=== PATIENT | female | born 1985 | race Caucasian/White ===

== ENCOUNTER 2019-08-09 09:37 | Emergency (ER) | payer SELFPAY ==
[2019-08-09 09:47] VITALS: BP 117/76; PULSE 80; RESP 18; TEMP 36.8; O2SAT 100
--- NOTE | 2019-08-09 10:01 | ED.ANIMALBIT ---
HPI - Animal Bite General Chief Complaint: Animal Bite Stated Complaint: Spider Bite ? Time Seen by Provider: 08/09/19 09:55 Source: patient Mode of arrival: ambulatory Limitations: no limitations History of Present Illness HPI narrative: This patient is a 34 year old female who presents for evaluation left arm insect bite. PAtient states she found what appeared to be 2 small insect bites to her left upper arm. These bites developed small blisters and she states she busted and got clear fluid. These small area itch but she denies fever, nausea, vomiting or redness. She came to ER to see if they were spider bites. complaint: other (insect bite) Related Data Home Medications Medication Instructions Recorded Confirmed cyclobenzaprine 10 mg PO PRN PRN 08/09/19 omeprazole 20 mg PO DAILY 08/09/19 Allergies Allergy/AdvReac Type Severity Reaction Status Date / Time No Known Allergies Allergy Verified 08/09/19 09:50 Review of Systems Review of Systems: All systems reviewed & are unremarkable except as noted in HPI and below Constitutional: Constitutional: Denies chills, Denies fever(s) and Denies weakness Respiratory: Respiratory: Denies cough and Denies dyspnea Gastrointestinal: Gastrointestinal: Denies nausea and Denies vomiting Integumentary/Breasts: Skin/Breast: Reports pruritus PMFSH Past Medical History Medical History (Updated 08/09/19 @ 10:07 by Lorin Britt MD) Gastroesophageal reflux Social History Social History (Updated 01/03/19 @ 12:52 by Stew Weaver PA-C) Smoking status: Never smoker Gender identity (if verbalized by the patient): Female Exam Const: General: alert Orientation/consciousness: patient oriented x3 HENMT: Head: normocephalic and atraumatic Eyes: EOM: EOMs intact bilaterally Chest: Chest palpation & inspection: normal inspection of the chest Resp: Effort & Inspection: normal respiratory effort Auscultation: clear to auscultation bilaterally Cardio: Rate: regular rate Rhythm: regular rhythm Heart sounds: no murmurs Skin: Other: 2 small lesions with one having unroof vesicule, no erythema no swelling Neuro: General: patient oriented x3 and moves all extremities Course Vital Signs Vital signs: Vital Signs Temperature 98.3 F 08/09/19 09:47 Pulse Rate 80 08/09/19 09:47 Respiratory Rate 18 08/09/19 09:47 Blood Pressure 117/76 08/09/19 09:47 Pulse Oximetry 100 08/09/19 09:47 Temperature 98.3 F 08/09/19 09:47 Pulse Rate 80 08/09/19 09:47 Respiratory Rate 18 08/09/19 09:47 Blood Pressure 117/76 08/09/19 09:47 Pulse Oximetry 100 08/09/19 09:47 Discharge Plan Discharge Clinical Impression: Insect bite of left arm Qualifiers: Encounter type: initial encounter Qualified Code(s): S40.862A - Insect bite (nonvenomous) of left upper arm, initial encounter Patient Disposition: Home, Self-Care Condition: Stable Instructions: Insect Bite or Sting (ED) Additional Instructions: Continue to monitor your wounds. Return if you have fever, vomiting, worsening redness, swelling return to ER. Continue to clean Prescriptions: No Action cyclobenzaprine 10 mg tablet 10 mg PO PRN PRN (Reason: Muscle Pain) RF: 0 omeprazole 20 mg capsule,delayed release(DR/EC) 20 mg PO DAILY RF: 0 Follow-up/Referrals: Ramon,Segun Ann MD [Primary Care Provider] - Discharge Date/Time: 08/09/19 10:32
== END 2019-08-09 10:32 | disposition home or self-care (01) ==
PROVIDERS: Emergency Provider General Practice; PCP Family Medicine
DX: S40.862A Insect bite (nonvenomous) of left upper arm, initial encounter (principal); K21.9 Gastro-esophageal reflux disease without esophagitis; W57.XXXA Bitten or stung by nonvenomous insect and other nonvenomous arthropods, initial encounter
CPT/HCPCS: 99281

== ENCOUNTER 2021-03-28 16:39 | Emergency (ER) | payer OTHER, SELFPAY ==
[2021-03-28 16:56] VITALS: BP 134/86; PULSE 75; RESP 16; TEMP 36.7; O2SAT 100
--- NOTE | 2021-03-28 17:19 | ED.ABDPAIN ---
HPI - Abdominal Pain General Chief Complaint: Abdominal Pain Stated Complaint: Side Pain Time Seen by Provider: 03/28/21 17:19 Source: patient Mode of arrival: ambulatory Limitations: no limitations History of Present Illness HPI narrative: 36-year-old female presents to the [facility] with complaints of right lower quadrant pain has been getting worse for the last 3 days. No urinary symptoms. States she has had nausea without vomiting. Last menstrual period 14 March 2021 States that she just started fertility treatments. MD elicited complaint: abdominal pain Related Data Home Medications Medication Instructions Recorded Confirmed clomiphene citrate 50 mg PO DIRECTED 03/28/21 03/28/21 Allergies Allergy/AdvReac Type Severity Reaction Status Date / Time No Known Allergies Allergy Verified 03/28/21 16:45 Review of Systems Review of Systems: All systems reviewed & are unremarkable except as noted in HPI and below Constitutional: Constitutional: Reports no additional constitutional complaints, Denies body ache(s), Denies chills and Denies fever(s) Eyes: Eyes: Reports no additional eye complaints ENT: Reports system reviewed and no additional complaints, except as documented Cardiovascular: Cardiovascular: Reports no additional cardiovascular complaints, Denies chest pain and Denies dyspnea Respiratory: Respiratory: Reports no additional respiratory complaints, Denies cough and Denies dyspnea Gastrointestinal: Gastrointestinal: Reports as per HPI, Reports abdominal pain, Denies diarrhea, Reports nausea and Denies vomiting Genitourinary: Genitourinary: Reports no additional female genitourinary complaints, Denies hematuria and Denies dysuria Musculoskeletal: Musculoskeletal: Reports no additional musculoskeletal complaints Integumentary/Breasts: Skin/Breast: Reports system reviewed and no additional complaints, except as docu Neurologic: Reports system reviewed and no additional complaints, except as documented Psychiatric: Psychiatric: Reports no additional psychiatric complaints Allergic/Immunologic: Allergic/Immunologic: Reports no additional allergic/immunologic complaints PMFSH Past Medical History Medical History Gastroesophageal reflux Social History Social History Smoking status: Never smoker Gender identity (if verbalized by the patient): Female Comments At the time of my signature, I reviewed and agree with the nursing past medical, surgical, social, and family history. There is no relevant family history pertinent to the patient complaint. Exam Const: General: cooperative, healthy appearing, comfortable, no acute distress, well developed, alert and acute distress mild (Pain) Nutritional Appearance: well nourished Orientation/consciousness: patient oriented x3 Limitations: no limitations HENMT: Head: normal to inspection Ears: external ears normal Eyes: Pupils: Equal, round and reactive pupils present Neck: Neck: normal visual inspection, no lymphadenopathy and no meningeal signs Chest: Chest palpation & inspection: normal inspection of the chest Resp: Effort & Inspection: normal respiratory effort, able to speak in complete sentences and no use of accessory muscles Auscultation: clear to auscultation bilaterally Cardio: Rate: regular rate Rhythm: regular rhythm GI: GI Palp: Yes Soft to palpation, Yes Tenderness to palpation present (GI), Yes Guarding due to palpation present (GI) and Yes Rebound tenderness present (Right lower quadrant) Auscultation: normal bowel sounds : General: Yes no CVA tenderness Back/Spine/Pelvis: Back: no CVA tenderness Skin: General skin exam: normal color and no rashes or lesions noted Rashes: no rashes Wounds: no wounds Neuro: General: patient oriented x3, gait normal, moves all extremities, no meningeal signs and no focal motor defi
== END 2021-03-28 17:25 | disposition short-term general hospital (02) ==
PROVIDERS: Emergency Provider Nurse Practitioner
DX: R10.31 Right lower quadrant pain (principal); K21.9 Gastro-esophageal reflux disease without esophagitis
CPT/HCPCS: 99212; G0463

== ENCOUNTER 2021-03-28 17:42 | Emergency (ER) | payer OTHER, SELFPAY ==
--- NOTE | ~2021-03-28 | US_ITS ---
EXAMINATION: US pelvic complete EXAM DATE: 03/28/2021 19:30 INDICATION: RLQ abd pain, on CLOMID, rule out torsion RULE OUR TORSION. TECHNIQUE: Pelvic transabdominal sonogram was performed. There are multiple grayscale and Doppler im ages available for interpretation. There is no prior study for comparison. FINDINGS: Uterus measures 7.7 x 4.6 x 6.0 cm cm, and is morphologically normal. Endometrial stripe measures 11 mm, within normal limits. There is no free pelvic fluid. Right adnexa: The ovary measures 3.7 x 2.4 x 2.2 cm and is morphologically normal. Ovarian vascular f low confirmed. Left adnexa: The ovary measures 3.6 x 1.9 x 2.4 cm and is morphologically normal. Ovarian vascular fl ow confirmed. IMPRESSION: 1. Unremarkable pelvic ultrasound exam. Reviewed, dictated and finalized at location G. RYCOOK'S ASSISTANT
--- NOTE | ~2021-03-28 | CT_ITS ---
EXAMINATION: CT abdomen pelvis w con EXAM DATE: 03/28/2021 19:59 INDICATION: RLQ pain, eval for appendicitis . COVID positive. TECHNIQUE: Spiral CT of the abdomen and pelvis was performed following intravenous injection of 100 m L Omnipaque 350. Axial, coronal and sagittal images of the abdomen and pelvis were reviewed. The do se-length product (DLP) for this examination was 445.22 mGy-cm. The exposure was tailored according to patient size (auto mA exposure control), and iterative reconstruction (ASIR) was used as additiona l dose reduction technique. Comparison is made to prior examination from 06/28/2017. FINDINGS: The liver, spleen, adrenal glands and pancreas are unremarkable. Gallbladder is unremarkab le. No biliary obstruction. Portal and splenic veins are patent. Kidneys enhance symmetrically. T here is no hydronephrosis. The uterus is retroverted and morphologically normal. Small amount of fr ee pelvic fluid and fluid in the right colic gutter. The bladder is unremarkable. There is no retro peritoneal or pelvic lymphadenopathy. The appendix is not positively visualized, but there is no finding to specifically suggest appendicit is. Please note the appendix is also not identified on previous examination. There is mild scattered colonic diverticulosis. There is no adjacent inflammatory change to suggest diverticulitis. The stom ach and small bowel are unremarkable. There is expected amount of colonic stool. No free intraperi toneal gas. The heart is normal in size. There are no pericardial or pleural effusions. The lung bases are unremarkable. There is mild to moderate thoracolumbar levoscoliosis. IMPRESSION: Small amount of free fluid probably physiologic. Mild colonic diverticulosis. Reviewed, dictated and finalized at location G. [employer] RESEARCH IMPRESSION: Small amount of free fluid probably physiologic. Mild colonic dive rticulosis.
[2021-03-28 17:46] VITALS: BP 138/86; PULSE 101; RESP 16; TEMP 36.7; O2SAT 100
--- NOTE | 2021-03-28 18:14 | ED.ABDPAIN ---
HPI - Abdominal Pain General Chief Complaint: Abdominal Pain Stated Complaint: RLQ ABD PAIN Time Seen by Provider: 03/28/21 18:01 Source: patient Mode of arrival: ambulatory Limitations: no limitations History of Present Illness HPI narrative: The patient is a 36-year-old female who is presenting to our emergency department for evaluation of right lower quadrant abdominal pain. Patient was referred to us from an urgent care, she has had 3 days of aching, sharp right lower quadrant abdominal pain with out radiation to the flank or the left side of the abdomen. Patient denies fever, chills, nausea or vomiting. She does report constipation and decreased oral intake. Patient denies dysuria or hematuria. No diarrhea. States that she tested positive for Covid March 17, started Clomid for infertility on March 18. Patient's CURRICULUM FACILITATOR is Dr. Alvarenga. She has never been . Patient denies dysuria or hematuria. No history of nephrolithiasis. She does have a history of cyst removal in the left ovary. No known history of ovarian torsion when questioned. Last oral intake around 11:30 AM this morning. Related Data Home Medications Medication Instructions Recorded Confirmed clomiphene citrate 50 mg PO DIRECTED 03/28/21 03/28/21 Allergies Allergy/AdvReac Type Severity Reaction Status Date / Time No Known Allergies Allergy Verified 03/28/21 16:45 Review of Systems Review of Systems: CONSTITUTIONAL: Denies fever, chills, or sweats. EYES: Denies visual changes, redness, or discharge. ENT: Denies rhinorrhea, congestion, sore throat, or otalgia. CARDIOVASCULAR: Denies chest pain, palpitations, or edema. RESPIRATORY: Denies cough or dyspnea. GASTROINTESTINAL: Reports right lower quadrant abdominal pain, denies nausea, vomiting, reports constipation, denies diarrhea GENITOURINARY: Denies dysuria or hematuria. SKIN: Denies rash or itching. MUSCULOSKELETAL: Denies back pain, joint pain, or myalgia. NEUROLOGIC: Denies headache, numbness, or weakness. [facility] Past Medical History Medical History Gastroesophageal reflux Social History Social History Smoking status: Never smoker Gender identity (if verbalized by the patient): Female Exam Narrative: GENERAL: Awake, alert, conversant HEAD: Normocephalic, atraumatic. EYES: PERRLA and EOMI. ENT: Nares clear, no rhinorrhea or epistaxis. Mucous membranes moist. NECK: Supple. CHEST: No respiratory distress, breathing even and non labored HEART: Tachycardic rate, sinus rhythm ABDOMEN:Non distended, tender in the right lower quadrant, positive guarding, positive Rovsing sign, no rebound EXTREMITIES: Normal range of motion. No edema. SKIN: Warm, dry, no rash. NEURO:No focal deficits. Alert and oriented x3 Course Vital Signs Vital signs: Vital Signs Temperature 36.7 C 03/28/21 17:46 Pulse Rate 101 H 03/28/21 17:46 Respiratory Rate 16 03/28/21 17:46 Blood Pressure 138/86 03/28/21 17:46 Pulse Oximetry 100 03/28/21 17:46 Temperature 37.5 C 03/28/21 18:56 Pulse Rate 114 H 03/28/21 18:56 Respiratory Rate 14 03/28/21 18:56 Blood Pressure 128/60 03/28/21 18:56 Pulse Oximetry 89 L 03/28/21 18:56 MDM - Abdominal Pain MDM Narrative Medical decision making narrative: Patient presenting for evaluation of right lower quadrant abdominal pain. At the time of assessment, ABCs are intact, patient is mildly tachycardic. Patient is afebrile. She does have right lower quadrant pain with guarding, positive Rovsing sign. Given her history of Clomid use, was concern for possible torsion versus ovulation type pain, UTI, renal colic, appendicitis. I have access obtained and labs are drawn. Patient was given IV fluids, antiemetic, pain medication. Laboratory results show mild leukocytosis without significant neutrophil predominance. No acute kidney injury or
[2021-03-28 18:27] LABS: Basophils Absolute Auto 0.1 K/mm3 (0.0-0.1); Basophils Percent Auto 0.4 % (0.2-1.2); Eosinophils Absolute Auto 0.1 K/mm3 (0-0.3); Eosinophils Percent Auto 0.7 % (0-4.4); Hemoglobin 13.4 g/dL (12.0-15.0); Immature Granulocyte Absolute 0.06 K/mm3 (0.00-0.031); Immature Granulocyte Percent A 0.5 % (0-0.5); Lymphocytes Absolute Auto 3.05 K/mm3 (0.9-3.2); Lymphocytes Percent Auto 25.3 % (18.3-44.2); Mean Corpuscular HGB Conc 32.7 g/dl (32-36); Mean Corpuscular Hemoglobin 29.5 pg (26-34); Mean Corpuscular Volume 90.3 fl (80-100); Mean Platelet Volume 9.2 fl (7.4-10.4); Monocytes Absolute Auto 0.7 K/mm3 (0.1-0.6); Neutrophils Absolute Auto 8.1 K/mm3 (1.3-6.7); Neutrophils Percent Auto 67.1 % (45.5-73.1); Platelet Count Result 305 k/mm3 (150-375); Red Blood Count 4.54 M/mm3 (4.2-5.4); Red Cell Distribution Width 12.2 % (11.5-14.5)
[2021-03-28] MEDS: SODIUM CHLORIDE 0.9% IV 1,000 ML 999 ML IV CONT (18:28)
[2021-03-28] MEDS: MORPHINE SULFATE (*CRX) 4 MG/ML INJ IV PUSH (18:29)
[2021-03-28 18:40] LABS: Alanine Aminotransferase 24 U/L (4-35); Albumin Level 4.9 g/dL (3.5-5.1); Alkaline Phosphatase 49 U/L (38-126); Anion Gap 9 mmol/L (8-16); Aspartate Amino Transferase 26 U/L (14-36); Bilirubin,Total 0.6 mg/dL (0.2-1.3); Blood Urea Nitrogen 11 mg/dL (7-17); Calcium 9.5 mg/dL (8.4-10.2); Carbon Dioxide 26 mmol/L (22-30); Chloride 101 mmol/L (98-107); Estimated CRCL calculation 95 ml/min; Estimated Glomerular Filt Rate > 60; Glucose 92 mg/dL (65-110); Lipase 62 U/L (23-300); Sodium 136 mmol/L (137-145)
[2021-03-28 18:43] LABS: Add Urine Microscopic? NO; Appearance Urine Clear (Clear); Bilirubin Urine Negative (Negative); Blood Urine Negative (Negative); Color Urine Straw (Yellow); Glucose Urine UA Negative (Negative); Ketones Urine Negative (Negative); Leukocyte Esterase Ur Negative LEU/UL (Negative); Nitrate Urine Negative (Negative); Protein Urine Negative (Negative); Specific Grav Ur 1.005 (1.001-1.035); Urobilinogen Urine Negative mg/dL (<2.0)
[2021-03-28 18:56] VITALS: BP 128/60; PULSE 114; RESP 14; TEMP 37.5; O2SAT 89
== END 2021-03-28 20:32 | disposition home or self-care (01) ==
PROVIDERS: Emergency Provider Emergency Medicine; PCP Family Medicine
DX: R10.31 Right lower quadrant pain (principal); K21.9 Gastro-esophageal reflux disease without esophagitis; K57.90 Diverticulosis of intestine, part unspecified, without perforation or abscess without bleeding; N97.9 Female infertility, unspecified; Z86.16 Personal history of COVID-19
CPT/HCPCS: 36415; 74177; 76856; 80053; 81003; 81025; 83690; 85025; 96365; 96375; 99284; J0131; J2270; J7030; Q9967

== ENCOUNTER 2022-02-11 09:49 | Emergency (ER) | payer OTHER, SELFPAY ==
[2022-02-11 10:35] VITALS: BP 120/83; PULSE 75; RESP 16; TEMP 36.1; O2SAT 99
--- NOTE | 2022-02-11 10:39 | ED.URI ---
HPI - URI/Sore Throat General Chief Complaint: Upper Respiratory Infection Stated Complaint: de [place] rosa/vomiting Time Seen by Provider: 02/11/22 10:39 Source: patient, RN notes reviewed and old records reviewed Mode of arrival: ambulatory Limitations: no limitations History of Present Illness HPI Narrative: 36-year-old female presents to the [facility] with complaints of nausea, vomiting and diarrhea. No abdominal pain. Patient states that she really did not feel well yesterday. She has concern for COVID hand flu. Works in a long term Patient denies any abdominal pain or chest pain. Reports intermittent cramping. Has taken Pepto-Bismol Related Data Home Medications Medication Instructions Recorded Confirmed citalopram 20 mg tablet mg 02/11/22 cyclobenzaprine 10 mg tablet mg 02/11/22 doxycycline hyclate 100 mg capsule mg 02/11/22 hydroxyzine HCl 10 mg tablet mg 02/11/22 Allergies Allergy/AdvReac Type Severity Reaction Status Date / Time No Known Allergies Allergy Verified 01/02/22 15:09 Review of Systems Review of Systems: All systems reviewed & are unremarkable except as noted in HPI and below Constitutional: Constitutional: Reports no additional constitutional complaints Eyes: Eyes: Reports no additional eye complaints ENT: Reports system reviewed and no additional complaints, except as documented Cardiovascular: Cardiovascular: Reports no additional cardiovascular complaints, Denies chest pain and Denies dyspnea Respiratory: Respiratory: Reports no additional respiratory complaints, Denies chest congestion, Denies cough and Denies dyspnea Gastrointestinal: Gastrointestinal: Reports as per HPI, Denies abdominal pain, Reports diarrhea, Reports nausea and Reports vomiting Musculoskeletal: Musculoskeletal: Reports no additional musculoskeletal complaints Integumentary/Breasts: Skin/Breast: Reports system reviewed and no additional complaints, except as docu Neurologic: Reports system reviewed and no additional complaints, except as documented Psychiatric: Psychiatric: Reports no additional psychiatric complaints Allergic/Immunologic: Allergic/Immunologic: Reports no additional allergic/immunologic complaints PMFSH Past Medical History Medical History Gastroesophageal reflux Vaginal irritation Social History Social History Smoking status: Never smoker Alcohol intake: current Alcohol use details: socially Substance use: never Substance use type: does not use Gender identity (if verbalized by the patient): Female Comments At the time of my signature, I reviewed and agree with the nursing past medical, surgical, social, and family history. There is no relevant family history pertinent to the patient complaint. Exam Const: General: cooperative, healthy appearing, comfortable, no acute distress, well developed, alert and well nourished Nutritional Appearance: well nourished Orientation/consciousness: patient oriented x3 Limitations: no limitations HENMT: Head: normal to inspection Ears: hearing grossly normal bilaterally and external ears normal Face/Nose/Sinus: Normal external nose present, Normal nares present, Normal nasal mucous membranes and turbinates present and normal facial exam Face and sinus: normal facial exam Mouth: Yes Normal oral and palatal mucosa present, Yes lip normal and Yes moist mucous membranes Throat: posterior oropharynx normal and uvula midline Eyes: General: appearance normal, both eyes and all related structures Alignment and Position: alignment normal Periorbital: periorbital findings normal Conjunctivae: conjunctivae normal Pupils: Equal, round and reactive pupils present EOM: EOMs intact bilaterally Neck: Neck: normal visual inspection, full ROM, no lymphadenopathy and no meningeal signs Chest: Chest palpation & inspection: normal inspection o
== END 2022-02-11 11:21 | disposition home or self-care (01) ==
PROVIDERS: Emergency Provider Nurse Practitioner
DX: K29.00 Acute gastritis without bleeding (principal); Z20.822 Contact with and (suspected) exposure to COVID-19; K21.9 Gastro-esophageal reflux disease without esophagitis
CPT/HCPCS: 87426; 87804; 99213; C9803; G0463

== ENCOUNTER 2022-04-10 15:35 | Emergency (ER) | payer OTHER, SELFPAY ==
--- NOTE | ~2022-04-10 | XR_ITS ---
EXAMINATION: XR ankle LT min 3V DATE: 04/10/2022 16:15 INDICATION: Left ankle pain TECHNIQUE: Anteroposterior, lateral, mortise, and additional oblique view of the ankle were obtained. COMPARISON: None. FINDINGS: Bone alignment is normal. The soft tissues are unremarkable. There is a subtle transverse l ucency of the medial malleolus just below the level of the tibial plafond. IMPRESSION: 1. Possible nondisplaced fracture of the lateral malleolus. Reviewed, dictated and finalized at location B. ULATION TENDER
[2022-04-10 15:41] VITALS: BP 130/98; PULSE 81; RESP 16; TEMP 36.7; O2SAT 100
--- NOTE | 2022-04-10 16:06 | ED.LOWEXIN ---
HPI - Extremity Injury (Lower) General Chief Complaint: Extremity Injury, Lower Stated Complaint: L LEG PAIN S/P FALL 1WK AGO Time Seen by Provider: 04/10/22 15:48 History of Present Illness HPI Narrative: 37 yo F here for evaluation of L ankle pain x 4 days. Patient states that she had a mechanical fall down her driveway last week where her left leg caught in front of her and her right leg behind her, essentially causing her to land in the splits. She states that she felt a pop in her left ankle and has had pain since then. She has been able to walk which is states it is painful. No relief after ibuprofen. No head injury or loss of consciousness. Related Data Home Medications Medication Instructions Recorded Confirmed citalopram 20 mg tablet mg 02/11/22 cyclobenzaprine 10 mg tablet mg 02/11/22 doxycycline hyclate 100 mg capsule mg 02/11/22 hydroxyzine HCl 10 mg tablet mg 02/11/22 Allergies Allergy/AdvReac Type Severity Reaction Status Date / Time No Known Allergies Allergy Verified 01/02/22 15:09 Review of Systems Review of Systems: Gen: Denies fevers or chills Eyes: Denies eye pain or visual change ENT: Denies congestion Respiratory: Denies shortness of breath or cough CV: Denies chest pain or palpitations GI: Denies abdominal pain nausea, emesis or diarrhea : denies burning, urgency, frequency or hematuria Musculoskeletal: reports pain in her left leg Neuro: Denies numbness, tingling, weakness or focal weakness Skin: Denies rash Except as documented, all other systems reviewed and negative PMFSH Past Medical History Medical History Gastroesophageal reflux Vaginal irritation Social History Social History Smoking status: Never smoker Alcohol intake: current Alcohol use details: socially Substance use: never Substance use type: does not use Living arrangements: with family Occupation/Education: occupation Gender identity (if verbalized by the patient): Female Exam Narrative: APPEARANCE: Well appearing, no pain in distress, well-nourished. Head: Normocephalic and atraumatic. EYES: PERRLA/EOMI, conjunctivae clear NOSE: No nasal drainage EARS: External ear normal in appearance THROAT: Oropharynx is clear. Mucous membranes are moist. NECK: Supple. No adenopathy, no masses. RESPIRATORY: Airway patent, respirations nonlabored. Clear to auscultation bilaterally, no rales, rhonchi, wheezing. CARDIOVASCULAR: Regular rate and rhythm without murmurs, rubs, or gallops. ABDOMINAL: Normoactive bowel sounds. Soft, nontender, nondistended. No rebound tenderness or guarding. MUSCULOSKELETAL: No obvious deformity to the foot. Achilles tendon is intact. Parkinson's test negative. Tenderness to palpation along lateral malleolus. Syndesmosis squeeze test is negative. No obvious deformity noted. Full range of motion of the foot without pain. NEURO: Normal speech. No focal neurologic deficits. SKIN: Skin is warm and dry. No rashes. PSYCHIATRIC: Normal affect/mood. Course Vital Signs Vital signs: Vital Signs Temperature 98.0 F 04/10/22 15:41 Pulse Rate 81 04/10/22 15:41 Respiratory Rate 16 04/10/22 15:41 Blood Pressure 130/98 H 04/10/22 15:41 Pulse Oximetry 100 04/10/22 15:41 Oxygen Delivery Room Air 04/10/22 15:41 Temperature 98.0 F 04/10/22 15:41 Pulse Rate 81 04/10/22 15:41 Respiratory Rate 16 04/10/22 15:41 Blood Pressure 130/98 H 04/10/22 15:41 Pulse Oximetry 100 04/10/22 15:41 Oxygen Delivery Room Air 04/10/22 15:41 MDM - Extremity Injury (Lower) MDM Narrative Medical decision making narrative: 37-year-old female here for evaluation of left foot pain after a fall several days ago. Patient has tenderness to palpation to the lateral malleolus but no obvious deformity. Her compartments are soft and she has strong distal pul
[2022-04-10] MEDS: ACETAMINOPHEN 325 MG TABLET 650 MG PO (16:11)
== END 2022-04-10 17:52 | disposition home or self-care (01) ==
PROVIDERS: Emergency Provider Physician Assistant; PCP Nurse Practitioner Family
DX: S82.62XA Displaced fracture of lateral malleolus of left fibula, initial encounter for closed fracture (principal); K21.9 Gastro-esophageal reflux disease without esophagitis; W18.39XA Other fall on same level, initial encounter
CPT/HCPCS: 29515; 73610; 99283; 99284; A9270

== ENCOUNTER 2022-06-19 09:17 | Emergency (ER) | payer OTHER, SELFPAY ==
--- NOTE | ~2022-06-19 | XR_ITS ---
EXAMINATION: XR ribs RT 2V w CXR 2V INDICATION: Right-sided chest pain TECHNIQUE: Frontal and lateral views of the chest and 3 views of the right ribs were obtained. COMPARISON: None. FINDINGS: The lungs are free of acute opacities. There is a trace right pleural effusion. No pneumoth orax is identified. The cardiomediastinal silhouette is normal. There is S shaped curvature of the th oracolumbar spine. No displaced rib fracture is identified. Contrast from earlier CT partially opacif ies the urinary tract. IMPRESSION: 1. No acute cardiopulmonary abnormality or evidence of displaced rib fracture. Reviewed, dictated and finalized at location B.
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
[2022-06-19 09:22] VITALS: BP 131/91; PULSE 86; RESP 20; TEMP 36.8; O2SAT 99
[2022-06-19 09:33] VITALS: BP 124/83; PULSE 99; RESP 18; O2SAT 99
[2022-06-19 09:49] LABS: Basophils Percent Auto 0.5 % (0.2-1.2); Eosinophils Absolute Auto 0.1 K/mm3 (0-0.3); Eosinophils Percent Auto 1.3 % (0-4.4); Hematocrit 37.6 % (37.0-47.0); Hemoglobin 12.3 g/dL (12.0-15.0); Immature Granulocyte Absolute 0.01 K/mm3 (0.00-0.031); Immature Granulocyte Percent A 0.2 % (0-0.5); Lymphocytes Absolute Auto 1.68 K/mm3 (0.9-3.2); Lymphocytes Percent Auto 27.5 % (18.3-44.2); Mean Corpuscular HGB Conc 32.7 g/dl (32-36); Mean Corpuscular Hemoglobin 29.6 pg (26-34); Mean Corpuscular Volume 90.6 fl (80-100); Mean Platelet Volume 9.6 fl (7.4-10.4); Monocytes Absolute Auto 0.5 K/mm3 (0.1-0.6); Monocytes Percent Auto 7.5 % (2.6-8.5); Neutrophils Absolute Auto 3.9 K/mm3 (1.3-6.7); Platelet Count Result 220 k/mm3 (150-375); Red Blood Count 4.15 M/mm3 (4.2-5.4); Red Cell Distribution Width 12.5 % (11.5-14.5); White Blood Count 6.1 K/mm3 (4.5-10.0)
[2022-06-19] MEDS: MORPHINE SULFATE (*CRX) 4 MG/ML INJ IV PUSH (10:30)
[2022-06-19 10:32] LABS: Alanine Aminotransferase 28 U/L (6-35); Albumin Level 4.4 g/dL (3.5-5.1); Alkaline Phosphatase 45 U/L (38-126); Anion Gap 7 mmol/L (8-16); Aspartate Amino Transferase 33 U/L (14-36); Bilirubin,Total 0.4 mg/dL (0.2-1.3); Blood Urea Nitrogen 13 mg/dL (7-17); Calcium 9.1 mg/dL (8.4-10.2); Carbon Dioxide 28 mmol/L (22-30); Chloride 100 mmol/L (98-107); Estimated CRCL calculation 109 ml/min; Estimated Glomerular Filt Rate > 60; Glucose 92 mg/dL (65-110); Lipase 69 U/L (23-300); Potassium 3.7 mmol/L (3.4-5.0); Sodium 135 mmol/L (137-145)
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
[2022-06-19 14:04] VITALS: BP 110/64; PULSE 84; RESP 16; O2SAT 100
== END 2022-06-19 14:04 | disposition home or self-care (01) ==
PROVIDERS: Emergency Provider Emergency Medicine; PCP Nurse Practitioner Family
DX: R07.81 Pleurodynia (principal); K21.9 Gastro-esophageal reflux disease without esophagitis; V43.52XA Car driver injured in collision with other type car in traffic accident, initial encounter
CPT/HCPCS: 36415; 71046; 71100; 72125; 74177; 80053; 81025; 83690; 85025; 96374; 99284; J2270; Q9967

== ENCOUNTER 2022-08-09 09:04 | Emergency (ER) | payer BC, OTHER, SELFPAY ==
--- NOTE | ~2022-08-09 | XR_ITS ---
EXAMINATION: XR chest 2V DATE: 08/09/2022 INDICATION: Weakness and dizziness, acid reflux TECHNIQUE: PA and lateral views of the chest are obtained. COMPARISON: 06/19/2022 FINDINGS: The lungs are free of acute opacities. No pleural effusion or pneumothorax. The cardiomedia stinal silhouette is normal. Thoracic dextroscoliosis is noted. IMPRESSION: 1. No acute cardiopulmonary abnormality. Reviewed, dictated and finalized at location A.
[2022-08-10 07:52] LABS: Hematocrit 36.1 % (37.0-47.0); Hemoglobin 11.8 g/dL (12.0-15.0); Mean Corpuscular HGB Conc 32.7 g/dl (32-36); Mean Corpuscular Hemoglobin 29.4 pg (26-34); Mean Platelet Volume 9.7 fl (7.4-10.4); Platelet Count Result 257 k/mm3 (150-375); Red Blood Count 4.01 M/mm3 (4.2-5.4); Red Cell Distribution Width 12.8 % (11.5-14.5); White Blood Count 5.9 K/mm3 (4.5-10.0)
[2022-08-10 07:53] LABS: Basophils Absolute Auto 0.1 K/mm3 (0.0-0.1); Basophils Percent Auto 0.8 % (0.2-1.2); Eosinophils Absolute Auto 0.1 K/mm3 (0-0.3); Eosinophils Percent Auto 1.2 % (0-4.4); Immature Granulocyte Absolute 0.02 K/mm3 (0.00-0.031); Immature Granulocyte Percent A 0.3 % (0-0.5); Lymphocytes Absolute Auto 1.69 K/mm3 (0.9-3.2); Lymphocytes Percent Auto 28.6 % (18.3-44.2); Monocytes Absolute Auto 0.4 K/mm3 (0.1-0.6); Monocytes Percent Auto 7.3 % (2.6-8.5); Neutrophils Absolute Auto 3.7 K/mm3 (1.3-6.7); Neutrophils Percent Auto 61.8 % (45.5-73.1)
[2022-08-10 07:54] LABS: Alanine Aminotransferase 24 U/L (6-35); Anion Gap 3 mmol/L (8-16); Aspartate Amino Transferase 34 U/L (14-36); Bilirubin,Total 0.6 mg/dL (0.2-1.3); Blood Urea Nitrogen 8 mg/dL (7-17); Calcium 9.4 mg/dL (8.4-10.2); Carbon Dioxide 31 mmol/L (22-30); Chloride 104 mmol/L (98-107); Estimated Glomerular Filt Rate > 60; Glucose 85 mg/dL (65-110); Potassium 3.7 mmol/L (3.4-5.0); Sodium 138 mmol/L (137-145); Troponin I < 0.012 ng/mL (0.000-0.034)
[2022-08-10 07:55] LABS: Albumin Level 4.2 g/dL (3.5-5.1); Alkaline Phosphatase 41 U/L (38-126); Lipase 62 U/L (23-300); Total Protein 7.1 g/dL (6.3-8.2)
[2022-08-10 15:29] LABS: Troponin I < 0.012 ng/mL (0.000-0.034)
== END 2022-08-09 15:00 | disposition home or self-care (01) ==
LOC: ANHED 08-14 10:38
PROVIDERS: Emergency Provider Physician Assistant; PCP Nurse Practitioner Family
DX: I95.1 Orthostatic hypotension (principal); K21.9 Gastro-esophageal reflux disease without esophagitis
CPT/HCPCS: 36415; 71046; 80053; 83690; 84484; 85025; 96361; 96374; 96375; 99284; A9270; C9113; J2405; J7030

== ENCOUNTER 2022-12-19 16:04 | Emergency (ER) | payer BC, OTHER, SELFPAY ==
--- NOTE | ~2022-12-19 | US_ITS ---
EXAMINATION: US venous doppler UE RT DATE: 12/19/2022 17:46 INDICATION: Right upper limb swelling. TECHNIQUE: Grayscale ultrasound images without and with compression and Doppler ultrasound images of the right upper extremity veins were obtained. COMPARISON: None. FINDINGS: The visualized portions of the right internal jugular vein, subclavian vein, axillary vein, brachial veins, basilic vein, cephalic vein, radial vein, and ulnar vein are patent. IMPRESSION: 1. No deep venous thrombosis. Reviewed, dictated and finalized at location E.
[2022-12-19 16:11] VITALS: BP 120/70; PULSE 87; RESP 20; TEMP 36.4; O2SAT 100
--- NOTE | 2022-12-19 16:44 | PC.NURSE ---
pt states the doctor she sees for her scoliosis has scheduled a MRI on her right arm, she is unable to get an appointment until next month.
--- NOTE | 2022-12-19 17:46 | ED.EXTPRO ---
HPI - Extremity Problem General Chief complaint: Extremity Problem,Nontraumatic Stated complaint: right arm pain, swelling Time Seen by Provider: 12/19/22 17:13 History of Present Illness HPI Narrative: 37-year-old female present emergency department for evaluation of right arm pain. Patient does have a history of golfers elbow. Patient states for the past the last 2 months she has had worsening arm pain. Patient did have follow-up with her primary care physician and was ordered an outpatient MRI for February. Patient states over the last few days she has had increased swelling of the right arm. Related Data Home Medications Medication Instructions Recorded Confirmed citalopram 20 mg tablet mg 02/11/22 06/19/22 cyclobenzaprine 10 mg tablet mg 02/11/22 06/19/22 doxycycline hyclate 100 mg capsule mg 02/11/22 06/19/22 hydroxyzine HCl 10 mg tablet mg 02/11/22 06/19/22 Allergies Allergy/AdvReac Type Severity Reaction Status Date / Time No Known Allergies Allergy Verified 12/19/22 16:14 Review of Systems Review of Systems: All systems reviewed & are unremarkable except as noted in HPI and below PMFSH Past Medical History Medical History Gastroesophageal reflux Vaginal irritation Surgical History Surgical History History of removal of ovarian cyst (~2005) Social History Social History Smoking status: Never smoker Alcohol intake: current Alcohol use details: socially Substance use: never Substance use type: does not use Lack of Transportation: No Lack of Food: Never True Current Housing: I Have Housing Concerned About Future Housing: No Difficulty Paying Gas/Electric Bills: No Difficulty Paying for Meds: No Currently Unemployed: No Education: High School Diploma/GED Difficulty w/ Childcare or Family Care: No Living arrangements: with family Occupation/Education: occupation Gender identity (if verbalized by the patient): Female Exam Narrative: APPEARANCE: Well appearing, no pain, no distress, well-nourished. HEAD: normocephalic, atraumatic. EYES: PERRLA/EOMI, conjunctivae clear. NOSE: Normal no drainage NECK: Supple. No adenopathy, no masses. RESPIRATORY: Airway patent, respirations nonlabored. Clear to auscultation bilaterally, no rales, rhonchi, wheezing. CARDIOVASCULAR: Regular rate and rhythm without murmurs rubs or gallops. ABDOMINAL: Soft, nontender, nondistended, normal bowel sounds MUSCULOSKELETAL: Tenderness at right elbow some swelling of right hand neurovascular intact NEURO: Alert. Cranial nerves II through XII intact. Good gait. Good coordination SKIN: Warm, dry. Normal Color Course Course Emergency Course: 37-year-old female present emergency department for evaluation of right arm swelling and right elbow pain. Patient recently had negative x-rays of the right elbow. Patient had ultrasound today showing no evidence of DVT. Patient was started on prednisone for possible tendinitis. Patient was also encouraged to have close follow-up with her primary care physician. Patient does have an MRI scheduled for outpatient. Patient was educated on reasons to return to the emergency room. All questions and concerns were addressed Vital Signs Vital signs: Vital Signs Temperature 97.5 F L 12/19/22 16:11 Pulse Rate 87 12/19/22 16:11 Respiratory Rate 20 12/19/22 16:11 Blood Pressure 120/70 12/19/22 16:11 Pulse Oximetry 100 12/19/22 16:11 Oxygen Delivery Room Air 12/19/22 16:11 Temperature 97.5 F L 12/19/22 16:11 Pulse Rate 87 12/19/22 16:11 Respiratory Rate 20 12/19/22 16:11 Blood Pressure 120/70 12/19/22 16:11 Pulse Oximetry 100 12/19/22 16:11 Oxygen Delivery Room Air 12/19/22 16:11 Discharge Plan Discharge Clinical Impression: Elbow
== END 2022-12-19 18:52 | disposition home or self-care (01) ==
PROVIDERS: Emergency Provider Emergency Medicine; PCP Nurse Practitioner Family
DX: M70.831 Other soft tissue disorders related to use, overuse and pressure, right forearm (principal); K21.9 Gastro-esophageal reflux disease without esophagitis
CPT/HCPCS: 93971; 99284; A4565

== ENCOUNTER 2022-12-27 07:40 | Outpatient (CLI) | payer OTHER, SELFPAY ==
--- NOTE | ~2022-12-27 | MR_ITS ---
EXAMINATION: MR cervical spine wo con DATE: 12/27/2022 08:14 INDICATION: Cervical central canal stenosis. TECHNIQUE: Magnetic resonance imaging (MRI) of the cervical spine was performed without intravenous c ontrast. Sequences included sagittal T2-weighted FSE, sagittal T2-weighted FS FSE, sagittal T1-weight ed FSE, axial MERGE and axial T2-weighted FSE. COMPARISON: CT dated 06/19/2022 FINDINGS: Unchanged mild reversal of the normal cervical lordosis. Chronic mild anterior vertebral body height loss at C6. Bone marrow signal intensity is normal. Moderate disc height loss at C6-C7 with mild dis c height loss at C3-C4 through C5-C6 and mild disc desiccation without significant disc height loss a t C7-T1. Cord signal intensity is normal. The visualized cervical soft tissues are unremarkable. The following disc levels are specifically discussed: C2-C3: The disc does not extend beyond the endplate margin. There is no uncovertebral joint osteoarth ritis. There is mild bilateral facet joint osteoarthritis. There is no neural foraminal stenosis. The re is no central canal stenosis. C3-C4: Disc is mildly bulging. There is mild right uncovertebral joint osteoarthritis. There is mild bilateral facet joint osteoarthritis. There is mild right neural foraminal stenosis. There is no cent ral canal stenosis. C4-C5: Disc is bulging. There is mild bilateral uncovertebral joint osteoarthritis. There is mild rig ht facet joint osteoarthritis. There is mild right neural foraminal stenosis. There is mild central c anal stenosis with subtle flattening the right ventral surface of the cord. C5-C6: Disc is bulging. There is mild bilateral uncovertebral joint osteoarthritis. There is no facet joint osteoarthritis. There is no neural foraminal stenosis. There is mild central canal stenosis. C6-C7: Disc is bulging with left foraminal zone annular fissure and small disc extrusion which extend s a couple millimeter caudal to the C7 superior endplate margin. There is moderate bilateral, right g reater than left, uncovertebral joint osteoarthritis. There is mild bilateral facet joint osteoarthri tis. There is mild bilateral neural foraminal stenosis. There is mild central canal stenosis with mil d indentation of the left ventral surface of the cord. C7-T1: Disc is mildly bulging. There is no uncovertebral joint osteoarthritis. There is no facet join t osteoarthritis. There is no neural foraminal stenosis. There is no central canal stenosis. IMPRESSION: 1. Cervical spondylosis, moderate C6 67 and otherwise mild. Reviewed, dictated and finalized at location A.
== END 2022-12-27 07:41 | disposition home or self-care (01) ==
PROVIDERS: PCP Nurse Practitioner Family; Visit Provider Nurse Practitioner Family
DX: M43.02 Spondylolysis, cervical region (principal); M48.02 Spinal stenosis, cervical region
CPT/HCPCS: 72141

== ENCOUNTER 2023-11-17 19:39 | Emergency (ER) | payer OTHER, SELFPAY ==
--- NOTE | 2023-11-17 19:50 | ED.FEMALEGU ---
HPI - Female Genitourinary General Chief complaint: Urogenital-Female Stated complaint: UTI Time Seen by Provider: 11/17/23 19:52 Source: patient, RN notes reviewed and old records reviewed Mode of arrival: ambulatory Limitations: no limitations History of Present Illness HPI Narrative: 38-year-old female presents to the [facility] with concerns for a UTI Patient presents with 3 day history of suprapubic pressure, worse with urinating. States it feels like she is not emptying her bladder, discomfort with urination. Onset (ago): day(s) (3) Related Data Home Medications Medication Instructions Recorded Confirmed gabapentin 300 mg capsule 300 mg PO DAILY 03/05/23 11/17/23 omeprazole 20 mg capsule,delayed 20 mg PO DAILY 03/05/23 11/17/23 release cyclobenzaprine 10 mg tablet 10 mg PO DAILY 09/17/23 11/17/23 trazodone 50 mg tablet 50 mg PO DAILY 09/17/23 11/17/23 venlafaxine 37.5 mg 37.5 mg PO DAILY 09/17/23 11/17/23 capsule,extended release 24 hr Allergies Allergy/AdvReac Type Severity Reaction Status Date / Time No Known Allergies Allergy Verified 11/17/23 19:41 Review of Systems Review of Systems: All systems reviewed & are unremarkable except as noted in HPI and below Constitutional: Constitutional: Reports no additional constitutional complaints Eyes: Eyes: Reports no additional eye complaints ENT: Reports system reviewed and no additional complaints, except as documented Cardiovascular: Cardiovascular: Reports no additional cardiovascular complaints, Denies chest pain and Denies dyspnea Respiratory: Respiratory: Reports no additional respiratory complaints, Denies chest congestion, Denies cough and Denies dyspnea Gastrointestinal: Gastrointestinal: Reports no additional gastrointestinal complaints, Denies abdominal pain, Denies nausea and Denies vomiting Genitourinary: Genitourinary: Reports as per HPI Musculoskeletal: Musculoskeletal: Reports no additional musculoskeletal complaints Integumentary/Breasts: Skin/Breast: Reports system reviewed and no additional complaints, except as docu Neurologic: Reports system reviewed and no additional complaints, except as documented Psychiatric: Psychiatric: Reports no additional psychiatric complaints Allergic/Immunologic: Allergic/Immunologic: Reports no additional allergic/immunologic complaints PMFSH Past Medical History Medical History Gastroesophageal reflux Vaginal irritation Surgical History Surgical History H/O neck surgery History of removal of ovarian cyst (~2005) Social History Social History Smoking status: Never smoker Alcohol intake: current Alcohol use details: socially Substance use: never Substance use type: does not use Lack of Transportation: No Lack of Food: Never True Current Housing: I Have Housing Concerned About Future Housing: No Difficulty Paying Gas/Electric Bills: No Difficulty Paying for Meds: No Currently Unemployed: No Education: High School Diploma/GED Difficulty w/ Childcare or Family Care: No Living arrangements: with family Occupation/Education: occupation Gender identity (if verbalized by the patient): Female Comments At the time of my signature, I reviewed and agree with the nursing past medical, surgical, social, and family history. There is no relevant family history pertinent to the patient complaint. Exam Const: General: cooperative, healthy appearing, comfortable, no acute distress, well developed, alert and well nourished Nutritional Appearance: well nourished Orientation/consciousness: patient oriented x3 Limitations: no limitations HENMT: Head: normal to inspection Ears: hearing grossly normal bilaterally and external ears normal Face/Nose/Sinus: Normal external nose present, Normal nares present, Nor
[2023-11-17 19:51] VITALS: BP 125/79; PULSE 88; RESP 16; TEMP 37.1; O2SAT 100
[2023-11-17 19:55] LABS: EDUAAPPEAR Clear; EDUABILI Negative (Negative); EDUABLOOD Trace (Negative); EDUACOLOR1 Orange; EDUAGLUCOSE Trace (Negative); EDUAKETONE Negative (Negative); EDUALEUKO 3+ (Negative); EDUANITRATE Positive (Negative); EDUAPROTEIN Trace (Negative); EDUASPGRAVITY 1.005
== END 2023-11-17 20:01 | disposition home or self-care (01) ==
PROVIDERS: Emergency Provider Nurse Practitioner; PCP Nurse Practitioner
DX: N39.0 Urinary tract infection, site not specified (principal); B96.20 Unspecified Escherichia coli [E. coli] as the cause of diseases classified elsewhere; K21.9 Gastro-esophageal reflux disease without esophagitis
CPT/HCPCS: 81003; 87077; 87086; 87088; 87186; 99213; G0463

== ENCOUNTER 2023-11-18 11:14 | Emergency (ER) | payer OTHER, SELFPAY ==
[2023-11-18 11:15] VITALS: BP 122/64; PULSE 85; RESP 14; TEMP 36.4; O2SAT 100
[2023-11-18 11:26] LABS: BEDSIDEPREGUCG Negative (Negative)
[2023-11-18 11:40] LABS: Add Urine Microscopic? YES; Appearance Urine Clear (Clear); Bacteria Urine None Seen /hpf; Bilirubin Urine Negative (Negative); Blood Urine Negative (Negative); Color Urine Dark Yellow (Yellow); Glucose Urine UA Negative (Negative); Ketones Urine Negative (Negative); Leukocyte Esterase Ur 1+ LEU/UL (Negative); Need Manual Microscopic Reviewed; Nitrate Urine Positive (Negative); Non Pathogenic Casts 0-2; Protein Urine Trace mg/dL (Negative); RBC Urine 0-2 /hpf (0-2); Specific Grav Ur 1.014 (1.001-1.035); Squamous Epithelial Cell Urine Few /hpf (Few); WBC Urine 21-50 /hpf (0-3); pH Urine 6.5 (5.0-9.0)
[2023-11-18] MEDS: PHENAZOPYRIDINE HCL 100 MG TABLET 200 MG PO (11:56)
[2023-11-18] MEDS: SODIUM CHLORIDE 0.9% IV 1,000 ML 999 ML IV CONT (12:10)
[2023-11-18 12:18] LABS: Basophils Percent Auto 0.4 % (0.2-1.2); Eosinophils Absolute Auto 0.1 K/mm3 (0-0.3); Eosinophils Percent Auto 0.9 % (0-4.4); Hematocrit 38.3 % (37.0-47.0); Hemoglobin 12.9 g/dL (12.0-15.0); Immature Granulocyte Absolute 0.02 K/mm3 (0.00-0.031); Immature Granulocyte Percent A 0.2 % (0-0.5); Lymphocytes Absolute Auto 3.29 K/mm3 (0.9-3.2); Lymphocytes Percent Auto 34.2 % (18.3-44.2); Mean Corpuscular HGB Conc 33.7 g/dl (32-36); Mean Corpuscular Hemoglobin 29.9 pg (26-34); Mean Corpuscular Volume 88.9 fl (80-100); Mean Platelet Volume 9.1 fl (7.4-10.4); Monocytes Absolute Auto 0.6 K/mm3 (0.1-0.6); Monocytes Percent Auto 5.7 % (2.6-8.5); Neutrophils Absolute Auto 5.6 K/mm3 (1.3-6.7); Neutrophils Percent Auto 58.6 % (45.5-73.1); Platelet Count Result 242 k/mm3 (150-375); Red Blood Count 4.31 M/mm3 (4.2-5.4); White Blood Count 9.6 K/mm3 (4.5-10.0)
[2023-11-18 12:28] LABS: Alanine Aminotransferase 20 U/L (6-35); Albumin Level 4.1 g/dL (3.5-5.1); Alkaline Phosphatase 47 U/L (38-126); Anion Gap 6 mmol/L (4-12); Aspartate Amino Transferase 25 U/L (14-36); Bilirubin,Total 0.5 mg/dL (0.2-1.3); Blood Urea Nitrogen 9 mg/dL (7-17); Calcium 8.7 mg/dL (8.4-10.2); Carbon Dioxide 29 mmol/L (22-30); Chloride 98 mmol/L (98-107); Estimated Glomerular Filt Rate > 60; Glucose 80 mg/dL (65-110); Potassium 3.4 mmol/L (3.4-5.0); Sodium 133 mmol/L (137-145)
--- NOTE | 2023-11-18 12:47 | ED.FEMALEGU ---
HPI - Female Genitourinary General Chief complaint: Urogenital-Female Stated complaint: uti, back pain Time Seen by Provider: 11/18/23 11:48 History of Present Illness HPI Narrative: Patient is a 38-year-old female who presents to the emergency department this morning complaining of dysuria and left flank pain. Patient states that her symptoms have been ongoing for the past week and initially she started taking [id number] azo with no relief of her symptoms. Patient states that she really gets urinary tract infections. She went to an urgent care and was prescribed Macrobid and has only had a single dose of the Macrobid yesterday. Patient states that she continues to have the dysuria and noted that it was worse today than yesterday. Her friend is a nurse and prompted her to come to the emergency department since she is having flank pain. Patient denies any fevers or chills at home, any nausea or vomiting and denies any hematuria. No additional symptoms or concerns at this time. Related Data Home Medications Medication Instructions Recorded Confirmed gabapentin 300 mg capsule 300 mg PO DAILY 03/05/23 11/17/23 omeprazole 20 mg capsule,delayed 20 mg PO DAILY 03/05/23 11/17/23 release cyclobenzaprine 10 mg tablet 10 mg PO DAILY 09/17/23 11/17/23 trazodone 50 mg tablet 50 mg PO DAILY 09/17/23 11/17/23 venlafaxine 37.5 mg 37.5 mg PO DAILY 09/17/23 11/17/23 capsule,extended release 24 hr Allergies Allergy/AdvReac Type Severity Reaction Status Date / Time No Known Allergies Allergy Verified 11/17/23 19:41 Review of Systems Review of Systems: All systems are reviewed and are negative unless stated otherwise in the HPI. [facility] Past Medical History Medical History Gastroesophageal reflux Vaginal irritation Surgical History Surgical History H/O neck surgery History of removal of ovarian cyst (~2005) Social History Social History Smoking status: Never smoker Alcohol intake: current Alcohol use details: socially Substance use: never Substance use type: does not use Lack of Transportation: No Lack of Food: Never True Current Housing: I Have Housing Concerned About Future Housing: No Difficulty Paying Gas/Electric Bills: No Difficulty Paying for Meds: No Currently Unemployed: No Education: High School Diploma/GED Difficulty w/ Childcare or Family Care: No Living arrangements: with family Occupation/Education: occupation Gender identity (if verbalized by the patient): Female Exam Narrative: General: Alert, awake, afebrile, in no acute distress. HEENT: PERRL, no rhinorrhea, no post nasal drip, oropharynx clear. Cardiovascular: Regular rate and rhythm, no murmurs, rubs or gallops, no peripheral edema. Respiratory: Clear to auscultation bilaterally, no tachypnea, no wheezing, no rhonchi, no rubs, no respiratory distress. Abdomen: Soft, nontender, nondistended, no rebound, no guarding, no peritoneal signs, negative CVA tenderness bilaterally. Musculoskeletal: No joint swelling or deformity, normal muscle tone. Skin: No rashes or petechia, no signs of infection. Neurological: Alert and oriented to person, place, and time. Follows all commands. No focal deficits, speech is clear and fluent. Course Vital Signs Vital signs: Vital Signs Temperature 97.6 F 11/18/23 11:15 Pulse Rate 85 11/18/23 11:15 Respiratory Rate 14 11/18/23 11:15 Blood Pressure 122/64 11/18/23 11:15 Pulse Oximetry 100 11/18/23 11:15 Temperature 97.6 F 11/18/23 11:15 Pulse Rate 85 11/18/23 11:15 Respiratory Rate 14 11/18/23 11:15 Blood Pressure 122/64 11/18/23 11:15 Pulse Oximetry 100 11/18/23 11:15 MDM - Female Genitourinary MDM Narrative Medical decision making narrative: The patient
== END 2023-11-18 13:27 | disposition home or self-care (01) ==
PROVIDERS: Emergency Medicine; Emergency Provider Emergency Medicine; PCP Nurse Practitioner
DX: N39.0 Urinary tract infection, site not specified (principal); K21.9 Gastro-esophageal reflux disease without esophagitis
CPT/HCPCS: 36415; 80053; 81001; 81025; 85025; 96365; 99284; A9270; J0696; J7030

== ENCOUNTER 2023-11-21 16:59 | Emergency (ER) | payer OTHER, SELFPAY ==
--- NOTE | ~2023-11-21 | XR_ITS ---
EXAM: XR thoracic spine 3V DATE: 11/21/2023 18:00 HISTORY: PAIN RT SIDE THORACIC/ RIBS, NO INJURY . COMPARISON: None available. FINDINGS: Hardware in the lower cervical spine. Severe scoliosis. Vertebral body alignment intact. V ertebral body heights preserved. No disc space narrowing. No traumatic malalignment or fracture. Visu alized lung parenchyma is clear. IMPRESSION: No acute fracture or traumatic malalignment detected in the thoracic spine. Reviewed, dictated and finalized at location K. IMPRESSION: No acute fracture or traumatic malalignment detected in the thoraci c spine.
--- NOTE | ~2023-11-21 | XR_ITS ---
EXAMINATION: [id number] Exam Date/Time: 11/21/2023 17:35 CDT HISTORY: PAIN RT SIDE THORACIC/ RIBS, NO INJURY Comparison: 08/09/2022. RESULT: Lines, tubes, and devices: None. Lungs and pleura: Clear. Cardiothymic silhouette: Stable. Other: No acute upper abdominal finding. Cortical irregularity in the right eighth anterolateral rib . Scoliosis. IMPRESSION: Acute versus chronic right eighth anterolateral rib fracture, correlate for pain/tenderness. Reviewed, dictated and finalized at location K. IMPRESSION: Acute versus chronic right eighth anterolateral rib fracture, correlate for frank n/tenderness.
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
[2023-11-21 17:05] VITALS: BP 120/89; PULSE 93; RESP 24; TEMP 37.2; O2SAT 99
[2023-11-21 17:32] LABS: EDUAAPPEAR Clear; EDUABILI Negative (Negative); EDUABLOOD Negative (Negative); EDUACOLOR1 Yellow; EDUAGLUCOSE Negative (Negative); EDUAKETONE Negative (Negative); EDUALEUKO Negative (Negative); EDUANITRATE Negative (Negative); EDUAPH 7.5; EDUAPROTEIN Negative (Negative); EDUAUROBILI 0.2
== END 2023-11-21 18:29 | disposition home or self-care (01) ==
PROVIDERS: Emergency Provider Nurse Practitioner; PCP Nurse Practitioner
DX: S22.31XA Fracture of one rib, right side, initial encounter for closed fracture (principal); X58.XXXA Exposure to other specified factors, initial encounter; K21.9 Gastro-esophageal reflux disease without esophagitis; M41.9 Scoliosis, unspecified
CPT/HCPCS: 71101; 72072; 81003; 99214; G0463

== ENCOUNTER 2023-12-04 11:16 | Outpatient (CLI) | payer OTHER, SELFPAY ==
--- NOTE | ~2023-12-04 | XR_ITS ---
EXAMINATION: XR ribs RT 2V DATE: 12/04/2023 11:41 INDICATION: Closed right rib fracture. TECHNIQUE: 2 views of the right ribs on 3 radiographs were obtained. COMPARISON: Chest 2 views 08/09/2022 FINDINGS: There is no right-sided pneumonia, pleural effusion, or pneumothorax. There is a healing fr acture of right eighth rib. There is instrumentation in the cervical spine. IMPRESSION: 1. Healing fracture of right eighth rib. Reviewed, dictated and finalized at location A.
== END 2023-12-04 11:17 | disposition home or self-care (01) ==
LOC: ANHIMG 11:18
PROVIDERS: PCP Nurse Practitioner; Visit Provider Nurse Practitioner
DX: S22.31XD Fracture of one rib, right side, subsequent encounter for fracture with routine healing (principal); X58.XXXA Exposure to other specified factors, initial encounter; M41.9 Scoliosis, unspecified; R07.9 Chest pain, unspecified
CPT/HCPCS: 71100

== ENCOUNTER 2024-04-02 01:42 | Emergency (ER) | payer OTHER, SELFPAY ==
--- NOTE | ~2024-04-02 | CT_ITS ---
EXAMINATION: CT abdomen pelvis wo con DATE: 04/02/2024 08:09 INDICATION: Flank pain. Urinary tract infection. TECHNIQUE: Computed tomography (CT) of the abdomen and pelvis was performed without intravenous contr ast. Automated exposure control and iterative reconstruction technique were employed. The dose-length product was 322.60 mGy-cm. COMPARISON: 06/19/2022 FINDINGS: Lung bases are clear. Heart size is normal. No pericardial or pleural effusion. Small sliding-type hi atal hernia. Couple calcified gallstones in the normal-appearing gallbladder. Liver, spleen, pancreas and bilateral adrenal glands are normal. Kidneys and ureters are normal with no urolithiasis, hydrou reteronephrosis or perinephric/ureteral stranding. There are couple phleboliths in the right hemipelv is. Bladder, anteverted uterus and bilateral adnexa are unremarkable. Proximal colonic wall thickenin g centered at the hepatic flexure with associated hyperemia to vasa recta consistent with colitis. Sm all bowel and appendix are normal. No free intraperitoneal gas or fluid. No pathologically enlarged a bdominal or pelvic lymphadenopathy. Small fat-containing umbilical hernia. Thoracolumbar levoscoliosi s with mild spondylosis. IMPRESSION: 1. Proximal colitis which could be infectious, inflammatory or ischemic in etiology. 2. Cholelithiasis. 3. Small sliding-type hiatal hernia. Reviewed, dictated and finalized at location A. [facility] IMPRESSION: 1. Proximal colitis which could be infectious, inflammatory or ischemic in etio logy. 2. Cholelithiasis. 3. Small sliding-type hiatal hernia.
--- OUTSIDE RECORDS SUMMARY | 2024-04-02 01:46 | XMS_ITS | Clinical Summary ---
Author Organization [facility] Address [address] [place] [address] Care Team Providers Care Delivery Room Supervisor Name Role Phone Gris Bocanegra NP Primary Care Provider [phone] Sylvia Ulloa NP Unavailable [phone] Allergies Active Allergy Reactions Criticality Noted Date Comments Acetaminophen-Codeine Nausea & Vomiting Low 024 Medications levothyroxine (SYNTHROID) 50 mcg tabletIndicatio ns:hypothyroidi sm Take 1 tablet (50 mcg total) by mouth every morning Active omeprazole (PriLOSEC) 20 mg capsuleIndicati ons:GERD Take 1 capsule (20 mg total) by mouth every morning 3 Active valACYclovir (VALTREX) 500 mg tabletIndicatio ns:herpes Take 1 tablet (500 mg total) by mouth every morning 4 Active traZODone (DESYREL) 50 mg tabletIndicatio ns:insomnia associated with depression Take 1 tablet (50 mg total) by mouth nightly 4 Active venlafaxine XR (EFFEXOR-XR) 37.5 mg 24 hr capsuleIndicati ons:Anxiety with Depression Take 1 capsule (37.5 mg total) by mouth every morning 4 Active cyclobenzaprine (FLEXERIL) 5 mg tablet Take 1 tablet (5 mg total) by mouth every 8 (eight) hours as needed for muscle spasms 90 tablet 4 Active acetaminophen (TYLENOL) 325 mg tablet Take 2 tablets (650 mg total) by mouth every 6 (six) hours as needed for pain 4 Active spironolactone (ALDACTONE) 100 mg tablet Take 1 tablet (100 mg total) by mouth daily 4 Active norethindrone ac-eth estradioL (MICROGESTIN 03/17) 1-20 mg-mcg per tablet Take 1 tablet by mouth daily 4 Active doxycycline (PERIOSTAT) 20 mg tablet TAKE 2 TABLETS BY MOUTH DAILY WITH FOOD AND FULL GLASS OF WATER 4 Active gabapentin (NEURONTIN) 300 mg capsule Take 1 capsule (300 mg total) by mouth 2 (two) times a day 60 capsule 1 4 Active Additional Information Patient not taking.Reported on 02/05/2024 Active Problems Problem Noted Date Diagnosed Date Cervical stenosis of spine 03/07/2023 Scoliosis (and kyphoscoliosis), idiopathic 10/09 Gastroesophageal reflux disease without esophagi tis 07/24/2018 Cervical stenosis of spinal canal 09/17/2017 Chronic right-sided thoracic back pain 8 Vitamin D deficiency 06/14/2017 Chronic cough 05/16/2017 Chronic laryngitis 05/16/2017 Scoliosis deformity of spine 05/16/2017 Encounters Date Type Department Care Team Description 02/05/2024 10:15 AM HELPER SHEAR OPERATOR Office Visit [facility] Neurosurgery [address] [place] [address] Medical Office Building [address] [place] [id number] Pam Lopez NP Cervical stenosis of spinal canal (Primary Dx) 02/05/2024 9:31 AM HELPER SHEAR OPERATOR - 02/05/2024 11:59 PM [facility] Hospital Encounter [facility] Radiology [address] [place] [address] [address] [place] [phone] Cervical stenosis of spinal canal; Cervical disc disorder with myelopathy of mid-cervical region Discharge Disposition: Discharge to home or self care 01/31/2024 Orders Only [facility] Neurosurgery [address] [place] [address] Medical Office Building [address] [place] [phone] Pam Lopez NP 01/14/2024 Telephone [facility] Scheduling [address] [place] [address] Lizabeth Ray 01/11/2024 Orders Only [facility] Neurosurgery [address] Medical Office Building [address] [place] [address] Pam Lopez NP from Last 3 Months Immunizations Name Administration Dates Next Due Influenza, Quadrivalent, Spl it, Preservative Free, Intramuscular 11/28/2018 Influenza, Unspecified 11/28/2018 Tdap 05/31/2017 Surgical History Surgery Date Site/Laterality Comments OVARIAN CYST REMOVAL 02/26/2005 - 02/25/2006 Medical History Medical History Date Comments Ovarian cyst Muscle pain Headache Weakness Irritability Family History Medical History Relation Name Comments neurologic Brother Cancer Father unknown Diabetes Maternal Grandmother Hypertension Maternal Grandmother Diabetes Mother Thyroid disease Mother thyroid problems Mother Cancer Paternal Grandmother unknown Anesthesia problems Neg Hx Relation Name Status Comments Brother Father Maternal Grandfather Maternal Grandmother Mother Paternal Grandmother Social History Tobacco Use Types Packs/Day Years Used Date Smoking Tobacco: Never Passive Smoke Exposure: Never Smokeless Tobacco: Never AUDIT-C Answer Date Recorded Q1: How often do you have a drink containing alc ohol? 2-4 times a month 10/22/2023 Q2: How many drinks containi ng alcohol do you have on a typical day when you are drinking? 3 or 4 10/22/2023 Q3: How often do you have si x or more drinks on one occasion? Never 10/22/2023 Personal Safety Answer Date Recorded Have you ever been in or are you currently in a harmful physical or emotional relationship or is someone making you feel afraid or unsafe? Denies 03/27/2023 Comments No Sex and Gender Information Value Date Recorded Sex Assigned at Not on file Legal Sex Female 1:49 PM HELPER SHEAR OPERATOR Gender Identity Female 01/23/2022 9:58 AM HELPER SHEAR OPERATOR Sexual Orientation Not on file Obstetrics History Para Term AB IAB SAB Ectopic Multiple Livin g Live Births 0 0 0 0 0 0 0 0 0 0 0 Last Filed Vital Signs Vital Sign Reading Time Taken Comments Blood Pressure 120/81 07/10/2023 2:37 PM CDT Pulse 78 07/10/2023 2:37 PM CDT Temperature 37.4 ??C (99.3 ??F) 03/28/2023 11:[address] Respiratory Rate 20 03/28/2023 7:50 AM HELPER SHEAR OPERATOR Oxygen Saturation 99% 03/28/2023 11:05 AM HELPER SHEAR OPERATOR Inhaled Oxygen Concentration - - Weight 71.7 kg (158 lb) 02/05/2024 10:07 AM HELPER SHEAR OPERATOR Height 162.6 cm (5' 4 ) 02/05/2024 10:07 AM HELPER SHEAR OPERATOR Body Mass Index 27.12 02/05/2024 10:07 AM HELPER SHEAR OPERATOR Plan of Treatment Health Maintenance Due Date Last Done Comments Cervical Cancer Screening 1985 Depression Screening 1985 Hepatitis C Screening 1985 Varicella Vaccines (1 of 2 - 13+ 2-dose series) 1998 Hepatitis B Screening 2003 Regular Well Visit/Exam 18-64 2003 Influenza Vaccine (#1) 2023 9, 11/28/2018 DTaP/Tdap/Td Vaccine (2 - Td or Tdap) 06/01/2027 05/31/2017 HPV Vaccines Aged Out No longer eligi ble based on patient's age to complete this topic Pneumococcal vaccine <65 Aged Out No longer eligible based on patient's age to complete this topic Goals Goal Patient Goal Type Associated Problems Recent Progress Patient-Stated? Author CCM Chronic Pain Care Plan Chronic Care Management Lucy Bradford, RN Note: Problem: Chronic Pain Goals: 1. Minimize further functional decline 2. Maximize quality of life 3. Control pain Strategies: - Activity/exercise program recommendation - Conservative stepwise pain medicine strategy with multi-disciplinary approach - Recommend healthy lifestyle strategies and compensatory methods as needed Medical Devices Implanted Type Area Associate Account Manager Device Identifier Shelf Expiration Date Model / Serial / Lot [employer] Centerpiece 10mm Lateral Hole Open Door Color Coded Spine [id number] - [id number] Implanted:Qty: 3 on 03/27/2023 by Neptali Benitez MD at [facility] N/A: Spine Cervical [employer] [id number] / / [employer] Spinal Screw Anterior Cervical Odlp Solid 2.0x7mm [id number] - [id number] Implanted:Qty: 6 on 03/27/2023 by Neptali Benitez MD at [facility] N/A: Spine Cervical [employer] [id number] / / [employer] Spinal Screw Anterior Cervical Odlp Solid 2.0x5mm [id number] - [id number] Implanted:Qty: 6 on 03/27/2023 by Neptali Benitez MD at [facility] N/A: Spine Cervical [employer] [id number] / / Procedures Procedure Name Priority Date/Time Associated Diagnosis Comments XR SPINE CERVICAL COMPLETE 4 OR 5 VW Schedule Routine, Read Routine (OP Routine) 02/05/2024 9:40 AM HELPER SHEAR OPERATOR Cervical stenosis of spinal canal Cervical disc disorder with myelopathy of mid-cervical region from Last 3 Months Results * XR Spine Cervical Complete 4 or 5 Views (02/05/2024 9:40 AM HELPER SHEAR OPERATOR) Anatomical Region Laterality Modality Spine N/A Computed Radiogr aphy 02/05/2024 10:3 1 AM HELPER SHEAR OPERATOR Impressions 02/05/2024 11:41 AM HELPER SHEAR OPERATOR 1. ??Unchanged right C4-C6 lamina plasties. 2. ??Unchanged multilevel degenerative disc disease which is most pronounced and moderate at C6-C7. Dictated by: Everett Mejía M.D. The radiology attending physician has personally reviewed this study, and had reviewed and/or edited this written report and agrees with it. Electronically signed by: Carlos Alonso D.O. Narrative 02/05/2024 11:41 AM HELPER SHEAR OPERATOR EXAMINATION: XR SPINE CERVICAL COMPLETE 4 OR 5 VW HISTORY: Neck pain COMPARISON: 10/22/2023 FINDINGS: Straightening of the upper cervical spine. ??Unchanged right C4-C6 lamina plasties. ??No significant prevertebral soft tissue swelling. No abnormal excursion on dynamic maneuvers. ??Multilevel degenerative disc disease which is most pronounced and moderate at C6-C7. Procedure Note Carlos Alonso DO - 02/05/2024 EXAMINATION: XR SPINE CERVICAL COMPLETE 4 OR 5 VW HISTORY: Neck pain COMPARISON: 10/22/2023 FINDINGS: Straightening of the upper cervical spine. Unchanged right C4-C6 lamina plasties. No significant prevertebral soft tissue swelling. No abnormal excursion on dynamic maneuvers. Multilevel degenerative disc disease which is most pronounced and moderate at C6-C7. IMPRESSION: 1. Unchanged right C4-C6 lamina plasties. 2. Unchanged multilevel degenerative disc disease which is most pronounced and moderate at C6-C7. Dictated by: Everett Mejía M.D. The radiology attending physician has personally reviewed this study, and had reviewed and/or edited this written report and agrees with it. Electronically signed by: Carlos Alonso D.O. Pam Lopez COMPENSATION DIRECTOR IMG XR PROCEDURES Final Result from Last 3 Months Insurance [facility] HMO/PPO Address: [address] [place] [address] [facility] CHOICE PLUS [employer] OPEN ACCESS [facility] [employer] [facility] MRA Advance Directives For more information, please contact: [phone] * Full Code (Latest Code Status on File) Date Activated Date Inactivated Comments 03/28/2023 4:29 AM 03/28/2023 9:36 PM Care Teams Delivery Room Supervisor Relationship Specialty Start Date End Date Gris Bocanegra, [place] [address] PCP - General Nurse Practitioner 12/16/21 Sylvia Ulloa NP [address] [address] Nurse Practitioner Internal Medicine 11/27/23
--- OUTSIDE RECORDS SUMMARY | 2024-04-02 01:46 | XMS_ITS | Encounter Summary ---
Author Organization [facility] Address [address] [place] [address] Care Team Providers Care Power Engineer Name Role Phone Gris Bocanegra MARKETING OPERATIONS ANALYST Primary Care Provider Makenzie Buchanan MARKETING OPERATIONS ANALYST Primary Care Provider [phone] Sylvia Ulloa MARKETING OPERATIONS ANALYST Primary Care Provider [phone] Encounter Details Date Type Department Care Team (Late st Contact Info) Description 01/01/2023 [employer] Message [facility] Family Medicine - [address] [address] Gris Bocanegra, MARKETING OPERATIONS ANALYST MRI Social History Tobacco Use Types Packs/Day Years Used Date Smoking Tobacco: Never Smokeless Tobacco: Never Alcohol Use Standard Drinks/Week Comments Yes 0 (1 standard drink = 0.6 oz pur e alcohol) PHQ-2 Answer Date Recorded PHQ-2 Score - If the patient scores above 3, please move on to questions 3-9 2 01/11/2022 Comments No Sex and Gender Information Value Date Recorded Sex Assigned at Not on file Legal Sex Female 4:59 PM CDT Gender Identity Not on file Sexual Orientation Not on file documented as of this encounter Plan of Treatment Upcoming Encounters Date Type Department Care Team (Late st Contact Info) Description 04/07/2024 10:20 AM GENERAL EXPEDITOR Office Visit [facility] Medical [facility] [place] [address] [place] [address] Sylvia Ulloa, MARKETING OPERATIONS ANALYST [address] [place] [address] documented as of this encounter Visit Diagnoses Not on filedocumented in this encounter Additional Health Concerns Infection Onset Date Last Indicated Resolved Time COVID-19 Rule Out 02/06/2023 02/06/2023 02/06/2023 3:04 PM GENERAL EXPEDITOR Assessment Noted Time PHQ-9 Depression Total Score: 8 01/12/20 9:14 AM GENERAL EXPEDITOR documented as of this encounter Care Teams Power Engineer Relationship Specialty Start Date End Date Gris Bocanegra, MARKETING OPERATIONS ANALYST PCP - General NURSE PRACTITIONER 08/26/21 07/25/23 Makenzie Anand NP [address] [place] [address] PCP - General NURSE PRACTITIONER 07/26/23 09/13/23 Slyvia Ulloa, MARKETING OPERATIONS ANALYST [address] [place] [address] PCP - General NURSE PRACTITIONER 09/14/23 documented as of this encounter
--- OUTSIDE RECORDS SUMMARY | 2024-04-02 01:46 | XMS_ITS | Encounter Summary ---
Author Organization [facility] Address [address] [place] [address] Care Team Providers Care Fire Control Mechanic Name Role Phone Sylvia Ulloa PIT CREW SUPPORT WORKER Primary Care Provider [phone] Reason for Visit * Reason Comments Follow Up Acute - UTI - Sx sta rted Sunday. Back pain, trouble urinating, burning, itching and ittiration Urinary Symptoms Encounter Details Date Type Department Care Team (Latest Contact Info) Description 04/01/2024 3:00 PM KILN REMOVER Office Visit [facility] Multispecialty Care - [place] [address] [address] [place] [address] Jose Juan Stack MD [address] [place] [address] [address] [place], [place] [id number] Follow Up (Acute - UTI - Sx started Sunday. Back pain, trouble urinating, burning, itching and ittiration); Urinary Symptoms Social History Tobacco Use Types Packs/Day Years Used Date Smoking Tobacco: Never Passive Smoke Exposure: Never Smokeless Tobacco: Never Tobacco Cessation:Counseling Given: Yes Alcohol Use Standard Drinks/Week Comments Yes 0 (1 standard drink = 0.6 oz pur e alcohol) wine or margaritta, social PHQ-2 Answer Date Recorded Patient Health Questionnaire-2 Score 0 04/01/2024 Comments No Sex and Gender Information Value Date Recorded Sex Assigned at Not on file Legal Sex Female 4:59 PM CDT Gender Identity Not on file Sexual Orientation Not on file documented as of this encounter Last Filed Vital Signs Vital Sign Reading Time Taken Comments Blood Pressure 103/69 04/01/2024 3:13 PM KILN REMOVER Pulse 95 04/01/2024 3:13 PM KILN REMOVER Temperature 36.4 ??C (97.6 ??F) 04/01/2024 3:13 PM CS T Respiratory Rate 18 04/01/2024 3:13 PM KILN REMOVER Oxygen Saturation 97% 04/01/2024 3:13 PM KILN REMOVER Inhaled Oxygen Concentration - - Weight 67.5 kg (148 lb 12.8 oz) 04/01/2024 3:13 PM KILN REMOVER Height 162.6 cm (5' 4 ) 04/01/2024 3:13 PM KILN REMOVER Body Mass Index 25.54 04/01/2024 3:13 PM KILN REMOVER documented in this encounter Patient Instructions * Attachments The following attachments cannot be sent through Care Everywhere. * Acute Cystitis Discharge Instructions ([place] Sudanese) documented in this encounter Progress Notes * Jose Juan Stack MD - 04/01/2024 3:00 PM CSTSummary: aCute visit notes Images from the original note were not included. Internal Medicine Outpatient Progress Note CC: Follow Up (Acute - UTI - Sx started Sunday. Back pain, trouble urinating, burning, itching and ittiration) and Urinary Symptoms HPI: Maryellen Barton is a 39-year-old female who is an established patient with me presents for concerns about urinary symptoms that started 3 days ago. Patient reports increased frequency and burning with urination. Mild lower abdominal cramping and currently right-sided mild flank pain. No diarrheaor nausea or vomiting at this time. Has noticed mild associated itching in the perineal area. She is currently on control pills. Her menstrual cycle was about 2 weeks ago. Concerned and here todiscuss. Patient currently follows with nurse practitioner Sylvia Ulloa Problem List Patient Active Problem List Diagnosis Other idiopathic scoliosis, thoracic region Cervical stenosis of spinal canal Chronic cough Chronic right-sided thoracic back pain Gastroesophageal reflux disease without esophagitis Scoliosis deformity of spine Chronic laryngitis Vitamin D deficiency Acne vulgaris Anxiety Major depressive disorder, recurrent episode, moderate (CMS/HCC HHS/HCC) Herpes simplex infection of genitourinary system Past Medical History: Diagnosis Date Broken rib right rib 8th. Past Surgical History: Procedure Laterality Date BONE GRAFT cervial spine REMOVAL OF OVARIAN CYST(S) Left Family History Problem Relation Name Age of Onset Arthritis Mother Diabetes Mother Kidney Disease Mother Stroke Mother Lung Cancer Father Diabetes Maternal Grandmother Hypertension Maternal Grandmother Other (brain tumor) Paternal Grandmother Social History Tobacco Use Smoking status: Never Passive exposure: Never Smokeless tobacco: Never Vaping Use Vaping status: Never Used Substance Use Topics Alcohol use: Yes Comment: wine or margaritta, social Drug use: Never Medications: Outpatient Medications Marked as Taking for the 04/01/24 encounter (Office Visit) with Jose Juan Stack MD Medication Sig Dispense Refill azelastine 0.1 % nasal spray 2 sprays by Nasal route 2 (two) times daily as needed for Rhinitis. Use in each nostril as directed 10 mL 3 cefUROXime (CEFTIN) 500 MG tablet Take 1 tablet (500 mg total) by mouth 2 (two) times daily for 7 days. 14 tablet 0 cyclobenzaprine (FLEXERIL) 10 MG tablet TAKE 1 TABLET(10 MG) BY MOUTH THREE TIMES DAILY NEEDED FOR MUSCLE SPASMS 60 tablet 1 famotidine (PEPCID) 20 MG tablet Take 1 tablet (20 mg total) by mouth 2 (two) times daily as neededfor Heartburn. 60 tablet 1 fluconazole (DIFLUCAN) 150 MG tablet Take 1 tablet (150 mg total) by mouth daily. 2 tablet 0 levothyroxine (SYNTHROID) 50 MCG tablet Take 1 tablet (50 mcg total) by mouth every morning. 30 tablet 2 norethindrone-ethinyl estradiol (MICROGESTIN 1/20) 1-20 MG-MCG tablet Take 1 tablet by mouth daily. phentermine (ADIPEX-P) 37.5 MG capsule Take 1 capsule (37.5 mg total) by mouth before breakfast. 30capsule 1 spironolactone (ALDACTONE) 100 MG tablet Take 1 tablet (100 mg total) by mouth daily. traZODone (DESYREL) 100 MG tablet TAKE 1 TABLET(100 MG) BY MOUTH EVERY NIGHT AT BEDTIME 30 tablet 2 valACYclovir (VALTREX) 1 g tablet venlafaxine XR (EFFEXOR-XR) 37.5 MG 24 hr capsule Take 1 capsule (37.5 mg total) by mouth daily. 90capsule 1 Allergies: Review of patient's allergies indicates: Allergen Reactions Acetaminophen-Codeine Nausea and Vomiting Review of Systems Constitutional: Negative for chills, diaphoresis, fever, malaise/fatigue and weight loss. HENT: Negative. Eyes: Negative. Respiratory: Negative. Cardiovascular: Negative for chest pain, palpitations, orthopnea, claudication, leg swelling and PND. Gastrointestinal: Negative. Genitourinary: Positive for dysuria, flank pain, frequency and urgency. Negative for hematuria. Skin: Negative. Neurological: Negative. Objective: Filed Vitals: 04/01/24 1513 BP: 103/69 Pulse: 95 Resp: 18 Temp: 97.6 ??F (36.4 ??C) TempSrc: Core SpO2: 97% Weight: 67.5 kg (148 lb 12.8 oz) Height: 1.626 m (5' 4 ) Body mass index is 25.54 kg/m??. General alert, cooperative, no distress HEENT EOM's intact. Oral mucosa normal. Nasal septum is midline. Neck Supple, symmetrical, trachea midline, no adenopathy, no thyromegaly, no JVD. Lungs No acute respiratory distress, no accessory muscle use, symmetric motion of the chest wall, lungs are clear to auscultation bilaterally, no wheezes or rales. Heart Regular rate and regular rhythm. S1, S2 normal. No murmurs. No rubs, clicks, or gallops. Abdomen Soft, non-tender, non-distended. Bowel sounds normal. No masses. No hepatomegaly appreciated. Extremities Extremities atraumatic, no cyanosis, 2+ pedal pulses, no edema Skin Skin color, texture, turgor normal. No rashes or lesions appreciated. Neurologic No focal deficits, motor strength is grossly normal and symmetric Psych Normal mood and affect MSK No synovitis, no bony tenderness, no joint effusions Lymph No cervical or supraclavicular adenopathy Assessment and Plan: Encounter Diagnose(s) ICD-10-CM SNOMED CT(R) 1. Urinary tract infection with hematuria, site unspecified N39.0 URINARY TRACT INFECTIOUS DISEASE URINALYSIS AUTO DIP R31.9 URINE BACTERIA CULTURE TEST URINE cefUROXime (CEFTIN) 500 MG tablet fluconazole (DIFLUCAN) 150 MG tablet 1. Urinary tract infection with hematuria, site unspecified - URINALYSIS AUTO DIP - URINE BACTERIA CULTURE; Future - TEST URINE - cefUROXime (CEFTIN) 500 MG tablet; Take 1 tablet (500 mg total) by mouth 2 (two) times daily for 7 days. Dispense: 14 tablet; Refill: 0 - fluconazole (DIFLUCAN) 150 MG tablet; Take 1 tablet (150 mg total) by mouth daily. Dispense: 2 tablet; Refill: 0 -Patient with +UA. No signs of pyelonephritis. Will treat with broad spectrum antibiotics and awaitsensitivities. Told if symptoms do not improve in 2-3 days to please return to clinic and if signs of pyelonephritis to please return to clinic. -Close follow-up with worsening symptoms. Increase hydration. Counseling given: Yes I personally spent a total of 30 minutes on the day of the encounter. This includes oeyx-es-voae and ozy-qvgq-jj-face time I provided on the day of the encounter & excludes time spent performing separately reportable services. Side effects and less common but more severe adverse effects of recommended medical therapies were explained to the patient. Requested MyChart or telephone follow up prn if symptoms change, worsen, or persist, or if side effect of treatment is experienced. DRAGON: This dictation was at least in part performed using Crocs and there may be some inherent flaws in this senior quality methods specialist due to the nature of this program. Jose Juan Stack MD Internal Medicine [facility], [facility]. REMOVER documented in this encounter Plan of Treatment Upcoming Encounters Date Type Department Care Team (Late st Contact Info) Description 04/07/2024 10:20 AM KILN REMOVER Office Visit [facility] Medical Group Multispecialty Care - [place] [address] [facility] [address] [place] [address] Sylvia Ulloa, JEANNIE [address] [place] [address] Pending Results Name Type Priority Associated Diagnoses Date /Time URINE BACTERIA CULTURE Microbiology Routine Urinary tract infection with hematuria, site unspecified 04/01/2024 3:41 PM KILN REMOVER Scheduled Orders Name Type Priority Associated Diagnoses Orde r Schedule URINE BACTERIA CULTURE Microbiology Routine Urinary tract infection with hematuria, site unspecified Expected: 04/01/2024, Expires: 04/01/2025 documented as of this encounter Procedures Procedure Name Priority Date/Time Associated Diagnosis Comments TEST URINE Routine 04/01/2024 Urinary tract infection with hematuria, site unspecified URINALYSIS AUTO DIP Routine 04/01/2024 Urinary tract infection with hematuria, site unspecified documented in this encounter Results * TEST URINE (04/01/2024) URINE HCG TEST NEGATIVE NEGATIVE [address], [facility] Internal Control: VALID VALID [address], [place] URINE SPECIMEN FROM URETHRA / Unknown 04/01/2024 Jose Juan Stack MD URINE ORDERABLES Final Result [address], [place] [address] [place] [address], [place] [phone] * (ABNORMAL) URINALYSIS AUTO DIP (04/01/2024) COLOR (U) YELLOW YELLOW MG[address], [place] TRANSPARENCY TURBID(A) CLEAR [address], [place] GLUCOSE (U) NEGATIVE NEGATIVE MG/DL MG[address], [place] BILIRUBIN (U) NEGATIVE NEGATIVE MG[address], [place] KETONES MG/DL (U) NEGATIVE NEGATIVE MG/DL [address], [place] SPECIFIC GRAVITY (U) 1.020 1.001 - 1.035 [address], [place] BLOOD (U) SMALL (1+, Hemolyzed)( A) NEGATIVE [address], [place] U PH 6.0 5.0 - 9.0 [address], [place] PROTEIN (U) 2+ (100)(A) NEGATIVE mg/dL [address], [place] UROBILINOGEN 0.2 0.2 - 1.0 EU/dL = mg/dL MG[address], [place] NITRITES NEGATIVE NEGATIVE MG/DL MG[address], [place] LEUKOCYTES (U) 3+ (LARGE)(A) NEGATIVE MG[address], [place] URINE SPECIMEN OBTAINED BY CLEAN CATCH PROCEDURE / Unknown 04/01/2024 Jose Juan Stack MD URINE ORDERABLES Final Result [address], [place] [address] [facility] [address] [place] [address], documented in this encounter Visit Diagnoses Diagnosis Urinary tract infection with hematuria, site unspecified- Primary documented in this encounter Additional Health Concerns Assessment Noted Time PHQ-9 Depression Total Score: 7 11/12/19 24 2:02 PM CDT documented as of this encounter Care Teams Fire Control Mechanic Relationship Specialty Start Date End Date Sylvia Ulloa, PIT CREW SUPPORT WORKER [address] [facility] [address] [place] [address] PCP - General NURSE PRACTITIONER 09/14/23 documented as of this encounter
--- OUTSIDE RECORDS SUMMARY | 2024-04-02 01:46 | XMS_ITS | Referral Summary ---
Author Organization [facility] Address [address] [place] [address] Care Team Providers Care Auto Phone Installer Name Role Phone Gris Bocanegra NP Primary Care Provider [phone] Sylvia Ulloa NP Unavailable [phone] Encounters Date Type Department Care Team Description 02/05/2024 9:31 AM RELISH MAKER - 02/05/2024 11:59 PM RELISH MAKER Hospital Encounter [id number] [address] [place] [address] [address] [place] [phone] Cervical stenosis of spinal canal; Cervical disc disorder with myelopathy of mid-cervical region Discharge Disposition: Discharge to home or self care 02/05/2024 10:15 AM RELISH MAKER Office Visit [facility] Neurosurgery [address] [place] [phone] Pam Lopez NP Cervical stenosis of spinal canal (Primary Dx) 01/31/2024 Orders Only [facility] Neurosurgery [address] [place] [phone] Pam Lopez NP 01/14/2024 Telephone [facility] Scheduling [address] [place] [address] Lizabeth Ray 01/11/2024 Orders Only [facility] Neurosurgery [address] [place] [phone] Pam Lopez NP from Last 3 Months Allergies Active Allergy Reactions Criticality Noted Date [...] laryngitis 05/16/2017 Scoliosis deformity of spine 05/16/2017 Immunizations Name Administration Dates Next Due Influenza, Quadrivalent, Spl it, Preservative Free, Intramuscular 11/28/2018 Influenza, Unspecified 11/28/2018 Tdap 05/31/2017 Social History Tobacco Use Types Packs/Day Years [...] on file Legal Sex Female 1:49 PM RELISH MAKER Gender Identity Female 01/23/2022 9:58 AM RELISH MAKER Sexual Orientation Not on file Last Filed Vital Signs Vital Sign Reading Time Taken Comments Blood Pressure 120/81 07/10/2023 2:37 PM CDT Pulse 78 07/10/2023 2:37 PM CDT Temperature 37.4 ??C (99.3 ??F) 03/28/2023 11:[address] Respiratory Rate 20 03/28/2023 7:50 AM RELISH MAKER Oxygen Saturation 99% 03/28/2023 11:05 AM RELISH MAKER Inhaled Oxygen Concentration - - Weight 71.7 kg (158 lb) 02/05/2024 10:07 AM RELISH MAKER Height 162.6 cm (5' 4 ) 02/05/2024 10:07 AM RELISH MAKER Body Mass Index 27.12 02/05/2024 10:07 AM RELISH MAKER Plan of Treatment Not on file Goals Goal Patient Goal Type Associated Problems Recent Progress Patient-Stated? Author CCM Chronic Pain Care Plan Chronic Care Management No Lucy Antunez, RN Note: Problem: Chronic Pain Goals: 1. Minimize further functional decline 2. Maximize quality of life 3. Control pain Strategies: - Activity/exercise program recommendation - Conservative stepwise pain medicine strategy with multi-disciplinary approach - Recommend healthy lifestyle strategies and compensatory methods as needed Medical Devices Implanted Type Area Longwall Foreman Device Identifier Shelf Expiration Date Model / Serial / Lot [employer] Centerpiece 10mm Lateral Hole Open Door Color Coded Spine [id number] - [id number] Implanted:Qty: 3 on 03/27/2023 by Neptali Benitez MD at [facility] N/A: Spine Cervical [employer] Inc [id number] / / [employer] Spinal Screw Anterior Cervical Odlp Solid 2.0x7mm [id number] - [id number] Implanted:Qty: 6 on 03/27/2023 by Neptali Benitez MD at [facility] N/A: Spine Cervical [employer] Inc [id number] / / [employer] Spinal Screw Anterior Cervical Odlp Solid 2.0x5mm [id number] - [id number] Implanted:Qty: 6 on 03/27/2023 by Neptali Benitez MD at [facility] N/A: Spine Cervical [employer] Inc [id number] / / Procedures Procedure Name Priority Date/Time Associated Diagnosis Comments XR SPINE CERVICAL COMPLETE 4 OR 5 VW Schedule Routine, Read Routine (OP Routine) 02/05/2024 9:40 AM RELISH MAKER Cervical stenosis of spinal canal Cervical disc disorder with myelopathy of mid-cervical region from Last 3 Months Results * XR Spine Cervical Complete 4 or 5 Views (02/05/2024 9:40 AM RELISH MAKER) Anatomical Region Laterality Modality Spine N/A Computed Radiogr aphy 02/05/2024 10:3 1 AM RELISH MAKER Impressions 02/05/2024 11:41 AM RELISH MAKER 1. ??Unchanged right C4-C6 lamina plasties. 2. ??Unchanged multilevel degenerative disc disease which is most pronounced and moderate at C6-C7. Dictated by: Everett Mejía M.D. The radiology attending physician has personally reviewed this study, and had reviewed and/or edited this written report and agrees with it. Electronically signed by: Carlos Alonso D.O. Narrative 02/05/2024 11:41 AM RELISH MAKER EXAMINATION: XR SPINE CERVICAL COMPLETE 4 OR 5 VW HISTORY: Neck pain COMPARISON: 10/22/2023 FINDINGS: Straightening of the upper cervical spine. ??Unchanged right C4-C6 lamina plasties. ??No significant prevertebral soft tissue swelling. No abnormal excursion on dynamic maneuvers. ??Multilevel degenerative disc disease which is most pronounced and moderate at C6-C7. Procedure Note Carlos Alonso, DO - 02/05/2024 EXAMINATION: XR SPINE CERVICAL [...] signed by: Carlos Alonso D.O. Pam Lopez DIRECTOR OF COMMUNITY CENTER IMG XR PROCEDURES Final Result from Last 3 Months Insurance [facility] CHO[facility] H[facility]/PPO Address: [address] [address] [place] [address] [employer] OPEN ACCESS [facility] BLUE ACCESS OOS [facility] MRA Advance Directives For more information, please contact: [phone] * Full Code (Latest Code Status on File) Date Activated Date Inactivated Comments 03/28/2023 4:29 AM 03/28/2023 9:36 PM Care Teams Auto Phone Installer Relationship Specialty Start Date End Date Gris Bocanegra [place] [address] [place] [address] PCP - General Nurse Practitioner 12/16/21 Sylvia Ulloa, DIRECTOR OF COMMUNITY CENTER [address] [facility] [place] [address] Nurse Practitioner Internal Medicine 11/27/23
--- OUTSIDE RECORDS SUMMARY | 2024-04-02 01:46 | XMS_ITS | Encounter Summary ---
Author Organization [facility] Address [address] [place] [address] Care Team Providers Care Steel Finisher Name Role Phone Sylvia Ulloa NP Primary Care Provider [phone] Encounter Details Date Type Department Care Team (Late st Contact Info) Description 12/07/2023 One2start Message [facility] [place] [facility] [place] [address] [place] [address] Jaelyn, [facility] Provider xray Social History Tobacco Use Types Packs/Day Years Used Date Smoking Tobacco: Never Passive Smoke Exposure: Never Smokeless Tobacco: Never Alcohol Use Standard Drinks/Week Comments Yes 0 (1 standard drink = 0.6 oz pur e alcohol) wine or margaritta, social PHQ-2 Answer Date Recorded Patient Health Questionnaire-2 Score 0 11/12/2023 Comments No Sex and Gender Information Value Date Recorded Sex Assigned at Not on file Legal Sex Female 4:59 PM CDT Gender Identity Not on file Sexual Orientation Not on file documented as of this encounter Plan of Treatment Upcoming Encounters Date Type Department Care Team (Late st Contact Info) Description 04/07/2024 10:20 AM HOMICIDE SQUAD COMMANDING OFFICER Office Visit [facility] Multispecialty [facility] [place] [facility] [place] [address] [place] [address] Sylvia Ulloa NP [address] [place] [address] documented as of this encounter Visit Diagnoses Not on filedocumented in this encounter Additional Health Concerns Assessment Noted Time PHQ-9 Depression Total Score: 7 11/12/19 24 2:02 PM CDT documented as of this encounter Care Teams Steel Finisher Relationship Specialty Start Date End Date Sylvia Ulloa, TALENT SOLUTIONS MANAGER [address] [facility] [address] [place] [address] PCP - General NURSE PRACTITIONER 09/14/23 documented as of this encounter
--- OUTSIDE RECORDS SUMMARY | 2024-04-02 01:47 | XMS_ITS | Encounter Summary ---
Author Organization [facility] Address [address] [place] [address] Care Team Providers Care Game Show Host Name Role Phone Gris Bocanegra HEMATOLOGY SPECIALIST Primary Care Provider Makenzie Buchanan HEMATOLOGY SPECIALIST Primary Care Provider [phone] Sylvia Ulloa HEMATOLOGY SPECIALIST Primary Care Provider [phone] Encounter Details Date Type Department Care Team (Late Contact Info) Description 08/31/2021 Talking Data [facility] Patient Accounts [address] [place] [address] [employer], [facility] Provider Balance and payment Social History Tobacco Use Types Packs/Day Years Used Date Smoking Tobacco: Never Smokeless Tobacco: Never Alcohol Use Standard Drinks/Week Comments Yes 0 (1 standard drink = 0.6 oz pur e alcohol) PHQ-2 Answer Date Recorded PHQ-2 Score - If the patient scores above 3, please move on to questions 3-9 0 05/20/2020 Comments No Sex and Gender Information Value Date Recorded Sex Assigned at Not on file Legal Sex Female 4:59 PM CDT Gender Identity Not on file Sexual Orientation Not on file documented as of this encounter Plan of Treatment Upcoming Encounters Date Type Department Care Team (Late Contact Info) Description 04/07/2024 10:20 AM MECHANOTHERAPIST Office Visit [facility] Medical Group Multispecialty Care - [place] [address] [place] [address] Sylvia Ulloa, HEMATOLOGY SPECIALIST [address] [place] [address] documented as of this encounter Visit Diagnoses Not on filedocumented in this encounter Additional Health Concerns Infection Onset Date Last Indicated Resolved Time COVID-19 Rule Out 02/06/2023 02/06/2023 02/06/2023 3:04 PM MECHANOTHERAPIST documented as of this encounter Care Teams Game Show Host Relationship Specialty Start Date End Date Gris Bocanegra HEMATOLOGY SPECIALIST PCP - General NURSE PRACTITIONER 08/26/21 07/25/23 Makenzie Anand NP [address] [place] [address] PCP - General NURSE PRACTITIONER 07/26/23 09/13/23 Sylvia Ulloa NP [address] [facility] [address] [place] [address] PCP - General NURSE PRACTITIONER 09/14/23 documented as of this encounter
--- OUTSIDE RECORDS SUMMARY | 2024-04-02 01:47 | XMS_ITS | Encounter Summary ---
Author Organization [facility] Address [address] [place] [address] Care Team Providers Care Supervisor Doping Name Role Phone Gris Bocanegra SALES FLOOR TEAM LEADER Primary Care Provider Makenzie Buchanan SALES FLOOR TEAM LEADER Primary Care Provider + [phone] Sylvia Ulloa SALES FLOOR TEAM LEADER Primary Care Provider [phone] Encounter Details Date Type Department Care Team (Late st Contact Info) Description 04/17/[address] [facility] Family Medicine - [address] [address] [employer] [facility] Provider Ankle xray Social History Tobacco Use Types Packs/Day [...] st Contact Info) Description 04/07/2024 10:20 AM BRICKMASON SUPERVISOR Office Visit [facility] Multispecialty Care - [place] [address] [place] [address] Sylvia Ulloa, SALES FLOOR TEAM LEADER [address] [place] [address] documented as of this encounter Visit Diagnoses Not on filedocumented in this encounter Additional Health Concerns Infection Onset Date Last Indicated Resolved Time COVID-19 Rule Out 02/06/2023 02/06/2023 02/06/2023 3:04 PM BRICKMASON SUPERVISOR Assessment Noted Time PHQ-9 Depression Total Score: 8 01/12/20 9:14 AM BRICKMASON SUPERVISOR documented as of this encounter Care Teams Supervisor Doping Relationship Specialty Start Date End Date Gris Bocanegra, SALES FLOOR TEAM LEADER PCP - General NURSE PRACTITIONER 08/26/21 07/25/23 Makenzie Anand, JEANNIE [address] [place] [address] PCP - General NURSE PRACTITIONER 07/26/23 09/13/23 Sylvia Ulloa, SALES FLOOR TEAM LEADER [address] [place] [address] PCP - General NURSE PRACTITIONER 09/14/23 documented as of this encounter
--- OUTSIDE RECORDS SUMMARY | 2024-04-02 01:47 | XMS_ITS | Encounter Summary ---
Author Organization [facility] Address [address] [place] [address] Care Team Providers Care Hammer Heater Name Role Phone Gris Bocanegra LAMP INSPECTOR Primary Care Provider Makenzie Buchanan LAMP INSPECTOR Primary Care Provider + [phone] Sylvia Ulloa LAMP INSPECTOR Primary Care Provider [phone] Encounter Details Date Type Department Care Team (Late st Contact Info) Description 06/20/2022 Adknowledge Message Enc [facility] Medical [facility] Family Medicine [address] [address] [facility], [facility] Provider Medication Social History Tobacco Use Types Packs/Day Years [...] on file Sexual Orientation Not on file COVID-19 Exposure Response Date Recorded In the last 10 days, have yo u been in contact with someone who was confirmed or suspected to have Coronavirus/COVID-19? No / Unsure 06/21/2022 8:03 AM CDT documented as of this encounter Plan of Treatment Upcoming Encounters Date Type Department Care Team (Late st Contact Info) Description 04/07/2024 10:20 AM SR. MANAGER Office Visit [facility] Medical [facility] Multispecialty Care - [address] [place] [address] Sylvia Ulloa, LAMP INSPECTOR [address] [place] [address] documented as of this encounter Visit Diagnoses Not on filedocumented in this encounter Additional Health Concerns Infection Onset Date Last Indicated Resolved Time COVID-19 Rule Out 02/06/2023 02/06/2023 02/06/2023 3:04 PM SR. MANAGER Assessment Noted Time PHQ-9 Depression Total Score: 8 01/12/20 9:14 AM SR. MANAGER documented as of this encounter Care Teams Hammer Heater Relationship Specialty Start Date End Date Gris Bocanegra NP PCP - General NURSE PRACTITIONER 08/26/21 07/25/23 Makenzie Anand NP [address] [place] [address] PCP - General NURSE PRACTITIONER 07/26/23 09/13/23 Sylvia Ulloa, LAMP INSPECTOR [address] [place] [address] PCP - General NURSE PRACTITIONER 09/14/23 documented as of this encounter
--- OUTSIDE RECORDS SUMMARY | 2024-04-02 01:47 | XMS_ITS | Clinical Summary ---
Author Organization [facility] Address [facility] [address] Care Team Providers Care Faculty Member Name Role Phone Laila, Sylvia Tonia MEDICAL APPLIANCE MAKER Primary Care Provider [phone] Allergies Active Allergy Reactions Criticality Noted Date Comments Acetaminophen-Codeine Nausea and Vomiting Low 03/20 Medications valACYclovir (VALTREX) 1 g tablet 10/12/19 23 Active spironolactone (ALDACTONE) 100 MG tablet Take 1 tablet (100 mg total) by mouth daily. 10/10/19 24 Active norethindrone-e thinyl estradiol (MICROGESTIN 03/17) 1-20 MG-MCG tablet Take 1 tablet by mouth daily. 09/17/19 24 Active famotidine (PEPCID) 20 MG tabletIndicatio ns:Gastroesopha geal reflux disease without esophagitis Take 1 tablet (20 mg total) by mouth 2 (two) times daily as needed for Heartburn. 60 tablet 1 11/12/19 24 Active venlafaxine XR (EFFEXOR-XR) 37.5 MG 24 hr capsuleIndicati ons:Anxiety Take 1 capsule (37.5 mg total) by mouth daily. 90 capsule 1 11/12/19 24 Active cyclobenzaprine (FLEXERIL) 10 MG tabletIndicatio ns:Chronic left-sided low back pain without sciatica TAKE 1 TABLET(10 MG) BY MOUTH THREE TIMES DAILY NEEDED FOR MUSCLE SPASMS 60 tablet 1 01/21/20 24 Active Albuterol-Budes onide (AIRSUPRA) 90-80 MCG/ACT AerosolIndicati ons:Reactive airway disease with acute exacerbation, unspecified asthma severity, unspecified whether persistent (HHS/HCC) Inhale 2 puffs into the lungs as needed (max 12 puffs in 24 hours). Rinse mouth after use. 32.1 g 1 01/28/20 24 Active Additional Information Patient not taking.Reported on 04/01/2024 azelastine 0.1 % nasal sprayIndication s:Acute cough 2 sprays by Nasal route 2 (two) times daily as needed for Rhinitis. Use in each nostril as directed 10 mL 3 01/28/20 24 Active traZODone (DESYREL) 100 MG tabletIndicatio ns:Insomnia, unspecified type TAKE 1 TABLET(100 MG) BY MOUTH EVERY NIGHT AT BEDTIME 30 tablet 2 02/01/20 24 Active levothyroxine (SYNTHROID) 50 MCG tabletIndicatio ns:Hypothyroidi sm, unspecified type Take 1 tablet (50 mcg total) by mouth every morning. 30 tablet 2 02/25/20 24 Active phentermine (ADIPEX-P) 37.5 MG capsuleIndicati ons:Overweight Take 1 capsule (37.5 mg total) by mouth before breakfast. 30 capsule 1 03/10/19 25 Active cefUROXime (CEFTIN) 500 MG tabletIndicatio ns:Urinary tract infection with hematuria, site unspecified Take 1 tablet (500 mg total) by mouth 2 (two) times daily for 7 days. 14 tablet 04/01/19 25 025 Active fluconazole (DIFLUCAN) 150 MG tabletIndicatio ns:Urinary tract infection with hematuria, site unspecified Take 1 tablet (150 mg total) by mouth daily. 2 tablet 04/01/19 25 Active phentermine (ADIPEX-P) 37.5 MG capsuleIndicati ons:Overweight Take 1 capsule (37.5 mg total) by mouth before breakfast. 30 capsule 02/04/20 24 025 Discontinu ed(Reorder ) guaiFENesin-cod eine (GUAIFENESIN AC) 100-10 MG/5ML syrupIndication s:Cough Take 5 mLs by mouth every 4 (four) hours as needed for Cough. Indications: Cough 240 mL 02/05/20 24 025 Discontinu ed(Other- Please enter comment in Notes field) methylPREDNISol one, NEGAR, (MEDROL DOSEPAK) 4 MG tabletIndicatio ns:Acute pain of right knee,Acute effusion of right ear Take as directed 1 each 03/10/19 25 025 Discontinu ed(Other- Please enter comment in Notes field) Active Problems Problem Noted Date Diagnosed Date Acne vulgaris 11/12/2023 Anxiety 11/12/2023 Major depressive disorder, r ecurrent episode, moderate (CMS/HCC HHS/HCC) 11/12/2023 Herpes simplex infection of genitourinary system 11/12/2023 Other idiopathic scoliosis, thoracic region 03/30 Gastroesophageal reflux disease without esophagi tis 07/24/2018 Cervical stenosis of spinal canal 09/17/2017 Chronic right-sided thoracic back pain 8 Vitamin D deficiency 06/14/2017 Chronic cough 05/16/2017 Scoliosis deformity of spine 05/16/2017 Chronic laryngitis 05/16/2017 Encounters Date Type Department Care Team Description 04/01/2024 3:00 PM CARE MANAGER CNA Office Visit [place] [address] [place] [address] Jose Juan Stack MD Follow Up (Acute - UTI - Sx started Sunday. Back pain, trouble urinating, burning, itching and ittiration); Urinary Symptoms 04/01/2024 Travel 03/10/2024 9:20 AM CARE MANAGER CNA Office Visit [place] [address] [address] [place] [address] Sylvia Ulloa, JEANNIE Knee Pain 03/10/2024 Travel 02/25/2024 10:40 AM CARE MANAGER CNA Office Visit [place] [address] [address] [place] [address] Sylvia Ulloa, JEANNIE Weight Check 02/25/2024 Orders Only [place] [address] [place] [address] Mary Ann Dhaliwal [place] 02/25/2024 Travel 02/05/2024 Telephone [facility] [address] [address] [place] [address] Sylvia Ulloa, MEDICAL APPLIANCE MAKER Medication 02/04/2024 Telephone [place] [address] [place] [address] Sylvia Ulloa, MEDICAL APPLIANCE MAKER Medication 01/28/2024 2:20 PM CARE MANAGER CNA Office Visit [place] [address] [place] [address] Sylvia Ulloa, MEDICAL APPLIANCE MAKER Cough 01/28/2024 Travel 01/22/2024 Scan Sak[employer] INFO SRVCS Scanned, [facility] 01/02/2024 12:20 PM CARE MANAGER CNA Telemedicine [place] [address] [place] [address] Sylvia Ulloa, JEANNIE Med Change Request 01/02/2024 10:00 AM CARE MANAGER CNA Allied Health/Nurse Visit [place] [address] [place] [address] Sylvia Ulloa, MEDICAL APPLIANCE MAKER Allied Health Visit (Patient present for labs) 01/02/2024 Telephone [place] [address] [address] [address] [place] [address] Sylvia Ulloa, MEDICAL APPLIANCE MAKER Work Excuse 01/02/2024 Orders Only [place] [address] [place] [address] Sylvia Ulloa, MEDICAL APPLIANCE MAKER 01/02/2024 Travel from Last 3 Months Immunizations Name Administration Dates Next Due Influenza (Generic) 11/28/2018 Influenza Adult (Generic) 11/28/2018 Tdap (Generic) 05/31/2017 Family History Medical History Relation Comments Lung Cancer Father Diabetes Maternal Grandmother Hypertension Maternal Grandmother Arthritis Mother Diabetes Mother Kidney Disease Mother Stroke Mother brain tumor Paternal Grandmother Relation Status Comments Father Maternal Grandmother Mother Paternal Grandmother Social History [...] on file Sexual Orientation Not on file Last Filed Vital Signs Vital Sign Reading Time Taken Comments Blood Pressure 103/69 04/01/2024 3:13 PM CARE MANAGER CNA Pulse 95 04/01/2024 3:13 PM CARE MANAGER CNA Temperature 36.4 ??C (97.6 ??F) 04/01/2024 3:13 PM CS T Respiratory Rate 18 04/01/2024 3:13 PM CARE MANAGER CNA Oxygen Saturation 97% 04/01/2024 3:13 PM CARE MANAGER CNA Inhaled Oxygen Concentration - - Weight 67.5 kg (148 lb 12.8 oz) 04/01/2024 3:13 PM CARE MANAGER CNA Height 162.6 cm (5' 4 ) 04/01/2024 3:13 PM CARE MANAGER CNA Body Mass Index 25.54 04/01/2024 3:13 PM CARE MANAGER CNA Plan of Treatment Upcoming Encounters Date Type Department Care Team (Late st Contact Info) Description 04/07/2024 10:20 AM CARE MANAGER CNA Office Visit [facility] Multispecialty Care - [place] [address] [facility] [address] [place] [address] Sylvia Ulloa, MEDICAL APPLIANCE MAKER [address] [facility] [address] [place] [address] Health Maintenance Due Date Last Done Comments Cervical Cancer Screening Pa p Smear (Age 30 to 64) Every 3 Years 1985 Pneumococcal Vaccine: Pediatrics (0 to 5 Years) and At-Risk Patients (6 to 64 Years) (1 of 2 - PCV) 1991 Hepatitis B Vaccines (1 of 3 - 19+ 3-dose series) 02/14/2004 Cervical Cancer Screening Pa p with HPV Testing (Age 30 to 64) Every 5 Years 2015 Cervical Cancer Screening [facility] HPV 2015 COVID-19 Vaccine (1 2023-2 5 season) 2023 Influenza Adult (#1) 2023 11/28/2018, 11/28/2018 Annual Physical 11/11/2024 11/12/2023, 10/03/2021 DTaP, Tdap and Td Vaccines ( 2 - Td or Tdap) 06/01/2027 05/31/2017 Hepatitis C Completed 11/12/2023 PHQ-2 (Physician [place]) Completed 04/01/2024 HPV Vaccines Aged Out No longer eligi ble based on patient's age to complete this topic Meningococcal B Vaccine Aged Out No l onger eligible based on patient's age to complete this topic Meningococcal Vaccine Aged Out No jesus marta eligible based on patient's age to complete this topic RSV Immunizations Under 20 Months Aged Out No longer eligible b ased on patient's age to complete this topic Procedures Procedure Name Priority Date/Time Associated Diagnosis Comments TEST URINE Routine 04/01/2024 Urinary tract infection with hematuria, site unspecified URINALYSIS AUTO DIP Routine 04/01/2024 Urinary tract infection with hematuria, site unspecified THYROXINE, FREE (FT4) Routine 02/25/2024 11:32 AM CARE MANAGER CNA Hypothyroidism, unspecified type THYROID STIM HORMONE TSH Routine 02/25/2024 11:32 AM CARE MANAGER CNA Hypothyroidism, unspecified type MG/PCCL UDS SCREEN Routine 02/25/2024 11 :31 AM CARE MANAGER CNA Overweight COLLECTION VENOUS BLOOD VENIPUNCTURE Routine 01/02/2024 10:59 AM CARE MANAGER CNA Hypothyroidism, unspecified type THYROXINE, FREE (FT4) Routine 01/02/2024 10:59 AM CARE MANAGER CNA TSH W/REFLEX Routine 01/02/2024 10:59 AM CARE MANAGER CNA Hypothyroidism, unspecified type HEPATITIS C ANTIBODY Routine 11/12/2023 3:58 PM CDT Need for hepatitis C screening test from Last 3 Months or Most Recently Relevant to Health Maintenance Results * TEST URINE (04/01/2024) URINE HCG TEST NEGATIVE NEGATIVE [address], [place] Internal Control: VALID VALID [address], [place] URINE SPECIMEN FROM URETHRA / Unknown 04/01/2024 Jose Juan Stack MD URINE ORDERABLES Final Result Performing Organization Address [facility] Co de Phone Number [address], [place] [address] [place] [address], * (ABNORMAL) URINALYSIS AUTO DIP (04/01/2024) COLOR (U) YELLOW YELLOW [address], [place] TRANSPARENCY TURBID(A) CLEAR [address], [place] GLUCOSE (U) NEGATIVE NEGATIVE MG/DL MG[address], [place] BILIRUBIN (U) NEGATIVE NEGATIVE MG[address], [place] KETONES MG/DL (U) NEGATIVE NEGATIVE MG/DL [address], [place] SPECIFIC GRAVITY (U) 1.020 1.001 - 1.035 [address], [place] BLOOD (U) SMALL (1+, Hemolyzed)( A) NEGATIVE [address], [place] U PH 6.0 5.0 - 9.0 [address], [place] PROTEIN (U) 2+ (100)(A) NEGATIVE mg/dL [address], [place] UROBILINOGEN 0.2 0.2 - 1.0 EU/dL = mg/dL [address], [place] NITRITES NEGATIVE NEGATIVE MG/DL MG[address], [place] LEUKOCYTES (U) 3+ (LARGE)(A) NEGATIVE [address], [place] URINE SPECIMEN OBTAINED BY CLEAN CATCH PROCEDURE / Unknown 04/01/2024 Jose Juan Stack MD URINE ORDERABLES Final Result Performing Organization Address [facility] Co de Phone Number [address] [address] [place] [address], * THYROXINE, FREE (FT4) (02/25/2024 11:32 AM CARE MANAGER CNA) Only the most recent of2 resultswithin the time period is included. Pathologist [facility] FREE T4 1.03 0.76 - 1.46 NG/DL 02/25/2024 7:41 PM CARE MANAGER CNA [facility] 02/25/2024 11:3 2 AM CARE MANAGER CNA Sylvia Ulloa NP LABORATORY Final Resul t Performing Organization Address City/[facility]/ZIP Co de Phone Number [address] [address], [place] [phone] * (ABNORMAL) THYROID STIM HORMONE TSH (02/25/2024 11:32 AM CARE MANAGER CNA) [facility] TSH 5.733(H) 0.358 - 3.740 uIU/ML 02/25/2024 7:41 PM CARE MANAGER CNA [facility] 02/25/2024 11:3 2 AM CARE MANAGER CNA us Sylvia Ulloa NP LABORATORY Final Resul t Performing Organization Address City/[facility]/ZIP Co de Phone Number [address] [address], [place] [phone] * MG/PCCL UDS SCREEN (02/25/2024 11:31 AM CARE MANAGER CNA) Pathologist [facility] FENTANYL SCREEN (U) NEGATIVE <0.5 ng/mL [facility] Comment: See Note A See Note A MORPHINE (U) NEGATIVE <10 ng/mL [facility] Comment: See Note A See Note A AMPHETAMINES PM NEGATIVE <500 ng/mL [facility] Comment: See Note A See Note A BARBITURATES PM (U) NEGATIVE <300 ng/mL [facility] Comment: See Note A See Note A BENZODIAZEPINES PM (U) NEGATIVE <100 ng/mL [facility] Comment: See Note A See Note A COCAINE METABOLITE PM (U) NEGATIVE <150 ng/mL [facility] Comment: See Note A See Note A MARIJUANA METABOLITE PM (U) NEGATIVE <20 ng/mL [facility] Comment: See Note A See Note A METHADONE PM (U) NEGATIVE <100 ng/mL [facility] Comment: See Note A See Note A OPIATES PM (U) NEGATIVE <100 ng/mL [facility] Comment: See Note A See Note A OXYCODONE PM (U) NEGATIVE <100 ng/mL [facility] Comment: See Note A See Note A CREATININE RANDOM (U) 101.9 > or = 20.0 mg/dL [facility] pH PM (U) 7.2 4.5 - 9.0 [facility] OXIDANT NEGATIVE <200 mcg/mL [facility] NOTE [facility] Comment: This drug testing is for medical treatment only. Analysis was performed as non-forensic testing and these results should be used only by healthcare providers to render diagnosis or treatment, or to monitor progress of medical conditions. Note A: The results are presumptive; based only on screening methods, and they have not been confirmed by a definitive method. LDT Notes: Confirmation tests were developed and their analytical performance characteristics have been determined by [facility]. It has not been cleared or approved by the FDA. This assay has been validated pursuant to the CLIA regulations and is used for clinical purposes. Healthcare Providers needing Interpretation assistance, please contact us at [phone] ( ) M-F, 8am to 10pm EST URINE SPECIMEN / Unknown 02/25/2024 11:31 AM CARE MANAGER CNA 02/26/2024 2:16 PM CARE MANAGER CNA Narrative Resulting Agency Comment Performing Organization Information: ?Site ID: [id number] ?Name: [facility] ?Address: [address] [place] [id number] ?Director: Darwin Issa ?Site ID: [id number] ?Name: [facility] ?Address: [address] [facility] [place] [address] ?Director: Tay Borjas MD Sylvia Ulloa NP URINE ORDERABLES Final Resu lt Performing Organization Address City/[facility]/ZIP Co de Phone Number [facility] [address] [place] [address] [facility] [address] [place] [address], * (ABNORMAL) TSH W/REFLEX (01/02/2024 10:59 AM CARE MANAGER CNA) TSH 5.082(H) 0.358 - 3.740 uIU/ML 01/02/2024 3:15 PM CARE MANAGER CNA [facility] 01/02/2024 10:5 9 AM CARE MANAGER CNA Sylvia Ulloa NP LABORATORY Final Resul t Performing Organization Address [facility] de Phone Number [facility] [address] [place] [address], [place] [phone] * HEPATITIS C ANTIBODY (11/12/2023 3:58 PM CDT) Pathologist [facility] HEPATITIS C AB NON-REACTI VE NON-REACT PREMA 11/12/2023 10:13 PM CDT [facility] Comment: ANTIBODIES TO HCV NOT DETECTED. DOES NOT EXCLUDE THE POSSIBILITY OF EXPOSURE TO HCV. 11/12/2023 3:58 PM CDT Sylvia Ulloa NP LABORATORY Final Resul t Performing Organization Address City/[facility]/ZIP Co de Phone Number [facility] [address] [place] [address], [place] [phone] from Last 3 Months or Most Recently Relevant to Health Maintenance Insurance [employer] Care Teams Faculty Member Relationship Specialty Start Date End Date Sylvia Ulloa, MEDICAL APPLIANCE MAKER [address] [place] [address] PCP - General NURSE PRACTITIONER 09/14/23
--- OUTSIDE RECORDS SUMMARY | 2024-04-02 01:47 | XMS_ITS | Encounter Summary ---
Author Organization [facility] Address [address] [place] [address] Care Team Providers Care Team Assembly Line Machine Operator Name Role Phone Gris Bocanegra TREATMENT SPECIALIST Primary Care Provider Makenzie Buchanan TREATMENT SPECIALIST Primary Care Provider [phone] Sylvia Ulloa TREATMENT SPECIALIST Primary Care Provider [phone] Encounter Details Date Type Department Care Team (Late st Contact Info) Description 12/19/2022 Mesolight Message Enc [facility] Medical Group Family Medicine [address] [phone] [facility] Provider MRI Social History Tobacco Use Types Packs/Day [...] st Contact Info) Description 04/07/2024 10:20 AM NETWORKS COMPUTER CONSULTANT Office Visit [facility] Multispecialty Care - [place] [address] [place] [address] Sylvia Ulloa, TREATMENT SPECIALIST [address] [place] [address] documented as of this encounter Visit Diagnoses Not on filedocumented in this encounter Additional Health Concerns Infection Onset Date Last Indicated Resolved Time COVID-19 Rule Out 02/06/2023 02/06/2023 02/06/2023 3:04 PM NETWORKS COMPUTER CONSULTANT Assessment Noted Time PHQ-9 Depression Total Score: 8 01/12/20 9:14 AM NETWORKS COMPUTER CONSULTANT documented as of this encounter Care Teams Team Assembly Line Machine Operator Relationship Specialty Start Date End Date Gris Bocanegra TREATMENT SPECIALIST PCP - General NURSE PRACTITIONER 08/26/21 07/25/23 Makenzie Anand NP [address] [place] [address] PCP - General NURSE PRACTITIONER 07/26/23 09/13/23 Sylvia Ulloa, TREATMENT SPECIALIST [address] [place] [address] PCP - General NURSE PRACTITIONER 09/14/23 documented as of this encounter
--- OUTSIDE RECORDS SUMMARY | 2024-04-02 01:47 | XMS_ITS | Encounter Summary ---
Author Organization [facility] Address [address] [place] [address] Care Team Providers Care Head Charrer Name Role Phone Gris Bocanegra BARREL DRILLER Primary Care Provider Makenzie Buchanan BARREL DRILLER Primary Care Provider + [phone] Sylvia Ulloa BARREL DRILLER Primary Care Provider [phone] Encounter Details Date Type Department Care Team (Late st Contact Info) Description 09/05/2022 MESoftt Message Enc [facility] [address] [address] Gris Bocanegra, BARREL DRILLER appointment Social History Tobacco Use Types Packs/Day Years [...] suspected to have Coronavirus/COVID-19? No / Unsure 08/11/2022 8:40 AM CDT documented as of this encounter Plan of Treatment Upcoming Encounters Date Type Department Care Team (Late st Contact Info) Description 04/07/2024 10:20 AM HOURLY CAREGIVER Office Visit [facility] Medical [facility] Multispecialty Care - [address] [place] [address] Sylvia Ulloa, BARREL DRILLER [address] [place] [address] documented as of this encounter Visit Diagnoses Not on filedocumented in this encounter Additional Health Concerns Infection Onset Date Last Indicated Resolved Time COVID-19 Rule Out 02/06/2023 02/06/2023 02/06/2023 3:04 PM HOURLY CAREGIVER Assessment Noted Time PHQ-9 Depression Total Score: 8 01/12/20 9:14 AM HOURLY CAREGIVER documented as of this encounter Care Teams Head Charrer Relationship Specialty Start Date End Date Gris Bocanegra NP PCP - General NURSE PRACTITIONER 08/26/21 07/25/23 Makenzie Anand NP [address] [place] [address] PCP - General NURSE PRACTITIONER 07/26/23 09/13/23 Sylvia Ulloa, BARREL DRILLER [address] [place] [address] PCP - General NURSE PRACTITIONER 09/14/23 documented as of this encounter
--- OUTSIDE RECORDS SUMMARY | 2024-04-02 01:47 | XMS_ITS | Encounter Summary ---
Author Organization [facility] Address [address] [place] [address] Care Team Providers Care Honing Machine Try Out Setter Name Role Phone Segun Navarro MD Primary Care Provider [phone] Gris Bocanegra SITE DAMAGE PREVENTION TECHNICIAN Primary Care Provider Makenzie Buchanan SITE DAMAGE PREVENTION TECHNICIAN Primary Care Provider + [phone] Sylvia Ulloa NP Primary Care Provider [phone] Encounter Details Date Type Department Care Team (Late st Contact Info) Description 08/03/2018 Abstract SFL CONVERSION [address] [place] [address] , Generic Conversion, Social History Tobacco Use Types Packs/Day Years Used Date Smoking Tobacco: Never Assessed Comments Unknown Sex and Gender Information Value Date Recorded Sex Assigned at Not on file Legal Sex Female 4:59 PM CDT Gender Identity Not on file Sexual Orientation Not on file documented as of this encounter Plan of Treatment Upcoming Encounters Date Type Department Care Team (Late st Contact Info) Description 04/07/2024 10:20 AM LIGHT ARMORED RECONNAISSANCE OFFICER Office Visit [facility] Medical Group Multispecialty Care - [place] [address] [place] [address] Sylvia Ulloa, SITE DAMAGE PREVENTION TECHNICIAN [address] [place] [address] documented as of this encounter Visit Diagnoses Not on filedocumented in this encounter Additional Health Concerns Infection Onset Date Last Indicated Resolved Time COVID-19 Rule Out 03/17/2021 03/17/2021 03/17/2021 1:57 PM LIGHT ARMORED RECONNAISSANCE OFFICER COVID-19 Rule Out 02/06/2023 02/06/2023 02/06/2023 3:04 PM LIGHT ARMORED RECONNAISSANCE OFFICER documented as of this encounter Care Teams Honing Machine Try Out Setter Relationship Specialty Start Date End Date Segun Navarro MD PCP - General FAMILY PRACTICE 04/17/19 08/25/21 Gris Bocanegra, SITE DAMAGE PREVENTION TECHNICIAN PCP - General NURSE PRACTITIONER 08/26/21 07/25/23 Makenzie Anand NP [address] [place] [address] PCP - General NURSE PRACTITIONER 07/26/23 09/13/23 Sylvia Ulloa, SITE DAMAGE PREVENTION TECHNICIAN [address] [place] [address] PCP - General NURSE PRACTITIONER 09/14/23 documented as of this encounter
--- OUTSIDE RECORDS SUMMARY | 2024-04-02 01:47 | XMS_ITS | Encounter Summary ---
Author Organization [facility] Address [address] [place] [address] Care Team Providers Care Technical Marketing Consultant Name Role Phone Sylvia Ulloa NP Primary Care Provider [phone] Encounter Details Date Type Department Care Team (Latest Contact Info) Description 04/01/2024 Travel Social History Tobacco Use Types Packs/Day Years [...] st Contact Info) Description 04/07/2024 10:20 AM BINDER FIXER Office Visit [facility] Medical Group Multispecialty Care - [place] [address] [place] [address] Sylvia Ulloa NP [address] [place] [address] documented as of this encounter Visit Diagnoses Not on filedocumented in this encounter Additional Health Concerns Assessment Noted Time PHQ-9 Depression Total Score: 7 11/12/19 24 2:02 PM CDT documented as of this encounter Care Teams Technical Marketing Consultant Relationship Specialty Start Date End Date Sylvia Ulloa NP [address] [place] [address] PCP - General NURSE PRACTITIONER 09/14/23 documented as of this encounter
--- OUTSIDE RECORDS SUMMARY | 2024-04-02 01:47 | XMS_ITS | Encounter Summary ---
Author Organization [facility] Address [address] [place] [address] Care Team Providers Care Casino Investigator Name Role Phone Gris Bocanegra MARKET RESEARCH ANALYST Primary Care Provider Makenzie Buchanan MARKET RESEARCH ANALYST Primary Care Provider + [phone] Sylvia Ulloa MARKET RESEARCH ANALYST Primary Care Provider [phone] Encounter Details Date Type Department Care Team (Late st Contact Info) Description 09/05/2022 EasyProve Message Enc [facility] Medical [facility] Family Medicine [address] [address] [facility] Provider Symptoms Social History Tobacco Use Types Packs/Day [...] st Contact Info) Description 04/07/2024 10:20 AM INFRASTRUCTURE ANALYST Office Visit [facility] Medical [facility] Multispecialty Care - [address] [place] [address] Sylvia Ulloa, MARKET RESEARCH ANALYST [address] [place] [address] documented as of this encounter Visit Diagnoses Not on filedocumented in this encounter Additional Health Concerns Infection Onset Date Last Indicated Resolved Time COVID-19 Rule Out 02/06/2023 02/06/2023 02/06/2023 3:04 PM INFRASTRUCTURE ANALYST Assessment Noted Time PHQ-9 Depression Total Score: 8 01/12/20 9:14 AM INFRASTRUCTURE ANALYST documented as of this encounter Care Teams Casino Investigator Relationship Specialty Start Date End Date Gris Bocanegra NP PCP - General NURSE PRACTITIONER 08/26/21 07/25/23 Makenzie Anand NP [address] [place] [address] PCP - General NURSE PRACTITIONER 07/26/23 09/13/23 Sylvia Ulloa, MARKET RESEARCH ANALYST [address] [place] [address] PCP - General NURSE PRACTITIONER 09/14/23 documented as of this encounter
--- OUTSIDE RECORDS SUMMARY | 2024-04-02 01:47 | XMS_ITS | Encounter Summary ---
Author Organization [facility] Address [address] [place] [address] Care Team Providers Care Salt Machine Operator Name Role Phone Gris Bocanegra PARLIAMENTARY LIBRARIAN Primary Care Provider Makenzie Buchanan PARLIAMENTARY LIBRARIAN Primary Care Provider [phone] Sylvia Ulloa PARLIAMENTARY LIBRARIAN Primary Care Provider [phone] Reason for Visit * Reason Onset Date Comments Question 06/26/2022 Encounter Details Date Type Department Care Team (Late st Contact Info) Description 06/26/2022 Umeng Message Enc [facility] Medical Group Family Medicine - [address] [address] [place], [facility] Provider Prior authorization Social History Tobacco Use Types Packs/Day Years [...] AM CDT documented as of this encounter Progress Notes * Marin Banuelos MA - 07/03/2022 2:33 PM CDT Pt was sent a Garmor message on 07/03/2022, informing her that the PA was denied. See Vineloopt message from 07/03/2022. * Siri Russell - 06/27/2022 12:40 PM CDT Patient is wanting to know the status of the prior authorization for her medication. Please follow up. documented in this encounter Plan of Treatment Upcoming Encounters Date Type Department Care Team (Late st Contact Info) Description 04/07/2024 10:20 AM SCRUBBING MACHINE OPERATOR Office Visit [facility] Medical Group Multispecialty Care - [place] [address] [place] [address] Sylvia Ulloa NP [address] [place] [address] documented as of this encounter Visit Diagnoses Not on filedocumented in this encounter Additional Health Concerns Infection Onset Date Last Indicated Resolved Time COVID-19 Rule Out 02/06/2023 02/06/2023 02/06/2023 3:04 PM SCRUBBING MACHINE OPERATOR Assessment Noted Time PHQ-9 Depression Total Score: 8 01/12/20 22 9:14 AM SCRUBBING MACHINE OPERATOR documented as of this encounter Care Teams Salt Machine Operator Relationship Specialty Start Date End Date Gris Bocanegra NP PCP - General NURSE PRACTITIONER 08/26/21 07/25/23 Makenzie Anand NP [address] [place] [address] PCP - General NURSE PRACTITIONER 07/26/23 09/13/23 Sylvia Ulloa NP [address] [place] [address] PCP - General NURSE PRACTITIONER 09/14/23 documented as of this encounter
--- OUTSIDE RECORDS SUMMARY | 2024-04-02 01:47 | XMS_ITS | Encounter Summary ---
Author Organization [facility] Address [facility] [place] [address] Care Team Providers Care Seaming Machine Operator Name Role Phone Segun Navarro MD Primary Care Provider [phone] Gris Bocanegra HEALTH INFORMATION TECHNICIAN Primary Care Provider Makenzie Buchanan HEALTH INFORMATION TECHNICIAN Primary Care Provider + [phone] Sylvia Ulloa HEALTH INFORMATION TECHNICIAN Primary Care Provider [phone] Encounter Details Date Type Department Care Team (Late Contact Info) Description 08/15/2021 [employer] Formerly Named [facility] Patient Accounts [address] [place], [place] [id number] [facility] Provider [facility] Payment Plan Social History Tobacco Use Types Packs/Day Years [...] (Late Contact Info) Description 04/07/2024 10:20 AM ASPHALT PAVING MACHINE OPERATOR Office Visit [facility] Medical Group Multispecialty Care - [place] [address] [place], [place] [address] Sylvia Ulloa, HEALTH INFORMATION TECHNICIAN [address] [place] [address] documented as of this encounter Visit Diagnoses Not on filedocumented in this encounter Additional Health Concerns Infection Onset Date Last Indicated Resolved Time COVID-19 Rule Out 02/06/2023 02/06/2023 02/06/2023 3:04 PM ASPHALT PAVING MACHINE OPERATOR documented as of this encounter Care Teams Seaming Machine Operator Relationship Specialty Start Date End Date Segun Navarro MD PCP - General FAMILY PRACTICE 04/17/19 08/25/21 Gris Bocanegra NP PCP - General NURSE PRACTITIONER 08/26/21 07/25/23 Makenzie Anand, JEANNIE [address] [place] [address] PCP - General NURSE PRACTITIONER 07/26/23 09/13/23 Sylvia Ulloa, HEALTH INFORMATION TECHNICIAN [address] [place], [place] [address] PCP - General NURSE PRACTITIONER 09/14/23 documented as of this encounter
--- OUTSIDE RECORDS SUMMARY | 2024-04-02 01:47 | XMS_ITS | Encounter Summary ---
Author Organization [facility] Address [address] [place] [address] Care Team Providers Care Certified Physical Therapist Assistant Name Role Phone Gris Bocanegra COMMERCIAL CONSTRUCTION PROJECT MANAGER Primary Care Provider Makenzie Buchanan COMMERCIAL CONSTRUCTION PROJECT MANAGER Primary Care Provider + [phone] Sylvia Ulloa COMMERCIAL CONSTRUCTION PROJECT MANAGER Primary Care Provider [phone] Encounter Details Date Type Department Care Team (Late st Contact Info) Description 11/20/2022 Health Plan One Message Enc [facility] Medical Group Family Medicine - [address] [address] [employer], [facility] Provider xray results Social History Tobacco Use Types Packs/Day Years [...] st Contact Info) Description 04/07/2024 10:20 AM WELDER APPRENTICE COMBINATION Office Visit [facility] Medical Group Multispecialty Care - [place] [address] [place] [address] Sylvia Ulloa, COMMERCIAL CONSTRUCTION PROJECT MANAGER [address] [place] [address] documented as of this encounter Visit Diagnoses Not on filedocumented in this encounter Additional Health Concerns Infection Onset Date Last Indicated Resolved Time COVID-19 Rule Out 02/06/2023 02/06/2023 02/06/2023 3:04 PM WELDER APPRENTICE COMBINATION Assessment Noted Time PHQ-9 Depression Total Score: 8 01/12/20 9:14 AM WELDER APPRENTICE COMBINATION documented as of this encounter Care Teams Certified Physical Therapist Assistant Relationship Specialty Start Date End Date Gris Bocanegra, COMMERCIAL CONSTRUCTION PROJECT MANAGER PCP - General NURSE PRACTITIONER 08/26/21 07/25/23 Makenzie Anand, JEANNIE [address] [place] [address] PCP - General NURSE PRACTITIONER 07/26/23 09/13/23 Sylvia Ulloa, COMMERCIAL CONSTRUCTION PROJECT MANAGER [address] [place] [address] PCP - General NURSE PRACTITIONER 09/14/23 documented as of this encounter
--- OUTSIDE RECORDS SUMMARY | 2024-04-02 01:47 | XMS_ITS | Encounter Summary ---
Author Organization [facility] Address [address] [place] [address] Care Team Providers Care Tax Accounting Manager Name Role Phone Gris Bocanegra SPAGHETTI PRESS HELPER Primary Care Provider Makenzie Buchanan SPAGHETTI PRESS HELPER Primary Care Provider + [phone] Sylvia Ulloa SPAGHETTI PRESS HELPER Primary Care Provider [phone] Encounter Details Date Type Department Care Team (Late st Contact Info) Description 07/04/2022 Art-Exchange Message Enc [facility] Medical [facility] Family Medicine [address] [address] Mycc[facility], [facility] Provider Benzamycin Social History Tobacco Use Types Packs/Day Years [...] st Contact Info) Description 04/07/2024 10:20 AM COMMERCIAL LENDING ASSISTANT Office Visit [facility] Medical [facility] Multispecialty Care - [address] [place] [address] Sylvia Ulloa, SPAGHETTI PRESS HELPER [address] [place] [address] documented as of this encounter Visit Diagnoses Not on filedocumented in this encounter Additional Health Concerns Infection Onset Date Last Indicated Resolved Time COVID-19 Rule Out 02/06/2023 02/06/2023 02/06/2023 3:04 PM COMMERCIAL LENDING ASSISTANT Assessment Noted Time PHQ-9 Depression Total Score: 8 01/12/20 9:14 AM COMMERCIAL LENDING ASSISTANT documented as of this encounter Care Teams Tax Accounting Manager Relationship Specialty Start Date End Date Gris Bocanegra NP PCP - General NURSE PRACTITIONER 08/26/21 07/25/23 Makenzie Anand NP [address] [place] [address] PCP - General NURSE PRACTITIONER 07/26/23 09/13/23 Sylvia Ulloa, SPAGHETTI PRESS HELPER [address] [place] [address] PCP - General NURSE PRACTITIONER 09/14/23 documented as of this encounter"
--- OUTSIDE RECORDS SUMMARY | 2024-04-02 01:47 | XMS_ITS | Encounter Summary ---
Author Organization [facility] Address [address] [place] [address] Care Team Providers Care Payroll Representative Name Role Phone Segun Navarro MD Primary Care Provider [phone] Gris Bocanegra SWITCHBOARD MECHANIC Primary Care Provider Makenzie Buchanan SWITCHBOARD MECHANIC Primary Care Provider + [phone] Sylvia Ulloa SWITCHBOARD MECHANIC Primary Care Provider [phone] Encounter Details Date Type Department Care Team (Late st Contact Info) Description 07/14/2021 Wholesome Pets Message Enc [facility] Family Medicine [address] [address] Jaelyn, [facility] Provider Pregnnacy Test Social History Tobacco Use Types Packs/Day Years [...] suspected to have Coronavirus/COVID-19? No / Unsure 06/30/2021 9:32 AM CDT documented as of this encounter Plan of Treatment Upcoming Encounters Date Type Department Care Team (Late st Contact Info) Description 04/07/2024 10:20 AM HUB BANDER Office Visit [facility] Multispecialty Care - [place] [address] [place] [address] Sylvia Ulloa, SWITCHBOARD MECHANIC [address] [place] [address] documented as of this encounter Visit Diagnoses Not on filedocumented in this encounter Additional Health Concerns Infection Onset Date Last Indicated Resolved Time COVID-19 Rule Out 02/06/2023 02/06/2023 02/06/2023 3:04 PM HUB BANDER documented as of this encounter Care Teams Payroll Representative Relationship Specialty Start Date End Date Segun Navarro MD PCP - General FAMILY PRACTICE 04/17/19 08/25/21 Gris Bocanegra NP PCP - General NURSE PRACTITIONER 08/26/21 07/25/23 Makenzie Anand NP [address] [place] [address] PCP - General NURSE PRACTITIONER 07/26/23 09/13/23 Sylvia Ulloa, SWITCHBOARD MECHANIC [address] [place] [address] PCP - General NURSE PRACTITIONER 09/14/23 documented as of this encounter
--- OUTSIDE RECORDS SUMMARY | 2024-04-02 01:47 | XMS_ITS | Encounter Summary ---
Author Organization [facility] Address [address] [place] [address] Care Team Providers Care Ocean Transportation Intermediary Name Role Phone Gris Bocanegra ECOMMERCE MANAGER Primary Care Provider Makenzie Buchanan ECOMMERCE MANAGER Primary Care Provider + [phone] Sylvia Ulloa ECOMMERCE MANAGER Primary Care Provider [phone] Encounter Details Date Type Department Care Team (Late st Contact Info) Description 06/20/2022 Medication Management [facility] Family Medicine [address] [phone] Gris Bocanegra, ECOMMERCE MANAGER Social History Tobacco Use Types Packs/Day Years [...] st Contact Info) Description 04/07/2024 10:20 AM ELECTRICAL CONTINUITY INSPECTOR Office Visit [facility] Medical [facility] Multispecialty Care - [address] [place] [address] Sylvia Ulloa, ECOMMERCE MANAGER [address] [place] [address] documented as of this encounter Visit Diagnoses Not on filedocumented in this encounter Additional Health Concerns Infection Onset Date Last Indicated Resolved Time COVID-19 Rule Out 02/06/2023 02/06/2023 02/06/2023 3:04 PM ELECTRICAL CONTINUITY INSPECTOR Assessment Noted Time PHQ-9 Depression Total Score: 8 01/12/20 22 9:14 AM ELECTRICAL CONTINUITY INSPECTOR documented as of this encounter Care Teams Ocean Transportation Intermediary Relationship Specialty Start Date End Date Gris Bocanegra, ECOMMERCE MANAGER PCP - General NURSE PRACTITIONER 08/26/21 07/25/23 Makenzie Anand NP [address] [place] [address] PCP - General NURSE PRACTITIONER 07/26/23 09/13/23 Sylvia Ulloa, ECOMMERCE MANAGER [address] [place] [address] PCP - General NURSE PRACTITIONER 09/14/23 documented as of this encounter
[2024-04-02 02:14] LABS: BEDSIDEPREGUCG Negative (Negative)
[2024-04-02 02:16] LABS: Basophils Percent Auto 0.3 % (0.2-1.2); Eosinophils Percent Auto 0.1 % (0-4.4); Hematocrit 37.1 % (37.0-47.0); Hemoglobin 12.5 g/dL (12.0-15.0); Immature Granulocyte Absolute 0.04 K/mm3 (0.00-0.031); Immature Granulocyte Percent A 0.3 % (0-0.5); Lymphocytes Percent Auto 8.6 % (18.3-44.2); Mean Corpuscular HGB Conc 33.7 g/dl (32-36); Mean Corpuscular Hemoglobin 29.8 pg (26-34); Mean Corpuscular Volume 88.5 fl (80-100); Mean Platelet Volume 9.5 fl (7.4-10.4); Monocytes Absolute Auto 0.8 K/mm3 (0.1-0.6); Monocytes Percent Auto 5.6 % (2.6-8.5); Neutrophils Absolute Auto 11.9 K/mm3 (1.3-6.7); Neutrophils Percent Auto 85.1 % (45.5-73.1); Platelet Count Result 234 k/mm3 (150-375); Red Blood Count 4.19 M/mm3 (4.2-5.4); Red Cell Distribution Width 12.7 % (11.5-14.5)
[2024-04-02 02:19] LABS: Add Urine Microscopic? YES; Appearance Urine Clear (Clear); Bacteria Urine None Seen /hpf; Bilirubin Urine Negative (Negative); Blood Urine Negative (Negative); Color Urine Yellow (Yellow); Glucose Urine UA Negative (Negative); Ketones Urine Negative (Negative); Leukocyte Esterase Ur 2+ LEU/UL (Negative); Nitrate Urine Negative (Negative); Non Pathogenic Casts 0-2; Protein Urine Negative (Negative); RBC Urine 0-2 /hpf (0-2); Specific Grav Ur 1.004 (1.001-1.035); Squamous Epithelial Cell Urine None Seen /hpf (Few); Urobilinogen Urine 0.2 mg/dL (<2.0); WBC Urine 51-100 /hpf (0-3)
[2024-04-02 02:48] LABS: Alanine Aminotransferase 27 U/L (6-35); Albumin Level 4.2 g/dL (3.5-5.1); Alkaline Phosphatase 58 U/L (38-126); Anion Gap 11 mmol/L (4-12); Aspartate Amino Transferase 27 U/L (14-36); Bilirubin,Total 0.7 mg/dL (0.2-1.3); Blood Urea Nitrogen 11 mg/dL (7-17); Calcium 9.5 mg/dL (8.4-10.2); Carbon Dioxide 26 mmol/L (22-30); Chloride 99 mmol/L (98-107); Estimated CRCL calculation 79 ml/min; Estimated Glomerular Filt Rate > 60; Glucose 109 mg/dL (65-110); Potassium 4.1 mmol/L (3.4-5.0); Sodium 136 mmol/L (137-145)
--- NOTE | 2024-04-02 04:39 | PC.NURSE ---
Pt to the desk stating that she is also now having diarrhea.
[2024-04-02 05:37] VITALS: BP 113/62; PULSE 112; RESP 14; TEMP 36.9; O2SAT 100
[2024-04-02 06:47] LABS: Influenza A QL RT-PCR Negative (Negative); Influenza B QL RT-PCR Negative (Negative); RSV RNA, RT-PCR Negative (Negative); SARS-CoV-2 RNA PCR Negative (Negative)
[2024-04-02 07:26] VITALS: BP 112/67; PULSE 110; RESP 16; TEMP 37.1; O2SAT 98
--- OUTSIDE RECORDS SUMMARY | 2024-04-02 07:54 | XMS_ITS | Encounter Summary ---
Author Organization [facility] Address [address] [place] [address] Care Team Providers Care Dispatch Supervisor Name Role Phone Gris Bocanegra SECONDARY SCHOOL REGISTRAR Primary Care Provider Makenzie Buchanan SECONDARY SCHOOL REGISTRAR Primary Care Provider + [phone] Sylvia Ulloa SECONDARY SCHOOL REGISTRAR Primary Care Provider [phone] Encounter Details Date Type Department Care Team (Late st Contact Info) Description 06/20/2022 Medication Management [facility] Family Medicine [address] [phone] Gris Bocanegra, SECONDARY SCHOOL REGISTRAR Social History Tobacco Use Types Packs/Day Years [...] st Contact Info) Description 04/07/2024 10:20 AM RN REHABILITATION Office Visit [facility] Medical [facility] Multispecialty Care - [address] [place] [address] Sylvia Ulloa, SECONDARY SCHOOL REGISTRAR [address] [place] [address] documented as of this encounter Visit Diagnoses Not on filedocumented in this encounter Additional Health Concerns Infection Onset Date Last Indicated Resolved Time COVID-19 Rule Out 02/06/2023 02/06/2023 02/06/2023 3:04 PM RN REHABILITATION Assessment Noted Time PHQ-9 Depression Total Score: 8 01/12/20 22 9:14 AM RN REHABILITATION documented as of this encounter Care Teams Dispatch Supervisor Relationship Specialty Start Date End Date Gris Bocanegra, SECONDARY SCHOOL REGISTRAR PCP - General NURSE PRACTITIONER 08/26/21 07/25/23 Makenzie Anand NP [address] [place] [address] PCP - General NURSE PRACTITIONER 07/26/23 09/13/23 Sylvia Ulloa, SECONDARY SCHOOL REGISTRAR [address] [place] [address] PCP - General NURSE PRACTITIONER 09/14/23 documented as of this encounter
--- OUTSIDE RECORDS SUMMARY | 2024-04-02 07:54 | XMS_ITS | Encounter Summary ---
Author Organization [facility] Address [address] [place] [address] Care Team Providers Care Landscape Photographer Name Role Phone Sylvia Ulloa NP Primary Care Provider [phone] Encounter Details Date Type Department Care Team [...] st Contact Info) Description 04/07/2024 10:20 AM SEARCH ENGINE MARKETING MANAGER Office Visit [facility] Medical Group Multispecialty Care - [place] [address] [place] [address] Sylvia Ulloa NP [address] [place] [address] documented as of this encounter Visit Diagnoses Not on filedocumented in this encounter Additional Health Concerns Assessment Noted Time PHQ-9 Depression Total Score: 7 11/12/19 24 2:02 PM CDT documented as of this encounter Care Teams Landscape Photographer Relationship Specialty Start Date End Date Sylvia Ulloa NP [address] [place] [address] PCP - General NURSE PRACTITIONER 09/14/23 documented as of this encounter
--- OUTSIDE RECORDS SUMMARY | 2024-04-02 07:54 | XMS_ITS | Encounter Summary ---
Author Organization [facility] Address [facility] [place] [address] Care Team Providers Care Process Excellence Manager Name Role Phone Segun Navarro MD Primary Care Provider [phone] Gris Bocanegra SCHEDULE MAKER Primary Care Provider Makenzie Buchanan SCHEDULE MAKER Primary Care Provider + [phone] Sylvia Ulloa SCHEDULE MAKER Primary Care Provider [phone] Encounter Details Date Type Department Care Team (Late Contact Info) Description 08/15/2021 BioVid[employer] [facility] Patient Accounts [address] [place], [place] [id number] [facility] Payment Plan Social History Tobacco Use Types [...] (Late Contact Info) Description 04/07/2024 10:20 AM AIRCRAFT ENGINE MECHANIC SUPERVISOR Office Visit [facility] Multispecialty Care [place] [address] [place], [place] [address] Sylvia Ulloa, SCHEDULE MAKER [address] [place] [address] documented as of this encounter Visit Diagnoses Not on filedocumented in this encounter Additional Health Concerns Infection Onset Date Last Indicated Resolved Time COVID-19 Rule Out 02/06/2023 02/06/2023 02/06/2023 3:04 PM AIRCRAFT ENGINE MECHANIC SUPERVISOR documented as of this encounter Care Teams Process Excellence Manager Relationship Specialty Start Date End Date Segun Navarro MD PCP - General FAMILY PRACTICE 04/17/19 08/25/21 Gris Bocanegra NP PCP - General NURSE PRACTITIONER 08/26/21 07/25/23 Makenzie Anand, JEANNIE [address] [place] [address] PCP - General NURSE PRACTITIONER 07/26/23 09/13/23 Sylvia Ulloa, SCHEDULE MAKER [address] [place], [place] [address] PCP - General NURSE PRACTITIONER 09/14/23 documented as of this encounter
--- OUTSIDE RECORDS SUMMARY | 2024-04-02 07:54 | XMS_ITS | Encounter Summary ---
Author Organization [facility] Address [address] [place] [address] Care Team Providers Care Clocksmith Name Role Phone Gris Bocanegra MANAGER STRATEGIC SOURCING Primary Care Provider Makenzie Buchanan MANAGER STRATEGIC SOURCING Primary Care Provider + [phone] Sylvia Ulloa MANAGER STRATEGIC SOURCING Primary Care Provider [phone] Encounter Details Date Type Department Care Team (Late st Contact Info) Description 09/05/2022 Crowdbaront Message Enc [facility] Family Medicine [address] [address] Gris Bocanegra, MANAGER STRATEGIC SOURCING appointment Social History Tobacco Use Types Packs/Day [...] st Contact Info) Description 04/07/2024 10:20 AM RESTAURANT HOURLY MANAGER Office Visit [facility] Medical [facility] Multispecialty Care - [address] [place] [address] Sylvia Ulloa, MANAGER STRATEGIC SOURCING [address] [place] [address] documented as of this encounter Visit Diagnoses Not on filedocumented in this encounter Additional Health Concerns Infection Onset Date Last Indicated Resolved Time COVID-19 Rule Out 02/06/2023 02/06/2023 02/06/2023 3:04 PM RESTAURANT HOURLY MANAGER Assessment Noted Time PHQ-9 Depression Total Score: 8 01/12/20 9:14 AM RESTAURANT HOURLY MANAGER documented as of this encounter Care Teams Clocksmith Relationship Specialty Start Date End Date Gris Bocanegra NP PCP - General NURSE PRACTITIONER 08/26/21 07/25/23 Makenzie Anand NP [address] [place] [address] PCP - General NURSE PRACTITIONER 07/26/23 09/13/23 Sylvia Ulloa, MANAGER STRATEGIC SOURCING [address] [place] [address] PCP - General NURSE PRACTITIONER 09/14/23 documented as of this encounter
--- OUTSIDE RECORDS SUMMARY | 2024-04-02 07:54 | XMS_ITS | Encounter Summary ---
Author Organization [facility] Address [address] [place] [address] Care Team Providers Care Manager Market Intelligence Name Role Phone Gris Bocanegra BUSINESS CONTROLLER Primary Care Provider Makenzie Buchanan BUSINESS CONTROLLER Primary Care Provider + [phone] Sylvia Ulloa BUSINESS CONTROLLER Primary Care Provider [phone] Encounter Details Date Type Department Care Team (Late st Contact Info) Description 11/20/2022 FastSpring Message Enc [facility] Medical Group Family Medicine - [address] [address] [employer], [facility] Provider xray results Social [...] st Contact Info) Description 04/07/2024 10:20 AM FOLDING MACHINE OPERATOR Office Visit [facility] Medical Group Multispecialty Care - [place] [address] [place] [address] Sylvia Ulloa, BUSINESS CONTROLLER [address] [place] [address] documented as of this encounter Visit Diagnoses Not on filedocumented in this encounter Additional Health Concerns Infection Onset Date Last Indicated Resolved Time COVID-19 Rule Out 02/06/2023 02/06/2023 02/06/2023 3:04 PM FOLDING MACHINE OPERATOR Assessment Noted Time PHQ-9 Depression Total Score: 8 01/12/20 9:14 AM FOLDING MACHINE OPERATOR documented as of this encounter Care Teams Manager Market Intelligence Relationship Specialty Start Date End Date Gris Bocanegra, BUSINESS CONTROLLER PCP - General NURSE PRACTITIONER 08/26/21 07/25/23 Makenzie Anand, JEANNIE [address] [place] [address] PCP - General NURSE PRACTITIONER 07/26/23 09/13/23 Sylvia Ulloa, BUSINESS CONTROLLER [address] [place] [address] PCP - General NURSE PRACTITIONER 09/14/23 documented as of this encounter
--- OUTSIDE RECORDS SUMMARY | 2024-04-02 07:54 | XMS_ITS | Encounter Summary ---
Author Organization [facility] Address [address] [place] [address] Care Team Providers Care Accounting Methods Analyst Name Role Phone Gris Bocanegra ACCOUNT RECEIVABLE ASSOCIATE Primary Care Provider Makenzie Buchanan ACCOUNT RECEIVABLE ASSOCIATE Primary Care Provider + [phone] Sylvia Ulloa ACCOUNT RECEIVABLE ASSOCIATE Primary Care Provider [phone] Encounter Details Date Type Department Care Team (Late st Contact Info) Description 06/20/2022 Summly Message Enc [facility] Medical [facility] Family Medicine [address] [address] [employer], [facility] Provider Medication Social History Tobacco Use Types [...] st Contact Info) Description 04/07/2024 10:20 AM PEOPLESOFT TALEO MANAGER Office Visit [facility] Medical [facility] Multispecialty Care - [address] [place] [address] Sylvia Ulloa, ACCOUNT RECEIVABLE ASSOCIATE [address] [place] [address] documented as of this encounter Visit Diagnoses Not on filedocumented in this encounter Additional Health Concerns Infection Onset Date Last Indicated Resolved Time COVID-19 Rule Out 02/06/2023 02/06/2023 02/06/2023 3:04 PM PEOPLESOFT TALEO MANAGER Assessment Noted Time PHQ-9 Depression Total Score: 8 01/12/20 9:14 AM PEOPLESOFT TALEO MANAGER documented as of this encounter Care Teams Accounting Methods Analyst Relationship Specialty Start Date End Date Gris Bocanegra NP PCP - General NURSE PRACTITIONER 08/26/21 07/25/23 Makenzie Anand NP [address] [place] [address] PCP - General NURSE PRACTITIONER 07/26/23 09/13/23 Sylvia Ulloa, ACCOUNT RECEIVABLE ASSOCIATE [address] [place] [address] PCP - General NURSE PRACTITIONER 09/14/23 documented as of this encounter
--- OUTSIDE RECORDS SUMMARY | 2024-04-02 07:54 | XMS_ITS | Clinical Summary ---
Author Organization [facility] Address [address] [place] [address] Care Team Providers Care Hosted Services Analyst Name Role Phone Gris Bocanegra NP Primary Care Provider [phone] Sylvia Ulloa NP Unavailable Allergies Active Allergy Reactions Criticality Noted Date [...] Department Care Team Description 02/05/2024 10:15 AM MANAGER STRATEGY Office Visit [facility] Neurosurgery [address] [place] [address] Medical Office Building [address] [place] [address] Pam Lopez NP Cervical stenosis of spinal canal (Primary Dx) 02/05/2024 9:31 AM MANAGER STRATEGY - 02/05/2024 11:59 PM [facility] Hospital Encounter [facility] Radiology [address] [place] [address] [address] [place] [address] Cervical stenosis of spinal canal; Cervical disc disorder with myelopathy of mid-cervical region Discharge Disposition: Discharge to home or self care 01/31/[address] [facility] Neurosurgery [address] [place] [address] Medical Office Building [address] [place] [address] Pam Lopez NP 01/14/[address] [facility] Scheduling [address] [facility] [place] [address] Lizabeth Ray 01/11/[address] [facility] Neurosurgery [address] [facility] Medical Office Building [address] [place] [address] Pam Lopez NP from Last [...] on file Legal Sex Female 1:49 PM MANAGER STRATEGY Gender Identity Female 01/23/2022 9:58 AM MANAGER STRATEGY Sexual Orientation Not on file Obstetrics History [...] ST Respiratory Rate 20 03/28/2023 7:50 AM MANAGER STRATEGY Oxygen Saturation 99% 03/28/2023 11:05 AM MANAGER STRATEGY Inhaled Oxygen Concentration - - Weight 71.7 kg (158 lb) 02/05/2024 10:07 AM MANAGER STRATEGY Height 162.6 cm (5' 4 ) 02/05/2024 10:07 AM MANAGER STRATEGY Body Mass Index 27.12 02/05/2024 10:07 AM MANAGER STRATEGY Plan of Treatment Health Maintenance Due Date [...] as needed Medical Devices Implanted Type Area Senior Asp Net Developer Device Identifier Shelf Expiration Date Model / Serial / Lot Med[employer]onic [employer] Centerpiece 10mm Lateral Hole Open Door Color Coded Spine [id number] - [id number] Implanted:Qty: 3 on 03/27/2023 by Neptali Benitez MD at [facility] N/A: Spine Cervical [employer] Inc [id number] / / Med[employer] Inc Spinal Screw Anterior Cervical Odlp Solid 2.0x7mm [id number] - [id number] Implanted:Qty: 6 on 03/27/2023 by Neptali Benitez MD at [facility] N/A: Spine Cervical [employer] Inc [id number] / / [employer] Spinal Screw Anterior Cervical Odlp Solid 2.0x5mm [id number] - [id number] Implanted:Qty: 6 on 03/27/2023 by Neptali Benitez MD at [facility] N/A: Spine Cervical [employer] Inc [id number] / / Procedures Procedure Name Priority Date/Time Associated Diagnosis Comments XR SPINE CERVICAL COMPLETE 4 OR 5 VW Schedule Routine, Read Routine (OP Routine) 02/05/2024 9:40 AM MANAGER STRATEGY Cervical stenosis of spinal canal Cervical disc disorder with myelopathy of mid-cervical region from Last 3 Months Results * XR Spine Cervical Complete 4 or 5 Views (02/05/2024 9:40 AM MANAGER STRATEGY) Anatomical Region Laterality Modality Spine N/A Computed Radiogr aphy 02/05/2024 10:3 1 AM MANAGER STRATEGY Impressions 02/05/2024 11:41 AM MANAGER STRATEGY 1. ??Unchanged right C4-C6 lamina plasties. 2. ??Unchanged multilevel degenerative disc disease which is most pronounced and moderate at C6-C7. Dictated by: Everett Mejía M.D. The radiology attending physician has personally reviewed this study, and had reviewed and/or edited this written report and agrees with it. Electronically signed by: Carlos Alonso D.O. Narrative 02/05/2024 11:41 AM MANAGER STRATEGY EXAMINATION: XR SPINE CERVICAL COMPLETE 4 OR [...] signed by: Carlos Alonso D.O. Pam Lopez PUBLIC AFFAIRS OFFICER IMG XR PROCEDURES Final Result from Last 3 Months Insurance [facility] H[facility]PPO Address: [address] [place] [address] [facility] CHOICE [facility] H[facility]/PPO Address: [address] [address] [place] [address] [employer] OPEN ACCESS [facility] [employer] [facility] MRA Advance Directives For more information, please contact: [phone] * Full Code (Latest Code Status on File) Date Activated Date Inactivated Comments 03/28/2023 4:29 AM 03/28/2023 9:36 PM Care Teams Hosted Services Analyst Relationship Specialty Start Date End Date Gris Bocanegra, PUBLIC AFFAIRS [place] [address] PCP - General Nurse Practitioner 12/16/21 Sylvia Ulloa NP [address] [place] [address] Nurse Practitioner Internal Medicine 11/27/23
--- OUTSIDE RECORDS SUMMARY | 2024-04-02 07:54 | XMS_ITS | Encounter Summary ---
Author Organization [facility] Address [address] [place] [address] Care Team Providers Care Set Up Machinist Name Role Phone Gris Bocanegra LETTERPRESS SETTER Primary Care Provider Makenzie Buchanan LETTERPRESS SETTER Primary Care Provider + [phone] Sylvia Ulloa LETTERPRESS SETTER Primary Care Provider [phone] Encounter Details Date Type Department Care Team (Late st Contact Info) Description 07/04/2022 Tugg Message Enc [facility] Medical [facility] Family Medicine [address] [address] [employer], [facility] Provider Benzamycin Social History Tobacco [...] st Contact Info) Description 04/07/2024 10:20 AM FARM MANAGEMENT SUPERVISOR Office Visit [facility] Medical [facility] Multispecialty Care - [address] [place] [address] Sylvia Ulloa, LETTERPRESS SETTER [address] [place] [address] documented as of this encounter Visit Diagnoses Not on filedocumented in this encounter Additional Health Concerns Infection Onset Date Last Indicated Resolved Time COVID-19 Rule Out 02/06/2023 02/06/2023 02/06/2023 3:04 PM FARM MANAGEMENT SUPERVISOR Assessment Noted Time PHQ-9 Depression Total Score: 8 01/12/20 9:14 AM FARM MANAGEMENT SUPERVISOR documented as of this encounter Care Teams Set Up Machinist Relationship Specialty Start Date End Date Gris Bocanegra NP PCP - General NURSE PRACTITIONER 08/26/21 07/25/23 Makenzie Anand NP [address] [place] [address] PCP - General NURSE PRACTITIONER 07/26/23 09/13/23 Sylvia Ulloa, LETTERPRESS SETTER [address] [place] [address] PCP - General NURSE PRACTITIONER 09/14/23 documented as of this encounter
--- OUTSIDE RECORDS SUMMARY | 2024-04-02 07:54 | XMS_ITS | Encounter Summary ---
Author Organization [facility] Address [address] [place] [address] Care Team Providers Care Body Make Up Artist Name Role Phone Gris Bocanegra CARPENTER'S HELPER Primary Care Provider Makenzie Buchanan CARPENTER'S HELPER Primary Care Provider + [phone] Sylvia Ulloa CARPENTER'S HELPER Primary Care Provider [phone] Encounter Details Date Type Department Care Team (Late Contact Info) Description 08/31/2021 [employer] [facility] Patient Accounts [address] [place] [address] [employer], [facility] Provider Balance and payment Social History Tobacco [...] (Late Contact Info) Description 04/07/2024 10:20 AM FRONT OFFICE SPECIALIST Office Visit [facility] Medical Group Multispecialty Care - [place] [address] [place] [address] Sylvia Ulloa, CARPENTER'S HELPER [address] [place] [address] documented as of this encounter Visit Diagnoses Not on filedocumented in this encounter Additional Health Concerns Infection Onset Date Last Indicated Resolved Time COVID-19 Rule Out 02/06/2023 02/06/2023 02/06/2023 3:04 PM FRONT OFFICE SPECIALIST documented as of this encounter Care Teams Body Make Up Artist Relationship Specialty Start Date End Date Gris Bocanegra CARPENTER'S HELPER PCP - General NURSE PRACTITIONER 08/26/21 07/25/23 Makenzie Anand NP [address] [place] [address] PCP - General NURSE PRACTITIONER 07/26/23 09/13/23 Sylvia Ulloa NP [address] [facility] [address] [place] [address] PCP - General NURSE PRACTITIONER 09/14/23 documented as of this encounter
--- OUTSIDE RECORDS SUMMARY | 2024-04-02 07:54 | XMS_ITS | Encounter Summary ---
Author Organization [facility] Address [address] [place] [address] Care Team Providers Care Lift Supervisor Name Role Phone Gris Bocanegra REPAIRER SHOE STICKS Primary Care Provider Makenzie Buchanan REPAIRER SHOE STICKS Primary Care Provider + [phone] Sylvia Ulloa REPAIRER SHOE STICKS Primary Care Provider [phone] Encounter Details Date Type Department Care Team (Late st Contact Info) Description 04/17/2022 [employer] Message Enc [facility] Medical Group Family Medicine - [address] [address] [employer], [facility] Provider Ankle xray Social History Tobacco Use [...] st Contact Info) Description 04/07/2024 10:20 AM WATER PURIFICATION CHEMIST Office Visit [facility] Medical Group Multispecialty Care - [place] [address] [place] [address] Sylvia Ulloa, REPAIRER SHOE STICKS [address] [place] [address] documented as of this encounter Visit Diagnoses Not on filedocumented in this encounter Additional Health Concerns Infection Onset Date Last Indicated Resolved Time COVID-19 Rule Out 02/06/2023 02/06/2023 02/06/2023 3:04 PM WATER PURIFICATION CHEMIST Assessment Noted Time PHQ-9 Depression Total Score: 8 01/12/20 9:14 AM WATER PURIFICATION CHEMIST documented as of this encounter Care Teams Lift Supervisor Relationship Specialty Start Date End Date Gris Bocanegra, REPAIRER SHOE STICKS PCP - General NURSE PRACTITIONER 08/26/21 07/25/23 Makenzie Anand, JEANNIE [address] [place] [address] PCP - General NURSE PRACTITIONER 07/26/23 09/13/23 Sylvia Ulloa, REPAIRER SHOE STICKS [address] [place] [address] PCP - General NURSE PRACTITIONER 09/14/23 documented as of this encounter
--- OUTSIDE RECORDS SUMMARY | 2024-04-02 07:54 | XMS_ITS | Encounter Summary ---
Author Organization [facility] Address [address] [place] [address] Care Team Providers Care Faculty I On Call Medical Assistant Name Role Phone Gris Bocanegra ENGLISH LANGUAGE ARTS TEACHER Primary Care Provider Makenzie Buchanan ENGLISH LANGUAGE ARTS TEACHER Primary Care Provider + [phone] Sylvia Ulloa ENGLISH LANGUAGE ARTS TEACHER Primary Care Provider [phone] Encounter Details Date Type Department Care Team (Late st Contact Info) Description 09/05/2022 TechnoSpin Message Enc [facility] Medical [facility] Family Medicine [address] [address] [facility], [facility] Provider Symptoms Social History Tobacco Use Types [...] st Contact Info) Description 04/07/2024 10:20 AM SAFETY CONSULTANT Office Visit [facility] Medical [facility] Multispecialty Care - [address] [place] [address] Sylvia Ulloa, ENGLISH LANGUAGE ARTS TEACHER [address] [place] [address] documented as of this encounter Visit Diagnoses Not on filedocumented in this encounter Additional Health Concerns Infection Onset Date Last Indicated Resolved Time COVID-19 Rule Out 02/06/2023 02/06/2023 02/06/2023 3:04 PM SAFETY CONSULTANT Assessment Noted Time PHQ-9 Depression Total Score: 8 01/12/20 9:14 AM SAFETY CONSULTANT documented as of this encounter Care Teams Faculty I On Call Medical Assistant Relationship Specialty Start Date End Date Gris Bocanegra NP PCP - General NURSE PRACTITIONER 08/26/21 07/25/23 Makenzie Anand NP [address] [place] [address] PCP - General NURSE PRACTITIONER 07/26/23 09/13/23 Sylvia Ulloa, ENGLISH LANGUAGE ARTS TEACHER [address] [place] [address] PCP - General NURSE PRACTITIONER 09/14/23 documented as of this encounter
--- OUTSIDE RECORDS SUMMARY | 2024-04-02 07:54 | XMS_ITS | Encounter Summary ---
Author Organization [facility] Address [address] [place] [address] Care Team Providers Care Hand Mounter Name Role Phone Gris Bocanegra CONTRACTING SPECIALIST Primary Care Provider Makenzie Buchanan CONTRACTING SPECIALIST Primary Care Provider + [phone] Sylvia Ulloa CONTRACTING SPECIALIST Primary Care Provider [phone] Encounter Details Date Type Department Care Team (Late st Contact Info) Description 01/01/2023 EBS Technologiest Message Enc [facility] Family Medicine - [address] [address] Gris Bocanegra, CONTRACTING SPECIALIST MRI Social History Tobacco Use Types Packs/Day [...] st Contact Info) Description 04/07/2024 10:20 AM INSULATION WORKER FURNACE INSTALLER Office Visit [facility] Medical [facility] Multispecialty Care - [place] [address] [place] [address] Sylvia Ulloa, CONTRACTING SPECIALIST [address] [place] [address] documented as of this encounter Visit Diagnoses Not on filedocumented in this encounter Additional Health Concerns Infection Onset Date Last Indicated Resolved Time COVID-19 Rule Out 02/06/2023 02/06/2023 02/06/2023 3:04 PM INSULATION WORKER FURNACE INSTALLER Assessment Noted Time PHQ-9 Depression Total Score: 8 01/12/20 9:14 AM INSULATION WORKER FURNACE INSTALLER documented as of this encounter Care Teams Hand Mounter Relationship Specialty Start Date End Date Gris Bocanegra, CONTRACTING SPECIALIST PCP - General NURSE PRACTITIONER 08/26/21 07/25/23 Makenzie Anand NP [address] [place] [address] PCP - General NURSE PRACTITIONER 07/26/23 09/13/23 Sylvia Ulloa, CONTRACTING SPECIALIST [address] [place] [address] PCP - General NURSE PRACTITIONER 09/14/23 documented as of this encounter
--- OUTSIDE RECORDS SUMMARY | 2024-04-02 07:54 | XMS_ITS | Encounter Summary ---
Author Organization [facility] Address [address] [place] [address] Care Team Providers Care Trauma Program Manager Name Role Phone Gris Bocanegra NEW PRODUCT TRAINER Primary Care Provider Makenzie Buchanan NEW PRODUCT TRAINER Primary Care Provider + [phone] Sylvia Ulloa NEW PRODUCT TRAINER Primary Care Provider [phone] Encounter Details Date Type Department Care Team (Late st Contact Info) Description 12/19/2022 [employer] Message Enc [facility] Medical Group Family Medicine [address] [phone] [facility], [facility] Provider MRI Social History Tobacco Use Types [...] st Contact Info) Description 04/07/2024 10:20 AM HEADHUNTER Office Visit [facility] Medical Group Multispecialty Care - [place] [address] [place] [address] Sylvia Ulloa, NEW PRODUCT TRAINER [address] [place] [address] documented as of this encounter Visit Diagnoses Not on filedocumented in this encounter Additional Health Concerns Infection Onset Date Last Indicated Resolved Time COVID-19 Rule Out 02/06/2023 02/06/2023 02/06/2023 3:04 PM HEADHUNTER Assessment Noted Time PHQ-9 Depression Total Score: 8 01/12/20 9:14 AM HEADHUNTER documented as of this encounter Care Teams Trauma Program Manager Relationship Specialty Start Date End Date Gris Bocanegra NEW PRODUCT TRAINER PCP - General NURSE PRACTITIONER 08/26/21 07/25/23 Makenzie Anand NP [address] [place] [address] PCP - General NURSE PRACTITIONER 07/26/23 09/13/23 Sylvia Ulloa, NEW PRODUCT TRAINER [address] [place] [address] PCP - General NURSE PRACTITIONER 09/14/23 documented as of this encounter
--- OUTSIDE RECORDS SUMMARY | 2024-04-02 07:54 | XMS_ITS | Encounter Summary ---
Author Organization [facility] Address [address] [place] [address] Care Team Providers Care Social Service Technician Name Role Phone Segun Navarro MD Primary Care Provider [phone] Gris Bocanegra GUM ROLLING MACHINE OPERATOR Primary Care Provider Makenzie Buchanan GUM ROLLING MACHINE OPERATOR Primary Care Provider [phone] Sylvia Ulloa GUM ROLLING MACHINE OPERATOR Primary Care Provider [phone] Encounter Details Date Type Department Care Team (Late st Contact Info) Description 07/14/2021 Alum.ni Message Enc [facility] Family Medicine [address] [address] Jaelyn, [facility] Provider Pregnnacy Test Social History Tobacco [...] st Contact Info) Description 04/07/2024 10:20 AM IT NETWORK ARCHITECT Office Visit [facility] [place] [address] [place] [address] Sylvia Ulloa, GUM ROLLING MACHINE OPERATOR [address] [place] [address] documented as of this encounter Visit Diagnoses Not on filedocumented in this encounter Additional Health Concerns Infection Onset Date Last Indicated Resolved Time COVID-19 Rule Out 02/06/2023 02/06/2023 02/06/2023 3:04 PM IT NETWORK ARCHITECT documented as of this encounter Care Teams Social Service Technician Relationship Specialty Start Date End Date Segun Navarro MD PCP - General FAMILY PRACTICE 04/17/19 08/25/21 Gris Bocanegra NP PCP - General NURSE PRACTITIONER 08/26/21 07/25/23 Makenzie Anand NP [address] [place] [address] PCP - General NURSE PRACTITIONER 07/26/23 09/13/23 Sylvia Ulloa, GUM ROLLING MACHINE OPERATOR [address] [place] [address] PCP - General NURSE PRACTITIONER 09/14/23 documented as of this encounter
--- OUTSIDE RECORDS SUMMARY | 2024-04-02 07:54 | XMS_ITS | Encounter Summary ---
Author Organization [facility] Address [address] [place] [address] Care Team Providers Care Concessionist Name Role Phone Sylvia Ulloa NP Primary Care Provider [phone] Encounter Details Date Type Department Care Team (Late st Contact Info) Description 12/07/2023 plista [facility] [place] [address] [place] [address] Jaelyn, [facility] Provider xray Social History Tobacco Use Types [...] st Contact Info) Description 04/07/2024 10:20 AM LAUNDRY MARKER SUPERVISOR Office Visit [facility] Multispecialty [facility] [place] [address] [place] [address] Sylvia Ulloa NP [address] [place] [address] documented as of this encounter Visit Diagnoses Not on filedocumented in this encounter Additional Health Concerns Assessment Noted Time PHQ-9 Depression Total Score: 7 11/12/19 24 2:02 PM CDT documented as of this encounter Care Teams Concessionist Relationship Specialty Start Date End Date Sylvia Ulloa, TALENT ADVISOR [address] [facility] [address] [place] [address] PCP - General NURSE PRACTITIONER 09/14/23 documented as of this encounter
--- OUTSIDE RECORDS SUMMARY | 2024-04-02 07:54 | XMS_ITS | Referral Summary ---
Author Organization [facility] Address [address] [place] [address] Care Team Providers Care Instructor Warper Name Role Phone Gris Bocanegra NP Primary Care Provider [phone] Sylvia Ulloa NP Unavailable [phone] Encounters Date Type Department Care Team Description 02/05/2024 9:31 AM LUBRICATION WORKER - 02/05/2024 11:59 PM LUBRICATION WORKER Hospital Encounter [id number] [address] [place] [address] [address] [place] [phone] Cervical stenosis of spinal canal; Cervical disc disorder with myelopathy of mid-cervical region Discharge Disposition: Discharge to home or self care 02/05/2024 10:15 AM LUBRICATION WORKER Office Visit [facility] Neurosurgery [address] [place] [phone] Pam Lopez NP Cervical stenosis of spinal canal (Primary Dx) 01/31/2024 Orders Only [facility] Neurosurgery [address] [place] [phone] Pam Lopez NP 01/14/2024 Telephone [facility] Scheduling [address] [place] [address] Lizabeth Ray 01/11/2024 Orders Only [facility] Neurosurgery [address] [place] [phone] Pam Lopez NP from Last 3 [...] on file Legal Sex Female 1:49 PM LUBRICATION WORKER Gender Identity Female 01/23/2022 9:58 AM LUBRICATION WORKER Sexual Orientation Not on file Last Filed Vital Signs Vital Sign Reading Time Taken Comments Blood Pressure 120/81 07/10/2023 2:37 PM CDT Pulse 78 07/10/2023 2:37 PM CDT Temperature 37.4 ??C (99.3 ??F) 03/28/2023 11:[address] Respiratory Rate 20 03/28/2023 7:50 AM LUBRICATION WORKER Oxygen Saturation 99% 03/28/2023 11:05 AM LUBRICATION WORKER Inhaled Oxygen Concentration - - Weight 71.7 kg (158 lb) 02/05/2024 10:07 AM LUBRICATION WORKER Height 162.6 cm (5' 4 ) 02/05/2024 10:07 AM LUBRICATION WORKER Body Mass Index 27.12 02/05/2024 10:07 AM LUBRICATION WORKER Plan of Treatment Not on file Goals [...] as needed Medical Devices Implanted Type Area Lease Operator Device Identifier Shelf Expiration Date Model / Serial / Lot [employer] Centerpiece 10mm Lateral Hole Open Door Color Coded Spine [id number] - [id number] Implanted:Qty: 3 on 03/27/2023 by Neptali Benitez MD at [facility] N/A: Spine Cervical [employer] [id number] / / [employer] Spinal Screw Anterior Cervical Odlp Solid 2.0x7mm [id number] - [id number] Implanted:Qty: 6 on 03/27/2023 by Neptali Benitez MD at [facility] N/A: Spine Cervical [employer] [id number] / / [employer] Spinal Screw Anterior Cervical Odlp Solid 2.0x5mm [id number] - [id number] Implanted:Qty: 6 on 03/27/2023 by Neptali Benitez MD at [facility] N/A: Spine Cervical [employer] [id number] / / Procedures Procedure Name Priority Date/Time Associated Diagnosis Comments XR SPINE CERVICAL COMPLETE 4 OR 5 VW Schedule Routine, Read Routine (OP Routine) 02/05/2024 9:40 AM LUBRICATION WORKER Cervical stenosis of spinal canal Cervical disc disorder with myelopathy of mid-cervical region from Last 3 Months Results * XR Spine Cervical Complete 4 or 5 Views (02/05/2024 9:40 AM LUBRICATION WORKER) Anatomical Region Laterality Modality Spine N/A Computed Radiogr aphy 02/05/2024 10:3 1 AM LUBRICATION WORKER Impressions 02/05/2024 11:41 AM LUBRICATION WORKER 1. ??Unchanged right C4-C6 lamina plasties. 2. ??Unchanged multilevel degenerative disc disease which is most pronounced and moderate at C6-C7. Dictated by: Everett Mejía M.D. The radiology attending physician has personally reviewed this study, and had reviewed and/or edited this written report and agrees with it. Electronically signed by: Carlos Alonso D.O. Narrative 02/05/2024 11:41 AM LUBRICATION WORKER EXAMINATION: XR SPINE CERVICAL COMPLETE 4 OR [...] signed by: Carlos Alonso D.O. Pam Lopez PHOTOVOLTAIC SUBCONTRACTOR IMG XR PROCEDURES Final Result from Last 3 Months Insurance [facility] H[facility]PPO Address: [address] [address] [place] [address] [employer] OPEN ACCESS [facility] BLUE ACCESS OOS [facility] MRA Advance Directives For more information, please contact: [phone] * Full Code (Latest Code Status on File) Date Activated Date Inactivated Comments 03/28/2023 4:29 AM 03/28/2023 9:36 PM Care Teams Instructor Warper Relationship Specialty Start Date End Date Gris [place]eg[place] [address] [address] [place] [address] PCP - General Nurse Practitioner 12/16/21 Sylvia Ulloa, PHOTOVOLTAIC SUBCONTRACTOR [address] [facility] [place] [address] Nurse Practitioner Internal Medicine 11/27/23
--- OUTSIDE RECORDS SUMMARY | 2024-04-02 07:54 | XMS_ITS | Encounter Summary ---
Author Organization [facility] Address [address] [place] [address] Care Team Providers Care Aircraft Engine Mechanic Supervisor Name Role Phone Segun Navarro MD Primary Care Provider [phone] Gris Bocanegra METAL MILLING MACHINE OPERATOR Primary Care Provider Makenzie Buchanan METAL MILLING MACHINE OPERATOR Primary Care Provider [phone] Sylvia Ulloa NP Primary Care Provider [phone] Encounter Details Date Type Department Care Team (Late st Contact Info) Description 08/03/2018 Abstract [facility] CONVERSION [address] [place] [address] , Generic Conversion, Social History Tobacco Use [...] st Contact Info) Description 04/07/2024 10:20 AM I O PSYCHOLOGIST Office Visit [facility] [place] [address] [place] [address] Sylvia Ulloa, METAL MILLING MACHINE OPERATOR [address] [place] [address] documented as of this encounter Visit Diagnoses Not on filedocumented in this encounter Additional Health Concerns Infection Onset Date Last Indicated Resolved Time COVID-19 Rule Out 03/17/2021 03/17/2021 03/17/2021 1:57 PM I O PSYCHOLOGIST COVID-19 Rule Out 02/06/2023 02/06/2023 02/06/2023 3:04 PM I O PSYCHOLOGIST documented as of this encounter Care Teams Aircraft Engine Mechanic Supervisor Relationship Specialty Start Date End Date Segun Navarro MD PCP - General FAMILY PRACTICE 04/17/19 08/25/21 Gris Bocanegra, METAL MILLING MACHINE OPERATOR PCP - General NURSE PRACTITIONER 08/26/21 07/25/23 Makenzie Anand NP [address] [place] [address] PCP - General NURSE PRACTITIONER 07/26/23 09/13/23 Sylvia Ulloa, METAL MILLING MACHINE OPERATOR [address] [place] [address] PCP - General NURSE PRACTITIONER 09/14/23 documented as of this encounter
--- OUTSIDE RECORDS SUMMARY | 2024-04-02 07:54 | XMS_ITS | Encounter Summary ---
Author Organization [facility] Address [address] [place] [address] Care Team Providers Care Tool Storage Attendant Name Role Phone Sylvia Ulloa PHOTOGRAPHER NEWS Primary Care Provider [phone] Reason for Visit * Reason Comments Follow Up Acute - UTI - Sx sta rted Sunday. Back pain, trouble urinating, burning, itching and ittiration Urinary Symptoms Encounter Details Date Type Department Care Team (Latest Contact Info) Description 04/01/2024 3:00 PM LAUNDRY PRESS OPERATOR Office Visit [facility] - [place] [address] [address] [place] [address] Jose Juan Stack MD [address] [place] [address] [address] [place], [place] [id number] Follow Up (Acute - UTI - Sx [...] Comments Blood Pressure 103/69 04/01/2024 3:13 PM LAUNDRY PRESS OPERATOR Pulse 95 04/01/2024 3:13 PM LAUNDRY PRESS OPERATOR Temperature 36.4 ??C (97.6 ??F) 04/01/2024 3:13 PM CS T Respiratory Rate 18 04/01/2024 3:13 PM LAUNDRY PRESS OPERATOR Oxygen Saturation 97% 04/01/2024 3:13 PM LAUNDRY PRESS OPERATOR Inhaled Oxygen Concentration - - Weight 67.5 kg (148 lb 12.8 oz) 04/01/2024 3:13 PM LAUNDRY PRESS OPERATOR Height 162.6 cm (5' 4 ) 04/01/2024 3:13 PM LAUNDRY PRESS OPERATOR Body Mass Index 25.54 04/01/2024 3:13 PM LAUNDRY PRESS OPERATOR documented in this encounter Patient Instructions * Attachments The following attachments cannot be sent through Care Everywhere. * Acute Cystitis Discharge Instructions (Malagasy) documented in this encounter Progress Notes * [...] the day of the encounter. This includes reil-ut-mepp and csv-hftf-fz-face time I provided on the day of [...] was at least in part performed using [employer] and there may be some inherent flaws in this closet builder due to the nature of this program. Jose Juan Stack MD Internal Medicine [facility], [facility]. DRY PRESS OPERATOR documented in this encounter Plan of Treatment Upcoming Encounters Date Type Department Care Team (Late st Contact Info) Description 04/07/2024 10:20 AM LAUNDRY PRESS OPERATOR Office Visit [facility] - [place] [address] [facility] [address] [place] [address] Sylvia Ulloa, JEANNIE [address] [facility] [address] [place] [address] Pending Results Name Type Priority Associated Diagnoses Date /Time URINE BACTERIA CULTURE Microbiology Routine Urinary tract infection with hematuria, site unspecified 04/01/2024 3:41 PM LAUNDRY PRESS OPERATOR Scheduled Orders Name Type Priority Associated Diagnoses [...] HCG TEST NEGATIVE NEGATIVE [address], [facility] Internal Control: VALID VALID MG[address], [place] URINE SPECIMEN FROM URETHRA / Unknown 04/01/2024 Jose Juan Stack MD URINE ORDERABLES Final Result [address], [place] [address] [place] [address], [place] [phone] * (ABNORMAL) URINALYSIS AUTO DIP (04/01/2024) COLOR (U) YELLOW YELLOW [address], [place] TRANSPARENCY TURBID(A) CLEAR [address], [place] GLUCOSE (U) NEGATIVE NEGATIVE MG/DL MG[address], [place] BILIRUBIN (U) NEGATIVE NEGATIVE MG-[address], [place] KETONES MG/DL (U) NEGATIVE NEGATIVE MG/DL MG[address], [place] SPECIFIC GRAVITY (U) 1.020 1.001 - 1.035 MG[address], [place] BLOOD (U) SMALL (1+, Hemolyzed)( A) NEGATIVE MG[address], [place] U PH 6.0 5.0 - 9.0 [address], [place] PROTEIN (U) 2+ (100)(A) NEGATIVE mg/dL MG-[address], [place] UROBILINOGEN 0.2 0.2 - 1.0 EU/dL = mg/dL MG[address], [place] NITRITES NEGATIVE NEGATIVE MG/DL MG[address], [place] LEUKOCYTES (U) 3+ (LARGE)(A) NEGATIVE MG[address], [place] URINE SPECIMEN OBTAINED BY CLEAN CATCH PROCEDURE / Unknown 04/01/2024 Jose Juan Stack MD URINE ORDERABLES Final Result [address], [place] [address] [facility] [address] [place] [address], documented in this encounter Visit Diagnoses Diagnosis Urinary tract infection with hematuria, site unspecified- Primary documented in this encounter Additional Health Concerns Assessment Noted Time PHQ-9 Depression Total Score: 7 11/12/19 24 2:02 PM CDT documented as of this encounter Care Teams Tool Storage Attendant Relationship Specialty Start Date End Date Sylvia Ulloa, PHOTOGRAPHER NEWS [address] [facility] [address] [place] [address] PCP - General NURSE PRACTITIONER 09/14/23 documented as of this encounter
--- OUTSIDE RECORDS SUMMARY | 2024-04-02 07:54 | XMS_ITS | Clinical Summary ---
Author Organization [facility] Address Formerly [facility] [place] [address] Care Team Providers Care Channel Opener Name Role Phone Laila, Sylvai Tonia ELIGIBILITY CONSULTANT Primary Care Provider [phone] Allergies Active Allergy Reactions Criticality Noted Date [...] Department Care Team Description 04/01/2024 3:00 PM APPLICATIONS ANALYST Office Visit [place] [address] [place] [address] Jose Juan Stack MD Follow Up (Acute - UTI - Sx started Sunday. Back pain, trouble urinating, burning, itching and ittiration); Urinary Symptoms 04/01/2024 Travel 03/10/2024 9:20 AM APPLICATIONS ANALYST Office Visit [place] [address] [address] [place] [address] Sylvia Ulloa, JEANNIE Knee Pain 03/10/2024 Travel 02/25/2024 10:40 AM APPLICATIONS ANALYST Office Visit [place] [id number] [address] [place] [address] Sylvia Ulloa, JEANNIE Weight Check 02/25/2024 Orders Only [place] [address] [place] [address] Mary Ann Dhaliwal MA 02/25/2024 Travel 02/05/2024 Telephone [facility] [address] [address] [place] [address] Sylvia Ulloa, ELIGIBILITY CONSULTANT Medication 02/04/2024 Telephone [place] [address] [address] [place] [address] Sylvia Ulloa, ELIGIBILITY CONSULTANT Medication 01/28/2024 2:20 PM APPLICATIONS ANALYST Office Visit [place] [address] [address] [place] [address] Sylvia Ulloa, ELIGIBILITY CONSULTANT Cough 01/28/2024 Travel 01/22/2024 Scan [employer] INFO SRVCS Scanned, [facility] 01/02/2024 12:20 PM APPLICATIONS ANALYST Telemedicine [place] [address] [address] [place] [address] Sylvia Ulloa, JEANNIE Med Change Request 01/02/2024 10:00 AM APPLICATIONS ANALYST Allied Health/Nurse Visit [place] [address] [address] [place] [address] Sylvia Ulloa, ELIGIBILITY CONSULTANT Allied Health Visit (Patient present for labs) 01/02/2024 Telephone [place] [address] [address] [place] [address] Sylvia Ulloa, ELIGIBILITY CONSULTANT Work Excuse 01/02/2024 Orders Only [place] [address] [address] [place] [address] Sylvia Ulloa, ELIGIBILITY CONSULTANT 01/02/2024 Travel from Last 3 Months Immunizations [...] Comments Blood Pressure 103/69 04/01/2024 3:13 PM APPLICATIONS ANALYST Pulse 95 04/01/2024 3:13 PM APPLICATIONS ANALYST Temperature 36.4 ??C (97.6 ??F) 04/01/2024 3:13 PM CS T Respiratory Rate 18 04/01/2024 3:13 PM APPLICATIONS ANALYST Oxygen Saturation 97% 04/01/2024 3:13 PM APPLICATIONS ANALYST Inhaled Oxygen Concentration - - Weight 67.5 kg (148 lb 12.8 oz) 04/01/2024 3:13 PM APPLICATIONS ANALYST Height 162.6 cm (5' 4 ) 04/01/2024 3:13 PM APPLICATIONS ANALYST Body Mass Index 25.54 04/01/2024 3:13 PM APPLICATIONS ANALYST Plan of Treatment Upcoming Encounters Date Type Department Care Team (Late st Contact Info) Description 04/07/2024 10:20 AM APPLICATIONS ANALYST Office Visit [facility] Multispecialty Care - [place] [address] [place] [address] Sylvia Ulloa, ELIGIBILITY CONSULTANT [address] [place] [address] Health Maintenance Due Date Last Done Comments [...] Every 5 Years [address] [facility] HPV 2015 COVID-19 Vaccine (1 2023-2 5 season) 2023 Influenza Adult (#1) 2023 11/28/2018, 11/28/2018 Annual Physical 11/11/2024 11/12/2023, 10/03/2021 DTaP, Tdap and Td Vaccines ( 2 - Td or Tdap) 06/01/2027 05/31/2017 Hepatitis C Completed 11/12/2023 PHQ-2 (Physician [place]) Completed 04/01/2024 HPV Vaccines Aged Out No [...] THYROXINE, FREE (FT4) Routine 02/25/2024 11:32 AM APPLICATIONS ANALYST Hypothyroidism, unspecified type THYROID STIM HORMONE TSH Routine 02/25/2024 11:32 AM APPLICATIONS ANALYST Hypothyroidism, unspecified type MG/PCCL UDS SCREEN Routine 02/25/2024 11 :31 AM APPLICATIONS ANALYST Overweight COLLECTION VENOUS BLOOD VENIPUNCTURE Routine 01/02/2024 10:59 AM APPLICATIONS ANALYST Hypothyroidism, unspecified type THYROXINE, FREE (FT4) Routine 01/02/2024 10:59 AM APPLICATIONS ANALYST TSH W/REFLEX Routine 01/02/2024 10:59 AM APPLICATIONS ANALYST Hypothyroidism, unspecified type HEPATITIS C ANTIBODY Routine 11/12/2023 3:58 PM CDT Need for hepatitis C screening test from Last 3 Months or Most Recently Relevant to Health Maintenance Results * TEST URINE (04/01/2024) URINE HCG TEST NEGATIVE NEGATIVE [address], [place] Internal Control: VALID VALID MG[address], [place] URINE SPECIMEN FROM URETHRA / Unknown 04/01/2024 Jose Juan Stack MD URINE ORDERABLES Final Result Performing Organization Address [facility] Co de Phone Number MG[address], [place] [address] [place] [address], * (ABNORMAL) URINALYSIS AUTO DIP (04/01/2024) COLOR (U) YELLOW YELLOW MG[address], [place] TRANSPARENCY TURBID(A) CLEAR [address], [place] GLUCOSE (U) NEGATIVE NEGATIVE MG/DL MG-[address], [place] BILIRUBIN (U) NEGATIVE NEGATIVE MG-[address], [place] KETONES MG/DL (U) NEGATIVE NEGATIVE MG/DL MG-[address], [place] SPECIFIC GRAVITY (U) 1.020 1.001 - 1.035 MG[address], [place] BLOOD (U) SMALL (1+, Hemolyzed)( A) NEGATIVE MG-[address], [place] U PH 6.0 5.0 - 9.0 [address], [place] PROTEIN (U) 2+ (100)(A) NEGATIVE mg/dL MG-[address], [place] UROBILINOGEN 0.2 0.2 - 1.0 EU/dL = mg/dL MG-[address], [place] NITRITES NEGATIVE NEGATIVE MG/DL MG-[address], [place] LEUKOCYTES (U) 3+ (LARGE)(A) NEGATIVE MG-[address], [place] URINE SPECIMEN OBTAINED BY CLEAN CATCH PROCEDURE / Unknown 04/01/2024 Jose Juan Stack MD URINE ORDERABLES Final Result Performing Organization Address [facility] Co de Phone Number MG[facility] [address] [place] [address], * THYROXINE, FREE (FT4) (02/25/2024 11:32 AM APPLICATIONS ANALYST) Only the most recent of2 resultswithin the time period is included. Pathologist [facility] FREE T4 1.03 0.76 - 1.46 NG/DL 02/25/2024 7:41 PM APPLICATIONS ANALYST [facility] 02/25/2024 11:3 2 AM APPLICATIONS ANALYST Sylvia Ulloa NP LABORATORY Final Resul t Performing Organization Address City/[facility]/ZIP Co de Phone Number [address] [address], [place] [phone] * (ABNORMAL) THYROID STIM HORMONE TSH (02/25/2024 11:32 AM APPLICATIONS ANALYST) [facility] TSH 5.733(H) 0.358 - 3.740 uIU/ML 02/25/2024 7:41 PM APPLICATIONS ANALYST [facility] 02/25/2024 11:3 2 AM APPLICATIONS ANALYST us Sylvia Ulloa NP LABORATORY Final Resul t Performing Organization Address City/[facility]/ZIP Co de Phone Number [address] [address], [place] [phone] * MG/PCCL UDS SCREEN (02/25/2024 11:31 AM APPLICATIONS ANALYST) Pathologist [facility] FENTANYL SCREEN (U) NEGATIVE <0.5 ng/mL [facility] [...] [facility] WOOD EDUIN NOTE [facility] Comment: This drug testing is for medical [...] analytical performance characteristics have been determined by [facility]. It has not been cleared or approved by the FDA. This assay has been validated pursuant to the CLIA regulations and is used for clinical purposes. Healthcare Providers needing Interpretation assistance, please contact us at [phone] ( ) M-F, 8am to 10pm EST URINE SPECIMEN / Unknown 02/25/2024 11:31 AM APPLICATIONS ANALYST 02/26/2024 2:16 PM APPLICATIONS ANALYST Narrative Resulting Agency Comment Performing Organization Information: ?Site ID: [id number] ?Name: [facility] ?Address: [address] [place] [id number] ?Director: Darwin Issa ?Site ID: [id number] ?Name: [facility] ?Address: [address] [facility] [place] [address] ?Director: Tay Borjas MD Sylvia Ulloa NP URINE ORDERABLES Final Resu lt Performing Organization Address City/[facility]/ZIP Co de Phone Number [facility] [address] [place] [address] [facility] [address] [place] [address], * (ABNORMAL) TSH W/REFLEX (01/02/2024 10:59 AM APPLICATIONS ANALYST) TSH 5.082(H) 0.358 - 3.740 uIU/ML 01/02/2024 3:15 PM APPLICATIONS ANALYST [facility] 01/02/2024 10:5 9 AM APPLICATIONS ANALYST Sylvia Ulloa NP LABORATORY Final Resul t Performing Organization Address [facility] de Phone Number [facility] [address] [place] [address], [place] [phone] * HEPATITIS C ANTIBODY (11/12/2023 3:58 PM CDT) Pathologist [facility] HEPATITIS C AB NON-REACTI VE NON-REACT PREMA 11/12/2023 10:13 PM CDT [facility] Comment: ANTIBODIES TO HCV NOT DETECTED. DOES NOT EXCLUDE THE POSSIBILITY OF EXPOSURE TO HCV. 11/12/2023 3:58 PM CDT Sylvia Ulloa NP LABORATORY Final Resul t Performing Organization Address City/[facility]/ZIP Co de Phone Number [facility] [address] [place] [address], [place] [phone] [id number] from Last 3 Months or Most Recently Relevant to Health Maintenance Insurance [employer] Care Teams Channel Opener Relationship Specialty Start Date End Date Sylvia Ulloa, ELIGIBILITY CONSULTANT [address] [place] [address] PCP - General NURSE PRACTITIONER 09/14/23
--- OUTSIDE RECORDS SUMMARY | 2024-04-02 07:54 | XMS_ITS | Encounter Summary ---
Author Organization [facility] Address [address] [place] [address] Care Team Providers Care Welt Beater Name Role Phone Gris Bocanegra UMBRELLA MENDER Primary Care Provider Makenzie Buchanan UMBRELLA MENDER Primary Care Provider [phone] Sylvia Ulloa UMBRELLA MENDER Primary Care Provider [phone] Reason for Visit * Reason Onset Date Comments Question 06/26/2022 Encounter Details Date Type Department Care Team (Late st Contact Info) Description 06/26/2022 Satomi Message Enc [facility] Family Medicine - [address] [address] [place], [facility] Provider Prior authorization Social History Tobacco Use [...] 2:33 PM CDT Pt was sent a [employer] message on 07/03/2022, informing her that the PA was denied. See Mir Vrachat message from 07/03/2022. * Siri Russell - 06/27/2022 12:40 PM CDT Patient is wanting to know the status of the prior authorization for her medication. Please follow up. documented in this encounter Plan of Treatment Upcoming Encounters Date Type Department Care Team (Late st Contact Info) Description 04/07/2024 10:20 AM FRINGE WEAVER Office Visit [facility] Multispecialty Care - [place] [address] [place] [address] Sylvia Ulloa NP [address] [place] [address] documented as of this encounter Visit Diagnoses Not on filedocumented in this encounter Additional Health Concerns Infection Onset Date Last Indicated Resolved Time COVID-19 Rule Out 02/06/2023 02/06/2023 02/06/2023 3:04 PM FRINGE WEAVER Assessment Noted Time PHQ-9 Depression Total Score: 8 01/12/20 22 9:14 AM FRINGE WEAVER documented as of this encounter Care Teams Welt Beater Relationship Specialty Start Date End Date Gris Bocanegra NP PCP - General NURSE PRACTITIONER 08/26/21 07/25/23 Makenzie Anand NP [address] [place] [address] PCP - General NURSE PRACTITIONER 07/26/23 09/13/23 Sylvia Ulloa NP [address] [place] [address] PCP - General NURSE PRACTITIONER 09/14/23 documented as of this encounter
[2024-04-02] MEDS: SODIUM CHLORIDE 0.9% IV 1,000 ML 999 ML IV CONT (08:16)
[2024-04-02] MEDS: ONDANSETRON INJ 4 MG/2 ML VIAL IV PUSH (08:16)
[2024-04-02] MEDS: ACETAMINOPHEN 500 MG TABLET 1000 MG PO (08:17)
[2024-04-02] MEDS: MORPHINE SULFATE (*CRX) 4 MG/ML INJ IV PUSH (08:18)
[2024-04-02 08:20] VITALS: BP 114/78; PULSE 93; RESP 15; O2SAT 100
[2024-04-02 09:17] VITALS: BP 95/68; PULSE 96; RESP 18; O2SAT 98
--- NOTE | 2024-04-02 10:48 | ED.GENADULT ---
HPI - General Adult General Chief complaint: Urogenital-Female Stated complaint: fever, low back pain, being tx for uti Time Seen by Provider: 04/02/24 07:47 History of Present Illness HPI narrative: patient is a 39-year-old female who presents emergency department with chief complaint of UTI and back and abdominal pain patient reports that she was seen by her primary care provider and started on antibiotics the patient reports that she is having worsening symptoms and had an episode of vomiting. The patient states that the symptoms are not improved by anything reports that she has also started having diarrhea now Related Data Home Medications ?Medication ?Instructions ?Recorded ?Confirmed ?Last Taken ?Type gabapentin 300 mg capsule 300 mg PO DAILY 03/05/23 11/27/23 Unknown History omeprazole 20 mg capsule,delayed 20 mg PO DAILY 03/05/23 11/27/23 Unknown History release cyclobenzaprine 10 mg tablet 10 mg PO DAILY 09/17/23 11/27/23 Unknown History trazodone 50 mg tablet 50 mg PO DAILY 09/17/23 11/27/23 Unknown History venlafaxine 37.5 mg 37.5 mg PO DAILY 09/17/23 11/27/23 Unknown History capsule,extended release 24 hr Allergies Allergy/AdvReac Type Severity Reaction Status Date / Time No Known Allergies Allergy Verified 04/02/24 07:28 Review of Systems Review of Systems: A 10 system review of systems was completed on the patient and is negative except for what is stated in the HPI. Nursing and ancillary documentation was reviewed. [facility] Past Medical History Medical History Vaginal irritation Gastroesophageal reflux Surgical History Surgical History H/O neck surgery History of removal of ovarian cyst (~2005) Family History Family History Grandparent Breast cancer Brain cancer Diabetes mellitus Mother Diabetes mellitus Father Lung cancer Social History Social History Smoking status: Never smoker Alcohol intake: current Alcohol use details: socially Substance use: never Substance use type: does not use Do You Feel Safe in your Home?: Yes Lack of Transportation: No Lack of Food: Never True Current Housing: I Have Housing Concerned About Future Housing: No Difficulty Paying Gas/Electric Bills: No Difficulty Paying for Meds: No Currently Unemployed: No Education: High School Diploma/GED Difficulty w/ Childcare or Family Care: No Living arrangements: with family Occupation/Education: occupation Gender identity (if verbalized by the patient): Female Exam Narrative: GENERAL: Well-appearing, well-nourished, and in no acute distress. HEAD: Normocephalic, atraumatic. EYES: PERRLA and EOMI. ENT: Nares clear, no rhinorrhea or epistaxis. Mucous membranes moist. NECK: Supple. CHEST: Clear to auscultation. No respiratory distress. HEART: Regular rate and rhythm. No murmur heard. Normal peripheral pulses. ABDOMEN: Soft, tenderness to palpation, nondistended, normal active bowel sounds. EXTREMITIES: Normal range of motion. No edema. SKIN: Warm, dry, no rash. NEURO: No focal deficits. Alert and oriented x3. PSYCH: Normal mood and affect. Course Vital Signs Vital signs: Vital Signs Temperature 36.9 C 04/02/24 05:37 Pulse Rate 112 H 04/02/24 05:37 Respiratory Rate 14 04/02/24 05:37 Blood Pressure 113/62 04/02/24 05:37 Pulse Oximetry 100 04/02/24 05:37 Temperature 37.1 C 04/02/24 07:26 Pulse Rate 96 04/02/24 09:17 Respiratory Rate 18 04/02/24 09:17 Blood Pressure 95/68 L 04/02/24 09:17 Pulse Oximetry 98 04/02/24 09:17 Medical Decision Making [facility] Narrative Medical decision making narrative: differential diagnosis includes pyelonephritis, ureterolithiasis, colitis, diverticulitis, intra-abdominal infection laboratory studies were obtained on the patient showed a white count of 14.0 electrolytes are within normal limits urinalysis showed 51-100 white blood cells COVID flu and RSV are negative CT scan of the abdomen pelvis showed evidence of colitis. There also was cholelithiasis without evidence of cholecystitis. The patient was changed her antibiotics to Cipro and Flagyl patient will also be given a prescription for Zofran and a prescription for Vital Signs Vital Signs: Vital Signs Temperature 36.9 C 04/02/24 05:37 Pulse Rate 112 H 04/02/24 05:37 Respiratory Rate 14 04/02/24 05:37 Blood Pressure 113/62 04/02/24 05:37 Pulse Oximetry 100 04/02/24 05:37 Temperature 37.1 C 04/02/24 07:26 Pulse Rate 96 04/02/24 09:17 Respiratory Rate 18 04/02/24 09:17 Blood Pressure 95/68 L 04/02/24 09:17 Pulse Oximetry 98 04/02/24 09:17 Lab Data 04/02/24 02:09 04/02/24 02:09 Labs: Lab Results 04/02/24 04/02/24 04/02/24 Range/Units 02:03 02:09 02:11 WBC 14.0 H (4.5-10.0) K/mm3 RBC 4.19 L (4.2-5.4) M/mm3 Hgb 12.5 (12.0-15.0) g/dL Hct 37.1 (37.0-47.0) % MCV 88.5 (80-100) fl MCH 29.8 (26-34) pg MCHC 33.7 (32-36) g/dl RDW 12.7 (11.5-14.5) % Plt Count 234 (150-375) k/mm3 MPV 9.5 (7.4-10.4) fl Immature Gran % (Auto) 0.3 (0-0.5) % Neut % (Auto) 85.1 H (45.5-73.1) % Lymph % (Auto) 8.6 L (18.3-44.2) % Dent % (Auto) 5.6 (2.6-8.5) % Eos % (Auto) 0.1 (0-4.4) % Baso % (Auto) 0.3 (0.2-1.2) % Lymph # (Auto) 1.20 (0.9-3.2) K/mm3 Dent # (Auto) 0.8 H (0.1-0.6) K/mm3 Eos # (Auto) 0.0 (0-0.3) K/mm3 Baso # (Auto) 0.0 (0.0-0.1) K/mm3 Abs Immat Gran (auto) 0.04 H (0.00-0.031) K/mm3 Absolute Neuts (auto) 11.9 H (1.3-6.7) K/mm3 Absolute Nucleated RBC 0.000 (0.0-0.012) K/mm3 Nucleated RBC % 0.0 (0.0-0.2) % Sodium 136 L (137-145) mmol/L Potassium 4.1 (3.4-5.0) mmol/L Chloride 99 (98-107) mmol/L Carbon Dioxide 26 (22-30) mmol/L Anion Gap 11 (4-12) mmol/L BUN 11 (7-17) mg/dL Creatinine 0.71 (0.7-1.0) mg/dL Estim Creat Clear Calc 79 ml/min Estimated GFR > 60 (59 - ) Glucose 109 (65-110) mg/dL Calcium 9.5 (8.4-10.2) mg/dL Total Bilirubin 0.7 (0.2-1.3) mg/dL AST 27 (14-36) U/L ALT 27 (6-35) U/L Alkaline Phosphatase 58 (38-126) U/L Total Protein 7.0 (6.3-8.2) g/dL Albumin 4.2 (3.5-5.1) g/dL Urine Color Yellow (Yellow) Urine Appearance Clear (Clear) Urine pH 7.0 (5.0-9.0) Ur Specific [place] 1.004 (1.001-1.035) Urine Protein Negative (Negative) mg/dL Urine Glucose (UA) Negative (Negative) mg/dL Urine Ketones Negative (Negative) mg/dL Ur Blood (Man) Negative (Negative) Urine Nitrate Negative (Negative) Urine Bilirubin Negative (Negative) Urine Urobilinogen 0.2 (<2.0) mg/dL Leukocyte Esterase Rfl 2+ H (Negative) ROMELIA/UL Urine RBC 0-2 (0-2) /hpf Urine WBC 51-100 H (0-3) /hpf Ur Squamous Epith Cells None seen (Few) /hpf Urine Bacteria None seen /hpf Urine Casts 0-2 POC Urine HCG, Qual Negative (Negative) Influenza A (RT-PCR) (Negative) Influenza B (RT-PCR) (Negative) RSV (RT-PCR) (Negative) SARS-CoV-2 RNA (RT-PCR) (Negative) 04/02/24 Range/Units 05:35 WBC (4.5-10.0) K/mm3 RBC (4.2-5.4) M/mm3 Hgb (12.0-15.0) g/dL Hct (37.0-47.0) % MCV (80-100) fl MCH (26-34) pg MCHC (32-36) g/dl RDW (11.5-14.5) % Plt Count (150-375) k/mm3 MPV (7.4-10.4) fl Immature Gran % (Auto) (0-0.5) % Neut % (Auto) (45.5-73.1) % Lymph % (Auto) (18.3-44.2) % Dent % (Auto) (2.6-8.5) % Eos % (Auto) (0-4.4) % Baso % (Auto) (0.2-1.2) % Lymph # (Auto) (0.9-3.2) K/mm3 Dent # (Auto) (0.1-0.6) K/mm3 Eos # (Auto) (0-0.3) K/mm3 Baso # (Auto) (0.0-0.1) K/mm3 Abs Immat Gran (auto) (0.00-0.031) K/mm3 Absolute Neuts (auto) (1.3-6.7) K/mm3 Absolute Nucleated RBC (0.0-0.012) K/mm3 Nucleated RBC % (0.0-0.2) % Sodium (137-145) mmol/L Potassium (3.4-5.0) mmol/L Chloride (98-107) mmol/L Carbon Dioxide (22-30) mmol/L Anion Gap (4-12) mmol/L BUN (7-17) mg/dL Creatinine (0.7-1.0) mg/dL Estim Creat Clear Calc ml/min Estimated GFR (59 - ) Glucose (65-110) mg/dL Calcium (8.4-10.2) mg/dL Total Bilirubin (0.2-1.3) mg/dL AST (14-36) U/L ALT (6-35) U/L Alkaline Phosphatase (38-126) U/L Total Protein (6.3-8.2) g/dL Albumin (3.5-5.1) g/dL Urine Color (Yellow) Urine Appearance (Clear) Urine pH (5.0-9.0) Ur Specific [place] (1.001-1.035) Urine Protein (Negative) mg/dL Urine Glucose (UA) (Negative) mg/dL Urine Ketones (Negative) mg/dL Ur Blood (Man) (Negative) Urine Nitrate (Negative) Urine Bilirubin (Negative) Urine Urobilinogen (<2.0) mg/dL Leukocyte Esterase Rfl (Negative) ROMELIA/UL Urine RBC (0-2) /hpf Urine WBC (0-3) /hpf Ur Squamous Epith Cells (Few) /hpf Urine Bacteria /hpf Urine Casts POC Urine HCG, Qual (Negative) Influenza A (RT-PCR) Negative (Negative) Influenza B (RT-PCR) Negative (Negative) RSV (RT-PCR) Negative (Negative) SARS-CoV-2 RNA (RT-PCR) Negative (Negative) Discharge Plan Discharge Clinical Impression: Urinary tract infection, Colitis Patient Disposition: Home, Self-Care Condition: Stable Instructions: Antibiotic Form, Urinary Tract Infection in Women (ED), Colitis (ED) Patient Language: Nepali Prescriptions: New ciprofloxacin HCl 500 mg tablet 500 mg PO Q12H 10 Days Qty: 20 0RF metronidazole 500 mg tablet 500 mg PO Q8H 10 Days Qty: 30 0RF ondansetron 4 mg tablet,disintegrating 4 mg PO Q8H PRN (Reason: nausea and vomiting) Qty: 10 0RF No Action hydrocodone-acetaminophen 5-325 mg tablet 1 tablet PO Q6H PRN (Reason: pain) Qty: 14 0RF ibuprofen 800 mg tablet 800 mg PO Q6H PRN (Reason: pain) Qty: 30 0RF venlafaxine 37.5 mg capsule,extended release 24hr 37.5 mg PO DAILY cyclobenzaprine 10 mg tablet 10 mg PO DAILY trazodone 50 mg tablet 50 mg PO DAILY norethindrone ac-eth estradiol [03/17 ()] 1-20 mg-mcg tablet 1 tablet PO DAILY Qty: 63 3RF omeprazole 20 mg capsule,delayed release(DR/EC) 20 mg PO DAILY gabapentin 300 mg capsule 300 mg PO DAILY phenazopyridine [Pyridium] 200 mg tablet 200 mg PO TID Qty: 5 0RF valacyclovir [Valtrex] 500 mg tablet 500 mg PO DAILY Qty: 90 3RF Follow-up/Referrals: Laila,Sylvia Randall APRN [Primary Care Provider] - Stand Alone Forms: Work/School Release IP Time of Disposition: 10:53
[2024-04-02 11:12] VITALS: BP 97/66; PULSE 74; RESP 18; O2SAT 100
== END 2024-04-02 11:15 | disposition home or self-care (01) ==
PROVIDERS: Student in an Organized Health Care Education/Training Program; Emergency Provider Emergency Medicine; PCP Nurse Practitioner
DX: N39.0 Urinary tract infection, site not specified (principal); K52.9 Noninfective gastroenteritis and colitis, unspecified; Z20.822 Contact with and (suspected) exposure to COVID-19; K21.9 Gastro-esophageal reflux disease without esophagitis
CPT/HCPCS: 36415; 74176; 80053; 81001; 81025; 85025; 87086; 87637; 96361; 96374; 96375; 99284; A9270; J2270; J2405; J7030

== ENCOUNTER 2024-05-16 23:41 | Emergency (ER) | payer OTHER, SELFPAY ==
--- NOTE | ~2024-05-16 | CT_ITS ---
EXAMINATION: CT abdomen pelvis w con DATE: 05/17/2024 01:49 INDICATION: Right lower quadrant abdominal pain TECHNIQUE: Computed tomography (CT) of the abdomen and pelvis was performed with 100 cc Omnipaque 350 intravenous contrast. The dose-length product was 353.60 mGy-cm. Automated exposure control and iter ative reconstruction technique were employed. COMPARISON: 04/02/2024. FINDINGS: There is dependent atelectasis. Heart size normal. No significant pleural or pericardial ef fusion. There are gallstones. No significant vascular abnormality. Enlarged fibroid uterus. The liver, spleen, pancreas, adrenal glands and kidneys are unremarkable. No free air or free fluid. No hydronephrosis. The appendix is not positively visualized. There is no pericecal inflammatory jarek nge to suggest appendicitis. There is scoliosis. No acute osseous abnormality. IMPRESSION: 1. No acute abdominal abnormality. 2: Cholelithiasis. 3: Enlarged fibroid uterus. 4: Scoliosis. Reviewed, dictated and finalized at location B.
--- OUTSIDE RECORDS SUMMARY | 2024-05-16 23:43 | XMS_ITS | Clinical Summary ---
Author Organization [facility] Address [address] [place] [address] Care Team Providers Care Coke Production Heater Name Role Phone Gris Bocanegra NP Primary Care Provider [phone] Sylvia Ulloa NP Unavailable [phone] Allergies Active Allergy Reactions Criticality Noted Date [...] 05/16/2017 Scoliosis deformity of spine 05/16/2017 Immunizations Immunization Administration Dates Next Due Influenza, Quadrivalent, Spl [...] on file Legal Sex Female 1:49 PM ELECTRICAL LINEMAN Gender Identity Female 01/23/2022 9:58 AM ELECTRICAL LINEMAN Sexual Orientation Not on file Obstetrics History Para Term AB IAB SAB Ectopic Multiple Livin g Live Births 0 0 0 0 0 0 0 0 0 0 0 Last Filed Vital Signs Vital Sign Reading Time Taken Comments Blood Pressure 120/81 07/10/2023 2:37 PM CDT Pulse 78 07/10/2023 2:37 PM CDT Temperature 37.4 C (99.3 F) 03/28/2023 11:05 AM ELECTRICAL LINEMAN Respiratory Rate 20 03/28/2023 7:50 AM ELECTRICAL LINEMAN Oxygen Saturation 99% 03/28/2023 11:05 AM ELECTRICAL LINEMAN Inhaled Oxygen Concentration - - Weight 71.7 kg (158 lb) 02/05/2024 10:07 AM ELECTRICAL LINEMAN Height 162.6 cm (5' 4 ) 02/05/2024 10:07 AM ELECTRICAL LINEMAN Body Mass Index 27.12 02/05/2024 10:07 AM ELECTRICAL LINEMAN Plan of Treatment Health Maintenance Due Date [...] as needed Medical Devices Implanted Type Area Used Equipment Sales Representative Device Identifier Shelf Expiration Date Model / Serial / Lot Medtronic Inc Centerpiece 10mm Lateral Hole Open Door Color Coded Spine [id number] - [id number] Implanted:Qty: 3 on 03/27/2023 by Neptali Benitez MD at [facility] N/A: Spine Cervical Medtronic Inc [id number] / / Medtronic Inc Spinal Screw Anterior Cervical Odlp Solid 2.0x7mm [id number] - [id number] Implanted:Qty: 6 on 03/27/2023 by Neptali Benitez MD at [facility] N/A: Spine Cervical Medtronic Inc [id number] / / Medtronic Inc Spinal Screw Anterior Cervical Odlp Solid 2.0x5mm [id number] - [id number] Implanted:Qty: 6 on 03/27/2023 by Neptali Benitez MD at [facility] N/A: Spine Cervical Medtronic Inc [id number] / / Insurance [facility] CHOICE PLUS HEALTHLINK OPEN ACCESS [facility] [employer] OOS [facility] CMR MRA Advance Directives For more information, please contact: [phone] * Full Code (Latest Code Status on File) Date Activated Date Inactivated Comments 03/28/2023 4:29 AM 03/28/2023 9:36 PM Care Teams Coke Production Heater Relationship Specialty Start Date End Date Gris [place] [address] PCP - General Nurse Practitioner 12/16/21 Sylvia Ulloa NP [address] [place] [address] Nurse Practitioner Internal Medicine 11/27/23
--- OUTSIDE RECORDS SUMMARY | 2024-05-16 23:43 | XMS_ITS | Encounter Summary ---
Author Organization [facility] Address [facility] [place] [address] Care Team Providers Care Nailing Machine Feeder Name Role Phone Gris Bocanegra NP Primary Care Provider Makenzie Buchanan PUMPMAN Primary Care Provider [phone] Sylvia Ulloa NP Primary Care Provider [phone] Encounter Details Date Type Department Care Team (Late st Contact Info) Description 01/01/2023 SETiTt Message Enc [facility] Family Medicine [address] [address] Gris Bocanegra, PUMPMAN MRI Social History Tobacco Use Types Packs/Day [...] Information Value Date Recorded Sex Assigned at Female 04/07/2024 10:19 AM CHEMICAL PLANT TECHNICAL DIRECTOR Legal Sex Female 4:59 PM CDT Gender Identity Female 04/07/2024 10:19 AM CHEMICAL PLANT TECHNICAL DIRECTOR Sexual Orientation Straight 04/07/2024 10 :19 AM CHEMICAL PLANT TECHNICAL DIRECTOR documented as of this encounter Plan of Treatment Upcoming Encounters Date Type Department Care Team (Late st Contact Info) Description 05/19/2024 11:20 AM CDT Office Visit [facility] Medical [facility] Multispecialty Care - [place] [address] [place], [place] [address] Sylvia Ulloa, PUMPMAN [address] [place] [address] documented as of this encounter Visit Diagnoses Not on filedocumented in this encounter Additional Health Concerns Infection Onset Date Last Indicated Resolved Time COVID-19 Rule Out 02/06/2023 02/06/2023 02/06/2023 3:04 PM CHEMICAL PLANT TECHNICAL DIRECTOR Assessment Noted Time PHQ-9 Depression Total Score: 8 01/12/20 9:14 AM CHEMICAL PLANT TECHNICAL DIRECTOR documented as of this encounter Care Teams Nailing Machine Feeder Relationship Specialty Start Date End Date Gris Bocanegra, PUMPMAN PCP - General NURSE PRACTITIONER 08/26/21 07/25/23 Makenzie Anand NP [address] [place] [address] PCP - General NURSE PRACTITIONER 07/26/23 09/13/23 Sylvia Ulloa, PUMPMAN [address] [place] [address] PCP - General NURSE PRACTITIONER 09/14/23 documented as of this encounter
--- OUTSIDE RECORDS SUMMARY | 2024-05-16 23:43 | XMS_ITS | Referral Summary ---
Author Organization [facility] Address [address] [place] [address] Care Team Providers Care Geophysical Data Technician Name Role Phone Gris Bocanegra NP Primary Care Provider [phone] Sylvia Ulloa NP Unavailable [phone] Allergies Active Allergy Reactions Criticality Noted Date [...] on file Legal Sex Female 1:49 PM BPO SPECIALIST Gender Identity Female 01/23/2022 9:58 AM BPO SPECIALIST Sexual Orientation Not on file Last Filed Vital Signs Vital Sign Reading Time Taken Comments Blood Pressure 120/81 07/10/2023 2:37 PM CDT Pulse 78 07/10/2023 2:37 PM CDT Temperature 37.4 C (99.3 F) 03/28/2023 11:05 AM BPO SPECIALIST Respiratory Rate 20 03/28/2023 7:50 AM BPO SPECIALIST Oxygen Saturation 99% 03/28/2023 11:05 AM BPO SPECIALIST Inhaled Oxygen Concentration - - Weight 71.7 kg (158 lb) 02/05/2024 10:07 AM BPO SPECIALIST Height 162.6 cm (5' 4 ) 02/05/2024 10:07 AM BPO SPECIALIST Body Mass Index 27.12 02/05/2024 10:07 AM BPO SPECIALIST Plan of Treatment Not on file Goals [...] as needed Medical Devices Implanted Type Area Certified Surgical Technician Device Identifier Shelf Expiration Date Model / Serial / Lot Medtronic Inc Centerpiece 10mm Lateral Hole Open Door Color Coded Spine [id number] - [id number] Implanted:Qty: 3 on 03/27/2023 by Neptali Benitez MD at [facility] N/A: Spine Cervical Medtronic Inc [id number] / / Medtronic Inc Spinal Screw Anterior Cervical Odlp Solid 2.0x7mm [id number] - [id number] Implanted:Qty: 6 on 03/27/2023 by Neptali Benitez MD at [facility] N/A: Spine Cervical Medtronic Inc [id number] / / Medtronic Inc Spinal Screw Anterior Cervical Odlp Solid 2.0x5mm [id number] - [id number] Implanted:Qty: 6 on 03/27/2023 by Neptali Benitez MD at [facility] N/A: Spine Cervical Medtronic Inc [id number] / / Insurance [facility] CHOICE PLUS HEALTHLINK OPEN ACCESS [facility] OOS [id number] [place] [address] MRA Advance Directives For more information, please contact: [phone] * Full Code (Latest Code Status on File) Date Activated Date Inactivated Comments 03/28/2023 4:29 AM 03/28/2023 9:36 PM Care Teams Geophysical Data Technician Relationship Specialty Start Date End Date Gris Bocanegra, DRAWBRIDGE OPERATOR [address] [place] [address] [place] [address] PCP - General Nurse Practitioner 12/16/21 Sylvia Ulloa, JEANNIE [address] [facility] [place] [address] Nurse Practitioner Internal Medicine 11/27/23
--- OUTSIDE RECORDS SUMMARY | 2024-05-16 23:43 | XMS_ITS | Encounter Summary ---
Author Organization [facility] Address [facility] [place] [address] Care Team Providers Care Contract Clerk Name Role Phone Sylvia Ulloa NETWORK ENGINEER Primary Care Provider [phone] Encounter Details Date Type Department Care Team (Late st Contact Info) Description 12/07/2023 Farecast Message Enc [facility] [place] [address] [facility] [address] [place] [address] Jaelyn, [facility] Provider xray Social History Tobacco Use Types [...] Sex Assigned at Female 04/07/2024 10:19 AM INDUSTRIAL GAS SERVICER Legal Sex Female 4:59 PM CDT Gender Identity Female 04/07/2024 10:19 AM INDUSTRIAL GAS SERVICER Sexual Orientation Straight 04/07/2024 10 :19 AM INDUSTRIAL GAS SERVICER documented as of this encounter Plan of Treatment Upcoming Encounters Date Type Department Care Team (Late st Contact Info) Description 05/19/2024 11:20 AM CDT Office Visit [facility] Multispecialty [facility] [place] [address] [place] [address] Sylvia Ulloa, NETWORK ENGINEER [address] [place], [place] [address] documented as of this encounter Visit Diagnoses Not on filedocumented in this encounter Additional Health Concerns Assessment Noted Time PHQ-9 Depression Total Score: 7 11/12/19 24 2:02 PM CDT documented as of this encounter Care Teams Contract Clerk Relationship Specialty Start Date End Date Sylvia Ulloa, NETWORK ENGINEER [address] [facility] [address] [place] [address] PCP - General NURSE PRACTITIONER 09/14/23 documented as of this encounter
--- OUTSIDE RECORDS SUMMARY | 2024-05-16 23:44 | XMS_ITS | Encounter Summary ---
Author Organization [facility] Address [facility] [place] [place] [address] Care Team Providers Care Pet Supplies Salesperson Name Role Phone Gris Bocanegra BAR EXAMINER Primary Care Provider Makenzie Buchanan BAR EXAMINER Primary Care Provider [phone] Sylvia Ulloa BAR EXAMINER Primary Care Provider [phone] Encounter Details Date Type Department Care Team (Late st Contact Info) Description 06/20/2022 [employer] Message Enc [facility] Medical Group Family Medicine [address] [address] QPD, [facility] Provider Medication Social History Tobacco [...] Sex Assigned at Female 04/07/2024 10:19 AM ASSISTANT PROJECT ENGINEER Legal Sex Female 4:59 PM CDT Gender Identity Female 04/07/2024 10:19 AM ASSISTANT PROJECT ENGINEER Sexual Orientation Straight 04/07/2024 10 :19 AM ASSISTANT PROJECT ENGINEER COVID-19 Exposure Response Date Recorded In the last 10 days, have yo u been in contact with someone who was confirmed or suspected to have Coronavirus/COVID-19? No / Unsure 06/21/2022 8:03 AM CDT documented as of this encounter Plan of Treatment Upcoming Encounters Date Type Department Care Team (Late st Contact Info) Description 05/19/2024 11:20 AM CDT Office Visit [facility] Medical Group Multispecialty Care - [place] [address] [place] [address] Sylvia Ulloa, BAR EXAMINER [address] [facility] [address] [place] [address] documented as of this encounter Visit Diagnoses Not on filedocumented in this encounter Additional Health Concerns Infection Onset Date Last Indicated Resolved Time COVID-19 Rule Out 02/06/2023 02/06/2023 02/06/2023 3:04 PM ASSISTANT PROJECT ENGINEER Assessment Noted Time PHQ-9 Depression Total Score: 8 01/12/20 9:14 AM ASSISTANT PROJECT ENGINEER documented as of this encounter Care Teams Pet Supplies Salesperson Relationship Specialty Start Date End Date Gris Bocanegra BAR EXAMINER PCP - General NURSE PRACTITIONER 08/26/21 07/25/23 Makenzie Anand NP [address] [place] [address] PCP - General NURSE PRACTITIONER 07/26/23 09/13/23 Sylvia Ulloa, BAR EXAMINER [address] [facility] [address] [place] [address] PCP - General NURSE PRACTITIONER 09/14/23 documented as of this encounter
--- OUTSIDE RECORDS SUMMARY | 2024-05-16 23:44 | XMS_ITS | Encounter Summary ---
Author Organization [facility] Address [facility] [place] [address] Care Team Providers Care Handle Lathe Operator Name Role Phone Gris Bocanegra TOBACCO FEEDER CATCHER Primary Care Provider Makenzie Buchanan TOBACCO FEEDER CATCHER Primary Care Provider [phone] Sylvia Ulloa TOBACCO FEEDER CATCHER Primary Care Provider [phone] Encounter Details Date Type Department Care Team (Late st Contact Info) Description 07/04/2022 Invenra Message Enc [facility] Medical Group Family Medicine [address] [address] Mycclementet, [facility] Provider Benzamycin Social History Tobacco Use Types [...] Sex Assigned at Female 04/07/2024 10:19 AM SHINGLES ROOFER HELPER Legal Sex Female 4:59 PM CDT Gender Identity Female 04/07/2024 10:19 AM SHINGLES ROOFER HELPER Sexual Orientation Straight 04/07/2024 10 :19 AM SHINGLES ROOFER HELPER COVID-19 Exposure Response Date Recorded In the last 10 days, have yo u been in contact with someone who was confirmed or suspected to have Coronavirus/COVID-19? No / Unsure 06/21/2022 8:03 AM CDT documented as of this encounter Plan of Treatment Upcoming Encounters Date Type Department Care Team (Late st Contact Info) Description 05/19/2024 11:20 AM CDT Office Visit [facility] Multispecialty Care - [place] [address] [place] [address] Sylvia Ulloa, TOBACCO FEEDER CATCHER [address] [facility] [address] [place] [address] documented as of this encounter Visit Diagnoses Not on filedocumented in this encounter Additional Health Concerns Infection Onset Date Last Indicated Resolved Time COVID-19 Rule Out 02/06/2023 02/06/2023 02/06/2023 3:04 PM SHINGLES ROOFER HELPER Assessment Noted Time PHQ-9 Depression Total Score: 8 01/12/20 9:14 AM SHINGLES ROOFER HELPER documented as of this encounter Care Teams Handle Lathe Operator Relationship Specialty Start Date End Date Gris Bocanegra TOBACCO FEEDER CATCHER PCP - General NURSE PRACTITIONER 08/26/21 07/25/23 Makenzie Anand NP [address] [place] [address] PCP - General NURSE PRACTITIONER 07/26/23 09/13/23 Sylvia Ulloa, TOBACCO FEEDER CATCHER [address] [place] [address] PCP - General NURSE PRACTITIONER 09/14/23 documented as of this encounter
--- OUTSIDE RECORDS SUMMARY | 2024-05-16 23:44 | XMS_ITS | Encounter Summary ---
Author Organization [facility] Address [facility] [place] [address] Care Team Providers Care Underwear Cutter Name Role Phone Gris Bocanegra FARMWORKER GENERAL Primary Care Provider Makenzie Buchanan FARMWORKER GENERAL Primary Care Provider + [phone] Sylvia Ulloa FARMWORKER GENERAL Primary Care Provider [phone] Encounter Details Date Type Department Care Team (Late st Contact Info) Description 08/31/2021 [employer] [facility] Patient Accounts [address] [place] [address] [employer], [facility] Provider Balance and payment Social History Tobacco [...] Sex Assigned at Female 04/07/2024 10:19 AM LATEX RIBBON MACHINE OPERATOR Legal Sex Female 4:59 PM CDT Gender Identity Female 04/07/2024 10:19 AM LATEX RIBBON MACHINE OPERATOR Sexual Orientation Straight 04/07/2024 10 :19 AM LATEX RIBBON MACHINE OPERATOR documented as of this encounter Plan of Treatment Upcoming Encounters Date Type Department Care Team (Late Contact Info) Description 05/19/2024 11:20 AM CDT Office Visit [facility] Medical Group Multispecialty Care - [place] [address] [place] [address] Sylvia Ulloa, FARMWORKER GENERAL [address] [place] [address] documented as of this encounter Visit Diagnoses Not on filedocumented in this encounter Additional Health Concerns Infection Onset Date Last Indicated Resolved Time COVID-19 Rule Out 02/06/2023 02/06/2023 02/06/2023 3:04 PM LATEX RIBBON MACHINE OPERATOR documented as of this encounter Care Teams Underwear Cutter Relationship Specialty Start Date End Date Gris Bocanegra, FARMWORKER GENERAL PCP - General NURSE PRACTITIONER 08/26/21 07/25/23 Makenzie Anand, JEANNIE [address] [place] [address] PCP - General NURSE PRACTITIONER 07/26/23 09/13/23 Sylvia Ulloa, FARMWORKER GENERAL [address] [facility] [address] [place] [address] PCP - General NURSE PRACTITIONER 09/14/23 documented as of this encounter
--- OUTSIDE RECORDS SUMMARY | 2024-05-16 23:44 | XMS_ITS | Encounter Summary ---
Author Organization [facility] Address [facility] [place] [address] Care Team Providers Care Otr Van Cdl Truck Driver Name Role Phone Gris Bocanegra SHIPPING & RECEIVING LEAD Primary Care Provider Makenzie Buchanan SHIPPING & RECEIVING LEAD Primary Care Provider + [phone] Sylvia Ulloa SHIPPING & RECEIVING LEAD Primary Care Provider [phone] Reason for Visit * Reason Onset Date Comments Question 06/26/2022 Encounter Details Date Type Department Care Team (Late st Contact Info) Description 06/26/2022 [employer] Message Enc [facility] Medical Group Family Medicine [address] [address] Jaelyn, [facility] Provider Prior authorization Social History Tobacco Use [...] Sex Assigned at Female 04/07/2024 10:19 AM COUNTER INSTALLER Legal Sex Female 4:59 PM CDT Gender Identity Female 04/07/2024 10:19 AM COUNTER INSTALLER Sexual Orientation Straight 04/07/2024 10 :19 AM COUNTER INSTALLER COVID-19 Exposure Response Date Recorded In the last 10 days, have yo u been in contact with someone who was confirmed or suspected to have Coronavirus/COVID-19? No / Unsure 06/21/2022 8:03 AM CDT documented as of this encounter Progress Notes * Marin Banuelos MA - 07/03/2022 2:33 PM CDT Pt was sent a SendTaskhart message on 07/03/2022, informing her that the PA was denied. See SendTaskhart message from 07/03/2022. * Siri Russell - 06/27/2022 12:40 PM CDT Patient is wanting to know the status of the prior authorization for her medication. Please follow up. documented in this encounter Plan of Treatment Upcoming Encounters Date Type Department Care Team (Late st Contact Info) Description 05/19/2024 11:20 AM CDT Office Visit [facility] Medical Group Multispecialty Care - [place] [address] [place] [address] Sylvia Ulloa, JEANNIE [address] [place] [address] documented as of this encounter Visit Diagnoses Not on filedocumented in this encounter Additional Health Concerns Infection Onset Date Last Indicated Resolved Time COVID-19 Rule Out 02/06/2023 02/06/2023 02/06/2023 3:04 PM COUNTER INSTALLER Assessment Noted Time PHQ-9 Depression Total Score: 8 01/12/20 22 9:14 AM COUNTER INSTALLER documented as of this encounter Care Teams Otr Van Cdl Truck Driver Relationship Specialty Start Date End Date Gris Bocanegra NP PCP - General NURSE PRACTITIONER 08/26/21 07/25/23 Makenzie Anand NP [address] [place] [address] PCP - General NURSE PRACTITIONER 07/26/23 09/13/23 Sylvia Ulloa, JEANNIE [address] [place] [address] PCP - General NURSE PRACTITIONER 09/14/23 documented as of this encounter
--- OUTSIDE RECORDS SUMMARY | 2024-05-16 23:44 | XMS_ITS | Encounter Summary ---
Author Organization [facility] Address [facility] [place] [address] Care Team Providers Care Sr. Strategic Sourcing Manager Name Role Phone Segun Navarro MD Primary Care Provider [phone] Gris Bocanegra RESIDENTIAL THERAPIST Primary Care Provider Makenzie Buchanan RESIDENTIAL THERAPIST Primary Care Provider + [phone] Sylvia Ulloa RESIDENTIAL THERAPIST Primary Care Provider [phone] Encounter Details Date Type Department Care Team (Late st Contact Info) Description 07/14/2021 [employer] Message Enc [facility] Medical Group Family Medicine [facility] [address] [place] [address] Jaelyn, [facility] Provider Pregnnacy Test Social History Tobacco Use [...] Sex Assigned at Female 04/07/2024 10:19 AM UNDERWRITING ACCOUNT REPRESENTATIVE Legal Sex Female 4:59 PM CDT Gender Identity Female 04/07/2024 10:19 AM UNDERWRITING ACCOUNT REPRESENTATIVE Sexual Orientation Straight 04/07/2024 10 :19 AM UNDERWRITING ACCOUNT REPRESENTATIVE COVID-19 Exposure Response Date Recorded In the last 10 days, have yo u been in contact with someone who was confirmed or suspected to have Coronavirus/COVID-19? No / Unsure 06/30/2021 9:32 AM CDT documented as of this encounter Plan of Treatment Upcoming Encounters Date Type Department Care Team (Late st Contact Info) Description 05/19/2024 11:20 AM CDT Office Visit [facility] Medical Group Multispecialty Care - [place] [address] [place] [address] Sylvia Ulloa, RESIDENTIAL THERAPIST [address] [place] [address] documented as of this encounter Visit Diagnoses Not on filedocumented in this encounter Additional Health Concerns Infection Onset Date Last Indicated Resolved Time COVID-19 Rule Out 02/06/2023 02/06/2023 02/06/2023 3:04 PM UNDERWRITING ACCOUNT REPRESENTATIVE documented as of this encounter Care Teams Sr. Strategic Sourcing Manager Relationship Specialty Start Date End Date Segun Navarro MD PCP - General FAMILY PRACTICE 04/17/19 08/25/21 Gris Bocanegra RESIDENTIAL THERAPIST PCP - General NURSE PRACTITIONER 08/26/21 07/25/23 Makenzie Anand NP [address] [place] [address] PCP - General NURSE PRACTITIONER 07/26/23 09/13/23 Sylvia Ulloa, RESIDENTIAL THERAPIST [address] [place] [address] PCP - General NURSE PRACTITIONER 09/14/23 documented as of this encounter
--- OUTSIDE RECORDS SUMMARY | 2024-05-16 23:44 | XMS_ITS | Encounter Summary ---
Author Organization [facility] Address [facility] [place] [address] Care Team Providers Care Sweatband Shaper Name Role Phone Gris Bocanegra MACHINE BOOKKEEPER Primary Care Provider Makenzie Buchanan MACHINE BOOKKEEPER Primary Care Provider + [phone] Sylvia Ulloa MACHINE BOOKKEEPER Primary Care Provider [phone] Encounter Details Date Type Department Care Team (Late st Contact Info) Description 09/05/2022 Markado Message Enc [facility] Family Medicine [address] [address] [facility] Provider Symptoms Social History Tobacco Use Types [...] Sex Assigned at Female 04/07/2024 10:19 AM PELLET PREPARATION OPERATOR Legal Sex Female 4:59 PM CDT Gender Identity Female 04/07/2024 10:19 AM PELLET PREPARATION OPERATOR Sexual Orientation Straight 04/07/2024 10 :19 AM PELLET PREPARATION OPERATOR COVID-19 Exposure Response Date Recorded In the last 10 days, have yo u been in contact with someone who was confirmed or suspected to have Coronavirus/COVID-19? No / Unsure 08/11/2022 8:40 AM CDT documented as of this encounter Plan of Treatment Upcoming Encounters Date Type Department Care Team (Late st Contact Info) Description 05/19/2024 11:20 AM CDT Office Visit [facility] Medical [facility] Multispecialty Care - [place] [address] [place] [address] Sylvia Ulloa, MACHINE BOOKKEEPER [address] [facility] [address] [place] [address] documented as of this encounter Visit Diagnoses Not on filedocumented in this encounter Additional Health Concerns Infection Onset Date Last Indicated Resolved Time COVID-19 Rule Out 02/06/2023 02/06/2023 02/06/2023 3:04 PM PELLET PREPARATION OPERATOR Assessment Noted Time PHQ-9 Depression Total Score: 8 01/12/20 9:14 AM PELLET PREPARATION OPERATOR documented as of this encounter Care Teams Sweatband Shaper Relationship Specialty Start Date End Date Gris Bocanegra MACHINE BOOKKEEPER PCP - General NURSE PRACTITIONER 08/26/21 07/25/23 Makenzie Anand NP [address] [place] [address] PCP - General NURSE PRACTITIONER 07/26/23 09/13/23 Sylvia Ulloa, MACHINE BOOKKEEPER [address] [facility] [address] [place] [address] PCP - General NURSE PRACTITIONER 09/14/23 documented as of this encounter
--- OUTSIDE RECORDS SUMMARY | 2024-05-16 23:44 | XMS_ITS | Encounter Summary ---
Author Organization [facility] Address [facility] [place] [address] Care Team Providers Care Prefabricator Name Role Phone Gris Bocanegra ACID SPLICER Primary Care Provider Makenzie Buchanan ACID SPLICER Primary Care Provider + [phone] Sylvia Ulloa ACID SPLICER Primary Care Provider [phone] Encounter Details Date Type Department Care Team (Late st Contact Info) Description 09/05/2022 APEPT[place] [employer] Message Enc [facility] Family Medicine [address] [address] Gris Bocanegra, ACID SPLICER appointment Social History Tobacco Use Types Packs/Day [...] Sex Assigned at Female 04/07/2024 10:19 AM LEARNING STRATEGIST Legal Sex Female 4:59 PM CDT Gender Identity Female 04/07/2024 10:19 AM LEARNING STRATEGIST Sexual Orientation Straight 04/07/2024 10 :19 AM LEARNING STRATEGIST COVID-19 Exposure Response Date Recorded In the [...] Visit [facility] [place] [address] [place] [address] Sylvia Ulloa, ACID SPLICER [address] [facility] [address] [place] [address] documented as of this encounter Visit Diagnoses Not on filedocumented in this encounter Additional Health Concerns Infection Onset Date Last Indicated Resolved Time COVID-19 Rule Out 02/06/2023 02/06/2023 02/06/2023 3:04 PM LEARNING STRATEGIST Assessment Noted Time PHQ-9 Depression Total Score: 8 01/12/20 9:14 AM LEARNING STRATEGIST documented as of this encounter Care Teams Prefabricator Relationship Specialty Start Date End Date Gris Bocanegra ACID SPLICER PCP - General NURSE PRACTITIONER 08/26/21 07/25/23 Makenzie Anand NP [address] [place] [address] PCP - General NURSE PRACTITIONER 07/26/23 09/13/23 Sylvia Ulloa, ACID SPLICER [address] [place] [address] PCP - General NURSE PRACTITIONER 09/14/23 documented as of this encounter
--- OUTSIDE RECORDS SUMMARY | 2024-05-16 23:44 | XMS_ITS | Clinical Summary ---
Author Organization [facility] Address [address] [place] [address] Care Team Providers Care Materials And Corrosion Engineer Name Role Phone Laila, Sylvia Tonia POLISHER EYEGLASS FRAMES Primary Care Provider [phone] Allergies Active Allergy Reactions Criticality Noted Date Comments Acetaminophen-Codeine Nausea and Vomiting Low 03/20 Medications valACYclovir (VALTREX) 1 g tablet 3 Active spironolactone (ALDACTONE) 100 MG tablet Take 1 tablet (100 mg total) by mouth daily. 4 Active norethindrone-ethin yl estradiol (MICROGESTIN 03/17) 1-20 MG-MCG tablet Take 1 tablet by mouth daily. 4 Active famotidine (PEPCID) 20 MG tabletIndications:G astroesophageal reflux disease without esophagitis Take 1 tablet (20 mg total) by mouth 2 (two) times daily as needed for Heartburn. 60 tablet 1 4 Active venlafaxine XR (EFFEXOR-XR) 37.5 MG 24 hr capsuleIndications: Anxiety Take 1 capsule (37.5 mg total) by mouth daily. 90 capsule 1 4 Active cyclobenzaprine (FLEXERIL) 10 MG tabletIndications:C hronic left-sided low back pain without sciatica TAKE 1 TABLET(10 MG) BY MOUTH THREE TIMES DAILY NEEDED FOR MUSCLE SPASMS 60 tablet 1 4 Active Albuterol-Budesonid e (AIRSUPRA) 90-80 MCG/ACT AerosolIndications: Reactive airway disease with acute exacerbation, unspecified asthma severity, unspecified whether persistent (HHS/HCC) Inhale 2 puffs into the lungs as needed (max 12 puffs in 24 hours). Rinse mouth after use. 32.1 g 1 4 Active azelastine 0.1 % nasal sprayIndications:Ac omari cough 2 sprays by Nasal route 2 (two) times daily as needed for Rhinitis. Use in each nostril as directed 10 mL 3 4 Active traZODone (DESYREL) 100 MG tabletIndications:I nsomnia, unspecified type TAKE 1 TABLET(100 MG) BY MOUTH EVERY NIGHT AT BEDTIME 30 tablet 2 4 Active levothyroxine (SYNTHROID) 50 MCG tabletIndications:H ypothyroidism, unspecified type Take 1 tablet (50 mcg total) by mouth every morning. 30 tablet 2 4 Active phentermine (ADIPEX-P) 37.5 MG capsuleIndications: Overweight Take 1 capsule (37.5 mg total) by mouth before breakfast. 30 capsule 1 5 Active fluconazole (DIFLUCAN) 150 MG tabletIndications:U rinary tract infection with hematuria, site unspecified Take 1 tablet (150 mg total) by mouth daily. 2 tablet 5 Active ciprofloxacin (CIPRO) 500 MG tablet Take 1 tablet (500 mg total) by mouth every 12 (twelve) hours. for 10 days 5 Active metroNIDAZOLE (FLAGYL) 500 MG tablet take 1 tablet by mouth every 8 hours for 10 days 5 Active ondansetron (ZOFRAN-ODT) 4 MG disintegrating tablet DISSOLVE 1 TABLET ON THE TONGUE EVERY 8 HOURS NEEDED FOR NAUSEA OR VOMITING 5 Active Active Problems Problem Noted Date Diagnosed Date Overweight (BMI 25.0-29.9) 04/07/2024 Acne vulgaris 11/12/2023 Anxiety 11/12/2023 Major depressive disorder, recurrent episode, mo derate 11/12/2023 Herpes simplex infection of genitourinary system 11/12/2023 Other idiopathic scoliosis, thoracic region 03/30 Gastroesophageal reflux disease without esophagi tis 07/24/2018 Cervical stenosis of spinal canal 09/17/2017 Chronic right-sided thoracic back pain 8 Vitamin D deficiency 06/14/2017 Chronic cough 05/16/2017 Scoliosis deformity of spine 05/16/2017 Chronic laryngitis 05/16/2017 Encounters Date Type Department Care Team Description 04/07/2024 10:20 AM RAIL SPLITTER Office Visit [place] [address] [address] [place] [address] Sylvia Ulloa, POLISHER EYEGLASS FRAMES Weight Check 04/07/2024 Travel 04/03/2024 Telephone [place] [address] [facility] [address] [place] [address] Sylvia Ulloa, POLISHER EYEGLASS FRAMES Follow Up Call 04/02/2024 Scan [place] [facility] Scanned, [facility] 04/01/2024 3:00 PM RAIL SPLITTER Office Visit [place] [address] [facility] [address] [place] [address] Jose Juan Stack MD Follow Up (Acute - UTI - Sx started Sunday. Back pain, trouble urinating, burning, itching and ittiration); Urinary Symptoms 04/01/2024 - 04/01/2024 11:59 PM RAIL SPLITTER Hospital Encounter [facility] [address] [place] [address] Jose Juan Stack MD Discharge Disposition: Home or Self Care (Routine Discharge) 04/01/2024 Travel 03/10/2024 9:20 AM RAIL SPLITTER Office Visit [facility] [address] [facility] [address] [place] [address] Sylvia Ulloa, POLISHER EYEGLASS FRAMES Knee Pain 03/10/2024 Travel 02/25/2024 10:40 AM RAIL SPLITTER [facility] [address] [facility] [address] [place] [address] Sylvia Ulloa, POLISHER EYEGLASS FRAMES Weight Check 02/25/2024 Orders Only [facility] [address] [facility] [address] [place] [address] Mary Ann Dhaliwal MA 02/25/2024 Travel from Last 3 Months Immunizations Name [...] Never Smokeless Tobacco: Never Tobacco Cessation:Counseling Given: No Alcohol Use Standard Drinks/Week Comments Yes 0 (1 standard drink = 0.6 oz pur e alcohol) wine or margaritta, social PHQ-2 Answer Date Recorded Patient Health Questionnaire-2 Score 0 04/01/2024 Comments No Sex and Gender Information Value Date Recorded Sex Assigned at Female 04/07/2024 10:19 AM RAIL SPLITTER Legal Sex Female 4:59 PM CDT Gender Identity Female 04/07/2024 10:19 AM RAIL SPLITTER Sexual Orientation Straight 04/07/2024 10 :19 AM RAIL SPLITTER Last Filed Vital Signs Vital Sign Reading Time Taken Comments Blood Pressure 122/90 04/07/2024 10:53 AM RAIL SPLITTER Pulse 90 04/07/2024 10:19 AM RAIL SPLITTER Temperature 36.7 C (98.1 F) 04/07/2024 10:19 AM RAIL SPLITTER Respiratory Rate 16 04/07/2024 10:19 AM RAIL SPLITTER Oxygen Saturation 100% 04/07/2024 10:19 AM RAIL SPLITTER Inhaled Oxygen Concentration - - Weight 67.7 kg (149 lb 3.2 oz) 04/07/2024 10:19 AM RAIL SPLITTER Height 162.6 cm (5' 4 ) 04/07/2024 10:19 AM RAIL SPLITTER Body Mass Index 25.61 04/07/2024 10:19 AM RAIL SPLITTER Plan of Treatment Upcoming Encounters Date Type Department Care Team (Late st Contact Info) Description 05/19/2024 11:20 AM CDT Office Visit [facility] Medical Group Multispecialty Care - [place] [address] [facility] [address] [place] [address] Sylvia Ulloa, JEANNIE [address] [facility] [address] [place] [address] Health Maintenance Due Date Last Done Comments [...] Every 5 Years 2015 Cervical Cancer Screening wi th HPV 2015 COVID-19 Vaccine (1 - 2023-2 5 season) 2023 Influenza Adult (#1) 2023 11/28/2018, 11/28/2018 Annual Physical 11/11/2024 11/12/2023, 10/03/2021 DTaP, Tdap and Td Vaccines ( 2 - Td or Tdap) 06/01/2027 05/31/2017 Hepatitis C Completed 11/12/2023 PHQ-2 (Physician [place]) Completed 04/01/2024 HPV Vaccines Aged Out No [...] Procedure Name Priority Date/Time Associated Diagnosis Comments URINE BACTERIA CULTURE Routine 04/01/2024 3:41 PM RAIL SPLITTER Urinary tract infection with hematuria, site unspecified TEST URINE Routine 04/01/2024 Urinary tract infection with hematuria, site unspecified URINALYSIS AUTO DIP Routine 04/01/2024 Urinary tract infection with hematuria, site unspecified THYROXINE, FREE (FT4) Routine 02/25/2024 11:32 AM RAIL SPLITTER Hypothyroidism, unspecified type THYROID STIM HORMONE TSH Routine 02/25/2024 11:32 AM RAIL SPLITTER Hypothyroidism, unspecified type MG/PCCL UDS SCREEN Routine 02/25/2024 11 :31 AM RAIL SPLITTER Overweight HEPATITIS C ANTIBODY Routine 11/12/2023 3:58 PM CDT Need for hepatitis C screening test from Last 3 Months or Most Recently Relevant to Health Maintenance Results * URINE BACTERIA CULTURE (04/01/2024 3:41 PM RAIL SPLITTER) SPEC DESCRIPTION URINE CLEAN CATCH 04/01/2024 6:52 PM RAIL SPLITTER [facility] SPECIAL REQUESTS NO SPECIAL REQUEST 04/01/2024 6:52 PM RAIL SPLITTER [facility] CULTURE RESULT EQUAL OR >100,000 CFU/mL ESCHERICHIA COLI 04/04/2024 8:17 AM RAIL SPLITTER [facility] URINE SPECIMEN OBTAINED BY CLEAN CATCH PROCEDURE / Unknown 04/01/2024 3:41 PM RAIL SPLITTER 04/01/2024 8:45 PM RAIL SPLITTER Narrative Organism Antibiotic Method Susceptibility Escherichia coli AMPICILLIN MONICO (VITEK) Sensitive Escherichia coli AMOXICILLIN/CLAVULANIC A MONICO (VITEK) Sensitive Escherichia coli AZTREONAM MON[place] (VITEK) Sensitive Escherichia coli CEFEPIME MONICO (VITEK) Sensitive Escherichia coli CEFTRIAXONE MONICO (VITEK) Sensitive Escherichia coli CEFAZOLIN MONICO (VITEK) Sensitive Escherichia coli CIPROFLOXACIN MONICO (VITEK) Sensitive Escherichia coli ESBL MONICO (VITEK) NEG: Sensitive Escherichia coli ERTAPENEM MONICO (VITEK) Sensitive Escherichia coli NITROFURANTOIN MONICO (VITEK) Sensitive Escherichia coli GENTAMICIN MONICO (VITEK) Sensitive Escherichia coli IMIPENEM MONICO (VITEK) Sensitive Escherichia coli LEVOFLOXACIN MONICO (VITEK) Sensitive Escherichia coli MEROPENEM MONICO (VITEK) Sensitive Escherichia coli PIPRACIL/TAZO MONICO (VITEK) Sensitive Escherichia coli TRIMETH-SULFAMETH. MONICO (VITEK) Sensitive Escherichia coli TETRACYCLINE MONICO (VITEK) Sensitive us Jose Juan Stack MD MICROBIOLOGY - GENERAL ORDERABLE S Final Result [facility] [address] [place] [address], [id number] * TEST URINE (04/01/2024) URINE HCG TEST NEGATIVE NEGATIVE [address], [place] Internal Control: VALID VALID [address], [place] URINE SPECIMEN FROM URETHRA / Unknown 04/01/2024 Jose Juan Stack MD URINE ORDERABLES Final Result Performing Organization Address City/[facility]/ZIP Co de Phone Number [id number], [place] [address] [place] [address], * (ABNORMAL) URINALYSIS AUTO DIP (04/01/2024) COLOR (U) YELLOW YELLOW [address], [place] TRANSPARENCY TURBID(A) CLEAR [address] [place] GLUCOSE (U) NEGATIVE NEGATIVE MG/DL [address], [place] BILIRUBIN (U) NEGATIVE NEGATIVE MG[address], [place] KETONES MG/DL (U) NEGATIVE NEGATIVE MG/DL [address], [place] SPECIFIC GRAVITY (U) 1.020 1.001 - 1.035 [address], [place] BLOOD (U) SMALL (1+, Hemolyzed)( A) NEGATIVE [address], [place] U PH 6.0 5.0 - 9.0 [address], [place] PROTEIN (U) 2+ (100)(A) NEGATIVE mg/dL [address], [place] UROBILINOGEN 0.2 0.2 - 1.0 EU/dL = mg/dL [address], [place] NITRITES NEGATIVE NEGATIVE MG/DL [address], [place] LEUKOCYTES (U) 3+ (LARGE)(A) NEGATIVE [address], [place] URINE SPECIMEN OBTAINED BY CLEAN CATCH PROCEDURE / Unknown 04/01/2024 Jose Juan Stack MD URINE ORDERABLES Final Result Performing Organization Address [facility] Co de Phone Number [address], [place] [address] [place] [address], * THYROXINE, FREE (FT4) (02/25/2024 11:32 AM RAIL SPLITTER) [facility] FREE T4 1.03 0.76 - 1.46 NG/DL 02/25/2024 7:41 PM RAIL SPLITTER [facility] 02/25/2024 11:3 2 AM RAIL SPLITTER us Sylvia Ulloa NP LABORATORY Final Resul t Performing Organization Address [facility] Co de Phone Number [facility] [address] [place] [address], * (ABNORMAL) THYROID STIM HORMONE TSH (02/25/2024 11:32 AM RAIL SPLITTER) [facility] TSH 5.733(H) 0.358 - 3.740 uIU/ML 02/25/2024 7:41 PM RAIL SPLITTER [facility] 02/25/2024 11:3 2 AM RAIL SPLITTER us Sylvia Ulloa NP LABORATORY Final Resul t Performing Organization Address [facility] Co de Phone Number [address] [address], [place] [phone] * MG/PCCL UDS SCREEN (02/25/2024 11:31 AM RAIL SPLITTER) [facility] FENTANYL SCREEN (U) NEGATIVE <0.5 ng/mL [facility] Comment: See Note A See Note A MORPHINE (U) NEGATIVE <10 ng/mL [facility] Comment: See Note A See Note A AMPHETAMINES PM NEGATIVE <500 ng/mL [facility] Comment: See Note A See Note A BARBITURATES PM (U) NEGATIVE <300 ng/mL [facility] Comment: See Note A See Note A BENZODIAZEPINES PM (U) NEGATIVE <100 ng/mL [facility] Comment: See [...] [facility] WOOD EDUIN NOTE [facility] Comment: This drug testing is for medical [...] analytical performance characteristics have been determined by [facility]. It has not been cleared or approved by the FDA. This assay has been validated pursuant to the CLIA regulations and is used for clinical purposes. Healthcare Providers needing Interpretation assistance, please contact us at [phone] ( ) M-F, 8am to 10pm EST URINE SPECIMEN / Unknown 02/25/2024 11:31 AM RAIL SPLITTER 02/26/2024 2:16 PM RAIL SPLITTER Narrative Resulting Agency Comment Performing Organization Information: Site ID: [id number] Name: [facility] Address: [address] [place] [address] Director: Darwin Issa Site ID: [id number] Name: [facility] Address: [address] [place] [address] Director: Tay Borjas MD Sylvia Ulloa NP URINE ORDERABLES Final Resu lt [facility] [address] [place] [address] [facility] [place] [address] [place] [address], * HEPATITIS C ANTIBODY (11/12/2023 3:58 PM CDT) HEPATITIS C AB NON-REACTI VE NON-REACT PREMA 11/12/2023 10:13 PM CDT [facility] Comment: ANTIBODIES TO HCV NOT DETECTED. DOES NOT EXCLUDE THE POSSIBILITY OF EXPOSURE TO HCV. 11/12/2023 3:58 PM CDT us Sylvia Ulloa NP LABORATORY Final Resul t [facility] [address] [place] [address], [id number] from Last 3 Months or Most Recently Relevant to Health Maintenance Insurance [facility] Care Teams Materials And Corrosion Engineer Relationship Specialty Start Date End Date Sylvia Ulloa NP [address] [place], [place] [id number] PCP - General NURSE PRACTITIONER 09/14/23
--- OUTSIDE RECORDS SUMMARY | 2024-05-16 23:44 | XMS_ITS | Encounter Summary ---
Author Organization [facility] Address [facility] [place] [address] Care Team Providers Care Cupola Liner Helper Name Role Phone Gris Bocanegra BOARD CERTIFIED FAMILY PHYSICIAN Primary Care Provider Makenzie Buchanan BOARD CERTIFIED FAMILY PHYSICIAN Primary Care Provider + [phone] Sylvia Ulloa NP Primary Care Provider [phone] Encounter Details Date Type Department Care Team (Late st Contact Info) Description 12/19/2022 Umeng Message Enc [facility] Medical Group Family Medicine [address] [address] [facility] Provider MRI Social History Tobacco [...] Sex Assigned at Female 04/07/2024 10:19 AM CLARITY DEVELOPER Legal Sex Female 4:59 PM CDT Gender Identity Female 04/07/2024 10:19 AM CLARITY DEVELOPER Sexual Orientation Straight 04/07/2024 10 :19 AM CLARITY DEVELOPER documented as of this encounter Plan of Treatment Upcoming Encounters Date Type Department Care Team (Late st Contact Info) Description 05/19/2024 11:20 AM CDT Office Visit [facility] Group Multispecialty Care - [place] [address] [place], [place] [address] Sylvia Ulloa, BOARD CERTIFIED FAMILY PHYSICIAN [address] [place] [address] documented as of this encounter Visit Diagnoses Not on filedocumented in this encounter Additional Health Concerns Infection Onset Date Last Indicated Resolved Time COVID-19 Rule Out 02/06/2023 02/06/2023 02/06/2023 3:04 PM CLARITY DEVELOPER Assessment Noted Time PHQ-9 Depression Total Score: 8 01/12/20 9:14 AM CLARITY DEVELOPER documented as of this encounter Care Teams Cupola Liner Helper Relationship Specialty Start Date End Date Gris Bocanegra, BOARD CERTIFIED FAMILY PHYSICIAN PCP - General NURSE PRACTITIONER 08/26/21 07/25/23 Makenzie Anand NP [address] [place] [address] PCP - General NURSE PRACTITIONER 07/26/23 09/13/23 Sylvia Ulloa, BOARD CERTIFIED FAMILY PHYSICIAN [address] [place] [address] PCP - General NURSE PRACTITIONER 09/14/23 documented as of this encounter
--- OUTSIDE RECORDS SUMMARY | 2024-05-16 23:44 | XMS_ITS | Encounter Summary ---
Author Organization [facility] Address [facility] [place] [address] Care Team Providers Care Optical Goods Drilling Machine Operator Name Role Phone Gris Bocanegra COIL REWIND MACHINE OPERATOR Primary Care Provider Makenzie Buchanan COIL REWIND MACHINE OPERATOR Primary Care Provider + [phone] Sylvia Ulloa COIL REWIND MACHINE OPERATOR Primary Care Provider [phone] Encounter Details Date Type Department Care Team (Late st Contact Info) Description 04/17/2022 Tyrogenex Message Enc [facility] Family Medicine [address] [address] [facility] Provider Ankle xray Social History Tobacco Use [...] Sex Assigned at Female 04/07/2024 10:19 AM CLAIM PROFESSIONAL Legal Sex Female 4:59 PM CDT Gender Identity Female 04/07/2024 10:19 AM CLAIM PROFESSIONAL Sexual Orientation Straight 04/07/2024 10 :19 AM CLAIM PROFESSIONAL documented as of this encounter Plan of Treatment Upcoming Encounters Date Type Department Care Team (Late st Contact Info) Description 05/19/2024 11:20 AM CDT Office Visit [facility] Multispecialty Care - [place] [address] [place] [address] Sylvia Ulloa, COIL REWIND MACHINE OPERATOR [address] [place] [address] documented as of this encounter Visit Diagnoses Not on filedocumented in this encounter Additional Health Concerns Infection Onset Date Last Indicated Resolved Time COVID-19 Rule Out 02/06/2023 02/06/2023 02/06/2023 3:04 PM CLAIM PROFESSIONAL Assessment Noted Time PHQ-9 Depression Total Score: 8 01/12/20 9:14 AM CLAIM PROFESSIONAL documented as of this encounter Care Teams Optical Goods Drilling Machine Operator Relationship Specialty Start Date End Date Gris Bocanegra COIL REWIND MACHINE OPERATOR PCP - General NURSE PRACTITIONER 08/26/21 07/25/23 Makenzie Anand NP [address] [place] [address] PCP - General NURSE PRACTITIONER 07/26/23 09/13/23 Sylvia Ulloa, COIL REWIND MACHINE OPERATOR [address] [place] [address] PCP - General NURSE PRACTITIONER 09/14/23 documented as of this encounter
--- OUTSIDE RECORDS SUMMARY | 2024-05-16 23:44 | XMS_ITS | Encounter Summary ---
Author Organization [facility] Address [facility] [place] [address] Care Team Providers Care Coal Unloader Name Role Phone Gris Bocanegra CULINARY ART TEACHER Primary Care Provider Makenzie Buchanan CULINARY ART TEACHER Primary Care Provider + [phone] Sylvia Ulloa CULINARY ART TEACHER Primary Care Provider [phone] Encounter Details Date Type Department Care Team (Late st Contact Info) Description 06/20/2022 Medication Management [facility] Medical [facility] Family Medicine [address] [address] Gris Bocanegra, CULINARY ART TEACHER Social History Tobacco Use Types Packs/Day Years [...] Sex Assigned at Female 04/07/2024 10:19 AM JACKERMAN Legal Sex Female 4:59 PM CDT Gender Identity Female 04/07/2024 10:19 AM JACKERMAN Sexual Orientation Straight 04/07/2024 10 :19 AM JACKERMAN COVID-19 Exposure Response Date Recorded In the last 10 days, have yo u been in contact with someone who was confirmed or suspected to have Coronavirus/COVID-19? No / Unsure 06/21/2022 8:03 AM CDT documented as of this encounter Plan of Treatment Upcoming Encounters Date Type Department Care Team (Late st Contact Info) Description 05/19/2024 11:20 AM CDT Office Visit [facility] Mult[facility] - [place] [address] [place] [address] Sylvia Ulloa, CULINARY ART TEACHER [address] [facility] [address] [place] [address] documented as of this encounter Visit Diagnoses Not on filedocumented in this encounter Additional Health Concerns Infection Onset Date Last Indicated Resolved Time COVID-19 Rule Out 02/06/2023 02/06/2023 02/06/2023 3:04 PM JACKERMAN Assessment Noted Time PHQ-9 Depression Total Score: 8 01/12/20 9:14 AM JACKERMAN documented as of this encounter Care Teams Coal Unloader Relationship Specialty Start Date End Date Gris Bocanegra NP PCP - General NURSE PRACTITIONER 08/26/21 07/25/23 aMkenzie Anand NP [address] [place] [address] PCP - General NURSE PRACTITIONER 07/26/23 09/13/23 Sylvia Ulloa, CULINARY ART TEACHER [address] [place] [address] PCP - General NURSE PRACTITIONER 09/14/23 documented as of this encounter
--- OUTSIDE RECORDS SUMMARY | 2024-05-16 23:44 | XMS_ITS | Encounter Summary ---
Author Organization [facility] Address [facility] [place] [address] Care Team Providers Care Engineering Psychologist Name Role Phone Segun Navarro MD Primary Care Provider [phone] Gris Bocanegra PRINTER HELPER Primary Care Provider Makenzie Buchnaan PRINTER HELPER Primary Care Provider + [phone] Sylvia Ulloa PRINTER HELPER Primary Care Provider [phone] Encounter Details Date Type Department Care Team (Late st Contact Info) Description 08/03/2018 Abstract [facility] [address] [place] [address] , Generic Conversion, Social History Tobacco Use Types Packs/Day Years Used Date Smoking Tobacco: Never Assessed Comments Unknown Sex and Gender Information Value Date Recorded Sex Assigned at Female 04/07/2024 10:19 AM DITCH TENDER Legal Sex Female 4:59 PM CDT Gender Identity Female 04/07/2024 10:19 AM DITCH TENDER Sexual Orientation Straight 04/07/2024 10 :19 AM DITCH TENDER documented as of this encounter Plan of Treatment Upcoming Encounters Date Type Department Care Team (Late st Contact Info) Description 05/19/2024 11:20 AM CDT Office Visit [facility] Medical Group Multispecialty Care - [place] [address] [place], [place] [address] Sylvia Ulloa, PRINTER HELPER [address] [place], [place] [address] documented as of this encounter Visit Diagnoses Not on filedocumented in this encounter Additional Health Concerns Infection Onset Date Last Indicated Resolved Time COVID-19 Rule Out 03/17/2021 03/17/2021 03/17/2021 1:57 PM DITCH TENDER COVID-19 Rule Out 02/06/2023 02/06/2023 02/06/2023 3:04 PM DITCH TENDER documented as of this encounter Care Teams Engineering Psychologist Relationship Specialty Start Date End Date Segun Navarro MD PCP - General FAMILY PRACTICE 04/17/19 08/25/21 Gris Bocanegra NP PCP - General NURSE PRACTITIONER 08/26/21 07/25/23 Makenzie Anand NP [address] [place] [address] PCP - General NURSE PRACTITIONER 07/26/23 09/13/23 Sylvia Ulloa, JEANNIE [address] [place] [address] PCP - General NURSE PRACTITIONER 09/14/23 documented as of this encounter
--- OUTSIDE RECORDS SUMMARY | 2024-05-16 23:44 | XMS_ITS | Encounter Summary ---
Author Organization [facility] Address [facility] [place] [address] Care Team Providers Care Software Engineering Project Manager Name Role Phone Gris Bocanegra DINKEY ENGINE MECHANIC Primary Care Provider Makenzie Buchanan DINKEY ENGINE MECHANIC Primary Care Provider + [phone] Sylvia Ulloa DINKEY ENGINE MECHANIC Primary Care Provider [phone] Encounter Details Date Type Department Care Team (Late st Contact Info) Description 11/20/2022 [facility] Message Enc [facility] Medical Group Family Medicine [address] [address] [employer], [facility] Provider xray results Social History Tobacco Use [...] Sex Assigned at Female 04/07/2024 10:19 AM WELLNESS COACH Legal Sex Female 4:59 PM CDT Gender Identity Female 04/07/2024 10:19 AM WELLNESS COACH Sexual Orientation Straight 04/07/2024 10 :19 AM WELLNESS COACH documented as of this encounter Plan of Treatment Upcoming Encounters Date Type Department Care Team (Late st Contact Info) Description 05/19/2024 11:20 AM CDT Office Visit [facility] Medical Group Multispecialty Care - [place] [address] [place] [address] Sylvia Ulloa, DINKEY ENGINE MECHANIC [address] [place] [address] documented as of this encounter Visit Diagnoses Not on filedocumented in this encounter Additional Health Concerns Infection Onset Date Last Indicated Resolved Time COVID-19 Rule Out 02/06/2023 02/06/2023 02/06/2023 3:04 PM WELLNESS COACH Assessment Noted Time PHQ-9 Depression Total Score: 8 01/12/20 9:14 AM WELLNESS COACH documented as of this encounter Care Teams Software Engineering Project Manager Relationship Specialty Start Date End Date Gris Bocanegra DINKEY ENGINE MECHANIC PCP - General NURSE PRACTITIONER 08/26/21 07/25/23 Makenzie Anand NP [address] [place] [address] PCP - General NURSE PRACTITIONER 07/26/23 09/13/23 Sylvia Ulloa, DINKEY ENGINE MECHANIC [address] [place] [address] PCP - General NURSE PRACTITIONER 09/14/23 documented as of this encounter
--- OUTSIDE RECORDS SUMMARY | 2024-05-16 23:44 | XMS_ITS | Encounter Summary ---
Author Organization [facility] Address [address] [place] [address] Care Team Providers Care Communication Assistant Name Role Phone Segun Navarro MD Primary Care Provider [phone] Gris Bocanegra WRAPPING MACHINE OPERATOR Primary Care Provider Makenzie Buchanan WRAPPING MACHINE OPERATOR Primary Care Provider + [phone] Sylvia Ulloa WRAPPING MACHINE OPERATOR Primary Care Provider [phone] Encounter Details Date Type Department Care Team (Late st Contact Info) Description 08/15/2021 [employer] [facility] Patient Accounts [address] [place], [place] [id number] [facility] Provider [facility] Payment Plan Social History Tobacco Use Types [...] Sex Assigned at Female 04/07/2024 10:19 AM EMERGENCY PHYSICIAN Legal Sex Female 4:59 PM CDT Gender Identity Female 04/07/2024 10:19 AM EMERGENCY PHYSICIAN Sexual Orientation Straight 04/07/2024 10 :19 AM EMERGENCY PHYSICIAN documented as of this encounter Plan of Treatment Upcoming Encounters Date Type Department Care Team (Late st Contact Info) Description 05/19/2024 11:20 AM CDT Office Visit [facility] Medical Group Multispecialty Care - [address] [place] [address] Sylvia Ulloa, WRAPPING MACHINE OPERATOR [address] [place] [address] documented as of this encounter Visit Diagnoses Not on filedocumented in this encounter Additional Health Concerns Infection Onset Date Last Indicated Resolved Time COVID-19 Rule Out 02/06/2023 02/06/2023 02/06/2023 3:04 PM EMERGENCY PHYSICIAN documented as of this encounter Care Teams Communication Assistant Relationship Specialty Start Date End Date Segun Navarro MD PCP - General FAMILY PRACTICE 04/17/19 08/25/21 Gris Bocanegra NP PCP - General NURSE PRACTITIONER 08/26/21 07/25/23 Makenzie Anand NP [address] [place] [address] PCP - General NURSE PRACTITIONER 07/26/23 09/13/23 Sylvia Ulloa, WRAPPING MACHINE OPERATOR [address] [place] [address] PCP - General NURSE PRACTITIONER 09/14/23 documented as of this encounter
[2024-05-16 23:45] VITALS: BP 129/88; PULSE 85; RESP 18; TEMP 36.7; O2SAT 100
--- NOTE | 2024-05-17 00:59 | ED_ITS ---
HPI - Abdominal Pain General Chief Complaint: Abdominal Pain <Shirin Ball APRN - Last Filed: 05/17/24 19:09> Stated Complaint: abd pain <Shirin Ball APRN - Last Filed: 05/17/24 19:09> Time Seen by Provider: 05/17/24 00:44 <Shirin Ball APRN - Last Filed: 05/17/24 19:09> History of Present Illness HPI narrative: Patient is a 39-year-old female who presents to the ER with right lower quadrant abdominal pain and lower back pain. She reports she had a bowel movement 2-3 days ago and has struggled with constipation since then. Patient denies any recent fevers, burning with urination, chest pain, shortness of breath. She does not endorse urgency with urination. Patient denies any pertinent medical history related to this ER visit. <Shirin Ball APRN - Last Filed: 05/17/24 19:09> Related Data Home Medications: Home Medications ?Medication ?Instructions ?Recorded ?Confirmed ?Last Taken ?Type gabapentin 300 mg capsule 300 mg PO DAILY 03/05/23 11/27/23 Unknown History omeprazole 20 mg capsule,delayed 20 mg PO DAILY 03/05/23 11/27/23 Unknown History release cyclobenzaprine 10 mg tablet 10 mg PO DAILY 09/17/23 11/27/23 Unknown History trazodone 50 mg tablet 50 mg PO DAILY 09/17/23 11/27/23 Unknown History venlafaxine 37.5 mg 37.5 mg PO DAILY 09/17/23 11/27/23 Unknown History capsule,extended release 24 hr <Shirin Ball APRN - Last Filed: 05/17/24 19:09> Allergies/Adverse Reactions: Allergies Allergy/AdvReac Type Severity Reaction Status Date / Time No Known Allergies Allergy Verified 05/16/24 23:42 <Shirin Ball APRN - Last Filed: 05/17/24 19:09> Review of Systems 2 Review of Systems: All systems reviewed & are unremarkable except as noted in HPI and below <Shirin Ball APRN - Last Filed: 05/17/24 19:09> PMFSH Past Medical History Medical History: Medical History Vaginal irritation Gastroesophageal reflux <Shirin Ball APRN - Last Filed: 05/17/24 19:09> Surgical History Surgical History: Surgical History H/O neck surgery History of removal of ovarian cyst (~2005) <Shirin Ball APRN - Last Filed: 05/17/24 19:09> Family History Family History: Family History Grandparent Breast cancer Brain cancer Diabetes mellitus Mother Diabetes mellitus Father Lung cancer <Shirin Ball APRN - Last Filed: 05/17/24 19:09> Social History Social History: Social History Smoking status: Never smoker Alcohol intake: current Alcohol use details: socially Substance use: never Substance use type: does not use Do You Feel Safe in your Home?: Yes Lack of Transportation: No Lack of Food: Never True Current Housing: I Have Housing Concerned About Future Housing: No Difficulty Paying Gas/Electric Bills: No Difficulty Paying for Meds: No Currently Unemployed: No Education: High School Diploma/GED Difficulty w/ Childcare or Family Care: No Living arrangements: with family Occupation/Education: occupation Gender identity (if verbalized by the patient): Female <Shirin Ball APRN - Last Filed: 05/17/24 19:09> Exam 2 Narrative: GENERAL: Well appearing, well-nourished, non-toxic, in no acute distress. HEAD: Normocephalic, atraumatic. NECK: Supple. No adenopathy, no masses. RESPIRATORY: Airway patent, respirations nonlabored. Clear to auscultation bilaterally, no rales, rhonchi, wheezing. CARDIOVASCULAR: Regular rate and rhythm without murmurs, rubs, or gallops. Peripheral pulses 2+ and equal bilaterally. No CVA tenderness ABDOMINAL: Soft, tender in RLQ with palpation, nondistended, no hepatosplenomegaly. Normoactive BS. MUSCULOSKELETAL: Moves all extremities. Strength/ROM intact without gross deformities. SKIN: Warm, dry, normal color. No rashes. NEURO: A&O X3. Speech clear. Cranial nerves II-XII intact. No ataxic movements. PSYCHIATRIC: Appropriate mood and affect. Normal interaction. <Shirin Ball APRN - Last Filed: 05/17/24 19:09> Course RESIDENTIAL APPRAISER/PA Physician Supervision For this patient encounter, I reviewed the RESIDENTIAL APPRAISER or PA documentation, treatment plan, and medical decision making; and I had [id number] time with this patient. <Ayaan Duong MD - Last Filed: 05/17/24 04:35> Vital Signs Vital signs: Vital Signs Temperature 36.7 C 05/16/24 23:45 Pulse Rate 85 05/16/24 23:45 Respiratory Rate 18 05/16/24 23:45 Blood Pressure 129/88 05/16/24 23:45 Pulse Oximetry 100 05/16/24 23:45 Temperature 36.7 C 05/16/24 23:45 Pulse Rate 69 05/17/24 04:51 Respiratory Rate 18 05/17/24 04:51 Blood Pressure 99/64 L 05/17/24 04:51 Pulse Oximetry 97 05/17/24 04:51 <Shirin Ball APRN - Last Filed: 05/17/24 19:09> Vital Signs Temperature 36.7 C 05/16/24 23:45 Pulse Rate 85 05/16/24 23:45 Respiratory Rate 18 05/16/24 23:45 Blood Pressure 129/88 05/16/24 23:45 Pulse Oximetry 100 05/16/24 23:45 Temperature 36.7 C 05/16/24 23:45 Pulse Rate 69 05/17/24 04:51 Respiratory Rate 18 05/17/24 04:51 Blood Pressure 99/64 L 05/17/24 04:51 Pulse Oximetry 97 05/17/24 04:51 <Ayaan Duong MD - Last Filed: 05/17/24 04:35> MDM - Abdominal Pain MDM Narrative Medical decision making narrative: Patient is a 39-year-old female who presents to the ER with right lower quadrant abdominal pain and lower back pain. She reports she had a bowel movement 2-3 days ago and has struggled with constipation since then. Patient denies any recent fevers, burning with urination, chest pain, shortness of breath. She does not endorse urgency with urination. Patient denies any pertinent medical history related to this ER visit. Labs Ordered: CBC, CMP, INR, PTT, lipase Imaging Ordered: CT abdomen pelvis Medications Ordered: Morphine 2 mg IV, Toradol 30 mg IV, 1 L normal saline IV bolus, Zofran 4 mg IV Results: Pt's blood work and urinalysis indicates no acute abnormalities. Patient's CT scan indicates 1. No acute abdominal abnormality. 2: Cholelithiasis. 3: Enlarged fibroid uterus. 4: Scoliosis. Diagnosis: abdominal pain, fibroid uterus, cholethiasis Patient Education/Shared MDM: Results of lab work and imaging shared with patient. She endorses improvement following pain medication administration. 034- Care signed out to Dr. Duong. CT scan showed no evidence of appendicitis or acute abnormality <Shirin Ball APRN - Last Filed: 05/17/24 19:09> Patient is a 39-year-old female who presents to the ER with right lower quadrant abdominal pain and lower back pain. She reports she had a bowel movement 2-3 days ago and has struggled with constipation since then. Patient denies any recent fevers, burning with urination, chest pain, shortness of breath. She does not endorse urgency with urination. Patient denies any pertinent medical history related to this ER visit. Labs Ordered: CBC, CMP, INR, PTT, lipase Imaging Ordered: CT abdomen pelvis Medications Ordered: Morphine 2 mg IV, Toradol 30 mg IV, 1 L normal saline IV bolus, Zofran 4 mg IV Results: Pt's blood work and urinalysis indicates no acute abnormalities. Patient's CT scan indicates Diagnosis: Patient Education/Shared MDM: Results of lab work and imaging shared with patient. She endorses improvement following pain medication administration. 034- Care signed out to Dr. Duong. CT scan showed no evidence of appendicitis or acute abnormality <Ayaan Duong MD - Last Filed: 05/17/24 04:35> Differential Diagnosis Differential diagnosis: Likely abdominal pain, acute appendicitis, constipation and small bowel obstruction <Shirin Ball APRN - Last Filed: 05/17/24 19:09> Lab Data Attestation: I reviewed the patient's lab results. <Shirin Ball APRN - Last Filed: 05/17/24 19:09> Result diagrams: 05/17/24 00:55 05/17/24 00:55 <Shirin Ball APRN - Last Filed: 05/17/24 19:09> Labs: Lab Results 05/17/24 05/17/24 05/17/24 Range/Units 00:54 00:55 00:58 WBC 8.8 (4.5-10.0) K/mm3 RBC 4.73 (4.2-5.4) M/mm3 Hgb 13.8 (12.0-15.0) g/dL Hct 42.3 (37.0-47.0) % MCV 89.4 (80-100) fl MCH 29.2 (26-34) pg MCHC 32.6 (32-36) g/dl RDW 13.1 (11.5-14.5) % Plt Count 325 (150-375) k/mm3 MPV 9.4 (7.4-10.4) fl Immature Gran % (Auto) 0.2 (0-0.5) % Neut % (Auto) 64.6 (45.5-73.1) % Lymph % (Auto) 27.8 (18.3-44.2) % [place] % (Auto) 6.0 (2.6-8.5) % Eos % (Auto) 0.9 (0-4.4) % Baso % (Auto) 0.5 (0.2-1.2) % Lymph # (Auto) 2.44 (0.9-3.2) K/mm3 [place] # (Auto) 0.5 (0.1-0.6) K/mm3 Eos # (Auto) 0.1 (0-0.3) K/mm3 Baso # (Auto) 0.0 (0.0-0.1) K/mm3 Abs Immat Gran (auto) 0.02 (0.00-0.031) K/mm3 Absolute Neuts (auto) 5.7 (1.3-6.7) K/mm3 Absolute Nucleated RBC 0.000 (0.0-0.012) K/mm3 Nucleated RBC % 0.0 (0.0-0.2) % PT 12.8 (11.1-14.7) Seconds INR 0.9 APTT 27.3 (22.3-36.8) Seconds Sodium 137 (137-145) mmol/L Potassium 4.2 (3.4-5.0) mmol/L Chloride 101 (98-107) mmol/L Carbon Dioxide 25 (22-30) mmol/L Anion Gap 11 (4-12) mmol/L BUN 8 (7-17) mg/dL Creatinine 0.78 (0.7-1.0) mg/dL Estim Creat Clear Calc 73 ml/min Estimated GFR > 60 (59 - ) Glucose 108 (65-110) mg/dL Calcium 9.7 (8.4-10.2) mg/dL Total Bilirubin 0.5 (0.2-1.3) mg/dL AST 29 (14-36) U/L ALT 27 (6-35) U/L Alkaline Phosphatase 50 (38-126) U/L Total Protein 8.0 (6.3-8.2) g/dL Albumin 4.7 (3.5-5.1) g/dL Lipase 47 (23-300) U/L Urine Color Yellow (Yellow) Urine Appearance Clear (Clear) Urine pH 6.0 (5.0-9.0) Ur Specific [place] 1.007 (1.001-1.035) Urine Protein Negative (Negative) mg/dL Urine Glucose (UA) Negative (Negative) mg/dL Urine Ketones Negative (Negative) mg/dL Ur Blood (Man) Negative (Negative) Urine Nitrate Negative (Negative) Urine Bilirubin Negative (Negative) Urine Urobilinogen 0.2 (<2.0) mg/dL Leukocyte Esterase Rfl Negative (Negative) ROMELIA/UL POC Urine HCG, Qual Negative (Negative) <Shirin Ball, SALES REPRESENTATIVE PUBLICATIONS - Last Filed: 05/17/24 19:09> Lab Results 05/17/24 05/17/24 05/17/24 Range/Units 00:54 00:55 00:58 WBC 8.8 (4.5-10.0) K/mm3 RBC 4.73 (4.2-5.4) M/mm3 Hgb 13.8 (12.0-15.0) g/dL Hct 42.3 (37.0-47.0) % MCV 89.4 (80-100) fl MCH 29.2 (26-34) pg MCHC 32.6 (32-36) g/dl RDW 13.1 (11.5-14.5) % Plt Count 325 (150-375) k/mm3 MPV 9.4 (7.4-10.4) fl Immature Gran % (Auto) 0.2 (0-0.5) % Neut % (Auto) 64.6 (45.5-73.1) % Lymph % (Auto) 27.8 (18.3-44.2) % [place] % (Auto) 6.0 (2.6-8.5) % Eos % (Auto) 0.9 (0-4.4) % Baso % (Auto) 0.5 (0.2-1.2) % Lymph # (Auto) 2.44 (0.9-3.2) K/mm3 [place] # (Auto) 0.5 (0.1-0.6) K/mm3 Eos # (Auto) 0.1 (0-0.3) K/mm3 Baso # (Auto) 0.0 (0.0-0.1) K/mm3 Abs Immat Gran (auto) 0.02 (0.00-0.031) K/mm3 Absolute Neuts (auto) 5.7 (1.3-6.7) K/mm3 Absolute Nucleated RBC 0.000 (0.0-0.012) K/mm3 Nucleated RBC % 0.0 (0.0-0.2) % PT 12.8 (11.1-14.7) Seconds INR 0.9 APTT 27.3 (22.3-36.8) Seconds Sodium 137 (137-145) mmol/L Potassium 4.2 (3.4-5.0) mmol/L Chloride 101 (98-107) mmol/L Carbon Dioxide 25 (22-30) mmol/L Anion Gap 11 (4-12) mmol/L BUN 8 (7-17) mg/dL Creatinine 0.78 (0.7-1.0) mg/dL Estim Creat Clear Calc 73 ml/min Estimated GFR > 60 (59 - ) Glucose 108 (65-110) mg/dL Calcium 9.7 (8.4-10.2) mg/dL Total Bilirubin 0.5 (0.2-1.3) mg/dL AST 29 (14-36) U/L ALT 27 (6-35) U/L Alkaline Phosphatase 50 (38-126) U/L Total Protein 8.0 (6.3-8.2) g/dL Albumin 4.7 (3.5-5.1) g/dL Lipase 47 (23-300) U/L Urine Color Yellow (Yellow) Urine Appearance Clear (Clear) Urine pH 6.0 (5.0-9.0) Ur Specific [place] 1.007 (1.001-1.035) Urine Protein Negative (Negative) mg/dL Urine Glucose (UA) Negative (Negative) mg/dL Urine Ketones Negative (Negative) mg/dL Ur Blood (Man) Negative (Negative) Urine Nitrate Negative (Negative) Urine Bilirubin Negative (Negative) Urine Urobilinogen 0.2 (<2.0) mg/dL Leukocyte Esterase Rfl Negative (Negative) ROMELIA/UL POC Urine HCG, Qual Negative (Negative) <Ayaan Duong MD - Last Filed: 05/17/24 04:35> Imaging Data Attestation: I personally reviewed and interpreted this imaging study as follows: < Shirin Ball APRN - Last Filed: 05/17/24 19:09> Radiologist's impression: ITS Impressions Abdomen/Pelvis CT 05/17/24 06:39 IMPRESSION: 1. No acute abdominal abnormality. 2: Cholelithiasis. 3: Enlarged fibroid uterus. 4: Scoliosis. <Shirin Ball APRN - Last Filed: 05/17/24 19:09> ITS Impressions Abdomen/Pelvis CT 05/17/24 06:39 IMPRESSION: 1. No acute abdominal abnormality. 2: Cholelithiasis. 3: Enlarged fibroid uterus. 4: Scoliosis. <Ayaan Duong MD - Last Filed: 05/17/24 04:35> Discharge Plan Discharge Clinical Impression: Abdominal pain <Shirin Ball APRN - Last Filed: 05/17/24 19:09> Patient Disposition: Home, Self-Care <Shirin Ball APRN - Last Filed: 05/17/24 19:09> Condition: Stable <Shirin Ball APRN - Last Filed: 05/17/24 19:09> Instructions: Antibiotic Form, Abdominal Pain (ED) <Shirin Ball APRN - Last Filed: 05/17/24 19:09> Patient Language: Tanzanian <Shirin Ball APRN - Last Filed: 05/17/24 19:09> Prescriptions: No Action hydrocodone-acetaminophen 5-325 mg tablet 1 tablet PO Q6H PRN (Reason: pain) Qty: 14 0RF ibuprofen 800 mg tablet 800 mg PO Q6H PRN (Reason: pain) Qty: 30 0RF venlafaxine 37.5 mg capsule,extended release 24hr 37.5 mg PO DAILY cyclobenzaprine 10 mg tablet 10 mg PO DAILY trazodone 50 mg tablet 50 mg PO DAILY norethindrone ac-eth estradiol [03/17 ()] 1-20 mg-mcg tablet 1 tablet PO DAILY Qty: 63 3RF omeprazole 20 mg capsule,delayed release(DR/EC) 20 mg PO DAILY gabapentin 300 mg capsule 300 mg PO DAILY ciprofloxacin HCl 500 mg tablet 500 mg PO Q12H 10 Days Qty: 20 0RF metronidazole 500 mg tablet 500 mg PO Q8H 10 Days Qty: 30 0RF ondansetron 4 mg tablet,disintegrating 4 mg PO Q8H PRN (Reason: nausea and vomiting) Qty: 10 0RF phenazopyridine [Pyridium] 200 mg tablet 200 mg PO TID Qty: 5 0RF valacyclovir [Valtrex] 500 mg tablet 500 mg PO DAILY Qty: 90 3RF <Shirin Ball APRN - Last Filed: 05/17/24 19:09> Follow-up/Referrals: Laila,Sylvia Randall APRN [Primary Care Provider] - <Shirin Ball APRN - Last Filed: 05/17/24 19:09> Time of Disposition: 04:35 <Shirin Ball APRN - Last Filed: 05/17/24 19:09> 04:35 <Ayaan Duong MD - Last Filed: 05/17/24 04:35>
--- OUTSIDE RECORDS SUMMARY | 2024-05-17 00:59 | XMS_ITS | Encounter Summary ---
Author Organization [facility] Address [facility] [place] [address] Care Team Providers Care Ladies Underwear Operator Name Role Phone Gris Bocanegra BILL PEDDLER Primary Care Provider Makenzie Buchanan BILL PEDDLER Primary Care Provider + [phone] Sylvia Ulloa BILL PEDDLER Primary Care Provider [phone] Encounter Details Date Type Department Care Team (Late st Contact Info) Description 08/31/2021 [employer] [facility] Patient Accounts [address] [place] [address] [employer], [facility] Provider Balance and payment Social History [...] Sex Assigned at Female 04/07/2024 10:19 AM VOICE TEACHER Legal Sex Female 4:59 PM CDT Gender Identity Female 04/07/2024 10:19 AM VOICE TEACHER Sexual Orientation Straight 04/07/2024 10 :19 AM VOICE TEACHER documented as of this encounter Plan of Treatment Upcoming Encounters Date Type Department Care Team (Late Contact Info) Description 05/19/2024 11:20 AM CDT Office Visit [facility] Medical Group Multispecialty Care - [place] [address] [place] [address] Sylvia Ulloa, BILL PEDDLER [address] [place] [address] documented as of this encounter Visit Diagnoses Not on filedocumented in this encounter Additional Health Concerns Infection Onset Date Last Indicated Resolved Time COVID-19 Rule Out 02/06/2023 02/06/2023 02/06/2023 3:04 PM VOICE TEACHER documented as of this encounter Care Teams Ladies Underwear Operator Relationship Specialty Start Date End Date Gris Bocanegra, BILL PEDDLER PCP - General NURSE PRACTITIONER 08/26/21 07/25/23 Makenzie Anand, JEANNIE [address] [place] [address] PCP - General NURSE PRACTITIONER 07/26/23 09/13/23 Sylvia Ulloa, BILL PEDDLER [address] [facility] [address] [place] [address] PCP - General NURSE PRACTITIONER 09/14/23 documented as of this encounter
--- OUTSIDE RECORDS SUMMARY | 2024-05-17 00:59 | XMS_ITS | Encounter Summary ---
Author Organization [facility] Address [facility] [place] [address] Care Team Providers Care Counter Former Name Role Phone Gris Bocanegra COMMISSARY SUPERINTENDENT Primary Care Provider Makenzie Buchanan COMMISSARY SUPERINTENDENT Primary Care Provider + [phone] Sylvia Ulloa COMMISSARY SUPERINTENDENT Primary Care Provider [phone] Encounter Details Date Type Department Care Team (Late st Contact Info) Description 11/20/2022 [employer] Message Enc [facility] Medical Group Family Medicine [address] [address] [employer], [facility] Provider xray results Social History [...] Sex Assigned at Female 04/07/2024 10:19 AM READING ASSISTANT Legal Sex Female 4:59 PM CDT Gender Identity Female 04/07/2024 10:19 AM READING ASSISTANT Sexual Orientation Straight 04/07/2024 10 :19 AM READING ASSISTANT documented as of this encounter Plan of Treatment Upcoming Encounters Date Type Department Care Team (Late st Contact Info) Description 05/19/2024 11:20 AM CDT Office Visit [facility] Medical Group Multispecialty Care - [place] [address] [place] [address] Sylvia Ulloa, COMMISSARY SUPERINTENDENT [address] [place] [address] documented as of this encounter Visit Diagnoses Not on filedocumented in this encounter Additional Health Concerns Infection Onset Date Last Indicated Resolved Time COVID-19 Rule Out 02/06/2023 02/06/2023 02/06/2023 3:04 PM READING ASSISTANT Assessment Noted Time PHQ-9 Depression Total Score: 8 01/12/20 9:14 AM READING ASSISTANT documented as of this encounter Care Teams Counter Former Relationship Specialty Start Date End Date Gris Bocanegra COMMISSARY SUPERINTENDENT PCP - General NURSE PRACTITIONER 08/26/21 07/25/23 Makenzie Anand NP [address] [place] [address] PCP - General NURSE PRACTITIONER 07/26/23 09/13/23 Sylvia Ulloa, COMMISSARY SUPERINTENDENT [address] [place] [address] PCP - General NURSE PRACTITIONER 09/14/23 documented as of this encounter
--- OUTSIDE RECORDS SUMMARY | 2024-05-17 00:59 | XMS_ITS | Encounter Summary ---
Author Organization [facility] Address [facility] [place] [address] Care Team Providers Care Digital Communications Manager Name Role Phone Gris Bocanegra RESOURCE EFFICIENCY MANAGER Primary Care Provider Makenzie Buchanan RESOURCE EFFICIENCY MANAGER Primary Care Provider + [phone] Sylvia Ulloa RESOURCE EFFICIENCY MANAGER Primary Care Provider [phone] Encounter Details Date Type Department Care Team (Late st Contact Info) Description 09/05/2022 [employer] Message Enc [facility] Medical Group Family Medicine [address] [address] [facility] Provider Symptoms Social History Tobacco [...] Sex Assigned at Female 04/07/2024 10:19 AM COMPUGRAPH OPERATOR Legal Sex Female 4:59 PM CDT Gender Identity Female 04/07/2024 10:19 AM COMPUGRAPH OPERATOR Sexual Orientation Straight 04/07/2024 10 :19 AM COMPUGRAPH OPERATOR COVID-19 Exposure Response Date Recorded In the last 10 days, have yo u been in contact with someone who was confirmed or suspected to have Coronavirus/COVID-19? No / Unsure 08/11/2022 8:40 AM CDT documented as of this encounter Plan of Treatment Upcoming Encounters Date Type Department Care Team (Late st Contact Info) Description 05/19/2024 11:20 AM CDT Office Visit [facility] Medical Group Multispecialty Care - [place] [address] [place] [address] Sylvia Ulloa, RESOURCE EFFICIENCY MANAGER [address] [facility] [address] [place] [address] documented as of this encounter Visit Diagnoses Not on filedocumented in this encounter Additional Health Concerns Infection Onset Date Last Indicated Resolved Time COVID-19 Rule Out 02/06/2023 02/06/2023 02/06/2023 3:04 PM COMPUGRAPH OPERATOR Assessment Noted Time PHQ-9 Depression Total Score: 8 01/12/20 9:14 AM COMPUGRAPH OPERATOR documented as of this encounter Care Teams Digital Communications Manager Relationship Specialty Start Date End Date Gris Bocanegra RESOURCE EFFICIENCY MANAGER PCP - General NURSE PRACTITIONER 08/26/21 07/25/23 Makenzie Anand NP [address] [place] [address] PCP - General NURSE PRACTITIONER 07/26/23 09/13/23 Sylvia Ulloa, RESOURCE EFFICIENCY MANAGER [address] [facility] [address] [place] [address] PCP - General NURSE PRACTITIONER 09/14/23 documented as of this encounter
--- OUTSIDE RECORDS SUMMARY | 2024-05-17 00:59 | XMS_ITS | Encounter Summary ---
Author Organization [facility] Address [facility] [place] [address] Care Team Providers Care Clinical Veterinarian Name Role Phone Gris Bocanegra JAVA LEAD ARCHITECT Primary Care Provider Makenzie Buchanan JAVA LEAD ARCHITECT Primary Care Provider [phone] Sylvia Ulloa JAVA LEAD ARCHITECT Primary Care Provider [phone] Encounter Details Date Type Department Care Team (Late st Contact Info) Description 06/20/2022 [employer] Message Enc [facility] Medical [facility] Family Medicine [address] [address] [place] [facility], [facility] Provider Medication Social History Tobacco Use Types [...] Sex Assigned at Female 04/07/2024 10:19 AM WELDER FITTER Legal Sex Female 4:59 PM CDT Gender Identity Female 04/07/2024 10:19 AM WELDER FITTER Sexual Orientation Straight 04/07/2024 10 :19 AM WELDER FITTER COVID-19 Exposure Response Date Recorded In the last 10 days, have yo u been in contact with someone who was confirmed or suspected to have Coronavirus/COVID-19? No / Unsure 06/21/2022 8:03 AM CDT documented as of this encounter Plan of Treatment Upcoming Encounters Date Type Department Care Team (Late st Contact Info) Description 05/19/2024 11:20 AM CDT Office Visit [facility] Multispecialty Care - [place] [address] [place] [address] Sylvia Ulloa, JAVA LEAD ARCHITECT [address] [place] [address] documented as of this encounter Visit Diagnoses Not on filedocumented in this encounter Additional Health Concerns Infection Onset Date Last Indicated Resolved Time COVID-19 Rule Out 02/06/2023 02/06/2023 02/06/2023 3:04 PM WELDER FITTER Assessment Noted Time PHQ-9 Depression Total Score: 8 01/12/20 9:14 AM WELDER FITTER documented as of this encounter Care Teams Clinical Veterinarian Relationship Specialty Start Date End Date Gris Bocanegra JAVA LEAD ARCHITECT PCP - General NURSE PRACTITIONER 08/26/21 07/25/23 Makenzie Anand NP [address] [place] [address] PCP - General NURSE PRACTITIONER 07/26/23 09/13/23 Sylvia Ulloa, JAVA LEAD ARCHITECT [address] [place] [address] PCP - General NURSE PRACTITIONER 09/14/23 documented as of this encounter
--- OUTSIDE RECORDS SUMMARY | 2024-05-17 00:59 | XMS_ITS | Encounter Summary ---
Author Organization [facility] Address [facility] [place] [address] Care Team Providers Care Steel Unloader Name Role Phone Gris Bocanegra STORE ASSISTANT Primary Care Provider Makenzie Buchanan STORE ASSISTANT Primary Care Provider [phone] Sylvia Ulloa STORE ASSISTANT Primary Care Provider [phone] Encounter Details Date Type Department Care Team (Late st Contact Info) Description 09/05/2022 [employer] Message Enc [facility] Medical Group Family Medicine [address] [address] Gris Bocanegra, STORE ASSISTANT appointment Social History Tobacco Use Types Packs/Day [...] Sex Assigned at Female 04/07/2024 10:19 AM DRYWALL HANGER HELPER Legal Sex Female 4:59 PM CDT Gender Identity Female 04/07/2024 10:19 AM DRYWALL HANGER HELPER Sexual Orientation Straight 04/07/2024 10 :19 AM DRYWALL HANGER HELPER COVID-19 Exposure Response Date Recorded In [...] Visit [facility] - [place] [address] [place] [address] Sylvia Ulloa, STORE ASSISTANT [address] [place] [address] documented as of this encounter Visit Diagnoses Not on filedocumented in this encounter Additional Health Concerns Infection Onset Date Last Indicated Resolved Time COVID-19 Rule Out 02/06/2023 02/06/2023 02/06/2023 3:04 PM DRYWALL HANGER HELPER Assessment Noted Time PHQ-9 Depression Total Score: 8 01/12/20 9:14 AM DRYWALL HANGER HELPER documented as of this encounter Care Teams Steel Unloader Relationship Specialty Start Date End Date Gris Bocanegra STORE ASSISTANT PCP - General NURSE PRACTITIONER 08/26/21 07/25/23 Makenzie Anand NP [address] [place] [address] PCP - General NURSE PRACTITIONER 07/26/23 09/13/23 Sylvia Ulloa, STORE ASSISTANT [address] [place] [address] PCP - General NURSE PRACTITIONER 09/14/23 documented as of this encounter
--- OUTSIDE RECORDS SUMMARY | 2024-05-17 00:59 | XMS_ITS | Clinical Summary ---
Author Organization [facility] Address [address] [place] [address] Care Team Providers Care Wood Hacker Name Role Phone Grsi Bocanegra NP Primary Care Provider [phone] Sylvia Ulloa NP Unavailable [phone] Allergies Active Allergy Reactions Criticality Noted Date [...] on file Legal Sex Female 1:49 PM FIBERGLASSER Gender Identity Female 01/23/2022 9:58 AM FIBERGLASSER Sexual Orientation Not on file Obstetrics History Para Term AB IAB SAB Ectopic Multiple Livin g Live Births 0 0 0 0 0 0 0 0 0 0 0 Last Filed Vital Signs Vital Sign Reading Time Taken Comments Blood Pressure 120/81 07/10/2023 2:37 PM CDT Pulse 78 07/10/2023 2:37 PM CDT Temperature 37.4 C (99.3 F) 03/28/2023 11:05 AM FIBERGLASSER Respiratory Rate 20 03/28/2023 7:50 AM FIBERGLASSER Oxygen Saturation 99% 03/28/2023 11:05 AM FIBERGLASSER Inhaled Oxygen Concentration - - Weight 71.7 kg (158 lb) 02/05/2024 10:07 AM FIBERGLASSER Height 162.6 cm (5' 4 ) 02/05/2024 10:07 AM FIBERGLASSER Body Mass Index 27.12 02/05/2024 10:07 AM FIBERGLASSER Plan of Treatment Health Maintenance Due Date [...] as needed Medical Devices Implanted Type Area Director Of Undergraduate Admissions Device Identifier Shelf Expiration Date Model / Serial / Lot [employer] Centerpiece 10mm Lateral Hole Open Door Color Coded Spine [id number] - [id number] Implanted:Qty: 3 on 03/27/2023 by Neptali Benitez MD at [facility] N/A: Spine Cervical [employer] [id number] / / [employer] Spinal Screw Anterior Cervical Odlp Solid 2.0x7mm [id number] - [id number] Implanted:Qty: 6 on 03/27/2023 by Neptali Benitez MD at [facility] N/A: Spine Cervical [employer] [id number] / / [employer] Spinal Screw Anterior Cervical Odlp Solid 2.0x5mm [id number] - [id number] Implanted:Qty: 6 on 03/27/2023 by Neptali Benitez MD at [facility] N/A: Spine Cervical [employer] [id number] / / Insurance [facility] CHO[facility] H[facility]PPO Address: [address] [address] [place] [address] [employer] OPEN ACCESS [facility] HEALTH [facility] HMO/PPO Address: [address] [place] [address] [facility] CMR MRA Advance Directives For more information, please contact: [phone] * Full Code (Latest Code Status on File) Date Activated Date Inactivated Comments 03/28/2023 4:29 AM 03/28/2023 9:36 PM Care Teams Wood Hacker Relationship Specialty Start Date End Date Gris [place] [address] PCP - General Nurse Practitioner 12/16/21 Sylvia Ulloa NP [address] [place] [address] Nurse Practitioner Internal Medicine 11/27/23
--- OUTSIDE RECORDS SUMMARY | 2024-05-17 00:59 | XMS_ITS | Encounter Summary ---
Author Organization [facility] Address [facility] [place] [address] Care Team Providers Care Gauntlet Pairer Name Role Phone Segun Navarro MD Primary Care Provider Gris Bocanegra SIZING MACHINE OPERATOR Primary Care Provider Makenzie Buchanan SIZING MACHINE OPERATOR Primary Care Provider [phone] Sylvia Ulloa SIZING MACHINE OPERATOR Primary Care Provider [phone] Encounter Details Date Type Department Care Team (Late st Contact Info) Description 07/14/2021 [employer] Messaging Message Enc [facility] Medical Group Family Medicine [facility] [address] [place] [address] [facility] Provider Pregnnacy Test Social History Tobacco [...] Sex Assigned at Female 04/07/2024 10:19 AM INSTRUCTOR SUBSTITUTE COSMETOLOGY Legal Sex Female 4:59 PM CDT Gender Identity Female 04/07/2024 10:19 AM INSTRUCTOR SUBSTITUTE COSMETOLOGY Sexual Orientation Straight 04/07/2024 10 :19 AM INSTRUCTOR SUBSTITUTE COSMETOLOGY COVID-19 Exposure Response Date Recorded In the last 10 days, have yo u been in contact with someone who was confirmed or suspected to have Coronavirus/COVID-19? No / Unsure 06/30/2021 9:32 AM CDT documented as of this encounter Plan of Treatment Upcoming Encounters Date Type Department Care Team (Late st Contact Info) Description 05/19/2024 11:20 AM CDT Office Visit [facility] Medical Group Multispecialty Care - [place] [address] [place] [address] Sylvia Ulloa, SIZING MACHINE OPERATOR [address] [place] [address] documented as of this encounter Visit Diagnoses Not on filedocumented in this encounter Additional Health Concerns Infection Onset Date Last Indicated Resolved Time COVID-19 Rule Out 02/06/2023 02/06/2023 02/06/2023 3:04 PM INSTRUCTOR SUBSTITUTE COSMETOLOGY documented as of this encounter Care Teams Gauntlet Pairer Relationship Specialty Start Date End Date Segun Navarro MD PCP - General FAMILY PRACTICE 04/17/19 08/25/21 Gris Bocanegra SIZING MACHINE OPERATOR PCP - General NURSE PRACTITIONER 08/26/21 07/25/23 Makenzie Anand NP [address] [place] [address] PCP - General NURSE PRACTITIONER 07/26/23 09/13/23 Sylvia Ulloa, SIZING MACHINE OPERATOR [address] [place] [address] PCP - General NURSE PRACTITIONER 09/14/23 documented as of this encounter
--- OUTSIDE RECORDS SUMMARY | 2024-05-17 00:59 | XMS_ITS | Encounter Summary ---
Author Organization [facility] Address [address] [place] [address] Care Team Providers Care Preparing Box Tender Name Role Phone Segun Navarro MD Primary Care Provider [phone] Gris Bocanegra NETWORK ADMINISTRATOR Primary Care Provider Makenzie Buchanan NETWORK ADMINISTRATOR Primary Care Provider + [phone] Sylvia Ulloa NETWORK ADMINISTRATOR Primary Care Provider [phone] Encounter Details Date Type Department Care Team (Late st Contact Info) Description 08/15/2021 [facility] Patient Accounts [address] [place], [place] [id number] [facility] Provider [facility] Payment Plan Social History Tobacco Use Types [...] Sex Assigned at Female 04/07/2024 10:19 AM MONITOR AND STORAGE BIN TENDER Legal Sex Female 4:59 PM CDT Gender Identity Female 04/07/2024 10:19 AM MONITOR AND STORAGE BIN TENDER Sexual Orientation Straight 04/07/2024 10 :19 AM MONITOR AND STORAGE BIN TENDER documented as of this encounter Plan of Treatment Upcoming Encounters Date Type Department Care Team (Late st Contact Info) Description 05/19/2024 11:20 AM CDT Office Visit [facility] Medical Group Multispecialty Care - [address] [place] [address] Sylvia Ulloa, NETWORK ADMINISTRATOR [address] [place] [address] documented as of this encounter Visit Diagnoses Not on filedocumented in this encounter Additional Health Concerns Infection Onset Date Last Indicated Resolved Time COVID-19 Rule Out 02/06/2023 02/06/2023 02/06/2023 3:04 PM MONITOR AND STORAGE BIN TENDER documented as of this encounter Care Teams Preparing Box Tender Relationship Specialty Start Date End Date Segun Navarro MD PCP - General FAMILY PRACTICE 04/17/19 08/25/21 Gris Bocanegra NP PCP - General NURSE PRACTITIONER 08/26/21 07/25/23 Makenzie Anand NP [address] [place] [address] PCP - General NURSE PRACTITIONER 07/26/23 09/13/23 Sylvia Ulloa, NETWORK ADMINISTRATOR [address] [place] [address] PCP - General NURSE PRACTITIONER 09/14/23 documented as of this encounter
--- OUTSIDE RECORDS SUMMARY | 2024-05-17 00:59 | XMS_ITS | Encounter Summary ---
Author Organization [facility] Address [facility] [place] [address] Care Team Providers Care Childcare Center Administrator Name Role Phone Gris Bocanegra PRODUCE MANAGER Primary Care Provider Makenzie Buchanan PRODUCE MANAGER Primary Care Provider + [phone] Sylvia Ulloa PRODUCE MANAGER Primary Care Provider [phone] Encounter Details Date Type Department Care Team (Late st Contact Info) Description 04/17/2022 [employer] Message Enc [facility] Medical Group Family Medicine [address] [address] Mychart, [facility] Provider Ankle xray Social [...] Sex Assigned at Female 04/07/2024 10:19 AM BARLEY STEEPER Legal Sex Female 4:59 PM CDT Gender Identity Female 04/07/2024 10:19 AM BARLEY STEEPER Sexual Orientation Straight 04/07/2024 10 :19 AM BARLEY STEEPER documented as of this encounter Plan of Treatment Upcoming Encounters Date Type Department Care Team (Late st Contact Info) Description 05/19/2024 11:20 AM CDT Office Visit [facility] Medical Group Multispecialty Care - [place] [address] [place] [address] Sylvia Ulloa, PRODUCE MANAGER [address] [place] [address] documented as of this encounter Visit Diagnoses Not on filedocumented in this encounter Additional Health Concerns Infection Onset Date Last Indicated Resolved Time COVID-19 Rule Out 02/06/2023 02/06/2023 02/06/2023 3:04 PM BARLEY STEEPER Assessment Noted Time PHQ-9 Depression Total Score: 8 01/12/20 9:14 AM BARLEY STEEPER documented as of this encounter Care Teams Childcare Center Administrator Relationship Specialty Start Date End Date Gris Bocanegra PRODUCE MANAGER PCP - General NURSE PRACTITIONER 08/26/21 07/25/23 Makenzie Anand NP [address] [place] [address] PCP - General NURSE PRACTITIONER 07/26/23 09/13/23 Sylvia Ulloa, PRODUCE MANAGER [address] [place] [address] PCP - General NURSE PRACTITIONER 09/14/23 documented as of this encounter
--- OUTSIDE RECORDS SUMMARY | 2024-05-17 00:59 | XMS_ITS | Encounter Summary ---
Author Organization [facility] Address [facility] [place] [address] Care Team Providers Care Finishing Inspector Name Role Phone Gris Bocanegra NP Primary Care Provider Makenzie Buchanan MANUFACTURING PLANT MANAGER Primary Care Provider + [phone] Sylvia Ulloa NP Primary Care Provider [phone] Encounter Details Date Type Department Care Team (Late st Contact Info) Description 01/01/2023 [employer] Message Enc [facility] Family Medicine [address] [address] Gris Bocanegra, MANUFACTURING PLANT MANAGER MRI Social History Tobacco Use Types Packs/Day [...] Sex Assigned at Female 04/07/2024 10:19 AM SIEBEL ADMINISTRATOR Legal Sex Female 4:59 PM CDT Gender Identity Female 04/07/2024 10:19 AM SIEBEL ADMINISTRATOR Sexual Orientation Straight 04/07/2024 10 :19 AM SIEBEL ADMINISTRATOR documented as of this encounter Plan of Treatment Upcoming Encounters Date Type Department Care Team (Late st Contact Info) Description 05/19/2024 11:20 AM CDT Office Visit [facility] Medical [facility] Multispecialty Care - [place] [address] [place], [place] [id number] Sylvia Ulloa, MANUFACTURING PLANT MANAGER [address] [place] [address] documented as of this encounter Visit Diagnoses Not on filedocumented in this encounter Additional Health Concerns Infection Onset Date Last Indicated Resolved Time COVID-19 Rule Out 02/06/2023 02/06/2023 02/06/2023 3:04 PM SIEBEL ADMINISTRATOR Assessment Noted Time PHQ-9 Depression Total Score: 8 01/12/20 9:14 AM SIEBEL ADMINISTRATOR documented as of this encounter Care Teams Finishing Inspector Relationship Specialty Start Date End Date Gris Bocanegra, MANUFACTURING PLANT MANAGER PCP - General NURSE PRACTITIONER 08/26/21 07/25/23 Makenzie Anand NP [address] [place] [address] PCP - General NURSE PRACTITIONER 07/26/23 09/13/23 Sylvia Ulloa, MANUFACTURING PLANT MANAGER [address] [place] [address] PCP - General NURSE PRACTITIONER 09/14/23 documented as of this encounter
--- OUTSIDE RECORDS SUMMARY | 2024-05-17 00:59 | XMS_ITS | Clinical Summary ---
Author Organization [facility] Address [address] [place] [address] Care Team Providers Care Graduating Machine Operator Name Role Phone Laila, Sylvia Tonia SHELLS INSPECTOR Primary Care Provider Allergies Active Allergy Reactions Criticality Noted Date [...] Department Care Team Description 04/07/2024 10:20 AM SR. MERCHANDISE PLANNER Office Visit [place] [address] [address] [address] [place] [address] Sylvia Ulloa, SHELLS INSPECTOR Weight Check 04/07/2024 Travel 04/03/2024 Telephone [place] [address] [facility] [address] [place] [address] Sylvia Ulloa, SHELLS INSPECTOR Follow Up Call 04/02/2024 [employer] SR[employer] Scanned, [facility] 04/01/2024 3:00 [address] SR. MERCHANDISE PLANNER Office Visit [place] [address] [facility] [address] [place] [address] Jose Juan Stack MD Follow Up (Acute - UTI - Sx started Sunday. Back pain, trouble urinating, burning, itching and ittiration); Urinary Symptoms 04/01/2024 - 04/01/2024 11:59 PM SR. MERCHANDISE PLANNER Hospital Encounter [facility] [address] [place] [address] Jose Juan Stack MD Discharge Disposition: Home or Self Care (Routine Discharge) 04/01/2024 Travel 03/10/2024 9:20 AM SR. MERCHANDISE PLANNER Office Visit [facility] [address] [facility] [address] [place] [address] Sylvia Ulloa, SHELLS INSPECTOR Knee Pain 03/10/2024 Travel 02/25/2024 10:40 AM SR. MERCHANDISE PLANNER [facility] [address] [facility] [address] [place] [address] Sylvia Ulloa, SHELLS INSPECTOR Weight Check 02/25/2024 Orders Only [facility] [address] [facility] [address] [place] [address] Mary Ann Dhaliwal MA 02/25/2024 Travel from [...] Sex Assigned at Female 04/07/2024 10:19 AM SR. MERCHANDISE PLANNER Legal Sex Female 4:59 PM CDT Gender Identity Female 04/07/2024 10:19 AM SR. MERCHANDISE PLANNER Sexual Orientation Straight 04/07/2024 10 :19 AM SR. MERCHANDISE PLANNER Last Filed Vital Signs Vital Sign Reading Time Taken Comments Blood Pressure 122/90 04/07/2024 10:53 AM SR. MERCHANDISE PLANNER Pulse 90 04/07/2024 10:19 AM SR. MERCHANDISE PLANNER Temperature 36.7 C (98.1 F) 04/07/2024 10:19 AM SR. MERCHANDISE PLANNER Respiratory Rate 16 04/07/2024 10:19 AM SR. MERCHANDISE PLANNER Oxygen Saturation 100% 04/07/2024 10:19 AM SR. MERCHANDISE PLANNER Inhaled Oxygen Concentration - - Weight 67.7 kg (149 lb 3.2 oz) 04/07/2024 10:19 AM SR. MERCHANDISE PLANNER Height 162.6 cm (5' 4 ) 04/07/2024 10:19 AM SR. MERCHANDISE PLANNER Body Mass Index 25.61 04/07/2024 10:19 AM SR. MERCHANDISE PLANNER Plan of Treatment Upcoming Encounters Date Type Department Care Team (Late st Contact Info) Description 05/19/2024 11:20 AM CDT Office Visit [facility] Medical Group Multispecialty Care - [place] [address] [facility] [address] [place] [address] Sylvia Ulloa, JEANNIE [address] [facility] [address] [place] [address] Health Maintenance Due Date Last Done Comments [...] 05/31/2017 Hepatitis C Completed 11/12/2023 PHQ-2 (Physician [place]) Completed 04/01/2024 HPV Vaccines Aged Out No [...] URINE BACTERIA CULTURE Routine 04/01/2024 3:41 [address] MERCHANDISE PLANNER Urinary tract infection with hematuria, site unspecified TEST URINE Routine 04/01/2024 Urinary tract infection with hematuria, site unspecified URINALYSIS AUTO DIP Routine 04/01/2024 Urinary tract infection with hematuria, site unspecified THYROXINE, FREE (FT4) Routine 02/25/2024 11:32 AM SR. MERCHANDISE PLANNER Hypothyroidism, unspecified type THYROID STIM HORMONE TSH Routine 02/25/2024 11:32 AM SR. MERCHANDISE PLANNER Hypothyroidism, unspecified type MG/PCCL UDS SCREEN Routine 02/25/2024 11 :31 AM SR. MERCHANDISE PLANNER Overweight HEPATITIS C ANTIBODY Routine 11/12/2023 3:58 PM CDT Need for hepatitis C screening test from Last 3 Months or Most Recently Relevant to Health Maintenance Results * URINE BACTERIA CULTURE (04/01/2024 3:41 PM SR. MERCHANDISE PLANNER) SPEC DESCRIPTION URINE CLEAN CATCH 04/01/2024 6:[address] [facility] SPECIAL REQUESTS NO SPECIAL REQUEST 04/01/2024 6:[address] [facility] CULTURE RESULT EQUAL OR >100,000 CFU/mL ESCHERICHIA COLI 04/04/2024 8:17 [address] [facility] URINE SPECIMEN OBTAINED BY CLEAN CATCH PROCEDURE / Unknown 04/01/2024 3:41 PM SR. MERCHANDISE PLANNER 04/01/2024 8:45 PM SR. MERCHANDISE PLANNER Narrative Organism Antibiotic Method Susceptibility Escherichia coli [...] MICROBIOLOGY - GENERAL ORDERABLE S Final Result [facility] [address] [place] [address], [id number] * TEST URINE (04/01/2024) URINE HCG TEST NEGATIVE NEGATIVE [address], [place] Internal Control: VALID VALID [address], [place] URINE SPECIMEN FROM URETHRA / Unknown 04/01/2024 Jose Juan Stack MD URINE ORDERABLES Final Result Performing Organization Address City/[facility]/ZIP Co de Phone Number [id number], [place] [address] [place] [address], * (ABNORMAL) URINALYSIS AUTO DIP (04/01/2024) COLOR (U) YELLOW YELLOW [address], [place] TRANSPARENCY TURBID(A) CLEAR [address], [place] GLUCOSE (U) NEGATIVE NEGATIVE MG/DL MG[address], [place] BILIRUBIN (U) NEGATIVE NEGATIVE MG-[address], [place] KETONES MG/DL (U) NEGATIVE NEGATIVE MG/DL [address], [place] SPECIFIC GRAVITY (U) 1.020 1.001 - 1.035 [address], [place] BLOOD (U) SMALL (1+, Hemolyzed)( A) NEGATIVE [address], [place] U PH 6.0 5.0 - 9.0 [address], [place] PROTEIN (U) 2+ (100)(A) NEGATIVE mg/dL [address], [place] UROBILINOGEN 0.2 0.2 - 1.0 EU/dL = mg/dL [address], [place] NITRITES NEGATIVE NEGATIVE MG/DL MG[address], [place] LEUKOCYTES (U) 3+ (LARGE)(A) NEGATIVE MG[address], [place] URINE SPECIMEN OBTAINED BY CLEAN CATCH PROCEDURE / Unknown 04/01/2024 Jose Juan Stack MD URINE ORDERABLES Final Result Performing Organization Address [facility] Co de Phone Number [address], [place] [address] [place] [address], * THYROXINE, FREE (FT4) (02/25/2024 11:32 AM SR. MERCHANDISE PLANNER) [facility] FREE T4 1.03 0.76 - 1.46 NG/DL 02/25/2024 7:41 [address] MERCHANDISE PLANNER [facility] 02/25/2024 11:3 2 AM SR. MERCHANDISE PLANNER us Sylvia Ulloa NP LABORATORY Final Resul t Performing Organization Address [facility] Co de Phone Number [facility] [address] [place] [phone], * (ABNORMAL) THYROID STIM HORMONE TSH (02/25/2024 11:32 AM SR. MERCHANDISE PLANNER) [facility] TSH 5.733(H) 0.358 - 3.740 uIU/ML 02/25/2024 7:41 [address] SR[address] MERCHANDISE PLANNER [facility] 02/25/2024 11:3 2 AM SR. MERCHANDISE PLANNER us Sylvia Ulloa NP LABORATORY Final Resul t Performing Organization Address [facility] Co de Phone Number [address] [address], [place] [phone] * MG/PCCL UDS SCREEN (02/25/2024 11:31 AM SR. MERCHANDISE PLANNER) [facility] FENTANYL SCREEN (U) NEGATIVE <0.5 ng/mL [facility] [...] [facility] WOOD EDUIN NOTE [facility] Comment: This drug testing is for [...] analytical performance characteristics have been determined by [email or web address]. It has not been cleared or approved by the FDA. This assay has been validated pursuant to the CLIA regulations and is used for clinical purposes. Healthcare Providers needing Interpretation assistance, please contact us at [phone] ( ) M-F, 8am to 10pm EST URINE SPECIMEN / Unknown 02/25/2024 11:31 AM SR. MERCHANDISE PLANNER 02/26/2024 2:16 [address] SR. MERCHANDISE PLANNER Narrative Resulting Agency Comment Performing Organization Information: Site ID: [email or web address] Name: [email or web address] Address: [address] [place] [address] Director: Darwin Issa Site ID: [email or web address] Name: [email or web address] Address: [address] [place] [address] Director: Tay Borjas MD Sylvia Ulloa NP URINE ORDERABLES Final Resu lt [facility] [place] [address] [place] [address] [facility] [place] [address] [place] [address], * HEPATITIS C ANTIBODY (11/12/2023 3:58 PM CDT) HEPATITIS C AB NON-REACTI VE NON-REACT PREMA 11/12/2023 10:[address] [facility] Comment: ANTIBODIES TO HCV NOT DETECTED. DOES NOT EXCLUDE THE POSSIBILITY OF EXPOSURE TO HCV. 11/12/2023 3:58 PM CDT us Sylvia Ulloa NP LABORATORY Final Resul t [facility] [address] [place] [address], [id number] from Last 3 Months or Most Recently Relevant to Health Maintenance Insurance [facility] Care Teams Graduating Machine Operator Relationship Specialty Start Date End Date Sylvia Ulloa NP [address] [place], [place] [address] PCP - General NURSE PRACTITIONER 09/14/23
--- OUTSIDE RECORDS SUMMARY | 2024-05-17 00:59 | XMS_ITS | Encounter Summary ---
Author Organization [facility] Address [facility] [place] [address] Care Team Providers Care Maintenance Planner Name Role Phone Gris Bocanegra BACK WEDGER Primary Care Provider Makenzie Buchanan BACK WEDGER Primary Care Provider + [phone] Sylvia Ulloa BACK WEDGER Primary Care Provider [phone] Encounter Details Date Type Department Care Team (Late st Contact Info) Description 06/20/2022 Medication Management [facility] Medical [facility] Family Medicine [address] [address] Gris Bocanegra, BACK WEDGER Social History Tobacco Use Types Packs/Day Years [...] Sex Assigned at Female 04/07/2024 10:19 AM SHAREMILKER Legal Sex Female 4:59 PM CDT Gender Identity Female 04/07/2024 10:19 AM SHAREMILKER Sexual Orientation Straight 04/07/2024 10 :19 AM SHAREMILKER COVID-19 Exposure Response Date Recorded In the last 10 days, have yo u been in contact with someone who was confirmed or suspected to have Coronavirus/COVID-19? No / Unsure 06/21/2022 8:03 AM CDT documented as of this encounter Plan of Treatment Upcoming Encounters Date Type Department Care Team (Late st Contact Info) Description 05/19/2024 11:20 AM CDT Office Visit [facility] Medical Group Multispecialty Care - [place] [address] [place] [address] Sylvia Ulloa, BACK WEDGER [address] [facility] [address] [place] [address] documented as of this encounter Visit Diagnoses Not on filedocumented in this encounter Additional Health Concerns Infection Onset Date Last Indicated Resolved Time COVID-19 Rule Out 02/06/2023 02/06/2023 02/06/2023 3:04 PM SHAREMILKER Assessment Noted Time PHQ-9 Depression Total Score: 8 01/12/20 9:14 AM SHAREMILKER documented as of this encounter Care Teams Maintenance Planner Relationship Specialty Start Date End Date Gris Bocanegra NP PCP - General NURSE PRACTITIONER 08/26/21 07/25/23 Makenzie Anand NP [address] [place] [address] PCP - General NURSE PRACTITIONER 07/26/23 09/13/23 Sylvia Ulloa, BACK WEDGER [address] [place] [address] PCP - General NURSE PRACTITIONER 09/14/23 documented as of this encounter
--- OUTSIDE RECORDS SUMMARY | 2024-05-17 00:59 | XMS_ITS | Encounter Summary ---
Author Organization [facility] Address [facility] [place] [address] Care Team Providers Care Instruments Sales Representative Name Role Phone Gris Bocanegra HAND FRAME SURGICAL ELASTIC KNITTER Primary Care Provider Makenzie Buchanan HAND FRAME SURGICAL ELASTIC KNITTER Primary Care Provider + [phone] Sylvia Ulloa HAND FRAME SURGICAL ELASTIC KNITTER Primary Care Provider [phone] Encounter Details Date Type Department Care Team (Late st Contact Info) Description 07/04/2022 [employer]GL Message Enc [facility] Medical Group Family Medicine [address] [address] [facility] Provider Benzamycin Social History Tobacco Use Types [...] Sex Assigned at Female 04/07/2024 10:19 AM HEALTH AIDE Legal Sex Female 4:59 PM CDT Gender Identity Female 04/07/2024 10:19 AM HEALTH AIDE Sexual Orientation Straight 04/07/2024 10 :19 AM HEALTH AIDE COVID-19 Exposure Response Date Recorded In the [...] Visit [facility] Multispecialty Care - [place] [address] [place] [address] Sylvia Ulloa, HAND FRAME SURGICAL ELASTIC KNITTER [address] [facility] [address] [place] [address] documented as of this encounter Visit Diagnoses Not on filedocumented in this encounter Additional Health Concerns Infection Onset Date Last Indicated Resolved Time COVID-19 Rule Out 02/06/2023 02/06/2023 02/06/2023 3:04 PM HEALTH AIDE Assessment Noted Time PHQ-9 Depression Total Score: 8 01/12/20 9:14 AM HEALTH AIDE documented as of this encounter Care Teams Instruments Sales Representative Relationship Specialty Start Date End Date Gris Bocanegra HAND FRAME SURGICAL ELASTIC KNITTER PCP - General NURSE PRACTITIONER 08/26/21 07/25/23 Makenzie Anand NP [address] [place] [address] PCP - General NURSE PRACTITIONER 07/26/23 09/13/23 Sylvia Ulloa, HAND FRAME SURGICAL ELASTIC KNITTER [address] [place] [address] PCP - General NURSE PRACTITIONER 09/14/23 documented as of this encounter
--- OUTSIDE RECORDS SUMMARY | 2024-05-17 00:59 | XMS_ITS | Encounter Summary ---
Author Organization [facility] Address [facility] [place] [address] Care Team Providers Care Attenuator Name Role Phone Gris Bocanegra SECRETARY BOOKKEEPER Primary Care Provider Makenzie Buchanan SECRETARY BOOKKEEPER Primary Care Provider + [phone] Sylvia Ulloa SECRETARY BOOKKEEPER Primary Care Provider [phone] Reason for Visit * Reason Onset Date Comments Question 06/26/2022 Encounter Details Date Type Department Care Team (Late st Contact Info) Description 06/26/2022 [employer] Message Enc [facility] Medical Group Family Medicine [address] [address] [place], [facility] Provider Prior authorization Social History Tobacco Use [...] Sex Assigned at Female 04/07/2024 10:19 AM WHEEL TRUER Legal Sex Female 4:59 PM CDT Gender Identity Female 04/07/2024 10:19 AM WHEEL TRUER Sexual Orientation Straight 04/07/2024 10 :19 AM WHEEL TRUER COVID-19 Exposure Response Date Recorded In the last 10 days, have yo u been in contact with someone who was confirmed or suspected to have Coronavirus/COVID-19? No / Unsure 06/21/2022 8:03 AM CDT documented as of this encounter Progress Notes * Marin Banuelos MA - 07/03/2022 2:33 PM CDT Pt was sent a [employer] message on 07/03/2022, informing her that the PA was denied. See [employer] message from 07/03/2022. * Siri Russell - 06/27/2022 12:40 PM CDT Patient is wanting to know the status of the prior authorization for her medication. Please follow up. documented in this encounter Plan of Treatment Upcoming Encounters Date Type Department Care Team (Late st Contact Info) Description 05/19/2024 11:20 AM CDT Office Visit [facility] Medical Group Multispecialty Care - [place] [address] [place] [address] Sylvia Ulloa, JEANNIE [address] [place] [address] documented as of this encounter Visit Diagnoses Not on filedocumented in this encounter Additional Health Concerns Infection Onset Date Last Indicated Resolved Time COVID-19 Rule Out 02/06/2023 02/06/2023 02/06/2023 3:04 PM WHEEL TRUER Assessment Noted Time PHQ-9 Depression Total Score: 8 01/12/20 22 9:14 AM WHEEL TRUER documented as of this encounter Care Teams Attenuator Relationship Specialty Start Date End Date Gris Bocanegra NP PCP - General NURSE PRACTITIONER 08/26/21 07/25/23 Makenzie Anand NP [address] [place] [address] PCP - General NURSE PRACTITIONER 07/26/23 09/13/23 Sylvia Ulloa, JEANNIE [address] [place] [address] PCP - General NURSE PRACTITIONER 09/14/23 documented as of this encounter
--- OUTSIDE RECORDS SUMMARY | 2024-05-17 00:59 | XMS_ITS | Referral Summary ---
Author Organization [facility] Address [address] [place] [address] Care Team Providers Care Boil Off Worker Name Role Phone Gris Bocanegra NP Primary Care Provider [phone] Sylvia Ulloa NP Unavailable [phone] Allergies Active Allergy Reactions Criticality Noted Date [...] on file Legal Sex Female 1:49 PM IC DESIGNER CUSTOM Gender Identity Female 01/23/2022 9:58 AM IC DESIGNER CUSTOM Sexual Orientation Not on file Last Filed Vital Signs Vital Sign Reading Time Taken Comments Blood Pressure 120/81 07/10/2023 2:37 PM CDT Pulse 78 07/10/2023 2:37 PM CDT Temperature 37.4 C (99.3 F) 03/28/2023 11:05 AM IC DESIGNER CUSTOM Respiratory Rate 20 03/28/2023 7:50 AM IC DESIGNER CUSTOM Oxygen Saturation 99% 03/28/2023 11:05 AM IC DESIGNER CUSTOM Inhaled Oxygen Concentration - - Weight 71.7 kg (158 lb) 02/05/2024 10:07 AM IC DESIGNER CUSTOM Height 162.6 cm (5' 4 ) 02/05/2024 10:07 AM IC DESIGNER CUSTOM Body Mass Index 27.12 02/05/2024 10:07 AM IC DESIGNER CUSTOM Plan of Treatment Not on file Goals [...] as needed Medical Devices Implanted Type Area Dental Hygienist Device Identifier Shelf Expiration Date Model / Serial / Lot Medtronic Inc Centerpiece 10mm Lateral Hole Open Door Color Coded Spine [id number] - [id number] Implanted:Qty: 3 on 03/27/2023 by Neptali Benitez MD at [facility] N/A: Spine Cervical Med[employer]onic Inc [id number] / / Med[employer]onic Inc Spinal Screw Anterior Cervical Odlp Solid 2.0x7mm [id number] - [id number] Implanted:Qty: 6 on 03/27/2023 by Neptali Benitez MD at [facility] N/A: Spine Cervical Medtronic Inc [id number] / / Med[employer]onic Inc Spinal Screw Anterior Cervical Odlp Solid 2.0x5mm [id number] - [id number] Implanted:Qty: 6 on 03/27/2023 by Neptali Benitez MD at [facility] N/A: Spine Cervical Medtronic Inc [id number] / / Insurance [facility] CHOICE [facility] H[facility]/PPO Address: [address] [address] [place] [address] [employer] OPEN ACCESS [facility] Address: [address] [place] [address] [id number] [place] [address] MRA Advance Directives For more information, please contact: [phone] * Full Code (Latest Code Status on File) Date Activated Date Inactivated Comments 03/28/2023 4:29 AM 03/28/2023 9:36 PM Care Teams Boil Off Worker Relationship Specialty Start Date End Date Gris Bocanegra, CHUTE TAPPER [address] [place] [address] [place] [address] PCP - General Nurse Practitioner 12/16/21 Sylvia Ulloa, JEANNIE [address] [facility] [place] [address] Nurse Practitioner Internal Medicine 11/27/23
--- OUTSIDE RECORDS SUMMARY | 2024-05-17 00:59 | XMS_ITS | Encounter Summary ---
Author Organization [facility] Address Formerly [facility], [address] [place] [address] Care Team Providers Care Filenet Admin Name Role Phone Segun Navarro MD Primary Care Provider [phone] Gris Bocanegra INSTRUCTIONAL SPECIALIST Primary Care Provider Makenzie Buchanan INSTRUCTIONAL SPECIALIST Primary Care Provider + [phone] Sylvia Ulloa INSTRUCTIONAL SPECIALIST Primary Care Provider [phone] Encounter Details Date Type Department Care Team (Late st Contact Info) Description 08/03/2018 Abstract [facility] CONVERSION [address] [place] [address] , Generic Conversion, Social History Tobacco Use Types Packs/Day Years Used Date Smoking Tobacco: Never Assessed Comments Unknown Sex and Gender Information Value Date Recorded Sex Assigned at Female 04/07/2024 10:19 AM MILK CONDENSER Legal Sex Female 4:59 PM CDT Gender Identity Female 04/07/2024 10:19 AM MILK CONDENSER Sexual Orientation Straight 04/07/2024 10 :19 AM MILK CONDENSER documented as of this encounter Plan of Treatment Upcoming Encounters Date Type Department Care Team (Late st Contact Info) Description 05/19/2024 11:20 AM CDT Office Visit [facility] Medical Group Multispecialty Care - [place] [address] [place], [place] [address] Sylvia Ulloa, INSTRUCTIONAL SPECIALIST [address] [place], [place] [address] documented as of this encounter Visit Diagnoses Not on filedocumented in this encounter Additional Health Concerns Infection Onset Date Last Indicated Resolved Time COVID-19 Rule Out 03/17/2021 03/17/2021 03/17/2021 1:57 PM MILK CONDENSER COVID-19 Rule Out 02/06/2023 02/06/2023 02/06/2023 3:04 PM MILK CONDENSER documented as of this encounter Care Teams Filenet Admin Relationship Specialty Start Date End Date Segun Navarro MD PCP - General FAMILY PRACTICE 04/17/19 08/25/21 Gris Bocanegra NP PCP - General NURSE PRACTITIONER 08/26/21 07/25/23 Makenzie Anand NP [address] [place] [address] PCP - General NURSE PRACTITIONER 07/26/23 09/13/23 Sylvia Ulloa, JEANNIE [address] [place] [address] PCP - General NURSE PRACTITIONER 09/14/23 documented as of this encounter
--- OUTSIDE RECORDS SUMMARY | 2024-05-17 00:59 | XMS_ITS | Encounter Summary ---
Author Organization [facility] Address [facility] [place] [address] Care Team Providers Care Admissions Evaluator Name Role Phone Sylvia Ulloa TELEMARKETER Primary Care Provider [phone] Encounter Details Date Type Department Care Team (Late st Contact Info) Description 12/07/2023 [employer] Message Enc [facility] [place] [address] [facility] [address] [place] [address] Jaelyn, [facility] Provider xray Social History Tobacco [...] Sex Assigned at Female 04/07/2024 10:19 AM PAPER CARRIER Legal Sex Female 4:59 PM CDT Gender Identity Female 04/07/2024 10:19 AM PAPER CARRIER Sexual Orientation Straight 04/07/2024 10 :19 AM PAPER CARRIER documented as of this encounter Plan of Treatment Upcoming Encounters Date Type Department Care Team (Late st Contact Info) Description 05/19/2024 11:20 AM CDT Office Visit [facility] Multispecialty [facility] [place] [address] [place] [address] Sylvia Ulloa, TELEMARKETER [address] [place], [place] [address] documented as of this encounter Visit Diagnoses Not on filedocumented in this encounter Additional Health Concerns Assessment Noted Time PHQ-9 Depression Total Score: 7 11/12/19 24 2:02 PM CDT documented as of this encounter Care Teams Admissions Evaluator Relationship Specialty Start Date End Date Sylvia Ulloa, TELEMARKETER [address] [facility] [address] [place] [address] PCP - General NURSE PRACTITIONER 09/14/23 documented as of this encounter
[2024-05-17 01:00] LABS: BEDSIDEPREGUCG Negative (Negative)
--- OUTSIDE RECORDS SUMMARY | 2024-05-17 01:00 | XMS_ITS | Encounter Summary ---
Author Organization [facility] Address [facility] [place] [address] Care Team Providers Care Boiler Or Engine Operator Name Role Phone Gris Bocanegra ANGLESMITH Primary Care Provider Makenzie Buchanan ANGLESMITH Primary Care Provider [phone] Sylvia Ulloa NP Primary Care Provider [phone] Encounter Details Date Type Department Care Team (Late st Contact Info) Description 12/19/2022 Endpoint Clinical Message Enc [facility] Medical Group Family Medicine [address] [address] [facility] Provider MRI Social History Tobacco Use Types [...] Sex Assigned at Female 04/07/2024 10:19 AM BILLIARD PARLOR MANAGER Legal Sex Female 4:59 PM CDT Gender Identity Female 04/07/2024 10:19 AM BILLIARD PARLOR MANAGER Sexual Orientation Straight 04/07/2024 10 :19 AM BILLIARD PARLOR MANAGER documented as of this encounter Plan of Treatment Upcoming Encounters Date Type Department Care Team (Late st Contact Info) Description 05/19/2024 11:20 AM CDT Office Visit [facility] Medical Group Multispecialty Care - [place] [address] [place], [place] [address] Sylvia Ulloa, ANGLESMITH [address] [place] [address] documented as of this encounter Visit Diagnoses Not on filedocumented in this encounter Additional Health Concerns Infection Onset Date Last Indicated Resolved Time COVID-19 Rule Out 02/06/2023 02/06/2023 02/06/2023 3:04 PM BILLIARD PARLOR MANAGER Assessment Noted Time PHQ-9 Depression Total Score: 8 01/12/20 9:14 AM BILLIARD PARLOR MANAGER documented as of this encounter Care Teams Boiler Or Engine Operator Relationship Specialty Start Date End Date Gris Bocanegra, ANGLESMITH PCP - General NURSE PRACTITIONER 08/26/21 07/25/23 Makenzie Anand NP [address] [place] [address] PCP - General NURSE PRACTITIONER 07/26/23 09/13/23 Sylvia Ulloa, ANGLESMITH [address] [place] [address] PCP - General NURSE PRACTITIONER 09/14/23 documented as of this encounter
[2024-05-17] MEDS: SODIUM CHLORIDE 0.9% IV 1,000 ML 999 ML IV CONT (01:07)
[2024-05-17] MEDS: ONDANSETRON INJ 4 MG/2 ML VIAL IV PUSH (01:07)
[2024-05-17] MEDS: KETOROLAC 30 MG/ML VIAL (*BKC) IV PUSH (01:07)
[2024-05-17] MEDS: MORPHINE SULFATE (*CRX) 2 MG/ML INJ IV PUSH (01:07)
[2024-05-17 01:09] LABS: Basophils Percent Auto 0.5 % (0.2-1.2); Eosinophils Absolute Auto 0.1 K/mm3 (0-0.3); Eosinophils Percent Auto 0.9 % (0-4.4); Hematocrit 42.3 % (37.0-47.0); Hemoglobin 13.8 g/dL (12.0-15.0); Immature Granulocyte Absolute 0.02 K/mm3 (0.00-0.031); Immature Granulocyte Percent A 0.2 % (0-0.5); Lymphocytes Absolute Auto 2.44 K/mm3 (0.9-3.2); Lymphocytes Percent Auto 27.8 % (18.3-44.2); Mean Corpuscular HGB Conc 32.6 g/dl (32-36); Mean Corpuscular Hemoglobin 29.2 pg (26-34); Mean Corpuscular Volume 89.4 fl (80-100); Mean Platelet Volume 9.4 fl (7.4-10.4); Monocytes Absolute Auto 0.5 K/mm3 (0.1-0.6); Neutrophils Absolute Auto 5.7 K/mm3 (1.3-6.7); Neutrophils Percent Auto 64.6 % (45.5-73.1); Platelet Count Result 325 k/mm3 (150-375); Red Blood Count 4.73 M/mm3 (4.2-5.4); Red Cell Distribution Width 13.1 % (11.5-14.5); White Blood Count 8.8 K/mm3 (4.5-10.0)
[2024-05-17 01:11] LABS: Alanine Aminotransferase 27 U/L (6-35); Albumin Level 4.7 g/dL (3.5-5.1); Alkaline Phosphatase 50 U/L (38-126); Anion Gap 11 mmol/L (4-12); Aspartate Amino Transferase 29 U/L (14-36); Bilirubin,Total 0.5 mg/dL (0.2-1.3); Blood Urea Nitrogen 8 mg/dL (7-17); Calcium 9.7 mg/dL (8.4-10.2); Carbon Dioxide 25 mmol/L (22-30); Chloride 101 mmol/L (98-107); Estimated CRCL calculation 73 ml/min; Estimated Glomerular Filt Rate > 60; Glucose 108 mg/dL (65-110); Lipase 47 U/L (23-300); Potassium 4.2 mmol/L (3.4-5.0); Sodium 137 mmol/L (137-145)
[2024-05-17 01:16] LABS: Add Urine Microscopic? NO; Appearance Urine Clear (Clear); Bilirubin Urine Negative (Negative); Blood Urine Negative (Negative); Color Urine Yellow (Yellow); Glucose Urine UA Negative (Negative); Ketones Urine Negative (Negative); Leukocyte Esterase Ur Negative LEU/UL (Negative); Nitrate Urine Negative (Negative); Protein Urine Negative (Negative); Specific Grav Ur 1.007 (1.001-1.035); Urobilinogen Urine 0.2 mg/dL (<2.0)
[2024-05-17 02:34] LABS: INR 0.9; Prothrombin Time 12.8 Seconds (11.1-14.7)
[2024-05-17 02:35] LABS: Partial Thromboplastin Time 27.3 Seconds (22.3-36.8)
[2024-05-17 03:26] VITALS: BP 113/83; PULSE 79; RESP 15; O2SAT 99
[2024-05-17 04:51] VITALS: BP 99/64; PULSE 69; RESP 18; O2SAT 97
== END 2024-05-17 04:53 | disposition home or self-care (01) ==
PROVIDERS: Emergency Provider Registered Nurse; PCP Nurse Practitioner
DX: R10.31 Right lower quadrant pain (principal); K21.9 Gastro-esophageal reflux disease without esophagitis
CPT/HCPCS: 36415; 74177; 80053; 81003; 81025; 83690; 85025; 85610; 85730; 96361; 96374; 96375; 99284; J1885; J2270; J2405; J7030; Q9967

== ENCOUNTER 2024-07-15 12:31 | Outpatient (CLI) | payer OTHER, SELFPAY ==
--- OUTSIDE RECORDS SUMMARY | 2024-07-15 12:38 | XMS_ITS | Encounter Summary ---
Author Organization [facility] Address [facility] [place] [address] Care Team Providers Care Supreme Court Judge Name Role Phone Sylvia Ulloa OPERATIONAL TEST MECHANIC Primary Care Provider [phone] Encounter Details Date Type Department Care Team (Late st Contact Info) Description 12/07/2023 [employer] Message Enc [facility] [place] [address] [address] [facility] [address] [place] [address] Jaelyn, [facility] Provider xray Social History Tobacco Use Types [...] Sex Assigned at Female 04/07/2024 10:19 AM RN HOME CARE Legal Sex Female 4:59 PM CDT Gender Identity Female 04/07/2024 10:19 AM RN HOME CARE Sexual Orientation Straight 04/07/2024 10 :19 AM RN HOME CARE documented as of this encounter Plan of Treatment Upcoming Encounters Date Type Department Care Team (Latest Contact Info) Description 09/08/2024 11:00 AM CDT Office Visit [facility] [place] [address] [place] [address] Sylvia Ulloa, OPERATIONAL TEST MECHANIC [address] [place], [place] [address] 10/31/2024 10:30 AM CDT Hospital Encounter [facility] [address] [place] [address] Elliott Gonzalez MD [address] [facility] [address] [place] [address] 10/31/2024 10:30 AM CDT - 10/31/2024 11:04 AM CDT Surgery [facility] [address] [place] [address] Elliott Gonzalez MD [address] [facility] [address] [place] [address] COLONOSCOPY DIAGNOSTIC WITH/WITHOUT SPECIMEN BRUSH/WASH Scheduled Procedures Name Priority Associated Diagnoses Date/Ti me COLONOSCOPY DIAGNOSTIC WITH/WITHOUT SPECIMEN BRUSH/WASH Generalized abdominal pain Irregular bowel habits Family hx of colon cancer 10/31/2024 10:30 AM CDT documented as of this encounter Visit Diagnoses Not on filedocumented in this encounter Additional Health Concerns Assessment Noted Time PHQ-9 Depression Total Score: 7 11/12/19 24 2:02 PM CDT documented as of this encounter Care Teams Supreme Court Judge Relationship Specialty Start Date End Date Sylvia Ulloa, JEANNIE [address] [facility] [address] [place] [address] PCP - General NURSE PRACTITIONER 09/14/23 documented as of this encounter
--- OUTSIDE RECORDS SUMMARY | 2024-07-15 12:38 | XMS_ITS | Encounter Summary ---
Author Organization [facility] Address [facility] [place] [address] Care Team Providers Care Mangle Press Catcher Name Role Phone Gris Bocanegra CLAMSHELL OPERATOR Primary Care Provider Makenzie Buchanan CLAMSHELL OPERATOR Primary Care Provider [phone] Sylvia Ulloa CLAMSHELL OPERATOR Primary Care Provider [phone] Encounter Details Date Type Department Care Team (Late st Contact Info) Description 06/20/2022 Medication Management [facility] Medical [facility] Family Medicine [address] [address] Gris Bocanegra, CLAMSHELL OPERATOR Social History Tobacco Use Types Packs/Day Years [...] Sex Assigned at Female 04/07/2024 10:19 AM BAT BOY/GIRL Legal Sex Female 4:59 PM CDT Gender Identity Female 04/07/2024 10:19 AM BAT BOY/GIRL Sexual Orientation Straight 04/07/2024 10 :19 AM BAT BOY/GIRL COVID-19 Exposure Response Date Recorded In the last 10 days, have yo u been in contact with someone who was confirmed or suspected to have Coronavirus/COVID-19? No / Unsure 06/21/2022 8:03 AM CDT documented as of this encounter Plan of Treatment Upcoming Encounters Date Type Department Care Team (Latest Contact Info) Description 09/08/2024 11:00 AM CDT Office Visit [facility] Medical Group Multispecialty Care - [place] [address] [place] [address] Sylvia Ulloa NP [address] [place] [address] 10/31/2024 10:30 AM CDT Hospital Encounter [facility] [address] [place] [address] Elliott Gonzalez MD 3 [facility] [address] [place] [address] 10/31/2024 10:30 AM CDT - 10/31/2024 11:04 AM CDT Surgery [facility] [address] [place] [address] Elliott Gonzalez MD [address] [facility] [address] [place] [address] COLONOSCOPY DIAGNOSTIC WITH/WITHOUT SPECIMEN BRUSH/WASH Scheduled Procedures [...] Rule Out 02/06/2023 02/06/2023 02/06/2023 3:04 PM BAT BOY/GIRL Assessment Noted Time PHQ-9 Depression Total Score: 8 01/12/20 22 9:14 AM BAT BOY/GIRL documented as of this encounter Care Teams Mangle Press Catcher Relationship Specialty Start Date End Date Gris Bocanegra NP PCP - General NURSE PRACTITIONER 08/26/21 07/25/23 Makenzie Anand NP [address] [place] [address] PCP - General NURSE PRACTITIONER 07/26/23 09/13/23 Sylvia Ulloa, CLAMSHELL OPERATOR [address] [facility] [address] [place] [address] PCP - General NURSE PRACTITIONER 09/14/23 documented as of this encounter
--- OUTSIDE RECORDS SUMMARY | 2024-07-15 12:38 | XMS_ITS | Encounter Summary ---
Author Organization [facility] Address [facility] [place] [address] Care Team Providers Care Chart Changer Name Role Phone Gris Bocanegra BUTT WELDER Primary Care Provider Makenzie Buchanan BUTT WELDER Primary Care Provider [phone] Sylvia Ulloa BUTT WELDER Primary Care Provider [phone] Encounter Details Date Type Department Care Team (Late st Contact Info) Description 06/20/2022 Endosee Message Enc [facility] Medical Group Family Medicine [address] [address] [place], [facility] Provider Medication Social History Tobacco [...] Sex Assigned at Female 04/07/2024 10:19 AM HEATING PLANT SUPERINTENDENT Legal Sex Female 4:59 PM CDT Gender Identity Female 04/07/2024 10:19 AM HEATING PLANT SUPERINTENDENT Sexual Orientation Straight 04/07/2024 10 :19 AM HEATING PLANT SUPERINTENDENT COVID-19 Exposure Response Date Recorded In the last 10 days, have yo u been in contact with someone who was confirmed or suspected to have Coronavirus/COVID-19? No / Unsure 06/21/2022 8:03 AM CDT documented as of this encounter Plan of Treatment Upcoming Encounters Date Type Department Care Team (Latest Contact Info) Description 09/08/2024 11:00 AM CDT Office Visit [facility] Medical Group Multispecialty Care - [place] [address] [place] [address] Sylvia Ulloa NP [address] [place] [address] 10/31/2024 10:30 AM CDT Hospital Encounter [facility] [address] [place] [address] Elliott Gonzalez MD 3 [facility] [address] [place] [address] 10/31/2024 10:30 AM CDT - 10/31/2024 11:04 AM CDT Surgery [facility] [address] [place] [address] Elliott Gonzalez MD 3 [facility] [address] [place] [address] COLONOSCOPY DIAGNOSTIC WITH/WITHOUT SPECIMEN BRUSH/WASH Scheduled Procedures [...] Rule Out 02/06/2023 02/06/2023 02/06/2023 3:04 PM HEATING PLANT SUPERINTENDENT Assessment Noted Time PHQ-9 Depression Total Score: 8 01/12/20 22 9:14 AM HEATING PLANT SUPERINTENDENT documented as of this encounter Care Teams Chart Changer Relationship Specialty Start Date End Date Gris Bocanegra NP PCP - General NURSE PRACTITIONER 08/26/21 07/25/23 Makenzie Anand NP [address] [place] [address] PCP - General NURSE PRACTITIONER 07/26/23 09/13/23 Sylvia Ulloa, BUTT WELDER [address] [facility] [address] [place] [address] PCP - General NURSE PRACTITIONER 09/14/23 documented as of this encounter
--- OUTSIDE RECORDS SUMMARY | 2024-07-15 12:38 | XMS_ITS | Encounter Summary ---
Author Organization [facility] Address [facility] [place] [address] Care Team Providers Care Sliver Lap Tender Name Role Phone Gris Bocanegra SPOOLING OPERATOR Primary Care Provider Makenzie Buchanan SPOOLING OPERATOR Primary Care Provider [phone] Sylvia Ulloa SPOOLING OPERATOR Primary Care Provider [phone] Encounter Details Date Type Department Care Team (Late st Contact Info) Description 07/04/2022 Timbre Message Enc [facility] Medical Group Family Medicine [address] [address] [place], [facility] Provider Benzamycin Social History Tobacco Use Types [...] Sex Assigned at Female 04/07/2024 10:19 AM AMBULATORY CARE COORDINATOR Legal Sex Female 4:59 PM CDT Gender Identity Female 04/07/2024 10:19 AM AMBULATORY CARE COORDINATOR Sexual Orientation Straight 04/07/2024 10 :19 AM AMBULATORY CARE COORDINATOR COVID-19 Exposure Response Date Recorded In the last 10 days, have yo u been in contact with someone who was confirmed or suspected to have Coronavirus/COVID-19? No / Unsure 06/21/2022 8:03 AM CDT documented as of this encounter Plan of Treatment Upcoming Encounters Date Type Department Care Team (Latest Contact Info) Description 09/08/2024 11:00 AM CDT Office Visit [facility] Medical Group Multispecialty Care - [place] [address] [place] [address] Sylvia Ulloa NP [address] [place] [address] 10/31/2024 10:30 AM CDT Hospital Encounter [facility] [address] [place] [address] Elliott Gonzalez MD 3 [facility] [address] [place] [address] 10/31/2024 10:30 AM CDT - 10/31/2024 11:04 AM CDT Surgery [facility] [address] [place] [address] Elliott Gonzalez MD 3 [facility] [address] [place] [address] COLONOSCOPY DIAGNOSTIC WITH/WITHOUT SPECIMEN BRUSH/WASH Scheduled Procedures [...] Rule Out 02/06/2023 02/06/2023 02/06/2023 3:04 PM AMBULATORY CARE COORDINATOR Assessment Noted Time PHQ-9 Depression Total Score: 8 01/12/20 22 9:14 AM AMBULATORY CARE COORDINATOR documented as of this encounter Care Teams Sliver Lap Tender Relationship Specialty Start Date End Date Gris Bocanegra NP PCP - General NURSE PRACTITIONER 08/26/21 07/25/23 Makenzie Anand NP [address] [place] [address] PCP - General NURSE PRACTITIONER 07/26/23 09/13/23 Sylvia Ulloa, SPOOLING OPERATOR [address] [facility] [address] [place] [address] PCP - General NURSE PRACTITIONER 09/14/23 documented as of this encounter
--- OUTSIDE RECORDS SUMMARY | 2024-07-15 12:38 | XMS_ITS | Clinical Summary ---
Author Organization [facility] Address [address] [place] [address] Care Team Providers Care [employer] Professional Name Role Phone Gris Bocanegra NP Primary Care Provider [phone] Sylvia Ulloa REHAB TECH Unavailable Allergies Active Allergy Reactions Criticality Noted [...] total) by mouth every morning 4 Active acetaminophen (TYLENOL) 325 mg tablet [...] Additional Information Patient not taking.Reported on 02/05/2024 tiZANidine (ZANAFLEX) 4 mg tablet Take 1 tablet (4 mg total) by mouth nightly as needed for muscle spasms 60 tablet [address] (VOLTAREN) 75 mg EC tablet Take 1 tablet (75 mg total) by mouth 2 (two) times a day 60 tablet 1 5 06/11/19 26 Active Active Problems Problem Noted Date Diagnosed Date Cervical stenosis of spine 03/07/2023 Scoliosis (and kyphoscoliosis), idiopathic 10/09 Gastroesophageal reflux disease without esophagi tis 07/24/2018 Cervical stenosis of spinal canal 09/17/2017 Chronic right-sided thoracic back pain 8 Vitamin D deficiency 06/14/2017 Chronic cough 05/16/2017 Chronic laryngitis 05/16/2017 Scoliosis deformity of spine 05/16/2017 Encounters Date Type Department Care Team Description 06/10/2024 3:30 PM CDT Office Visit [facility] [address] [place] [address] Office [address] [place] [id number] Pam Lopez NP Other secondary scoliosis, thoracolumbar region (Primary Dx); Low back pain, non-specific; Neck pain 06/10/2024 3:00 PM CDT - 06/10/2024 11:59 PM CDT Hospital Encounter [facility] [address] [place] [address] [address] [place] [id number] Cervical stenosis of spinal canal; Cervical disc disorder with myelopathy of mid-cervical region; Low back pain, non-specific Discharge Disposition: Discharge to home or self care 06/06/2024 Orders Only [facility] [address] [place] [address] Medical Office Building 4 [address] [place] [address] Pam Lopez NP Cervical stenosis of spinal canal (Primary Dx); Cervical disc disorder with myelopathy of mid-cervical region; Low back pain, non-specific from Last 3 Months Immunizations Immunization Administration Dates Next Due Influenza, [...] on file Legal Sex Female 1:49 PM FUNNEL COATER Gender Identity Female 01/23/2022 9:58 AM FUNNEL COATER Sexual Orientation Not on file Obstetrics History Para Term AB IAB SAB Ectopic Multiple Livin g Live Births 0 0 0 0 0 0 0 0 0 0 0 Last Filed Vital Signs Vital Sign Reading Time Taken Comments Blood Pressure 120/81 07/10/2023 2:37 PM CDT Pulse 78 07/10/2023 2:37 PM CDT Temperature 37.4 C (99.3 F) 03/28/2023 11:05 AM FUNNEL COATER Respiratory Rate 20 03/28/2023 7:50 AM FUNNEL COATER Oxygen Saturation 99% 03/28/2023 11:05 AM FUNNEL COATER Inhaled Oxygen Concentration - - Weight 67.1 kg (148 lb) 06/10/2024 3:34 PM CDT Height 162.6 cm (5' 4 ) 06/10/2024 3:34 PM CDT Body Mass Index 25.4 06/10/2024 3:34 PM CDT Plan of Treatment Health Maintenance Due Date Last Done Comments Cervical Cancer Screening 1985 Depression Screening 1985 Hepatitis C Screening 1985 Varicella Vaccines (1 of 2 - 13+ 2-dose series) 1998 Hepatitis B Screening 2003 Regular Well Visit/Exam 18-64 2003 Influenza Vaccine (Season Ended) 2024 11/28/2018, 11/28/2018 DTaP/Tdap/Td Vaccine (2 - Td or [...] as needed Medical Devices Implanted Type Area Manager Psychiatry Device Identifier Shelf Expiration Date Model / Serial / Lot Medtronic Inc Centerpiece 10mm Lateral Hole Open Door Color Coded Spine [id number] - [id number] Implanted:Qty: 3 on 03/27/2023 by Neptali Benitez MD at [facility] N/A: Spine Cervical Medtronic Inc [id number] / / Medtronic Inc Spinal Screw Anterior Cervical Odlp Solid 2.0x7mm [id number] - [id number] Implanted:Qty: 6 on 03/27/2023 by Neptali Benitez MD at [facility] N/A: Spine Cervical Medtronic Inc [id number] / / Medtronic Inc Spinal Screw Anterior Cervical Odlp Solid 2.0x5mm [id number] - [id number] Implanted:Qty: 6 on 03/27/2023 by Neptali Benitez MD at [facility] N/A: Spine Cervical Med[employer]onic Inc [id number] / / Procedures Procedure Name Priority Date/Time Associated Diagnosis Comments XR SCOLIOSIS 6 OR MORE VIEWS Schedule Routine, Read Routine (OP Routine) 06/10/2024 3:33 PM CDT Cervical stenosis of spinal canal Cervical disc disorder with myelopathy of mid-cervical region Low back pain, non-specific from Last 3 Months Results * XR Scoliosis 6 or More Views (06/10/2024 3:33 PM CDT) Anatomical Region Laterality Modality Spine N/A Computed Radiogr aphy 06/10/2024 5:11 PM CDT Impressions 06/11/2024 8:49 AM CDT 1. C4, C5, and C6 right-sided laminoplasty. 2. Moderate C6-C7 degenerative disc disease, with otherwise minimal multilevel degenerative disc disease. 3. Moderate lumbar rotatory levoscoliosis, moderate lower thoracic rotatory dextroscoliosis, and mild upper thoracic levoscoliosis. The radiology attending physician has personally reviewed this study, and had reviewed and/or edited this written report and agrees with it. Electronically signed by: Jorge Jones D.O. Narrative 06/11/2024 8:49 AM CDT EXAMINATION: XR SCOLIOSIS 6 OR MORE VIEWS HISTORY: Neck and back pain. FINDINGS: 13 radiographs are provided for review. Comparison is made with 02/05/2024 and 10/30/2018 radiographs Moderate rotatory levoscoliosis of the thoracolumbar spine centered on L3 and moderate rotatory dextroscoliosis of the lower thoracic spine centered at T9-T10. Mild upper thoracic levoscoliosis. Straightening of the normal cervical lordosis. No significant pelvic obliquity or truncal imbalance. The vertebral body heights are normal. Moderate degenerative disc disease at C6-C7, otherwise minimal multilevel degenerative disease. No lumbar or cervical dynamic instability with flexion or extension. No significant spondylolisthesis. Precervical soft tissues are within normal limits. C4, C5, and C6 right-sided laminoplasty changes with intact instrumentation. Procedure Note Jorge Jones, DO - 06/11/2024 EXAMINATION: XR SCOLIOSIS 6 OR MORE VIEWS HISTORY: Neck and back pain. FINDINGS: 13 radiographs are provided for review. Comparison is made with 02/05/2024 and 10/30/2018 radiographs Moderate rotatory levoscoliosis of the thoracolumbar spine centered on L3 and moderate rotatory dextroscoliosis of the lower thoracic spine centered at T9-T10. Mild upper thoracic levoscoliosis. Straightening of the normal cervical lordosis. No significant pelvic obliquity or truncal imbalance. The vertebral body heights are normal. Moderate degenerative disc disease at C6-C7, otherwise minimal multilevel degenerative disease. No lumbar or cervical dynamic instability with flexion or extension. No significant spondylolisthesis. Precervical soft tissues are within normal limits. C4, C5, and C6 right-sided laminoplasty changes with intact instrumentation. IMPRESSION: 1. C4, C5, and C6 right-sided laminoplasty. 2. Moderate C6-C7 degenerative disc disease, with otherwise minimal multilevel degenerative disc disease. 3. Moderate lumbar rotatory levoscoliosis, moderate lower thoracic rotatory dextroscoliosis, and mild upper thoracic levoscoliosis. The radiology attending physician has personally reviewed this study, and had reviewed and/or edited this written report and agrees with it. Electronically signed by: Jorge Jones D.O. Pam Lopez NP IMG XR PROCEDURES Final Result from Last 3 Months Insurance [facility] CHOICE PLUS [employer] OPEN ACCESS [facility] BLUE ACCESS OOS Member Subscriber Plan / Payer (Ef fective 2022-Present) Name:Maryellen Barton Relation to Subscriber:Self Name:Maryellen Barton Payer ID:[id number] (NAIC) Type:BC ALLIANCE Address: [address] [place] [id number] [facility] MRA Advance Directives For more information, please contact: [phone] * Full Code (Latest Code Status on File) Date Activated Date Inactivated Comments 03/28/2023 4:29 AM 03/28/2023 9:36 PM Care Teams Auto Parts Professional Relationship Specialty Start Date End Date Gris Bocanegra NP [address] [place] [address] PCP - General Nurse Practitioner 12/16/21 Sylvia Ulloa, REHAB TECH [address] [facility] [place] [address] Nurse Practitioner Internal Medicine 11/27/23
--- OUTSIDE RECORDS SUMMARY | 2024-07-15 12:38 | XMS_ITS | Encounter Summary ---
Author Organization [facility] Address [facility] [place] [address] Care Team Providers Care Hat Forming Machine Feeder Name Role Phone Gris Bocanegra NP Primary Care Provider Makenzie Buchanan PATIENT SUPPORT ASSISTANT Primary Care Provider [phone] Sylvia Ulloa NP Primary Care Provider [phone] Encounter Details Date Type Department Care Team (Late st Contact Info) Description 01/01/2023 [employer] Message Enc [facility] Family Medicine [address] [address] Gris Bocanegra, PATIENT SUPPORT ASSISTANT MRI Social History Tobacco Use Types Packs/Day [...] Sex Assigned at Female 04/07/2024 10:19 AM FAMILY LIFE COUNSELOR Legal Sex Female 4:59 PM CDT Gender Identity Female 04/07/2024 10:19 AM FAMILY LIFE COUNSELOR Sexual Orientation Straight 04/07/2024 10 :19 AM FAMILY LIFE COUNSELOR documented as of this encounter Plan of Treatment Upcoming Encounters Date Type Department Care Team (Latest Contact Info) Description 09/08/2024 11:00 AM CDT Office Visit [facility] Medical Group Multispecialty Care - [place] [address] [place], [place] [id number] Sylvia Ulloa, PATIENT SUPPORT ASSISTANT [address] [place] [address] 10/31/2024 10:30 AM CDT Hospital Encounter [facility] [address] [place] [address] Elliott Gonzalez MD 3 [facility] [address] [place] [address] 10/31/2024 10:30 AM CDT - 10/31/2024 11:04 AM CDT Surgery [facility] [address] [place] [address] Elliott Gonzalez MD 3 [facility] [address] [place] [address] COLONOSCOPY DIAGNOSTIC WITH/WITHOUT SPECIMEN BRUSH/WASH Scheduled Procedures [...] Rule Out 02/06/2023 02/06/2023 02/06/2023 3:04 PM FAMILY LIFE COUNSELOR Assessment Noted Time PHQ-9 Depression Total Score: 8 01/12/20 22 9:14 AM FAMILY LIFE COUNSELOR documented as of this encounter Care Teams Hat Forming Machine Feeder Relationship Specialty Start Date End Date Gris Bocanegra NP PCP - General NURSE PRACTITIONER 08/26/21 07/25/23 Makenzie Anand NP [address] [place] [address] PCP - General NURSE PRACTITIONER 07/26/23 09/13/23 Sylvia Ulloa NP [address] [facility] [address] [place] [address] PCP - General NURSE PRACTITIONER 09/14/23 documented as of this encounter
--- OUTSIDE RECORDS SUMMARY | 2024-07-15 12:38 | XMS_ITS | Encounter Summary ---
Author Organization [facility] Address [facility] [place] [address] Care Team Providers Care Android Software Engineer Name Role Phone Gris Bocanegra RESIDENTIAL CHILD CARE COUNSELOR Primary Care Provider Makenzie Buchanan RESIDENTIAL CHILD CARE COUNSELOR Primary Care Provider [phone] Sylvia Ulloa RESIDENTIAL CHILD CARE COUNSELOR Primary Care Provider [phone] Reason for Visit * Reason Onset Date Comments Question 06/26/2022 Encounter Details Date Type Department Care Team (Late st Contact Info) Description 06/26/2022 [employer] Message Enc [facility] Medical Group Family Medicine [address] [address] Jaelyn, [facility] Provider Prior authorization Social History Tobacco [...] Sex Assigned at Female 04/07/2024 10:19 AM EDITOR MAP Legal Sex Female 4:59 PM CDT Gender Identity Female 04/07/2024 10:19 AM EDITOR MAP Sexual Orientation Straight 04/07/2024 10 :19 AM EDITOR MAP COVID-19 Exposure Response Date Recorded In the last 10 days, have yo u been in contact with someone who was confirmed or suspected to have Coronavirus/COVID-19? No / Unsure 06/21/2022 8:03 AM CDT documented as of this encounter Progress Notes * Marin Banuelos MA - 07/03/2022 2:33 PM CDT Pt was sent a [employer] message on 07/03/2022, informing her that the PA was denied. See [employer] message from 07/03/2022. * Siri Russell - 06/27/2022 12:40 PM CDT Patient is wanting to know the status of the prior authorization for her medication. Please follow up. documented in this encounter Plan of Treatment Upcoming Encounters Date Type Department Care Team (Latest Contact Info) Description 09/08/2024 11:00 AM CDT Office Visit [facility] Medical Group Multispecialty Care - [place] [address] [facility] [address] [place] [address] Sylvia Ulloa, RESIDENTIAL CHILD CARE COUNSELOR [address] [facility] [address] [place] [address] 10/31/2024 10:30 AM CDT Hospital Encounter [facility] [address] [place] [address] Elliott Gonzalez MD [address] [address] 10/31/2024 10:30 AM CDT - 10/31/2024 11:04 AM CDT Surgery [facility] [address] [place] [address] Elliott Gonzalez MD [address] [address] COLONOSCOPY DIAGNOSTIC WITH/WITHOUT SPECIMEN BRUSH/WASH Scheduled Procedures [...] Rule Out 02/06/2023 02/06/2023 02/06/2023 3:04 PM EDITOR MAP Assessment Noted Time PHQ-9 Depression Total Score: 8 01/12/20 9:14 AM EDITOR MAP documented as of this encounter Care Teams Android Software Engineer Relationship Specialty Start Date End Date Gris Bocanegra, RESIDENTIAL CHILD CARE COUNSELOR PCP - General NURSE PRACTITIONER 08/26/21 07/25/23 Makenzie Anand NP [address] [place] [address] PCP - General NURSE PRACTITIONER 07/26/23 09/13/23 Sylvia Ulloa RESIDENTIAL CHILD CARE COUNSELOR [address] [facility] [address] [place] [address] PCP - General NURSE PRACTITIONER 09/14/23 documented as of this encounter
--- OUTSIDE RECORDS SUMMARY | 2024-07-15 12:38 | XMS_ITS | Encounter Summary ---
Author Organization [facility] Address [facility] [place] [address] Care Team Providers Care Storeroom Supervisor Name Role Phone Gris Bocanegra WOODEN SHADE HARDWARE INSTALLER Primary Care Provider Makenzie Buchanan WOODEN SHADE HARDWARE INSTALLER Primary Care Provider [phone] Sylvia Ulloa NP Primary Care Provider [phone] Encounter Details Date Type Department Care Team (Late st Contact Info) Description 04/17/2022 [employer] Message Enc [facility] Medical [facility] Family Medicine [address] [address] [email or web address], [facility] Provider Ankle xray Social History Tobacco [...] Sex Assigned at Female 04/07/2024 10:19 AM DOCK WORKER Legal Sex Female 4:59 PM CDT Gender Identity Female 04/07/2024 10:19 AM DOCK WORKER Sexual Orientation Straight 04/07/2024 10 :19 AM DOCK WORKER documented as of this encounter Plan of Treatment Upcoming Encounters Date Type Department Care Team (Latest Contact Info) Description 09/08/2024 11:00 AM CDT Office Visit [facility] Multispecialty Care - [place] [address] [place] [address] Sylvia Ulloa, WOODEN SHADE HARDWARE INSTALLER [address] [place] [address] 10/31/2024 10:30 AM CDT Hospital Encounter [facility] Surgery [address] [place] [address] Elliott Gonzalez MD 3 [facility] [address] [place] [address] 10/31/2024 10:30 AM CDT - 10/31/2024 11:04 AM CDT Surgery [facility] [address] [place] [address] Elliott Gonzalez MD [address] [facility] [address] [place] [address] COLONOSCOPY DIAGNOSTIC WITH/WITHOUT SPECIMEN BRUSH/WASH Scheduled Procedures [...] Rule Out 02/06/2023 02/06/2023 02/06/2023 3:04 PM DOCK WORKER Assessment Noted Time PHQ-9 Depression Total Score: 8 01/12/20 22 9:14 AM DOCK WORKER documented as of this encounter Care Teams Storeroom Supervisor Relationship Specialty Start Date End Date Gris Bocanegra NP PCP - General NURSE PRACTITIONER 08/26/21 07/25/23 Makenzie Anand NP [address] [place] [address] PCP - General NURSE PRACTITIONER 07/26/23 09/13/23 Sylvia Ulloa NP [address] [place] [address] PCP - General NURSE PRACTITIONER 09/14/23 documented as of this encounter
--- OUTSIDE RECORDS SUMMARY | 2024-07-15 12:38 | XMS_ITS | Referral Summary ---
Author Organization [facility] Address [address] [place] [address] Care Team Providers Care [facility] Sales Name Role Phone Gris Bocanegra ELECTRICIAN SHIP Primary Care Provider [phone] Sylvia Ulloa ELECTRICIAN SHIP Unavailable [phone] Encounters Date Type Department Care Team Description 06/10/2024 3:00 PM CDT - 06/10/2024 11:59 PM CDT Hospital Encounter [facility] [address] [place] [address] [address] [place] [address] Cervical stenosis of spinal canal; Cervical disc disorder with myelopathy of mid-cervical region; Low back pain, non-specific Discharge Disposition: Discharge to home or self care 06/10/2024 3:30 PM CDT Office Visit [facility] Neurosurgery [address] [place] [address] Office Building [address] [place] [address] Pam Lopez NP Other secondary scoliosis, thoracolumbar region (Primary Dx); Low back pain, non-specific; Neck pain 06/06/2024 Orders Only [facility] [address] [place] [address] Office Building [address] [place] [address] Pam Lopez NP Cervical stenosis of spinal canal (Primary Dx); Cervical disc disorder with myelopathy of mid-cervical region; Low back pain, non-specific from Last 3 Months Allergies Active Allergy [...] on file Legal Sex Female 1:49 PM SHIPPING AND RECEIVING SUPERVISOR Gender Identity Female 01/23/2022 9:58 AM SHIPPING AND RECEIVING SUPERVISOR Sexual Orientation Not on file Last Filed Vital Signs Vital Sign Reading Time Taken Comments Blood Pressure 120/81 07/10/2023 2:37 PM CDT Pulse 78 07/10/2023 2:37 PM CDT Temperature 37.4 C (99.3 F) 03/28/2023 11:05 AM SHIPPING AND RECEIVING SUPERVISOR Respiratory Rate 20 03/28/2023 7:50 AM SHIPPING AND RECEIVING SUPERVISOR Oxygen Saturation 99% 03/28/2023 11:05 AM SHIPPING AND RECEIVING SUPERVISOR Inhaled Oxygen Concentration - - Weight 67.1 kg (148 lb) 06/10/2024 3:34 PM CDT Height 162.6 cm (5' 4 ) 06/10/2024 3:34 PM CDT Body Mass Index 25.4 06/10/2024 3:34 PM CDT Plan of Treatment Not on file Goals [...] as needed Medical Devices Implanted Type Area Engineering Technical Analyst Device Identifier Shelf Expiration Date Model / Serial / Lot Medtronic Inc Centerpiece 10mm Lateral Hole Open Door Color Coded Spine [id number] - [id number] Implanted:Qty: 3 on 03/27/2023 by Neptali Benitez MD at [facility] N/A: Spine Cervical [employer] Inc [id number] / / Med[employer]onic Inc Spinal Screw Anterior Cervical Odlp Solid 2.0x7mm [id number] - [id number] Implanted:Qty: 6 on 03/27/2023 by Neptali Benitez MD at [facility] N/A: Spine Cervical [employer] Inc [id number] / / Med[employer] Inc Spinal Screw Anterior Cervical Odlp Solid 2.0x5mm [id number] - [id number] Implanted:Qty: 6 on 03/27/2023 by Neptali Benitez MD at [facility] N/A: Spine Cervical [employer] Inc [id number] / / Procedures Procedure Name Priority Date/Time [...] it. Electronically signed by: Jorge Jones D.O. us Pam Alejandra Lopez ELECTRICIAN SHIP IMG XR PROCEDURES Final Result from Last 3 Months Insurance [facility] CHOICE PLUS [employer] OPEN ACCESS [facility] [employer] OOS [facility] MRA Advance Directives For more information, please contact: [phone] * Full Code (Latest Code Status on File) Date Activated Date Inactivated Comments 03/28/2023 4:29 AM 03/28/2023 9:36 PM Care Teams Medical Hospital Sales Relationship Specialty Start Date End Date Gris Bocanegra NP [address] [place] [address] [place] [address] PCP - General Nurse Practitioner 12/16/21 Sylvia Ulloa NP [address] [facility] [facility] [place] [address] Nurse Practitioner Internal Medicine 11/27/23
--- OUTSIDE RECORDS SUMMARY | 2024-07-15 12:39 | XMS_ITS | Encounter Summary ---
Author Organization [facility] Address [facility] [place] [address] Care Team Providers Care Product Accountant Name Role Phone Gris Bocanegra RAILROAD CARMAN Primary Care Provider Makenzie Buchanan RAILROAD CARMAN Primary Care Provider [phone] Sylvia Ulloa NP Primary Care Provider [phone] Encounter Details Date Type Department Care Team (Late st Contact Info) Description 12/19/2022 [employer] Message Enc [facility] Medical Group Family Medicine [address] [address] Jaelyn, [facility] Provider MRI Social History Tobacco Use Types [...] Sex Assigned at Female 04/07/2024 10:19 AM KNOT PICKER CLOTH Legal Sex Female 4:59 PM CDT Gender Identity Female 04/07/2024 10:19 AM KNOT PICKER CLOTH Sexual Orientation Straight 04/07/2024 10 :19 AM KNOT PICKER CLOTH documented as of this encounter Plan of Treatment Upcoming Encounters Date Type Department Care Team (Latest Contact Info) Description 09/08/2024 11:00 AM CDT Office Visit [facility] Medical Group Multispecialty Care - [place] [address] [place], [place] [id number] Sylvia Ulloa, RAILROAD CARMAN [address] [place] [address] 10/31/2024 10:30 AM CDT Hospital Encounter [facility] [address] [place] [address] Elliott Gonzalez MD 3 [facility] [address] [place] [address] 10/31/2024 10:30 AM CDT - 10/31/2024 11:04 AM CDT Surgery [facility] [address] [place] [address] Elliott Gonzalez MD 3 [facility] [address] [place] [address] COLONOSCOPY DIAGNOSTIC WITH/WITHOUT SPECIMEN BRUSH/WASH Scheduled Procedures [...] Rule Out 02/06/2023 02/06/2023 02/06/2023 3:04 PM KNOT PICKER CLOTH Assessment Noted Time PHQ-9 Depression Total Score: 8 01/12/20 22 9:14 AM KNOT PICKER CLOTH documented as of this encounter Care Teams Product Accountant Relationship Specialty Start Date End Date Gris Bocanegra NP PCP - General NURSE PRACTITIONER 08/26/21 07/25/23 Makenzie Anand NP [address] [place] [address] PCP - General NURSE PRACTITIONER 07/26/23 09/13/23 Sylvia Ulloa NP [address] [facility] [address] [place] [address] PCP - General NURSE PRACTITIONER 09/14/23 documented as of this encounter
--- OUTSIDE RECORDS SUMMARY | 2024-07-15 12:39 | XMS_ITS | Encounter Summary ---
Author Organization [facility] - [facility] System Address [facility] [place] [address] Care Team Providers Care Rail Splitter Name Role Phone Sylvia Ulloa LEACH TANK TENDER Primary Care Provider [phone] Encounter Details Date Type Department Care Team (Latest Contact Info) Description 05/21/2024 Modern Mastt Message Enc [facility] Medical Group Multispecialty Care - [place] [address] [place] [address] Sylvia Ulloa, LEACH TANK TENDER [address] [place] [address] Recent visit to ER Social History Tobacco Use Types Packs/Day Years [...] Sex Assigned at Female 04/07/2024 10:19 AM GARMENT SEWING MACHINE OPERATOR Legal Sex Female 4:59 PM CDT Gender Identity Female 04/07/2024 10:19 AM GARMENT SEWING MACHINE OPERATOR Sexual Orientation Straight 04/07/2024 10 :19 AM GARMENT SEWING MACHINE OPERATOR documented as of this encounter Functional Status * Calculated C-SSRS Risk Score (Lifetime/Recent) Answer Date of Assessment Author Status No Risk Indicated 05/21/2024 9:04 PM CDT Kiara Rothman RN Active * [place] Suicide Severity Rating Scale (Screener/Recent Self-Report) Question Answer Date of Assessment Author Status 1. Wish to be (Past 1 Month) No 05/21/2024 9:04 PM CDT Kiara Rothman RN Active 2. Non-Specific Active Suicidal Thoughts (Past 1 Month) No 05/21/2024 9:04 PM CDT Kiara Rothman RN Active 6. Suicidal Behavior (Lifetime) No 05/21/2024 9:04 PM CDT Kiara Rothman RN Active documented as of this encounter Progress Notes * Boris Urban - 05/23/2024 11:51 AM CDT Patient called and stated that she is in severe low back pain and that the muscle relaxant the hospital prescribed isn't lessening the pain. She is requesting anything that will help with her pain asit is unbearable at this time please. Thank you. documented in this encounter Plan of Treatment Upcoming Encounters Date Type Department Care Team (Latest Contact Info) Description 09/08/2024 11:00 AM CDT Office Visit [facility] Medical [facility] Multispecialty Care - [place] [address] [facility] [address] [place] [address] Sylvia Ulloa, LEACH TANK TENDER [address] [place] [address] 10/31/2024 10:30 AM CDT Hospital Encounter [facility] [id number] [place] [address] Elliott Gonzalez MD [address] [address] 10/31/2024 10:30 AM CDT - 10/31/2024 11:04 AM CDT Surgery [facility] [address] [place] [address] Elliott Gonzalez MD [address] [address] [place] [address] COLONOSCOPY DIAGNOSTIC WITH/WITHOUT SPECIMEN BRUSH/WASH Scheduled Procedures Name Priority Associated Diagnoses Date/Ti me COLONOSCOPY DIAGNOSTIC WITH/WITHOUT SPECIMEN BRUSH/WASH Generalized abdominal pain Irregular bowel habits Family hx of colon cancer 10/31/2024 10:30 AM CDT documented as of this encounter Visit Diagnoses Not on filedocumented in this encounter Additional Health Concerns Assessment Noted Time PHQ-9 Depression Total Score: 7 11/12/19 2:02 PM CDT documented as of this encounter Care Teams Rail Splitter Relationship Specialty Start Date End Date Sylvia Ulloa, LEACH TANK TENDER [address] [place] [address] PCP - General NURSE PRACTITIONER 09/14/23 documented as of this encounter
--- OUTSIDE RECORDS SUMMARY | 2024-07-15 12:39 | XMS_ITS | Encounter Summary ---
Author Organization [facility] System Address [address] [place] [address] Care Team Providers Care Group Insurance Special Agent Name Role Phone Segun Navarro MD Primary Care Provider [phone] Gris Bocanegra FIELD IDENTIFICATION SPECIALIST Primary Care Provider Makenzie Buchanan FIELD IDENTIFICATION SPECIALIST Primary Care Provider + [phone] Sylvia Ulloa FIELD IDENTIFICATION SPECIALIST Primary Care Provider [phone] Encounter Details Date Type Department Care Team (Late st Contact Info) Description 08/15/2021 [facility] Patient Accounts [address] [place] [address] [employer], [facility] Provider [facility] Payment Plan Social History Tobacco Use [...] Sex Assigned at Female 04/07/2024 10:19 AM FIREARMS EXPERT Legal Sex Female 4:59 PM CDT Gender Identity Female 04/07/2024 10:19 AM FIREARMS EXPERT Sexual Orientation Straight 04/07/2024 10 :19 AM FIREARMS EXPERT documented as of this encounter Plan of Treatment Upcoming Encounters Date Type Department Care Team (Latest Contact Info) Description 09/08/2024 11:00 AM CDT Office Visit [facility] Medical Group Multispecialty Care - [address] [place] [address] Sylvia Ulloa, JEANNIE [address] [place] [address] 10/31/2024 10:30 AM CDT Hospital Encounter [facility] [address] [place] [address] Elliott Gonzalez MD [address] [facility] [address] [place] [address] 10/31/2024 10:30 AM CDT - 10/31/2024 11:04 AM CDT Surgery [facility] [address] [place] [address] Elliott Gonzalez MD [address] [facility] [address] [place] [address] COLONOSCOPY DIAGNOSTIC WITH/WITHOUT SPECIMEN BRUSH/WASH Scheduled Procedures [...] Rule Out 02/06/2023 02/06/2023 02/06/2023 3:04 PM FIREARMS EXPERT documented as of this encounter Care Teams Group Insurance Special Agent Relationship Specialty Start Date End Date Segun Navarro MD PCP - General FAMILY PRACTICE 04/17/19 08/25/21 Gris Bocanegra NP PCP - General NURSE PRACTITIONER 08/26/21 07/25/23 Makenzie Anand NP [address] [place] [address] PCP - General NURSE PRACTITIONER 07/26/23 09/13/23 Sylvia Ulloa, FIELD IDENTIFICATION SPECIALIST [address] [facility] [address] [place] [address] PCP - General NURSE PRACTITIONER 09/14/23 documented as of this encounter
--- OUTSIDE RECORDS SUMMARY | 2024-07-15 12:39 | XMS_ITS | Encounter Summary ---
Author Organization [facility] Address [facility] [place] [address] Care Team Providers Care Donor Relations Coordinator Name Role Phone Gris Bocanegra ASSEMBLER [employer]ES Primary Care Provider Makenzie Buchanan ASSEMBLER [employer] Primary Care Provider + [phone] Sylvia Ulloa NP Primary Care Provider [phone] Encounter Details Date Type Department Care Team (Late st Contact Info) Description 11/20/2022 mobile melting gmbh Message Enc [facility] Medical Group Family Medicine [address] [address] [employer], [facility] Provider xray results Social History Tobacco Use [...] Sex Assigned at Female 04/07/2024 10:19 AM PROPERTY ASSESSMENT MONITOR Legal Sex Female 4:59 PM CDT Gender Identity Female 04/07/2024 10:19 AM PROPERTY ASSESSMENT MONITOR Sexual Orientation Straight 04/07/2024 10 :19 AM PROPERTY ASSESSMENT MONITOR documented as of this encounter Plan of Treatment Upcoming Encounters Date Type Department Care Team (Latest Contact Info) Description 09/08/2024 11:00 AM CDT Office Visit [facility] Medical Group Multispecialty Care - [place] [address] [place], [place] [address] Sylvia Ulloa, ASSEMBLER [employer] [address] [place] [address] 10/31/2024 10:30 AM CDT Hospital Encounter [facility] [address] [place] [address] Elliott Gonzalez MD 3 [facility] [address] [place] [address] 10/31/2024 10:30 AM CDT - 10/31/2024 11:04 AM CDT Surgery [facility] [address] [place] [address] Elliott Gonzalez MD 3 [facility] [address] [place] [address] COLONOSCOPY DIAGNOSTIC WITH/WITHOUT SPECIMEN BRUSH/WASH Scheduled Procedures [...] Rule Out 02/06/2023 02/06/2023 02/06/2023 3:04 PM PROPERTY ASSESSMENT MONITOR Assessment Noted Time PHQ-9 Depression Total Score: 8 01/12/20 22 9:14 AM PROPERTY ASSESSMENT MONITOR documented as of this encounter Care Teams Donor Relations Coordinator Relationship Specialty Start Date End Date Gris Bocanegra NP PCP - General NURSE PRACTITIONER 08/26/21 07/25/23 Makenzie Anand NP [address] [place] [address] PCP - General NURSE PRACTITIONER 07/26/23 09/13/23 Sylvia Ulloa NP [address] [place] [address] PCP - General NURSE PRACTITIONER 09/14/23 documented as of this encounter
--- OUTSIDE RECORDS SUMMARY | 2024-07-15 12:39 | XMS_ITS | Encounter Summary ---
Author Organization [facility] Address [facility] [place] [address] Care Team Providers Care Signal Operator Technical Name Role Phone Gris Bocanegra HOSIERY MENDER Primary Care Provider Makenzie Buchanan HOSIERY MENDER Primary Care Provider + [phone] Sylvia Ulloa HOSIERY MENDER Primary Care Provider [phone] Encounter Details Date Type Department Care Team (Late st Contact Info) Description 08/31/2021 [facility] Patient Accounts [address] [place] [address] [address], [facility] Provider Balance and payment Social History Tobacco [...] Sex Assigned at Female 04/07/2024 10:19 AM INSURANCE SALES ASSISTANT Legal Sex Female 4:59 PM CDT Gender Identity Female 04/07/2024 10:19 AM INSURANCE SALES ASSISTANT Sexual Orientation Straight 04/07/2024 10 :19 AM INSURANCE SALES ASSISTANT documented as of this encounter Plan of Treatment Upcoming Encounters Date Type Department Care Team (Latest Contact Info) Description 09/08/2024 11:00 AM CDT Office Visit [facility] Medical Group Multispecialty Care - [place] [address] [place] [address] Sylvia Ulloa, HOSIERY MENDER [address] [place] [address] 10/31/2024 10:30 AM CDT Hospital Encounter [facility] [address] [place] [address] Elliott Gonzalez MD 3 [facility] [address] [place] [address] 10/31/2024 10:30 AM CDT - 10/31/2024 11:04 AM CDT Surgery [facility] [address] [place] [address] Elliott Gonzalez MD 3 [facility] [address] [place] [address] COLONOSCOPY DIAGNOSTIC WITH/WITHOUT SPECIMEN BRUSH/WASH Scheduled Procedures [...] Rule Out 02/06/2023 02/06/2023 02/06/2023 3:04 PM INSURANCE SALES ASSISTANT documented as of this encounter Care Teams Signal Operator Technical Relationship Specialty Start Date End Date Gris Bocanegra NP PCP - General NURSE PRACTITIONER 08/26/21 07/25/23 Makenzie Anand NP [address] [place] [address] PCP - General NURSE PRACTITIONER 07/26/23 09/13/23 Sylvia Ulloa NP [address] [place] [address] PCP - General NURSE PRACTITIONER 09/14/23 documented as of this encounter
--- OUTSIDE RECORDS SUMMARY | 2024-07-15 12:39 | XMS_ITS | Encounter Summary ---
Author Organization [facility] Address [facility] [place] [address] Care Team Providers Care Bilingual Student Tutor Name Role Phone Gris Bocanegra MOBILE CRANE OPERATOR Primary Care Provider Makenzie Buchanan MOBILE CRANE OPERATOR Primary Care Provider + [phone] Sylvia Ulloa MOBILE CRANE OPERATOR Primary Care Provider [phone] Encounter Details Date Type Department Care Team (Late st Contact Info) Description 09/05/2022 [employer] Message Enc [facility] Medical Group Family Medicine [address] [address] [employer], [facility] Provider Symptoms Social History Tobacco Use [...] Sex Assigned at Female 04/07/2024 10:19 AM LIMEROCK TOWER LOADER Legal Sex Female 4:59 PM CDT Gender Identity Female 04/07/2024 10:19 AM LIMEROCK TOWER LOADER Sexual Orientation Straight 04/07/2024 10 :19 AM LIMEROCK TOWER LOADER COVID-19 Exposure Response Date Recorded In the last 10 days, have yo u been in contact with someone who was confirmed or suspected to have Coronavirus/COVID-19? No / Unsure 08/11/2022 8:40 AM CDT documented as of this encounter Plan of Treatment Upcoming Encounters Date Type Department Care Team (Latest Contact Info) Description 09/08/2024 11:00 AM CDT Office Visit [facility] Medical Group Multispecialty Care - [place] [address] [place] [address] Sylvia Ulloa NP [address] [place] [address] 10/31/2024 10:30 AM CDT Hospital Encounter [facility] [address] [place] [address] Elliott Gonzalez MD 3 [facility] [address] [place] [address] 10/31/2024 10:30 AM CDT - 10/31/2024 11:04 AM CDT Surgery [facility] [address] [place] [address] Elliott oGnzalez MD 3 [facility] [address] [place] [address] COLONOSCOPY DIAGNOSTIC WITH/WITHOUT SPECIMEN BRUSH/WASH Scheduled Procedures [...] Rule Out 02/06/2023 02/06/2023 02/06/2023 3:04 PM LIMEROCK TOWER LOADER Assessment Noted Time PHQ-9 Depression Total Score: 8 01/12/20 22 9:14 AM LIMEROCK TOWER LOADER documented as of this encounter Care Teams Bilingual Student Tutor Relationship Specialty Start Date End Date Gris Bocanegra NP PCP - General NURSE PRACTITIONER 08/26/21 07/25/23 Makenzie Anand NP [address] [place] [address] PCP - General NURSE PRACTITIONER 07/26/23 09/13/23 Sylvia Ulloa, MOBILE CRANE OPERATOR [address] [facility] [address] [place] [address] PCP - General NURSE PRACTITIONER 09/14/23 documented as of this encounter
--- OUTSIDE RECORDS SUMMARY | 2024-07-15 12:39 | XMS_ITS | Clinical Summary ---
Author Organization [facility] Address [address] [place] [address] Care Team Providers Care Business Liaison Manager Name Role Phone LailaSylvia mccall Tonia PAINTING DEPARTMENT SUPERVISOR Primary Care Provider [phone] Allergies Active Allergy Reactions Criticality Noted Date Comments Acetaminophen-Codeine Nausea and Vomiting Low 03/20 Medications norethindrone-eth inyl estradiol (MICROGESTIN 03/17) 1-20 MG-MCG tablet Take 1 tablet by mouth daily. 024 Active azelastine 0.1 % nasal sprayIndications: Acute cough 2 sprays by Nasal route 2 (two) times daily as needed for Rhinitis. Use in each nostril as directed 10 mL 3 024 Active traZODone (DESYREL) 100 MG tabletIndications :Insomnia, unspecified type TAKE 1 TABLET(100 MG) BY MOUTH EVERY NIGHT AT BEDTIME 30 tablet 2 024 Active venlafaxine XR (EFFEXOR XR) 75 MG 24 hr capsuleIndication s:Anxiety,Major depressive disorder, recurrent episode, moderate (CMS/HCC) Take 1 capsule (75 mg total) by mouth daily. 30 capsule 2 025 Active cetirizine (ZYRTEC ALLERGY) 10 MG tabletIndications :Otitis media with effusion, right,History of seasonal allergies Take 1 tablet (10 mg total) by mouth nightly. 025 Active Na sulfate-K sulfate-Mg sulfate (SUPREP BOWEL PREP KIT) 17.5-3.13-1.6 GM/177ML SolutionIndicatio ns:Generalized abdominal pain,Irregular bowel habits,Family hx of colon cancer Take 177 mLs by mouth every 12 (twelve) hours. Per GI instructions 354 mL Active spironolactone (ALDACTONE) 100 MG tabletIndications :Acne vulgaris Take 1 tablet (100 mg total) by mouth daily. 30 tablet Active levothyroxine (SYNTHROID) 50 MCG tabletIndications :Hypothyroidism, unspecified type Take 1 tablet (50 mcg total) by mouth every morning. 30 tablet 2 Active diclofenac EC (VOLTAREN) 75 MG tablet Take 1 tablet (75 mg total) by mouth 2 (two) times daily. Active fluconazole (DIFLUCAN) 150 MG tablet Take 1 tablet (150 mg total) by mouth once as needed. Active tiZANidine (ZANAFLEX) 4 MG tablet Take 1 tablet (4 mg total) by mouth nightly. Active valACYclovir (VALTREX) 1 g tablet 023 2024 Discontinued(R eorder) spironolactone (ALDACTONE) 100 MG tablet Take 1 tablet (100 mg total) by mouth daily. 024 2024 Discontinued(R eorder) famotidine (PEPCID) 20 MG tabletIndications :Gastroesophageal reflux disease without esophagitis Take 1 tablet (20 mg total) by mouth 2 (two) times daily as needed for Heartburn. 60 tablet 1 024 2024 Discontinued venlafaxine XR (EFFEXOR-XR) 37.5 MG 24 hr capsuleIndication s:Anxiety Take 1 capsule (37.5 mg total) by mouth daily. 90 capsule 1 024 2024 Discontinued levothyroxine (SYNTHROID) 50 MCG tabletIndications :Hypothyroidism, unspecified type Take 1 tablet (50 mcg total) by mouth every morning. 30 tablet 2 024 2024 Discontinued(R eorder) phentermine (ADIPEX-P) 37.5 MG capsuleIndication s:Overweight Take 1 capsule (37.5 mg total) by mouth before breakfast. 30 capsule 1 025 2024 Discontinued(R eorder) baclofen (LIORESAL) 10 MG tablet Take 1 tablet (10 mg total) by mouth 3 (three) times daily. 20 tablet 025 2024 Discontinued HYDROcodone-aceta minophen (NORCO) 5-325 MG tabletIndications :Acute Pain < 7 Day Supply Take 1 tablet by mouth every 6 (six) hours as needed for Pain. Indications: Acute Pain < 7 Day Supply 18 tablet 025 2024 Discontinued celecoxib (CELEBREX) 200 MG capsuleIndication s:Neck pain with history of cervical spinal surgery,Acute midline low back pain without sciatica Take 1 capsule (200 mg total) by mouth 2 (two) times daily as needed for Pain. 60 capsule 2024 Discontinued fluconazole (DIFLUCAN) 150 MG tablet Take 1 tablet (150 mg total) by mouth daily. 025 2024 Discontinued phentermine (ADIPEX-P) 37.5 MG capsuleIndication s:Overweight Take 1 capsule (37.5 mg total) by mouth before breakfast. 30 capsule 1 025 2024 Discontinued valACYclovir (VALTREX) 1 g tabletIndications :Herpes simplex vulvovaginitis Take 1 tablet (1,000 mg total) by mouth daily for 3 days. As needed for flare ups. 21 tablet 1 025 2024 Active Problems Problem Noted Date Diagnosed Date Uterine leiomyoma, unspecified location 07/01/19 25 Herpes simplex vulvovaginitis 06/30/2024 Irregular bowel habits 06/18/2024 Family hx of colon cancer 06/18/2024 Overweight (BMI 25.0-29.9) 04/07/2024 Acne vulgaris 11/12/2023 Anxiety 11/12/2023 Major depressive disorder, recurrent episode, mo derate 11/12/2023 Other idiopathic scoliosis, thoracic region 03/30 Gastroesophageal reflux disease without esophagi tis 07/24/2018 Cervical stenosis of spinal canal 09/17/2017 Chronic right-sided thoracic back pain 8 Vitamin D deficiency 06/14/2017 Chronic cough 05/16/2017 Scoliosis deformity of spine 05/16/2017 Chronic laryngitis 05/16/2017 Resolved Problems Problem Noted Date Diagnosed Date Resolved Date Generalized abdominal pain 06/18/2024 0 06/30/2024 Herpes simplex infection of genitourinary system 11/12/2023 06/30/2024 Encounters Date Type Department Care Team Description 06/30/2024 11:20 AM CDT Office Visit [place] [address] [address] [facility] [address] [place] [address] Sylvia Ulloa, JEANNIE Ear Problem (F/u ear pain) 06/30/2024 Travel 06/18/2024 [facility] - [address] [place] [phone] Elliott Gonzalez MD 06/17/2024 2:20 PM CDT Office Visit [facility] - [address] [place] [phone] Sylvia Ulloa, Thao Cabrera NP New Patient (Referral Colitis ) 06/17/2024 Travel 06/11/2024 Scan [id number] INFO SRVCS Scanned, Doc [facility] Ultrasound (SCAN) 06/04/2024 8:20 AM CDT Office Visit [place] [address] [address] [facility] [address] [place] [address] Sylvia Ulloa, JEANNIE Ear Problem; Neck Pain; Anxiety; Back Pain 06/04/2024 [facility]phone [facility] [place] [address] [address] [facility] [address] [place] [address] Sylvia Ulloa, JEANNIE Medication 06/04/2024 Travel 05/23/2024 Orders [facility] [place] [address] [address] [facility] [address] [place], [place] [id number] Sylvia Ulloa, PAINTING DEPARTMENT SUPERVISOR 05/23/2024 Misc Documentation [facility] [place] [address] [place] [address] Sylvia Ulloa NP 05/21/2024 9:11 PM CDT - 05/22/2024 12:53 AM CDT Emergency [facility] [place] [address] Geovanna Cortez DO Abdominal Pain (rlq) Discharge Disposition: Home or Self Care (Routine Discharge) 05/21/2024 Travel 05/21/2024 MyChart Message Enc [facility] - [place] [address] [address] [facility] [address] [place] [address] Sylvia Ulloa NP Recent visit to ER 05/19/2024 11:20 AM CDT Office Visit [facility] - [place] [address] [address] [facility] [address] [place] [address] Sylvia Ulloa NP Weight Check 05/19/2024 Travel 05/16/2024 Scan [facility] INFO SRVCS Scanned, Doc Med Group from Last 3 Months Immunizations Immunization Administration Dates Next Due Influenza (Generic) 11/28/2018 Influenza Adult (Generic) 11/28/2018 Tdap (Generic) 05/31/2017 Family History Medical History Relation Comments Lung Cancer Father Colon Cancer Maternal Aunt Diabetes Maternal Grandmother Hypertension Maternal Grandmother Arthritis Mother Diabetes Mother Kidney Disease Mother Stroke Mother brain tumor Paternal Grandmother Relation Status Comments Father Maternal Aunt Maternal Grandmother Mother Paternal Grandmother Social History Tobacco Use Types Packs/Day Years Used Date Smoking Tobacco: Never Passive Smoke Exposure: Never Smokeless Tobacco: Never Tobacco Cessation:Counseling Given: No Alcohol Use Standard Drinks/Week Comments Yes 0 (1 standard drink = 0.6 oz pur e alcohol) wine or margaritta, social PHQ-2 Answer Date Recorded Patient Health Questionnaire-2 Score 0 06/17/2024 Comments No Sex and Gender Information Value Date Recorded Sex Assigned at Female 04/07/2024 10:19 AM [employer]IST Legal Sex Female 4:59 PM CDT Gender Identity Female 04/07/2024 10:19 AM [employer]IST Sexual Orientation Straight 04/07/2024 10 :19 AM [employer] SPECIALIST Last Filed Vital Signs Vital Sign Reading Time Taken Comments Blood Pressure 131/93 06/30/2024 11:25 AM CDT Pulse 88 06/30/2024 11:25 AM CDT Temperature 36.8 C (98.3 F) 06/30/2024 11:25 AM CDT Respiratory Rate 18 06/30/2024 11:2 5 AM CDT Oxygen Saturation 99% 06/30/2024 11: 25 AM CDT Inhaled Oxygen Concentration - - Weight 65.7 kg (144 lb 12.8 oz) 025 11:25 AM CDT Height 162.6 cm (5' 4 ) 06/30/2024 11:2 5 AM CDT Body Mass Index 24.85 06/30/2024 11:25 AM CDT Plan of Treatment Upcoming Encounters Date Type Department Care Team (Latest Contact Info) Description 09/08/2024 11:00 AM CDT Office Visit [facility] - [place] [address] [facility] [address] [place] [address] Sylvia Ulloa NP [address] [facility] [address] [place] [address] 10/31/2024 10:30 AM CDT Hospital Encounter [facility] [address] [place] [address] Elliott Gonzalez MD [address] [address] 10/31/2024 10:30 AM CDT - 10/31/2024 11:04 AM CDT Surgery [facility] [address] [place] [address] Elliott Gonzalez MD [address] [address] COLONOSCOPY DIAGNOSTIC WITH/WITHOUT SPECIMEN BRUSH/WASH Scheduled Procedures Name Priority Associated Diagnoses Date/Ti me COLONOSCOPY DIAGNOSTIC WITH/WITHOUT SPECIMEN BRUSH/WASH Generalized abdominal pain Irregular bowel habits Family hx of colon cancer 10/31/2024 10:30 AM CDT Health Maintenance Due Date Last Done Comments Cervical Cancer Screening Pa p Smear (Age 30 to 64) Every 3 Years 1985 Hepatitis B Vaccines (1 of 3 - 19+ 3-dose series) 02/14/2004 Pneumococcal Vaccine: Pediatrics (0 to 5 Years) and At-Risk Patients (6 to 49 Years) (1 of 2 - PCV) 02/14/2004 Cervical Cancer Screening Pa p with HPV Testing (Age 30 to 64) Every 5 Years 2015 Cervical Cancer Screening wi th HPV 2015 COVID-19 Vaccine ( - 2023-2 5 season) 2023 Annual Physical 11/11/2024 11/12/2023, 10/03/2021 DTaP, Tdap and Td Vaccines ( 2 - Td or Tdap) 06/01/2027 05/31/2017 Hepatitis C Completed 11/12/2023 PHQ-2 (Physician [place]) Completed 06/17/2024 HPV Vaccines Aged Out No longer eligi [...] Type Associated Problems Recent Progress Patient-Stated? Author Autogenerat ed Goal Care Plan Autogenerated Problem No Raegan Mccormack, dog day care attendant Procedure Name Priority Date/Time Associated Diagnosis Comments ULTRASOUND GENERIC (SCAN ORDER) 06/11/2024 XR CERV SPINE 3V Routine 06/04/2024 10:4 3 AM CDT Neck pain with history of cervical spinal surgery XR LUMB SPINE 3V Routine 06/04/2024 10:4 3 AM CDT Acute midline low back pain without sciatica CT ABD+PEL W CON STAT 05/21/2024 11:0 4 PM CDT POCT URINE (BACK OFFICE) STAT 05/21/2024 10:48 PM CDT HC URINALYSIS AUTO W/O MICRO STAT 05/21/2024 9:42 PM CDT LIPASE STAT 05/21/2024 9:42 PM CDT COMPREHENSIVE METABOLIC PANEL STAT 05/21/2024 9:42 PM CDT CBC W/DIFF AUTOMATED STAT 05/21/2024 9:42 PM CDT HEPATITIS C ANTIBODY Routine 11/12/2023 3:58 PM CDT Need for hepatitis C screening test from Last 3 Months or Most Recently Relevant to Health Maintenance Results * ULTRASOUND GENERIC (SCAN ORDER) (06/11/2024) Anatomical Region Laterality Modality Other 06/11/2024 us Doc [facility] Scanned SCANNING Final Resu lt * XR LUMB SPINE 3V (06/04/2024 10:43 AM CDT) Anatomical Region Laterality Modality Spine Radiographic Stephanie ging 06/04/2024 10:4 4 AM CDT Impressions 06/04/2024 10:44 AM CDT IMPRESSION: Scoliosis otherwise no acute findings Ordered By: SYLVIA ULLOA Interpreted By: Maurice Haeys MD, 06/04/2024 10:44 AM Narrative 06/04/2024 10:44 AM CDT [facility] [place] [address] 3 VIEWS OF THE LUMBAR SPINE Clinical History: Low back pain Comparison: None 3 views of the lumbar spine demonstrate no evidence of fracture. There is a prominent apex left scoliosis which appears to be centered at the L2 level.. The vertebral body heights are symmetric and within normal limits throughout. The intervertebral disc heights demonstrate symmetry with a normal overall appearance. The facets are normally aligned. The spinous processes and transverse processes appear normal Procedure Note Maurice Hayes MD - 06/04/2024 [facility] [place] [address] 3 VIEWS OF THE LUMBAR SPINE Clinical History: Low back pain Comparison: None 3 views of the lumbar spine demonstrate no evidence of fracture. There rogelio prominent apex left scoliosis which appears to be centered at the [id number].. The vertebral body heights are symmetric and within normal limitsthroughout. The intervertebral disc heights demonstrate symmetry with anormal overall appearance. The facets are normally aligned. The spinousprocesses and transverse processes appear normal IMPRESSION: Scoliosis otherwise no acute findings Ordered By: SYLVIA ULLOA Interpreted By: Maurice Hayes MD, 06/04/2024 10:44 AM us Sylvia Ulloa PAINTING DEPARTMENT SUPERVISOR GENERAL IMAGING Final Resul t * XR CERV SPINE 3V (06/04/2024 10:43 AM CDT) Anatomical Region Laterality Modality Spine Radiographic Stephanie ging 06/04/2024 10:4 4 AM CDT Impressions 06/04/2024 10:45 AM CDT IMPRESSION: No acute findings Ordered By: SYLVIA ULLOA Interpreted By: Maurice Hayes MD, 06/04/2024 10:44 AM Narrative 06/04/2024 10:45 AM CDT [facility] [place] [address] 3 VIEWS OF THE CERVICAL SPINE Clinical History: Pain Comparison: None 3 views of the cervical spine demonstrate the bony elements to be intact. There is no evidence of fracture or dislocation. Postsurgical changes are noted with anchors residing in the pedicles of the C4-C5-C6 levels on the right. The vertebral body heights are symmetric and within normal limits. The intervertebral disc heights demonstrate mild relative loss of disc height at C6-C7. The facets are normally aligned. The spinous processes appear normal. The anterior cervical soft tissues are within normal limits. Procedure Note Maurice Hayes MD - 06/04/2024 [facility] [place] [address] 3 VIEWS OF THE CERVICAL SPINE Clinical History: Pain Comparison: None 3 views of the cervical spine demonstrate the bony elements to be intact.There is no evidence of fracture or dislocation. Postsurgical changes arenoted with anchors residing in the pedicles of the C4-C5-C6 levels on theright. The vertebral body heights are symmetric and within normal limits.The intervertebral disc heights demonstrate mild relative loss of discheight at C6-C7. The facets are normally aligned. The spinous processesappear normal. The anterior cervical soft tissues are within normallimits. IMPRESSION: No acute findings Ordered By: SYLVIA ULLOA Interpreted By: Maurice Hayes MD, 06/04/2024 10:44 AM us Sylvia Ulloa PAINTING DEPARTMENT SUPERVISOR GENERAL IMAGING Final Resul t * CT ABD+PEL W IV CON ONLY (05/21/2024 11:04 PM CDT) Anatomical Region Laterality Modality Abdomen Computed Tomogra phy 05/21/2024 11:0 5 PM CDT Impressions 05/21/2024 11:20 PM CDT IMPRESSION: 1. No acute abnormality identified in the abdomen or pelvis. 2. Cholelithiasis. Referred By: Interpreted By: Marvin Bernardo MD, 05/21/2024 11:05 PM Narrative 05/21/2024 11:20 PM CDT [address] [address] INDICATION: Abdominal pain COMPARISON: CT abdomen/pelvis, 25 Jan 2010 TECHNIQUE: CT images of the abdomen and pelvis were obtained following the administration of IV contrast. Radiation dose reduction technique utilized. FINDINGS: Limited visualization of the lower thorax reveals no acute abnormality. Normal size liver. No suspicious hepatic lesion. Benign focal fatty infiltration along the falciform ligament. Cholelithiasis. Common bile duct within normal limits. Hepatic veins, main portal vein, splenic vein, SMV, and SMA enhance. No retroperitoneal lymphadenopathy. No evidence of bowel obstruction or acute inflammation. Appendix is not definitely visualized. No secondary signs of acute appendicitis. No free gas in the abdomen or pelvis. No mesenteric lymphadenopathy. Stomach within normal limits. Incidental note of a small duodenal diverticulum in the fourth segment. Normal size spleen. Pancreas within normal limits. Adrenal glands within normal limits. Kidneys enhance symmetrically. No hydronephrosis or hydroureter. Urinary bladder within normal limits for degree of distention. 4.9 cm benign leiomyoma in the right aspect of the uterus. Adnexa within normal limits. No pelvic lymphadenopathy or significant free fluid. Incidental note of benign pelvic phleboliths. Mild chronic degenerative changes of the sacroiliac joints. Unchanged S-shaped curvature of the thoracolumbar spine. Visualized body wall exhibits no acute abnormality. Procedure Note Marvin Bernardo MD - 05/21/[address] [address] INDICATION: Abdominal pain COMPARISON: CT abdomen/pelvis, 25 Jan 2010 TECHNIQUE: CT images of the abdomen and pelvis were obtained following theadministration of IV contrast. Radiation dose reduction techniqueutilized. FINDINGS: Limited visualization of the lower thorax reveals no acute abnormality. Normal size liver. No suspicious hepatic lesion. Benign focal fattyinfiltration along the falciform ligament. Cholelithiasis. Common bileduct within normal limits. Hepatic veins, main portal vein, splenic vein, SMV, and SMA enhance. Noretroperitoneal lymphadenopathy. No evidence of bowel obstruction or acute inflammation. Appendix is notdefinitely visualized. No secondary signs of acute appendicitis. No free gas in the abdomen or pelvis. No mesenteric lymphadenopathy. Stomach within normal limits. Incidental note of a small duodenaldiverticulum in the fourth segment. Normal size spleen. Pancreas withinnormal limits. Adrenal glands within normal limits. Kidneys enhance symmetrically. No hydronephrosis or hydroureter. Urinary bladder within normal limits for degree of distention. 4.9 cmbenign leiomyoma in the right aspect of the uterus. Adnexa within normallimits. No pelvic lymphadenopathy or significant free fluid. Incidentalnote of benign pelvic phleboliths. Mild chronic degenerative changes of the sacroiliac joints. Unchanged S-shaped curvature of the thoracolumbar spine. Visualized body wall exhibits no acute abnormality. IMPRESSION: 1. No acute abnormality identified in the abdomen or pelvis. 2. Cholelithiasis. Referred By: Interpreted By: Marvin Bernardo MD, 05/21/2024 11:05 PM Royer Duncan PA-C CT Final Resul t * POCT urine (05/21/2024 10:48 PM CDT) Pathologist [facility] URINE HCG TEST NEGATIVE Internal Control: VALID Royer Duncan PA-C POINT OF CARE TEST ORDERABL ES Final Result * (ABNORMAL) URINALYSIS (05/21/2024 9:42 PM CDT) Pathologist [facility] SPECIMEN TYPE URINE CLEAN CATCH 05/21/2024 10:49 PM CDT [facility] COLOR (U) YELLOW 05/22/2024 12:30 AM CDT [facility] TRANSPARENCY CLEAR 05/22/2024 12:30 AM CDT [facility] SPECIFIC GRAVITY (U) 1.031(H) 1.001 - 1.030 05/22/2024 12:30 AM CDT [facility] U PH 6.5 5.0 - 9.0 05/22/2024 12:30 AM CDT [facility] LEUKOCYTES (U) NEGATIVE NEGATIVE 05/22/2024 12:30 AM CDT [facility] NITRITES NEGATIVE NEGATIVE 05/22/2024 12:30 AM CDT [facility] PROTEIN RANDOM (U) 20 <30 MG/DL 05/22/2024 12:30 AM CDT [facility] GLUCOSE (U) NORMAL NORMAL MG/DL 05/22/2024 12:30 AM CDT [facility] KETONES MG/DL (U) NEGATIVE NEGATIVE MG/DL 05/22/2024 12:30 AM CDT [facility] UROBILINOGEN NORMAL NORMAL MG/DL 05/22/2024 12:30 AM CDT [facility] BILIRUBIN (U) NEGATIVE NEGATIVE MG/DL 05/22/2024 12:30 AM CDT [facility] BLOOD (U) NEGATIVE NEGATIVE 05/22/2024 12:30 AM CDT [facility] URINE SPECIMEN OBTAINED BY CLEAN CATCH PROCEDURE / Unknown 05/21/2024 9:42 PM CDT us Royer Duncan PA-C URINE ORDERABLES Final Resu lt [facility] [address] [place] [address], [place] [phone] * (ABNORMAL) COMPREHENSIVE METABOLIC PANEL (05/21/2024 9:42 PM CDT) GLUCOSE 101(H) 70 - 99 MG/DL 05/21/2024 10:31 PM CDT [facility] BUN 10 7 - 18 MG/DL 05/21/2024 10:31 PM CDT [facility] CREATININE S/P/B 0.96 0.55 - 1.02 MG/DL 05/21/2024 10:31 PM CDT [facility] SODIUM S/P/B 135(L) 136 - 145 MMOL/L 05/21/2024 10:31 PM CDT [facility] POTASSIUM S/P/B 3.6 3.5 - 5.1 MMOL/L 05/21/2024 10:31 PM CDT [facility] CHLORIDE S/P/B 103 97 - 115 MMOL/L 05/21/2024 10:31 PM CDT [facility] CO2 27.4 21 - 32 MMOL/L 05/21/2024 10:31 PM CDT [facility] CALCIUM S/P/B 9.0 8.5 - 10.1 MG/DL 05/21/2024 10:31 PM CDT [facility] BILIRUBIN TOTAL S/P/B 0.3 0.2 - 1.2 MG/DL 05/21/2024 10:31 PM CDT [facility] Comment: THIS ASSAY IS NOT RECOMMENDED FOR PATIENTS UNDERGOING TREATMENT WITH ELTROMBOPAG DUE TO THE POTENTIAL FOR FALSELY ELEVATED RESULTS. TOTAL PROTEIN S/P/B 7.4 6.4 - 8.2 G/DL 05/21/2024 10:31 PM CDT [facility] ALBUMIN S/P/B 3.6 3.4 - 5.0 G/DL 05/21/2024 10:31 PM CDT [facility] AST 19 15 - 37 U/L 05/21/2024 10:31 PM CDT [facility] ALT 26 14 - 55 U/L 05/21/2024 10:31 PM CDT [facility] ALKALINE PHOSPHATASE S/P/B 55 50 - 136 U/L 05/21/2024 10:31 PM CDT [facility] ANION GAP 4.6 2 - 10 MMOL/L 05/21/2024 10:31 PM CDT [facility] BUN CREATININE RATIO 10.4 6 - 26 05/21/2024 10:31 PM CDT [facility] A/G RATIO 0.9(L) 1.0 - 2.0 RATIO 05/21/2024 10:31 PM CDT [facility] GFR ESTIMATE 77(L) >90 ML/MIN/1.7 3 M2 05/21/2024 10:31 PM CDT [facility] Comment: NOTE: eGFR is not calculated for patients <18 years of age or gender unknown. This is an estimated GFR calculation using the new CKD EPI creatinine equation without race and so does not require a correction factor for race. This estimated GFR should not be used for calculating drug doses. 05/21/2024 9:42 PM CDT Royer Duncan PA-C LABORATORY Final Resul t [facility] [address] [place] [address], [place] [phone] * (ABNORMAL) CBC W/DIFF AUTOMATED (05/21/2024 9:42 PM CDT) WBC 7.92 4.5 - 11.0 x10'3/uL 05/21/2024 10:10 PM CDT [facility] RBC 4.25 4.20 - 5.40 x10'6/uL 05/21/2024 10:10 PM CDT [facility] HGB 12.4 12.0 - 16.0 G/DL 05/21/2024 10:10 PM CDT [facility] HCT 36.8(L) 38.0 - 48.0 % 05/21/2024 10:10 PM CDT [facility] MCV 86.6 81.0 - 99.0 FL 05/21/2024 10:10 PM CDT [facility] MCH 29.2 27.0 - 31.0 PG 05/21/2024 10:10 PM CDT [facility] MCHC 33.7 32.0 - 36.0 G/DL 05/21/2024 10:10 PM CDT [facility] RDW 13.0 11.5 - 14.5 % 05/21/2024 10:10 PM CDT [facility] PLT 309 130 - 400 x10'3/uL 05/21/2024 10:10 PM CDT [facility] MPV 9.6 9.3 - 12.2 FL 05/21/2024 10:10 PM CDT [facility] DIFFERENTIAL TYPE AUTOMATED DIFFERENTIAL 05/21/2024 10:10 PM CDT [facility] NEUTROPHILS % 62.8 % 05/21/2024 10:10 PM CDT [facility] LYMPHOCYTES % 29.8 % 05/21/2024 10:10 PM CDT [facility] MONOCYTES % 6.1 % 05/21/2024 10:10 PM CDT [facility] EOSINOPHILS 0.5 % 05/21/2024 10:10 PM CDT [facility] BASOPHILS 0.5 % 05/21/2024 10:10 PM CDT [facility] IMMATURE GRANS % 0.3 % 05/22/19 10:10 PM CDT [facility] ABS. NEUTROPHILS 4.98 1.80 - 7.70 x10'3/uL 05/21/2024 10:10 PM CDT [facility] ABS. LYMPHOCYTES 2.36 1.00 - 4.80 x10'3/uL 05/21/2024 10:10 PM CDT [facility] ABS. MONOCYTES 0.48 0.24 - 0.86 x10'3/uL 05/21/2024 10:10 PM CDT [facility] ABS. EOSINOPHILS 0.04 0.04 - 0.36 x10'3/uL 05/21/2024 10:10 PM CDT [facility] ABS. BASOPHILS 0.04 0.01 - 0.08 x10'3/uL 05/21/2024 10:10 PM CDT [facility] ABS. IMMATURE GRANULOCYTES 0.02 0.00 - 0.49 x10'3/uL 05/21/2024 10:10 PM CDT [facility] 05/21/2024 9:42 PM CDT us Royer Duncan PA-C LABORATORY Final Resul t Performing Organization Address City/[facility]/ZIP Co de Phone Number [facility] [address] [place] [address], * LIPASE (05/21/2024 9:42 PM CDT) Pathologist [facility] LIPASE 20 13 - 75 UNITS/L 05/21/2024 10:31 PM CDT [facility] 05/21/2024 9:42 PM CDT us Royer Duncan PA-C LABORATORY Final Resul t Performing Organization Address City/[facility]/ZIP Co de Phone Number [facility] [address] [place] [address], [place] [phone] * HEPATITIS C ANTIBODY (11/12/2023 3:58 PM CDT) Pathologist [facility] HEPATITIS C AB NON-REACTI VE NON-REACT PREMA 11/12/2023 10:13 PM CDT [facility] Comment: ANTIBODIES TO HCV NOT DETECTED. DOES NOT EXCLUDE THE POSSIBILITY OF EXPOSURE TO HCV. 11/12/2023 3:58 PM CDT us Sylvia Ulloa PAINTING DEPARTMENT SUPERVISOR LABORATORY Final Resul t [facility] [address] [place] [address], [id number] from Last 3 Months or Most Recently Relevant to Health Maintenance Additional Health Concerns Active Problems Noted Date Diagnosed Date Autogenerated Problem 06/19/2024 Insurance [employer] Care Teams Business Liaison Manager Relationship Specialty Start Date End Date Sylvia Ulloa NP [address] [place] [address] PCP - General NURSE PRACTITIONER 09/14/23
--- OUTSIDE RECORDS SUMMARY | 2024-07-15 12:39 | XMS_ITS | Encounter Summary ---
Author Organization [facility] Address [facility] [place] [address] Care Team Providers Care Jewelry Racker Name Role Phone Gris Bocanegra DIRECTOR OF OFFICIATING Primary Care Provider Makenzie Buchanan DIRECTOR OF OFFICIATING Primary Care Provider [phone] Sylvia Ulloa DIRECTOR OF OFFICIATING Primary Care Provider [phone] Encounter Details Date Type Department Care Team (Late st Contact Info) Description 09/05/2022 Chatoust Message Enc [facility] Family Medicine [address] [address] Gris Bocanegra, DIRECTOR OF OFFICIATING appointment Social History Tobacco Use Types Packs/Day [...] Sex Assigned at Female 04/07/2024 10:19 AM MANAGER EVENT Legal Sex Female 4:59 PM CDT Gender Identity Female 04/07/2024 10:19 AM MANAGER EVENT Sexual Orientation Straight 04/07/2024 10 :19 AM MANAGER EVENT COVID-19 Exposure Response Date Recorded In the last 10 days, have yo u been in contact with someone who was confirmed or suspected to have Coronavirus/COVID-19? No / Unsure 08/11/2022 8:40 AM CDT documented as of this encounter Plan of Treatment Upcoming Encounters Date Type Department Care Team (Latest Contact Info) Description 09/08/2024 11:00 AM CDT Office Visit [facility] Multispecialty Care - [place] [address] [place] [address] Sylvia Ulloa NP [address] [place] [address] 10/31/2024 10:30 AM CDT Hospital Encounter [facility] [address] [place] [address] Elliott Gonzalez MD 3 [facility] [address] [place] [address] 10/31/2024 10:30 AM CDT - 10/31/2024 11:04 AM CDT Surgery [facility] [address] [place] [address] Elliott Gonzalez MD 3 [facility] [address] [place] [address] COLONOSCOPY DIAGNOSTIC WITH/WITHOUT SPECIMEN BRUSH/WASH Scheduled Procedures [...] Rule Out 02/06/2023 02/06/2023 02/06/2023 3:04 PM MANAGER EVENT Assessment Noted Time PHQ-9 Depression Total Score: 8 01/12/20 22 9:14 AM MANAGER EVENT documented as of this encounter Care Teams Jewelry Racker Relationship Specialty Start Date End Date Gris Bocanegra NP PCP - General NURSE PRACTITIONER 08/26/21 07/25/23 Makenzie Anand NP [address] [place] [address] PCP - General NURSE PRACTITIONER 07/26/23 09/13/23 Sylvia Ulloa, DIRECTOR OF OFFICIATING [address] [facility] [address] [place] [address] PCP - General NURSE PRACTITIONER 09/14/23 documented as of this encounter
--- OUTSIDE RECORDS SUMMARY | 2024-07-15 12:39 | XMS_ITS | Encounter Summary ---
Author Organization [facility] Address [facility] [place] [address] Care Team Providers Care Lay Brother Name Role Phone Segun Navarro MD Primary Care Provider [phone] Gris Bocanegra HALFTONE OPERATOR Primary Care Provider Makenzie Buchanan HALFTONE OPERATOR Primary Care Provider [phone] Sylvia Ulloa HALFTONE OPERATOR Primary Care Provider [phone] Encounter Details Date Type Department Care Team (Late st Contact Info) Description 07/14/2021 Guesthouse Network Message Enc [facility] Family Medicine [facility] [address] [place] [address] Jaelyn, [facility] Provider Pregnnacy Test Social History Tobacco Use [...] Sex Assigned at Female 04/07/2024 10:19 AM TALK SHOW HOST Legal Sex Female 4:59 PM CDT Gender Identity Female 04/07/2024 10:19 AM TALK SHOW HOST Sexual Orientation Straight 04/07/2024 10 :19 AM TALK SHOW HOST COVID-19 Exposure Response Date Recorded In the last 10 days, have yo u been in contact with someone who was confirmed or suspected to have Coronavirus/COVID-19? No / Unsure 06/30/2021 9:32 AM CDT documented as of this encounter Plan of Treatment Upcoming Encounters Date Type Department Care Team (Latest Contact Info) Description 09/08/2024 11:00 AM CDT Office Visit [facility] Mult[facility]ialty [facility] [place] [address] [place] [address] Sylvia Ulloa NP [address] [facility] [address] [place] [address] 10/31/2024 10:30 AM CDT Hospital Encounter [facility] [address] [place] [address] Elliott Gonzalez MD [address] [address] 10/31/2024 10:30 AM CDT - 10/31/2024 11:04 AM CDT Surgery [facility] [address] [place] [address] Elliott Gonzalez MD 3 [facility] [address] [place] [address] COLONOSCOPY DIAGNOSTIC WITH/WITHOUT SPECIMEN BRUSH/WASH Scheduled Procedures [...] Rule Out 02/06/2023 02/06/2023 02/06/2023 3:04 PM TALK SHOW HOST documented as of this encounter Care Teams Lay Brother Relationship Specialty Start Date End Date Segun Navarro MD PCP - General FAMILY PRACTICE 04/17/19 08/25/21 rGis Bocanegra NP PCP - General NURSE PRACTITIONER 08/26/21 07/25/23 Makenzie Anand NP [address] [place] [address] PCP - General NURSE PRACTITIONER 07/26/23 09/13/23 Sylvia Ulloa NP [address] [place] [address] PCP - General NURSE PRACTITIONER 09/14/23 documented as of this encounter
--- OUTSIDE RECORDS SUMMARY | 2024-07-15 12:39 | XMS_ITS | Encounter Summary ---
Author Organization [facility] Address [facility] [place] [address] Care Team Providers Care Dry House Attendant Name Role Phone Segun Navarro MD Primary Care Provider [phone] Gris Bocanegra MEDICAL TRANSCRIPTIONIST Primary Care Provider Makenzie Buchanan MEDICAL TRANSCRIPTIONIST Primary Care Provider [phone] Sylvia Ulloa MEDICAL TRANSCRIPTIONIST Primary Care Provider [phone] Encounter Details Date Type Department Care Team (Late st Contact Info) Description 08/03/2018 Abstract [facility] [address] [place] [address] , Generic Conversion, Social History Tobacco Use Types Packs/Day Years Used Date Smoking Tobacco: Never Assessed Comments Unknown Sex and Gender Information Value Date Recorded Sex Assigned at Female 04/07/2024 10:19 AM OVERHEAD CRANE TECHNICIAN Legal Sex Female 4:59 PM CDT Gender Identity Female 04/07/2024 10:19 AM OVERHEAD CRANE TECHNICIAN Sexual Orientation Straight 04/07/2024 10 :19 AM OVERHEAD CRANE TECHNICIAN documented as of this encounter Plan of Treatment Upcoming Encounters Date Type Department Care Team (Latest Contact Info) Description 09/08/2024 11:00 AM CDT Office Visit [facility] Medical Group Multispecialty Care - [place] [address] [place], [place] [id number] Sylvia Ulloa, MEDICAL TRANSCRIPTIONIST [address] [facility] [address] [place] [address] 10/31/2024 10:30 AM CDT Hospital Encounter [facility] [address] [place] [address] Elliott Gonzalez MD [address] [facility] [address] [place] [address] 10/31/2024 10:30 AM CDT - 10/31/2024 11:04 AM CDT Surgery [facility] [address] [place] [address] Elliott Gonzalez MD 3 [facility] [address] [place] [address] COLONOSCOPY DIAGNOSTIC WITH/WITHOUT SPECIMEN BRUSH/WASH Scheduled Procedures [...] Rule Out 03/17/2021 03/17/2021 03/17/2021 1:57 PM OVERHEAD CRANE TECHNICIAN COVID-19 Rule Out 02/06/2023 02/06/2023 02/06/2023 3:04 PM OVERHEAD CRANE TECHNICIAN documented as of this encounter Care Teams Dry House Attendant Relationship Specialty Start Date End Date Segun Navarro MD PCP - General FAMILY PRACTICE 04/17/19 08/25/21 Gris Bocanegra MEDICAL TRANSCRIPTIONIST PCP - General NURSE PRACTITIONER 08/26/21 07/25/23 Makenzie Anand NP [address] [place] [address] PCP - General NURSE PRACTITIONER 07/26/23 09/13/23 Sylvia Ulloa NP [address] [place] [address] PCP - General NURSE PRACTITIONER 09/14/23 documented as of this encounter
[2024-07-15 14:05] LABS: Hematocrit 40.4 % (37.0-47.0); Hemoglobin 13.1 g/dL (12.0-15.0); Mean Corpuscular HGB Conc 32.4 g/dl (32-36); Mean Corpuscular Hemoglobin 29.5 pg (26-34); Mean Platelet Volume 9.5 fl (7.4-10.4); Platelet Count Result 321 k/mm3 (150-375); Red Blood Count 4.44 M/mm3 (4.2-5.4); Red Cell Distribution Width 12.9 % (11.5-14.5); White Blood Count 7.2 K/mm3 (4.5-10.0)
== END 2024-07-15 12:32 | disposition home or self-care (01) ==
LOC: ANHSURGERY 12:34
PROVIDERS: PCP Nurse Practitioner; Visit Provider Student in an Organized Health Care Education/Training Program
DX: Z01.812 Encounter for preprocedural laboratory examination (principal); D25.9 Leiomyoma of uterus, unspecified
CPT/HCPCS: 36415; 85027; 86850; 86900; 86901

== ENCOUNTER 2024-07-22 00:09 | Day surgery (SDC) | payer OTHER, SELFPAY ==
[2024-07-10 15:36] VITALS: BMI 24.7
--- NOTE | 2024-07-10 15:44 | PC.NURSE ---
Report to the Outpatient Waiting Room, entrance under the green pavilion located off [facility], at time _0600_ on date _[id number]_. Planned Procedure Time: _0730_.? Time changes happen often and if your time is changed the preop area will call you the afternoon before. - You and your visitor will be asked to self-screen and do not enter if you have any COVID symptoms. Please call surgeon if you need to reschedule. - A mask is optional within the hospital at this time. Patients may have clear liquids (water, carbonated beverages, clear teas, apple juice) until 3 hours prior to surgery with a maximum of 20 ounces. - No food from midnight until time of surgery and no smoking, or chewing tobacco (or any form of nicotine). No chewing gum, candy or mints. Take only the following medications with a SIP of water on the morning of surgery: __Levothyroxine, Venlafaxine and Junel DO NOT STOP ANY OF YOUR OTHER PRESCRIPTION MEDICATIONS PRIOR TO SURGERY EXCEPT THE FOLLOWING Hold all vitamins and supplements for 3 days per anesthesiologist. Medications to discontinue per physician Patient is holding Phentermine as of 06-28-2024 Date to take last dose Please no make-up, nail vietnamese, hairspray, perfume, deodorant, or body powder the day of surgery.? No jewelry (including any body piercings) or valuables the day of surgery, leave them at home.? Please take a shower or bath the night before, or the morning of, surgery with an antibacterial soap.? Wear comfortable, loose fitting clothing.? - Jewelry must be removed prior to entering the operating room.? Rings and piercings that are not removed may be cut off. - The hospital will not accept responsibility for valuables.? - Please leave all valuables, including medications, at home the day of surgery. If you are going home after surgery, a licensed driver recruiter must drive you home.? - NO public transportation without another adult if you receive anesthesia. - We recommend that an adult stay with you for 24 hours following discharge. - We also recommend that you do not drive, make important decision, drink alcoholic beverages, or take any drugs that were not prescribed by your health care provider for at least 24 hours after your discharge time. Follow any additional instructions given to you from your surgeon. Telephone instructions given to __Maryellen___and asked if any additional questions and then verbalized understanding. Patient advised to call surgeon office or pre surgery nurse liaison [phone] if any additional questions.
[2024-07-22] VITALS (9 sets, daily range): BP systolic 121–144; BP diastolic 75–96; PULSE 64–101; RESP 10–18; TEMP 36.1–36.7; O2SAT 98–100
--- OUTSIDE RECORDS SUMMARY | 2024-07-22 00:12 | XMS_ITS | Clinical Summary ---
Author Organization [facility] Address [address] [place] [address] Care Team Providers Care Diesel Engine Erector Name Role Phone Gris Bocanegra NP Primary Care Provider [phone] Sylvia Ulloa MECHANICAL ASSEMBLY Unavailable [phone] Allergies Active Allergy Reactions Criticality Noted Date [...] Description 06/10/2024 3:30 PM CDT Office Visit [facility] Neurosurgery [address] [place] [address] Office [address] [place] [phone] Pam Lopez NP Other secondary scoliosis, thoracolumbar region (Primary Dx); Low back pain, non-specific; Neck pain 06/10/2024 3:00 PM CDT - 06/10/2024 11:59 PM CDT Hospital Encounter [id number] [address] [place] [address] [address] [place] [phone] Cervical stenosis of spinal canal; Cervical disc disorder with myelopathy of mid-cervical region; Low back pain, non-specific Discharge Disposition: Discharge to home or self care 06/06/2024 Orders Only [facility] Neurosurgery [address] [place] [address] Medical Office Building [address] [place] [address] Pam Lopez NP Cervical stenosis [...] on file Legal Sex Female 1:49 PM EXTENSION ASSOCIATE Gender Identity Female 01/23/2022 9:58 AM EXTENSION ASSOCIATE Sexual Orientation Not on file Obstetrics History Para Term AB IAB SAB Ectopic Multiple Livin g Live Births 0 0 0 0 0 0 0 0 0 0 0 Last Filed Vital Signs Vital Sign Reading Time Taken Comments Blood Pressure 120/81 07/10/2023 2:37 PM CDT Pulse 78 07/10/2023 2:37 PM CDT Temperature 37.4 C (99.3 F) 03/28/2023 11:05 AM EXTENSION ASSOCIATE Respiratory Rate 20 03/28/2023 7:50 AM EXTENSION ASSOCIATE Oxygen Saturation 99% 03/28/2023 11:05 AM EXTENSION ASSOCIATE Inhaled Oxygen Concentration - - Weight 67.1 [...] as needed Medical Devices Implanted Type Area Kiss Mixer Device Identifier Shelf Expiration Date Model / Serial / Lot Med[employer]onic [employer] Centerpiece 10mm Lateral Hole Open Door Color Coded Spine [id number] - [id number] Implanted:Qty: 3 on 03/27/2023 by Neptali Benitez MD at [facility] N/A: Spine Cervical [employer] Inc [id number] / / [employer] Spinal Screw Anterior Cervical Odlp Solid 2.0x7mm [id number] - [id number] Implanted:Qty: 6 on 03/27/2023 by Neptali Benitez MD at [facility] N/A: Spine Cervical [employer] [id number] / / [employer] Spinal Screw Anterior Cervical Odlp Solid 2.0x5mm [id number] - [id number] Implanted:Qty: 6 on 03/27/2023 by Neptali Benitez MD at [facility] N/A: Spine Cervical [employer] [id number] / / Procedures Procedure Name Priority Date/Time [...] Final Result from Last 3 Months Insurance [employer] [facility] CHOICE PLUS Take5 OPEN ACCESS [employer] BLUE ACCESS OOS Member Subscriber Plan / Payer (Ef fective 2022-Present) Name:Maryellen Barton Relation to Subscriber:Self Name:Maryellen Barton Payer ID:[id number] (NAIC) Type:BC ALLIANCE Address: [address] [place] [id number] [employer] MRA Advance Directives For more information, please contact: [phone] * Full Code (Latest Code Status on File) Date Activated Date Inactivated Comments 03/28/2023 4:29 AM 03/28/2023 9:36 PM Care Teams Diesel Engine Erector Relationship Specialty Start Date End Date Gris Bocanegra NP [address] [place] [address] PCP - General Nurse Practitioner 12/16/21 Sylvia Ulloa, MECHANICAL ASSEMBLY [address] [facility] [place] [address] Nurse Practitioner Internal Medicine 11/27/23
--- OUTSIDE RECORDS SUMMARY | 2024-07-22 00:12 | XMS_ITS | Referral Summary ---
Author Organization [facility] Address [address] [place] [address] Care Team Providers Care Crop And Soil Technician Name Role Phone Gris Bocanegra EXPELLER WORKER Primary Care Provider [phone] Sylvia Ulloa EXPELLER WORKER Unavailable [phone] Encounters Date Type Department Care Team Description 06/10/2024 3:00 PM CDT - 06/10/2024 11:59 PM CDT Hospital Encounter [id number] [address] [place] [address] [address] [place] [phone] Cervical stenosis of spinal canal; Cervical disc disorder with myelopathy of mid-cervical region; Low back pain, non-specific Discharge Disposition: Discharge to home or self care 06/10/2024 3:30 PM CDT Office Visit [facility] Neurosurgery [address] [place] [address] Office [address] [place] [address] Pam Lopez NP Other secondary scoliosis, thoracolumbar region (Primary Dx); Low back pain, non-specific; Neck pain 06/06/2024 Orders Only [facility] Neurosurgery [address] [place] [address] Office Building [address] [place] [address] Pam Lopez NP Cervical stenosis [...] on file Legal Sex Female 1:49 PM SEAWEED HARVESTER Gender Identity Female 01/23/2022 9:58 AM SEAWEED HARVESTER Sexual Orientation Not on file Last Filed Vital Signs Vital Sign Reading Time Taken Comments Blood Pressure 120/81 07/10/2023 2:37 PM CDT Pulse 78 07/10/2023 2:37 PM CDT Temperature 37.4 C (99.3 F) 03/28/2023 11:05 AM SEAWEED HARVESTER Respiratory Rate 20 03/28/2023 7:50 AM SEAWEED HARVESTER Oxygen Saturation 99% 03/28/2023 11:05 AM SEAWEED HARVESTER Inhaled Oxygen Concentration - - Weight 67.1 [...] as needed Medical Devices Implanted Type Area Religion Instructor Device Identifier Shelf Expiration Date Model / Serial / Lot Med[employer]onic Inc Centerpiece 10mm Lateral Hole Open Door Color Coded Spine [id number] - [id number] Implanted:Qty: 3 on 03/27/2023 by Neptali Benitez MD at [facility] N/A: Spine Cervical [employer] [id number] / / [employer] Spinal Screw Anterior Cervical Odlp Solid 2.0x7mm [id number] - [id number] Implanted:Qty: 6 on 03/27/2023 by Neptali Benitez MD at [facility] N/A: Spine Cervical [employer] [id number] / / [employer] Spinal Screw Anterior Cervical Odlp Solid 2.0x5mm [id number] - [id number] Implanted:Qty: 6 on 03/27/2023 by Neptali Benitez MD at [facility] N/A: Spine Cervical [employer] [id number] / / Procedures Procedure Name Priority Date/Time [...] Jorge Jones D.O. us Pam Alejandra Lopez EXPELLER WORKER IMG XR PROCEDURES Final Result from Last 3 Months Insurance [facility] Member Subscriber Plan / Payer (Ef fective 2019-Present) Name:Caylamary ellenMaryellen Relation to Subscriber:Spouse Name:YONIS BARTON Date of :1983 (Home) Address: [address] [place] [address] Payer ID:[id number] (NAIC) Type:[employer] HMO/PPO Address: [address] [place] [address] [facility] CHOICE PLUS [facility] HMO/PPO Address: [address] [address] [place] [address] [employer] OPEN ACCESS [facility] [employer] OOS [facility] Member Subscriber Plan / Payer (Ef fective 2019-Present) Name:Maryellen Barton Relation to Subscriber:Spouse Name:YONIS BARTON Date of :1983 (Home) Address: [address] [place] [address] Payer ID:[id number] (NAIC) Type:[employer] HMO/PPO Address: [address] [place] [address] MRA Advance Directives For more information, please contact: [phone] * Full Code (Latest Code Status on File) Date Activated Date Inactivated Comments 03/28/2023 4:29 AM 03/28/2023 9:36 PM Care Teams Crop And Soil Technician Relationship Specialty Start Date End Date Gris Bocanegra NP [address] [place] [address] [place] [address] PCP - General Nurse Practitioner 12/16/21 Sylvia Ulloa NP [address] [facility] [place] [address] Nurse Practitioner Internal Medicine 11/27/23
[2024-07-22] MEDS: ACETAMINOPHEN 500 MG TABLET 1000 MG PO ×2 (06:15→11:49)
[2024-07-22] MEDS: LACTATED RINGERS 1,000 ML 30 ML IV CONT ×2 (06:20→08:48)
[2024-07-22] MEDS: KETOROLAC 15 MG/ML VIAL (*BKC) IV PUSH (06:25)
--- NOTE | 2024-07-22 07:03 | P.PNAN_ITS ---
Anes - Initial Pre Proc Eval Procedure: Operation Date: 07/22/24 07:30 Proposed Procedures p Robotic Assisted Total Laparoscopic Hysterectomy with Bilateral Salpingectomy - Sid Alvarenga MD Date/Time: 07/22/24 07:03 Surgeon: Sid Alvarenga MD Pre Op Diagnosis: Uterine Fibroid Patient Data Age: 39 Gender: F Height: 1.63 m Weight: 67.85 kg Last Vital Signs Temp 97.9 F 07/22/24 06:06 Pulse 95 07/22/24 06:06 Resp 18 07/22/24 06:06 BP 123/83 07/22/24 06:06 Pulse Ox 98 07/22/24 06:06 O2 Del Method Room Air 07/22/24 06:06 Allergies Allergy/AdvReac Type Severity Reaction Status Date / Time No Known Allergies Allergy Verified 07/10/24 15:33 Home Medications ?Medication ?Instructions ?Recorded ?Confirmed ?Type trazodone 50 mg tablet 50 mg PO DAILY 09/17/23 07/22/24 History valacyclovir 500 mg tablet 500 mg PO DAILY #90 tabs 10/12/23 07/22/24 Rx (Valtrex) levothyroxine 50 mcg tablet 50 mcg PO DAILY 05/27/24 07/22/24 History phentermine 37.5 mg capsule 37.5 mg PO DAILY 05/27/24 07/10/24 History spironolactone 100 mg tablet 100 mg PO DAILY 05/27/24 07/22/24 History diclofenac sodium 75 mg 75 mg PO BID 06/18/24 07/22/24 History tablet,delayed release norethindrone acetate 1 mg-ethinyl 1 tablet PO DAILY #63 tabs 06/18/24 07/22/24 Rx estradiol 20 mcg tablet (Junel) tizanidine 4 mg tablet 4 mg PO HS 06/18/24 07/22/24 History venlafaxine 75 mg capsule,extended 75 mg PO DAILY 07/10/24 07/22/24 History release 24 hr Patient hx anesthesia problems: none Family hx anesthesia problems: none Results Review: All pre-operative results and documents have been reviewed as part of the pre- operative evaluation. [facility]LY [facility] Past Medical History Medical History Vaginal irritation Gastroesophageal reflux Surgical History Surgical History H/O neck surgery History of removal of ovarian cyst (~2005) Family History Family History Grandparent Breast cancer Brain cancer Diabetes mellitus Mother Diabetes mellitus Father Lung cancer Social History Social History Smoking status: Never smoker Alcohol intake: current Alcohol use details: socially Substance use: never Substance use type: does not use Do You Feel Safe in your Home?: Yes Lack of Transportation: No Lack of Food: Never True Current Housing: I Have Housing Concerned About Future Housing: No Difficulty Paying Gas/Electric Bills: No Difficulty Paying for Meds: No Currently Unemployed: No Education: High School Diploma/GED Difficulty w/ Childcare or Family Care: No Living arrangements: with family Occupation/Education: occupation Gender identity (if verbalized by the patient): Female Spiritual care concerns: No Anes - Eval Final PreProcedure Day of Procedure 07/22/24 07:03 Patient weight: normal Lungs: normal air movement Airway: Mallampati scale class II and special considerations (Upper caps, missing several in the post aspect. ) Neurological: alert and oriented Last oral intake: >/= 8 hours ASA classification: II Emergent: no Anesthetic plan: proceed Anesthesia type and monitoring: general ETT and standard monitoring Results Review: All pre-operative results and documents have been reviewed as part of the pre- operative evaluation. Hypothyroidism. Pt active as a CLOTHING MANAGER, no cp or sob. Informed Consent: The patient's anesthetic plan and its attendant risks and benefits were discussed with the patient/family/POA. Questions were solicited and answers provided to the satisfaction of the patient/family/POA.
--- NOTE | 2024-07-22 07:13 | PM.IMHP ---
H&P: HPI History of Present Illness Date/Time: 07/22/24 07:13 Chief Complaint: pelvic pain uterine fibroid Narrative: 39 yo female who presents for robotic TLH/BS for pelvic pain and uterine fibroids. Review of Systems Cardiovascular: Cardiovascular: Denies chest pain, Denies leg edema, Denies palpitations, Denies dyspnea and Denies dyspnea on exertion Respiratory: Respiratory: Denies cough, Denies dyspnea and Denies dyspnea on exertion Gastrointestinal: Gastrointestinal: Denies abdominal pain, Denies constipation, Denies diarrhea, Denies nausea and Denies vomiting Genitourinary: Genitourinary: Denies hematuria, Denies urinary frequency, Denies dysuria, Denies pelvic pain, Denies urinary incontinence and Denies vaginal discharge Neurologic: Reports system reviewed and no additional complaints, except as documented Psychiatric: Psychiatric: Reports no additional psychiatric complaints Endocrine: Endocrine: Denies palpitations PMFSH Past Medical History Medical History Vaginal irritation Gastroesophageal reflux Surgical History Surgical History H/O neck surgery History of removal of ovarian cyst (~2005) Family History Family History Grandparent Breast cancer Brain cancer Diabetes mellitus Mother Diabetes mellitus Father Lung cancer Social History Social History Smoking status: Never smoker Alcohol intake: current Alcohol use details: socially Substance use: never Substance use type: does not use Do You Feel Safe in your Home?: Yes Lack of Transportation: No Lack of Food: Never True Current Housing: I Have Housing Concerned About Future Housing: No Difficulty Paying Gas/Electric Bills: No Difficulty Paying for Meds: No Currently Unemployed: No Education: High School Diploma/GED Difficulty w/ Childcare or Family Care: No Living arrangements: with family Occupation/Education: occupation Gender identity (if verbalized by the patient): Female Spiritual care concerns: No Meds Home Medications and Allergies Home Medications ?Medication ?Instructions ?Recorded ?Confirmed ?Type trazodone 50 mg tablet 50 mg PO DAILY 09/17/23 07/22/24 History valacyclovir 500 mg tablet 500 mg PO DAILY #90 tabs 10/12/23 07/22/24 Rx (Valtrex) levothyroxine 50 mcg tablet 50 mcg PO DAILY 05/27/24 07/22/24 History phentermine 37.5 mg capsule 37.5 mg PO DAILY 05/27/24 07/10/24 History spironolactone 100 mg tablet 100 mg PO DAILY 05/27/24 07/22/24 History diclofenac sodium 75 mg 75 mg PO BID 06/18/24 07/22/24 History tablet,delayed release norethindrone acetate 1 mg-ethinyl 1 tablet PO DAILY #63 tabs 06/18/24 07/22/24 Rx estradiol 20 mcg tablet (Junel) tizanidine 4 mg tablet 4 mg PO HS 06/18/24 07/22/24 History venlafaxine 75 mg capsule,extended 75 mg PO DAILY 07/10/24 07/22/24 History release 24 hr Allergies Allergy/AdvReac Type Severity Reaction Status Date / Time No Known Allergies Allergy Verified 07/10/24 15:33 Vital Signs Vital Signs - 24 hr 07/22/24 06:06 Temperature 97.9 F Pulse Rate 95 Respiratory Rate 18 Blood Pressure 123/83 Pulse Oximetry 98 Oxygen Delivery Room Air Exam Const: General: no acute distress Eyes: EOM: EOMs intact bilaterally Neck: Neck: supple Thyroid: thyroid normal Chest: Breast/axilla inspection: normal inspection of the breasts Breast/axilla palpation: normal palpation of the breasts, normal palpation of the axillae and no axillary lymphadenopathy Resp: Effort & Inspection: normal respiratory effort Auscultation: clear to auscultation bilaterally Cardio: Rate: regular rate Rhythm: regular rhythm GI: Inspection: non-distended GI Palp: Yes Soft to palpation, No Tenderness to palpation present (GI) and No Guarding due to palpation present (GI) Auscultation: normal bowel sounds : General: No bladder normal to palpation External Female Exam: normal external appearance Speculum Exam - Vagina: normal vaginal discharge and No vaginal bleeding Speculum Exam - Cervix: nontender Bimanual exam- vagina & uterus: No bladder normal to palpation and No Cervical tenderness present OB/external & speculum: No vaginal bleeding Skin: General skin exam: normal color and no rashes or lesions noted Neuro: Cognition (Neuro): normal cognition Speech: normal speech Extrem: General: normal to inspection and no edema Psych: Mental Status: mental status grossly normal Affect: normal affect Assessment and Plan Assessment and plan (1) Pelvic pain: Code(s): R10.2 - Pelvic and perineal pain Status: Acute Assessment and Plan: 39-year-old female who presents for follow-up regarding uterine fibroids Patient has been experiencing pelvic pain Patient states the pain is localized to the right lower quadrant. She states it is exacerbated with positioning and laying on the right side She also reports difficulty with bowel movements uterus measures 8.4 x 6.4 x 4.5 cm 5.2 cm uterine fibroid noted on the right side of the uterus as well as a 1 cm anterior fibroid patient currently on hormonal contraceptives. Patient has had decent control of bleeding but continues to have pain Management options of uterine fibroids reviewed Discussed GnRH agonist / antagonist versus surgical management Patient is requesting hysterectomy for definitive management Risks, benefits, alternatives reviewed Will plan for robotic assisted TLH /BS (2) Uterine fibroid: Code(s): D25.9 - Leiomyoma of uterus, unspecified Status: Acute
--- NOTE | 2024-07-22 07:15 | WPDHPUPDATE1 ---
History and Physical Update Update Date/Time: 07/22/24 07:15 History and Physical has been reviewed, including an updated exam of the patient. There are NO changes in the patient's condition. Risks, benefits, and alternatives have been discussed and questions answered. Patient agrees to proceed with procedure.
[2024-07-22] MEDS: ceFAZolin 2 GM/D5W 50 ML 2 GM/50 ML BAG IVPB (07:26)
[2024-07-22] MEDS: LIDO 1%/EPINEPHRINE 1:100,000 20 ML VIAL 30 ML INFILTRATE (08:04)
--- NOTE | 2024-07-22 08:48 | W.PM.PROC2 ---
Procedure Note - Detailed Date of Procedure 07/22/24 Pre-op Diagnosis Uterine Fibroid pelvic pain Post-op Diagnosis Same Procedure Performed robotic assisted total laparoscopic hysterectomy and bilateral salpingectomy Surgeon Sid Alvarenga MD Anesthesia General Indications uterine fibroid pelvic pain Findings globally enlarged uterus with subserosal fibroids, normal appearing ovaries and fallopian tubes bilaterally. endometrial implants within the posterior cul de sac Description of Procedure After the patient was appropriately consented she was taken to the operating room where she was transferred to the table in a dorsal supine position. General anesthesia was then induced with endotracheal intubation. The patient was transferred to a dorsal lithotomy position using adjustable yellow-fin stirrups. Her position was adjusted for appropriate support of her lower back and lower extremities. The patient was prepped and draped. A transurethral ying catheter was place. The cervix was sequentially dilated and a JAME uterine manipulator placed in typical fashion about a 3 cm LOIS ring. Gloves were changed. After confirmation of a functioning orogastric tube, lidocaine was injected at Orosco&'s point in the LUQ and a 8 mm incision was made. A 5mm Optiview trocar was then inserted into the abdominal cavity under direct visualization and done so without complication. The abdomen was then insufflated with approximately 2-3L of CO2 establishing a pneumoperitoneum and the patient was placed in Trendelenburg position. Just above the umbilicus in the midline, a 8 mm incision made after injection of lidocaine and a 8 mm bladeless trocar advanced into the abdominal cavity under direct visualization without incident. We subsequently placed two robotic ports in a similar fashion, one in the left mid-quadrant and one in the right, 10cm lateral to the midline port. The robot was then docked. Attention was turned to the left pelvis. The left fallopian tube was removed by sequentially dividing the mesosalpinx towards the uterus sparing the ovary. The utero-ovarian ligament was desiccated and transected, as was the round ligament. The posterior peritoneal leaf was taken down to the LOIS ring. The anterior leaf was developed as well as the start of the bladder flap. The left uterine artery was then skeletonized and desiccated and transected just above the level of the LOIS ring. Attention was turned to the right pelvis. The right fallopian tube was removed by sequentially dividing the mesosalpinx towards the uterus sparing the ovary. The utero-ovarian ligament was desiccated and transected, as was the round ligament. The posterior peritoneal leaf was taken down to the LOIS ring. The anterior leaf was developed as well as the start of the bladder flap. The right uterine artery was then skeletonized and desiccated and transected just above the level of the LOIS ring. The bladder was then further dissected inferiorly over the level of the LOIS ring. A circumferential colpotomy was made using monopolar current. The uterus, cervix, bilateral tubes were then delivered transvaginally. I then placed a single figure of eight suture of 0-vicryl in the left corner of the vaginal cuff. I then re-approximated the colpotomy with a running #1 PDO Quill suture in 2 layers. Following this dissection, the abdomen and pelvis were copiously irrigated and all surgical sites found to be hemostatic. Skin sites were reapproximated with 4-0 Vicryl in a subcuticular fashion. Steri-Strips were placed. The patient tolerated the procedure well. Sponge, needle and instrument counts were correct x 2 and the patient was taken to recovery in stable condition. Ancef wase given for antimicrobial prophylaxis. The patient had SCD's on for VTE prophylaxis during the entire procedure. Estimated Blood Loss 50 Drains No Packing No Pathology Yes (cervix, uterus, fallopian tubes) Complications No immediate complications Condition Stable Disposition PACU [facility] Billing Surgery - Charge Forward: Surgery Billing
[2024-07-22] MEDS: fentaNYL CITRATE INJ (*CRX) 100 MCG/2 ML VIAL 25 MCG IV PUSH (10:10)
--- NOTE | 2024-07-22 10:32 | PC.NURSE ---
This patient, Maryellen Barton, was received from PACU on 07/22/24 at 1235. Patient/family oriented to unit policies and routines
[2024-07-22] MEDS: DOCUSATE SODIUM 100 MG CAPSULE PO (11:49)
[2024-07-22] MEDS: SIMETHICONE 80 MG TAB.CHEW PO (11:49)
[2024-07-22] MEDS: KETOROLAC 30 MG/ML VIAL (*BKC) IV PUSH (11:49)
== END 2024-07-22 13:08 | disposition home or self-care (01) ==
PROVIDERS: PCP Nurse Practitioner; Visit Provider Student in an Organized Health Care Education/Training Program
PROC: (CPT 58571; principal; 2024-07-22 07:30)
DX: D25.2 Subserosal leiomyoma of uterus (principal); N80.329 Endometriosis of the posterior cul-de-sac, unspecified depth; N73.6 Female pelvic peritoneal adhesions (postinfective); G89.18 Other acute postprocedural pain; E03.9 Hypothyroidism, unspecified; K21.9 Gastro-esophageal reflux disease without esophagitis; Z98.890 Other specified postprocedural states; Z98.1 Arthrodesis status; Z80.3 Family history of malignant neoplasm of breast; Z80.1 Family history of malignant neoplasm of trachea, bronchus and lung
CPT/HCPCS: 58571; S2900; 88307; A9270; J0690; J1100; J1171; J1885; J2003; J2004; J2250; J2405; J2704; J3010; J7030; J7120

== ENCOUNTER 2024-10-25 08:56 | Outpatient (CLI) | payer BC, OTHER, SELFPAY ==
[2024-10-25 10:42] LABS: Thyroid Stimulating Hormone 1.870 uIU/mL (0.465-4.680)
[2024-10-26 06:07] LABS: FSH 5.6 mIU/mL (.)
== END 2024-10-25 08:57 | disposition home or self-care (01) ==
LOC: ANHLAB 09:04
PROVIDERS: PCP Nurse Practitioner; Visit Provider Student in an Organized Health Care Education/Training Program
DX: R23.2 Flushing (principal)
CPT/HCPCS: 36415; 83001; 84443